=== PATIENT | female | born 1950 | race Caucasian/White ===

== ENCOUNTER → 2016-10-19 | Outpatient (CLI) | payer OTHER ==
[~2016-10-19] MED LIST: AMOX875T PO; ASPCH81X PO; ATEN50TA8 PO; ATOR-22 PO; CEPH500C2 PO; CHOL100010 PO; ESCI10TA17 PO; LEVO125T72 PO; LTR510 PO; NAPR1TAB9 PO; NXM/40 PO; SULF800T23 PO; SYN150 PO; ZNTT/150 PO
--- NOTE | 2016-10-19 16:11 | MAMMOGRAPHY REPORT ---
BILATERAL DIGITAL SCREENING MAMMOGRAM WITH CAD: 10/19/2016 CLINICAL HISTORY: Routine screening. Patient has no complaints. TECHNIQUE: Current study was also evaluated with a Computer Aided Detection (CAD) system. Bilatera l CC and MLO views were obtained. COMPARISON: Comparison is made to exams dated: 10/15/2015 mammogram, 10/13/2014 mammogram, 09/19/2013 m ammogram, 09/18/2012 mammogram, 09/18/2011 mammogram, and 09/15/2010 mammogram - [facility]. BREAST COMPOSITION: The tissue of both breasts is heterogeneously dense, which may obscure small ma sses. FINDINGS: No suspicious masses, calcifications, or areas of architectural distortion are noted in e ither breast. There has been no significant interval change compared to prior exams. Scattered bilat eral benign-appearing calcifications are not significantly changed. IMPRESSION: ACR BI-RADS CATEGORY 2: BENIGN There is no mammographic evidence of malignancy. A 1 year screening mammogram is recommended. The p atient will receive written notification of the results. Approximately 10% of breast cancers are not detected with mammography. A negative mammographic repor t should not delay biopsy if a clinically suggestive mass is present. Nereyda Mcclendon M.D. /:10/19/2016 12:32:50 Price Lister: Erma POTTS)(Felicitas)(LORENE), [facility] letter sent: Normal 1/2 BI-RADS Code: ACR BI-RADS Category 2: Benign
== END | disposition home or self-care (01) ==
LOC: C.MAMM 10:44
PROVIDERS: ATTEND Internal Medicine
DX: Z12.31 Encounter for screening mammogram for malignant neoplasm of breast (principal)

== ENCOUNTER 2016-11-03 11:21 | Emergency (ER) | payer OTHER ==
[~2016-11-03] VITALS: Ht 167.6 cm; Wt 99.2 kg
[~2016-11-03 11:21] MED LIST changes: -AMOX875T PO; -CEPH500C2 PO; -LEVO125T72 PO; -SULF800T23 PO; -ZNTT/150 PO
[2016-11-03 11:24] VITALS: TEMP 36.5; Ht 167.6 cm; Wt 99.2 kg
[2016-11-03 12:00] LABS: BASO % 0.5 %; BASO ABS # 0.02 K/uL (0-0.2); COMPLETE YES; EOS % 3.3 %; HEMATOCRIT 37.9 % (37-47); IG% 0.3 %; LYMPH % 19.5 %; LYMPH ABS # 0.76 K/uL (1.2-3.4); MEAN CELL VOLUME 91.3 fL (80-100); MEAN CORPUSCULAR HEMOGLOBIN 31.8 pg (25-34); MEAN CORPUSCULAR HGB CONC 34.8 g/dl (32-36); MEAN PLATELET VOLUME 9.4 fL (7.4-10.4); MONO % 15.7 %; NEUT % 60.7 %; PLATELET COUNT 221 K/uL (130-400); RED BLOOD COUNT 4.15 M/uL (4.2-5.4); WHITE BLOOD COUNT 3.89 K/uL (4.8-10.8)
[2016-11-03] MEDS ORDERED: CHOL100010 PO (12:06)
[2016-11-03] MEDS ORDERED: ZNTT/150 PO (12:06)
[2016-11-03] MEDS ORDERED: LEVO125T72 PO (12:06)
--- NOTE | 2016-11-03 12:16 | EMERGENCY ROOM VISIT NOTE ---
ED Visit Note First contact with patient: 11:32 I have personally evaluated and examined this patient. I agree with assessment and plan of Trini Lin PA-C. Patient is a 66-year-old female who comes in with right lower surgical site swelling and pain. She had a ganglion cyst removed a couple weeks ago was seen in her first postop when the stitches were removed. Not able to express any drainage, there is minimal pain with palpation and hyperpigmentation, however no erythema or lymphadenopathy or lymphangitis. We have sent baseline labs, we will obtain a x-ray, an attempt to get in touch with the primary surgeon at [place] for close follow-up for possible infection and inquire whether he would want us to start her on any antibiotics. I'm deferring antibiotic administration to the orthopedist in case they need to obtain a operative culture.
[2016-11-03 12:20] LABS: BUN/CREATININE RATIO 24.1 (10-20); CALCIUM 9.2 mg/dl (8.5-10.1); CREATININE 0.8 mg/dl (0.60-1.20)
--- NOTE | 2016-11-03 12:26 | DIAGNOSTIC IMAGING REPORT ---
RIGHT ANKLE 3 VIEWS CLINICAL HISTORY: Right ankle surgery. Purulent drainage. FINDINGS: 3 views the right ankle are compared to study dated 09/23/2006. The skeletal structures are osteopenic. No fracture is identified. The ankle mortise is intact. There is no evidence of periostitis or bony erosion. Large dorsal and plantar calcaneal enthesophytes are seen. Degenerative spurring is present at the anterior tibial plafond and along the dorsal aspect of the tarsal bones. Soft tissue edema is present around the ankle. No large joint effusion is identified. IMPRESSION: 1. Soft tissue swelling with no acute bony abnormality identified in the right ankle. 2. Osteopenia, degenerative change, and heel spurs as above. Electronically signed by: Chito Calle M.D. 11/03/2016 12:25 PM Dictated Date/Time: 11/03/2016 12:22 PM
[2016-11-03 12:55] VITALS: BP 126/66; PULSE 51; O2SAT 100
[2016-11-03] MEDS ORDERED: AMOX875T PO (13:02)
--- NOTE | 2016-11-03 13:07 | EMERGENCY ROOM VISIT NOTE ---
History First contact with patient: 11:32 Chief Complaint: WOUND INFECTION Stated Complaint: SURG. RT ANKLE POSSIBLE INFECTION Nursing Triage Summary: ganglion cyst removed from right ankle in [place] on 10/11/16. Has had issues with "puffy areas" and stitches removed last sunday. States "it was green and pussy and it was a mess". Not on ATB. Denies fever or chills. History of Present Illness The patient is a 66 year old female who presents to the Emergency Room via private vehicle coming by daughter with complaints of "surgery right ankle possible infection". The patient states that on October 11 at the [facility], [facility] [place] she had an operation of her right ankle on the lateral aspect. This was performed by Dr. Javier, and the patient states that things have gone well since then. The patient was informed that while tending to remove the cyst it did break but the area was thoroughly irrigated. The patient states that this past weekend she noticed redness and worsening pain in the area. For the past 2 weeks she has been taking 2 extra strength Tylenol every 8 hours for the pain. She denies any fevers or chills. Review of Systems A complete 10-point Review of Systems was discussed with the patient, with pertinent positives and negatives listed in the History of Present Illness. All remaining Review of Systems questions can be considered negative unless otherwise specified. Past Medical/Surgical History Medical Problems: (1) Coronary artery disease (2) Diabetes (3) HTN (hypertension) Family History Cancer Heart disease Hypertension Social History Smoking Status: Never Smoker Alcohol Use: none Marital Status: Housing Status: lives with significant other Occupation Status: unemployed Current/Historical Medications Scheduled Amlodipine/Benazepril (Lotrel 5MG/10MG), 1 CAP PO QAM Amoxicillin & Pot Clavulanate (Augmentin 875-125 mg), 1 TAB PO BID Aspirin (Aspirin Chewable), 81 MG PO QPM Atenolol (Tenormin), 50 MG PO BID Atorvastatin (Lipitor), 20 MG PO QPM Cholecalciferol (Vitamin D), 1 INTER.UNIT PO QAM Escitalopram (Lexapro), 10 MG PO 3XWK Levothyroxine Sodium (Synthroid), 125 MCG PO DAILY Ranitidine (Zantac), 150 MG PO DAILY Scheduled PRN Naproxen (Aleve), 440 MG PO DAILY PRN for PRN Allergies Coded Allergies: Acetaminophen (Verified Allergy, Unknown, ITCHY, 11/03/16) Hydrocodone (Verified Allergy, Unknown, ITCHY, 11/03/16) Physical Exam Vital Signs Date Time Temp Pulse Resp B/P Pulse Ox O2 Delivery O2 Flow Rate FiO2 11/03/16 12:55 51 18 126/66 100 Room Air 11/03/16 11:24 36.5 66 18 127/78 96 Room Air Physical Exam VITAL SIGNS - Vital signs and nursing notes were reviewed. The patient is afebrile, normotensive, non-tachycardic and is saturating well on room air 96%. GENERAL -66-year-old female appearing her stated age who is in no acute distress. Communicates well with provider and answers questions appropriately. SKIN - Without rashes. There is a slight area of erythema surrounding the linear incision on the lateral aspect of the right ankle. This erythematous region measures 7 cm x 4 cm. There was slight purulent material expressed upon slight active range of motion of the ankle. NECK - Neck with FROM. No meningeal signs. LUNGS - Chest wall symmetric without accessory muscle use, intercostals retractions, or central cyanosis. Normal vesicular breath sounds CTA B/L. No wheezes, rales, or rhonchi appreciated. CARDIAC - RRR with S1/S2. No murmur, rubs, or gallops appreciated. EXTREMITIES - No clubbing or peripheral cyanosis. No pretibial edema present. Patient is vascularly intact in the right lower extremity. There is tenderness to palpation overlying the incision. Incision is healing well, there is evidence of what is suspected to be Vicryl suture. No evidence of retained permanent suture material. +5/5 strength noted in UE/LE bilaterally. NEUROLOGIC -patient neurologically intact in the right foot. PSYCH - A&Ox3 and cooperates fully with examiner. Pt is very pleasant and interacts well with examiner. Medical Decision & Procedures ER Provider Diagnostic Interpretation: RIGHT ANKLE 3 VIEWS CLINICAL HISTORY: Right ankle surgery. Purulent drainage. FINDINGS: 3 views the right ankle are compared to study dated 09/23/2006. The skeletal structures are osteopenic. No fracture is identified. The ankle mortise is intact. There is no evidence of periostitis or bony erosion. Large dorsal and plantar calcaneal enthesophytes are seen. Degenerative spurring is present at the anterior tibial plafond and along the dorsal aspect of the tarsal bones. Soft tissue edema is present around the ankle. No large joint effusion is identified. IMPRESSION: 1. Soft tissue swelling with no acute bony abnormality identified in the right ankle. 2. Osteopenia, degenerative change, and heel spurs as above. Electronically signed by: Chito Calle M.D. 11/03/2016 12:25 PM Dictated Date/Time: 11/03/2016 12:22 PM Laboratory Results 11/03/16 11:50 Red Blood Count 4.15, Mean Corpuscular Volume 91.3, Mean Corpuscular Hemoglobin 31.8, Mean Corpuscular Hemoglobin Concent 34.8, Mean Platelet Volume 9.4, Neutrophils (%) (Auto) 60.7, Lymphocytes (%) (Auto) 19.5, Monocytes (%) (Auto) 15.7, Eosinophils (%) (Auto) 3.3, Basophils (%) (Auto) 0.5, Neutrophils # (Auto ) 2.36, Lymphocytes # (Auto) 0.76, Monocytes # (Auto) 0.61, Eosinophils # (Auto ) 0.13, Basophils # (Auto) 0.02 11/03/16 11:50 Test 11/03/16 11:50 White Blood Count 3.89 K/uL (4.8-10.8) Red Blood Count 4.15 M/uL (4.2-5.4) Hemoglobin 13.2 g/dL (12.0-16.0) Hematocrit 37.9 % (37-47) Mean Corpuscular Volume 91.3 fL (80-100) Mean Corpuscular Hemoglobin 31.8 pg (25-34) Mean Corpuscular Hemoglobin Concent 34.8 g/dl (32-36) Platelet Count 221 K/uL (130-400) Mean Platelet Volume 9.4 fL (7.4-10.4) Neutrophils (%) (Auto) 60.7 % Lymphocytes (%) (Auto) 19.5 % Monocytes (%) (Auto) 15.7 % Eosinophils (%) (Auto) 3.3 % Basophils (%) (Auto) 0.5 % Neutrophils # (Auto) 2.36 K/uL (1.4-6.5) Lymphocytes # (Auto) 0.76 K/uL (1.2-3.4) Monocytes # (Auto) 0.61 K/uL (0.11-0.59) Eosinophils # (Auto) 0.13 K/uL (0-0.5) Basophils # (Auto) 0.02 K/uL (0-0.2) RDW Standard Deviation 44.9 fL (36.4-46.3) RDW Coefficient of Variation 13.5 % (11.5-14.5) Immature Granulocyte % (Auto) 0.3 % Immature Granulocyte # (Auto) 0.01 K/uL (0.00-0.02) Anion Gap 8.0 mmol/L (3-11) Est Creatinine Clear Calc Drug Dose 82.2 ml/min Estimated GFR () 89.0 Estimated GFR (Non- 76.8 BUN/Creatinine Ratio 24.1 (10-20) Calcium Level 9.2 mg/dl (8.5-10.1) Medical Decision Patient was seen and evaluated as above. After obtaining a thorough history and physical examination I did elect to obtain IV access to evaluate for white count secondary to suspected infection. I obtained a CBC and PRP. I also elected to obtain a right ankle radiograph to rule out retained foreign body from the procedure. CBC revealed decreased white blood cell count 3.9, and decreased her blood cell count was 4.15. The PRP revealed elevated BUN, as well as elevated random glucose. Creatinine was stable. The BUN was elevated in the past, particularly 22 in August 2014. The red blood cell count was also 4.02 in August 2014. Ankle radiograph reveals no retained foreign body or acute injury. Patient was educated upon today's findings. I did elect to call the surgical individuals at [facility] [place] who performed the procedure. I spoke with Prashanth Yan, a physician stonecutter assistant. Culture place at 12:19 PM who indicated the patient was actually offered an appointment today at 3:30 PM, and because the patient was here and unable to make that he stated that they would be happy to see her on Sunday at 3:30 PM on November 07. He also found to be portillo to start her on antibiotics, and offered Augmentin. I decided to write a prescription for Augmentin for the patient for a 10 day supply. I do believe this is appropriate. I was unable to obtain the wound culture. The patient will be placed upon Augmentin 875 twice a day for 10 days and is to follow-up with the [facility] and [facility] at 3:30 PM on Sunday at . She was instructed to have repeat basic labs done to ensure that her white count and red blood cell count returned normal. She was educated upon management of today's findings, educated upon worrisome symptoms in which to return, had questions answered prior to discharge and was discharged home in good condition. The patient did note that she did call down to [facility] [place] earlier today and they offered her appointment however she did not feel that she could make it in time for the time that they offered, therefore she came to the emergency department. I this time feel that oral antibiotics are appropriate and do not suspect any sepsis or evidence of lymphangitic streaking. In evaluation treatment of this patient the following differential diagnoses were entertained: Sepsis, septic arthritis, retained foreign body, cellulitis, among others. I do believe the patient is experiencing cellulitis at this time. Impression Primary Impression: Cellulitis Departure Information Dispostion Home / Self-Care Condition GOOD Prescriptions Amoxicillin & Pot Clavulanate (Augmentin 875-125 mg) 1 Tab Tab 1 TAB PO BID for 10 Days, #20 TAB Prov: Cliff Lin PA-C 11/03/16 Referrals No Doctor, Assigned (PCP) Patient Instructions My [facility] Additional Instructions You were seen in the emergency Department for a skin infection overlying a surgical incision. Blood work has not revealed any indication to provide IV antibiotics. As we discussed it is recommended you have basic blood work repeated with her family doctor. We are prescribing your Augmentin. This is an antibiotic. This is one tablet twice daily for 10 days. I spoke with Prashanth Yan PA-C of the [facility] [place] at [facility] who indicated that you had an appointment now scheduled for Sunday at 3:30 PM which is the of this month. I also antonella a line around the area of redness if this would extend beyond half an inch please return and if this is not getting any better in 48 hours please return. If you develop any fevers, chills or any new/concerning symptoms please return to the emergency Department immediately. Problem Qualifiers Primary Impression: Cellulitis Site of cellulitis: extremity Site of cellulitis of extremity: lower extremity Laterality: right Qualified Codes: L03.115 - Cellulitis of right lower limb
== END 2016-11-03 13:22 | disposition home or self-care (01) ==
LOC: C.EDB 11:23 → C.EDD 13:22
DX: L03.115 Cellulitis of right lower limb (principal); R79.9 Abnormal finding of blood chemistry, unspecified; D72.819 Decreased white blood cell count, unspecified; I25.10 Atherosclerotic heart disease of native coronary artery without angina pectoris; I10 Essential (primary) hypertension; E11.9 Type 2 diabetes mellitus without complications; Z82.49 Family history of ischemic heart disease and other diseases of the circulatory system; Z83.3 Family history of diabetes mellitus

== ENCOUNTER 2016-11-04 21:20 | Emergency (ER) | payer OTHER ==
[~2016-11-04] VITALS: Ht 167.6 cm; Wt 99.2 kg
[~2016-11-04 21:20] MED LIST changes: +AMOX875T PO; +LEVO125T72 PO; +ZNTT/150 PO
[2016-11-04 21:23] VITALS: TEMP 36.5; Ht 167.6 cm; Wt 99.2 kg
[2016-11-04] MEDS ORDERED: CEFTRIAXONE SOD INJ 1 GM ADDVIAL IV STA (21:51)
[2016-11-04 21:54] VITALS: O2SAT 98
[2016-11-04] MEDS ORDERED: OPTIRAY 320 IV PRN (22:15)
[2016-11-04 22:36] LABS: BASO % 0.9 %; BASO ABS # 0.04 K/uL (0-0.2); COMPLETE YES; EOS % 3.9 %; HEMATOCRIT 38.7 % (37-47); LYMPH % 20.1 %; LYMPH ABS # 0.87 K/uL (1.2-3.4); MEAN CELL VOLUME 93.3 fL (80-100); MEAN CORPUSCULAR HEMOGLOBIN 32.3 pg (25-34); MEAN CORPUSCULAR HGB CONC 34.6 g/dl (32-36); MEAN PLATELET VOLUME 9.5 fL (7.4-10.4); MONO % 16.4 %; NEUT % 58.7 %; PLATELET COUNT 225 K/uL (130-400); RED BLOOD COUNT 4.15 M/uL (4.2-5.4); WHITE BLOOD COUNT 4.33 K/uL (4.8-10.8)
[2016-11-04 22:44] LABS: PARTIAL THROMBOPLASTIN RATIO 0.8; PROTHROMBIN TIME (PATIENT) 10.9 SECONDS (9.0-12.0)
[2016-11-04 22:52] LABS: ALT/SGPT 34 U/L (12-78); BLOOD UREA NITROGEN 14 mg/dl (7-18); BUN/CREATININE RATIO 19.4 (10-20); C-REACTIVE PROTEIN < 0.29 mg/dl (0-0.29); CARBON DIOXIDE 28 mmol/L (21-32); CHLORIDE 109 mmol/L (98-107); CREATININE 0.72 mg/dl (0.60-1.20); GLUCOSE 84 mg/dl (70-99); POTASSIUM 4.1 mmol/L (3.5-5.1); SODIUM 145 mmol/L (136-145)
[2016-11-04 22:55] LABS: ALB/GLOB RATIO 1.4 (0.9-2); ALKALINE PHOSPHATASE 84 U/L (45-117); AST/SGOT 23 U/L (15-37)
--- NOTE | 2016-11-04 22:56 | DIAGNOSTIC IMAGING REPORT ---
ULTRASOUND VENOUS DOPPLER ULTRASOUND OF THE RIGHT LOWER EXTREMITY CLINICAL HISTORY: Right leg swelling. COMPARISON STUDY: No previous studies for comparison. FINDINGS: Real-time and color flow Doppler imaging were performed. Flow was seen within the femoral, popliteal and calf veins with no intraluminal thrombus demonstrated. The saphenous vein is patent. IMPRESSION: No evidence of right lower extremity DVT. Electronically signed by: Christian Merchant M.D. 11/04/2016 10:55 PM Dictated Date/Time: 11/04/2016 10:55 PM
[2016-11-05] MEDS ORDERED: CEPH500C2 PO (01:10)
[2016-11-05] MEDS ORDERED: SULF800T23 PO (01:10)
[2016-11-05] MEDS ORDERED: CEPHALEXIN 500MG HOME PACK 1 EA BTL PO ONE (01:15)
[2016-11-05] MEDS ORDERED: SEPTRA DS HOME PACK 1 EA VIAL PO ONE (01:15)
[2016-11-05 01:16] VITALS: BP 141/74; PULSE 58; O2SAT 96
--- NOTE | 2016-11-05 04:45 | EMERGENCY ROOM VISIT NOTE ---
History First contact with patient: 21:39 Chief Complaint: INFECTION Stated Complaint: HAD SURG ON R ANKLE, INFECTION, History of Present Illness The patient is a 66 year old female who presents to the Emergency Room with complaints of increasing right ankle pain and swelling for the past 2 days was seen here yesterday and started on Augmentin for possible postsurgical infection. She had a ganglion cyst removed from this right ankle general for by Dr. Mckinley at [facility]. Patient does not smoke. No recent travel. No history DVT or PE. Patient denies chest pain, dyspnea, fever, chills, vomiting, diarrhea, numbness, tingling, abdominal pain. No new injury to the area. Review of Systems See HPI for pertinent positives & negatives. A total of 10 systems reviewed and were otherwise negative. Past Medical/Surgical History Medical Problems: (1) Coronary artery disease (2) Diabetes (3) HTN (hypertension) Family History Cancer Heart disease Hypertension Social History Smoking Status: Never Smoker Alcohol Use: none Marital Status: Housing Status: lives with significant other Occupation Status: unemployed Current/Historical Medications Scheduled Amlodipine/Benazepril (Lotrel 5MG/10MG), 1 CAP PO QAM Amoxicillin & Pot Clavulanate (Augmentin 875-125 mg), 1 TAB PO BID Aspirin (Aspirin Chewable), 81 MG PO QPM Atenolol (Tenormin), 50 MG PO BID Atorvastatin (Lipitor), 20 MG PO QPM Cephalexin Monohydrate (Keflex), 500 MG PO QID Cholecalciferol (Vitamin D), 1 INTER.UNIT PO QAM Escitalopram (Lexapro), 10 MG PO 3XWK Levothyroxine Sodium (Synthroid), 125 MCG PO DAILY Ranitidine (Zantac), 150 MG PO DAILY Sulfa/Trimethoprim (Bactrim Ds 800MG/160MG), 1 TAB PO BID Scheduled PRN Naproxen (Aleve), 440 MG PO DAILY PRN for PRN Allergies Coded Allergies: Acetaminophen (Verified Allergy, Unknown, ITCHY, 11/04/16) Hydrocodone (Verified Allergy, Unknown, ITCHY, 11/04/16) Physical Exam Vital Signs Date Time Temp Pulse Resp B/P Pulse Ox O2 Delivery O2 Flow Rate FiO2 11/05/16 01:16 58 18 141/74 96 Room Air 11/04/16 23:39 56 18 125/74 96 Room Air 11/04/16 22:28 55 20 120/70 96 Room Air 11/04/16 21:54 98 Room Air 11/04/16 21:23 36.5 67 18 130/89 98 Room Air Physical Exam VITALS: Vitals are noted on the nurse's note and reviewed by myself. Vital signs stable. GENERAL: Pleasant female, in no acute distress, nondiaphoretic, well-developed well-nourished. SKIN: Capillary reflex less than 2 seconds. HEENT: Normocephalic. PERRLA. EOMI. Nares patent. Mucous membranes moist. Neck is supple without nuchal rigidity. HEART: Regular rate and rhythm LUNGS: Clear to auscultation bilaterally without wheezes, rales or rhonchi. No retractions or accessory muscle use. ABDOMEN: Positive bowel sounds x 4. Normal tympanic percussion. Soft, nontender, without masses or organomegaly. Mora sign negative. No guarding or rebound tenderness. MUSCULOSKELETAL: No gross musculoskeletal defects. + right calf tenderness. Right lower ankle incisional site with mild erythema with minimal right lower leg edema. Pedal pulses +2 equal present bilaterally. No lymphangitis NEURO: Patient was alert and oriented to person place and time. Normal sensation to light and sharp touch. No focal neurological deficits. Medical Decision & Procedures Laboratory Results 11/04/16 22:17 Red Blood Count 4.15, Mean Corpuscular Volume 93.3, Mean Corpuscular Hemoglobin 32.3, Mean Corpuscular Hemoglobin Concent 34.6, Mean Platelet Volume 9.5, Neutrophils (%) (Auto) 58.7, Lymphocytes (%) (Auto) 20.1, Monocytes (%) (Auto) 16.4, Eosinophils (%) (Auto) 3.9, Basophils (%) (Auto) 0.9, Neutrophils # (Auto ) 2.54, Lymphocytes # (Auto) 0.87, Monocytes # (Auto) 0.71, Eosinophils # (Auto ) 0.17, Basophils # (Auto) 0.04 11/04/16 22:17 Test 11/04/16 22:17 11/04/16 22:27 White Blood Count 4.33 K/uL (4.8-10.8) Red Blood Count 4.15 M/uL (4.2-5.4) Hemoglobin 13.4 g/dL (12.0-16.0) Hematocrit 38.7 % (37-47) Mean Corpuscular Volume 93.3 fL (80-100) Mean Corpuscular Hemoglobin 32.3 pg (25-34) Mean Corpuscular Hemoglobin Concent 34.6 g/dl (32-36) Platelet Count 225 K/uL (130-400) Mean Platelet Volume 9.5 fL (7.4-10.4) Neutrophils (%) (Auto) 58.7 % Lymphocytes (%) (Auto) 20.1 % Monocytes (%) (Auto) 16.4 % Eosinophils (%) (Auto) 3.9 % Basophils (%) (Auto) 0.9 % Neutrophils # (Auto) 2.54 K/uL (1.4-6.5) Lymphocytes # (Auto) 0.87 K/uL (1.2-3.4) Monocytes # (Auto) 0.71 K/uL (0.11-0.59) Eosinophils # (Auto) 0.17 K/uL (0-0.5) Basophils # (Auto) 0.04 K/uL (0-0.2) RDW Standard Deviation 46.1 fL (36.4-46.3) RDW Coefficient of Variation 13.5 % (11.5-14.5) Immature Granulocyte % (Auto) 0.0 % Immature Granulocyte # (Auto) 0.00 K/uL (0.00-0.02) Erythrocyte Sedimentation Rate 3 mm/hr (0-21) Prothrombin Time 10.9 SECONDS (9.0-12.0) Prothromb Time International Ratio 1.0 (0.9-1.1) Activated Partial Thromboplast Time 20.1 SECONDS (21.0-31.0) Partial Thromboplastin Ratio 0.8 Anion Gap 8.0 mmol/L (3-11) Est Creatinine Clear Calc Drug Dose 91.3 ml/min Estimated GFR () 101.1 Estimated GFR (Non- 87.3 BUN/Creatinine Ratio 19.4 (10-20) Calcium Level 9.0 mg/dl (8.5-10.1) Total Bilirubin 0.5 mg/dl (0.2-1) Aspartate Amino Transf (AST/SGOT) 23 U/L (15-37) Alanine Aminotransferase (ALT/SGPT) 34 U/L (12-78) Alkaline Phosphatase 84 U/L (45-117) C-Reactive Protein < 0.29 mg/dl (0-0.29) Total Protein 7.0 gm/dl (6.4-8.2) Albumin 4.1 gm/dl (3.4-5.0) Globulin 2.9 gm/dl (2.5-4.0) Albumin/Globulin Ratio 1.4 (0.9-2) Bedside Lactic Acid Venous 0.65 mmol/L (0.90-1.70) Medications Administered Medications (Trade) Dose Ordered Sig/Lachelle Route Start Time Stop Time Status Last Admin Dose Admin Ceftriaxone Sodium (Rocephin Inj) 1 gm NOW STAT IV 11/04/16 21:51 11/04/16 21:54 DC 11/04/16 22:29 1 GM Cephalexin Monohydrate (Keflex 500MG Home Pack) 1 homepack NOW ONCE PO 11/05/16 01:15 11/05/16 01:16 DC 11/05/16 01:16 1 HOMEPACK Trimethoprim/ Sulfamethoxazole (Sulfameth/ Trimeth Ds 800/ 160MG Home Pack) 1 homepack UD ONCE PO 11/05/16 01:15 11/05/16 01:16 DC 11/05/16 01:17 1 HOMEPACK ED Course Prior records reviewed and summarized above. Triage Nursing notes reviewed. Additional history obtained from the family. The patient's history was concerning for swelling and pain in the leg. Differential diagnosis: Etiologies such as postsurgical infection, DVT, musculoskeletal, infection, joint effusion, trauma, lymphedema, idiopathic, CHF, as well as others were entertained.. Physical examination: The physical examination revealed no signs of infection. Neurovascularly intact. ER treatment provided: Rocephin On reassessment the patient felt better. Diagnostics interpreted by me: The labs revealed negative lactic acid. No leukocytosis. Normal sedimentation rate and CRP Imaging studies: CT was concerning for cellulitis per stat radiology No DVT on ultrasound per stat radiology Consultation: A consultation was placed with Dr. Goodrich from [facility] orthopedics . The case was discussed and diagnostics were reviewed. He recommends switching to Keflex and Bactrim and they will see the patient this week in clinic for follow- up. He recommends discharge. He does not think there is ostomy mellitus. This appears to be consistent with cellulitis that is minimal to the right lower leg. Patient was switched antibiotics. She was advised that if the clinic does not collar by noon on Sunday then to call them for follow-up on Sunday or Sunday. She was advised that if the redness progressed or if she begins to have fevers to return to the ER immediately. Patient was neurovascularly and neurologically intact. She had a normal sedimentation rate and CRP. No white count.. By the evaluation outlined above emergent etiologies such as DVT, septic joint, trauma, CHF, as well as others were deemed relatively unlikely. The pt informed about the findings as listed above. All questions were answered and pleased with the treatment. Return instructions were outlined and the patient was discharged in stable condition. Outpatient prescription management: Keflex, Bactrim Referral: The patient was referred back to their orthopedic surgeon for follow-up in 2 to 3 days for a recheck of the current condition. Case reviewed with my attending Medical Decision As above Impression Primary Impression: Cellulitis of right lower leg Departure Information Prescriptions Sulfa/Trimethoprim (Bactrim Ds 800MG/160MG) Tab 1 TAB PO BID for 9 Days, #18 TAB Prov: Michelle Gaston .JACKI 11/05/16 Cephalexin Monohydrate (KEFLEX) 500 Mg Cap 500 MG PO QID for 9 Days, #36 CAP Prov: Michelle Gaston .JACKI 11/05/16 Referrals Alannah Hassan M.D. (PCP) Patient Instructions My [facility]
--- NOTE | 2016-11-05 06:51 | DIAGNOSTIC IMAGING REPORT ---
RIGHT ANKLE CT CT DOSE: 460.96 mGy.cm HISTORY: severe right ankle pain with drainage, surgery 4Jan, ? infx TECHNIQUE: Multiaxial CT images of the right ankle were performed and reformatted in the sagittal and coronal plane following the use of intravenous contrast. COMPARISON: Right ankle 11/03/2016. FINDINGS: No fracture or dislocation within the right ankle. Subcutaneous edema along the lateral malleolus. Mild degenerative changes at the tibiotalar joint. A 3 mm subchondral lucency at the medial talus favors an old osteochondral defect. Inferior to and abutting the distal tip of the fibula there is a 2.4 x 1.0 x 1.0 cm peripherally enhancing fluid collection within the subcutaneous fat. This likely represents an abscess. There is an associated small focal area of cortical obstruction of the distal tip of the fibula. This is consistent with osteomyelitis. No joint effusion identified. IMPRESSION: A 2.4 x 1.0 x 1.0 cm peripheral enhancing fluid collection inferior to and abutting the distal tip of the fibula. This likely represents an abscess. There is a small focal area of cortical destruction at the distal tip of the fibula consistent with osteomyelitis. Electronically signed by: Farzad Ray M.D. 11/05/2016 6:50 AM Dictated Date/Time: 11/05/2016 6:43 AM
== END 2016-11-05 01:19 | disposition home or self-care (01) ==
LOC: C.EDB 21:21 → C.EDA 11-05 01:19
DX: L03.115 Cellulitis of right lower limb (principal); I25.10 Atherosclerotic heart disease of native coronary artery without angina pectoris; E11.9 Type 2 diabetes mellitus without complications; I10 Essential (primary) hypertension; Z82.49 Family history of ischemic heart disease and other diseases of the circulatory system; Z79.82 Long term (current) use of aspirin

== ENCOUNTER → 2016-11-24 | Outpatient (CLI) | payer OTHER ==
[~2016-11-24] MED LIST changes: -AMOX875T PO; -NXM/40 PO; -SYN150 PO
[2016-11-24 12:05] LABS: HEMATOCRIT 38.4 % (37-47); MEAN CELL VOLUME 92.1 fL (80-100); MEAN CORPUSCULAR HEMOGLOBIN 31.2 pg (25-34); MEAN CORPUSCULAR HGB CONC 33.9 g/dl (32-36); MEAN PLATELET VOLUME 9.8 fL (7.4-10.4); PLATELET COUNT 210 K/uL (130-400); RED BLOOD COUNT 4.17 M/uL (4.2-5.4); WHITE BLOOD COUNT 5.38 K/uL (4.8-10.8)
[2016-11-24 12:17] LABS: ALT/SGPT 32 U/L (12-78); AST/SGOT 22 U/L (15-37); BLOOD UREA NITROGEN 19 mg/dl (7-18); BUN/CREATININE RATIO 28.9 (10-20); CALCIUM 8.3 mg/dl (8.5-10.1); CARBON DIOXIDE 27 mmol/L (21-32); CHLORIDE 106 mmol/L (98-107); CREATININE 0.67 mg/dl (0.60-1.20); GLUCOSE 89 mg/dl (70-99); POTASSIUM 4.2 mmol/L (3.5-5.1); SODIUM 141 mmol/L (136-145)
[2016-11-24 12:26] LABS: ALB/GLOB RATIO 1.3 (0.9-2); ALKALINE PHOSPHATASE 71 U/L (45-117); CHOLESTEROL 119 mg/dl (0-200); HDL CHOLESTEROL 61 mg/dl; LDL CHOLESTEROL CALCULATED 40 mg/dl; TRIGLYCERIDES 92 mg/dl (0-150); VERY LOW DENSITY LIPOPROT CALC 18 mg/dl
== END | disposition home or self-care (01) ==
LOC: C.LABPBG 08:42
PROVIDERS: ATTEND Internal Medicine
DX: E78.00 Pure hypercholesterolemia, unspecified (principal); E03.9 Hypothyroidism, unspecified; K21.9 Gastro-esophageal reflux disease without esophagitis; R13.10 Dysphagia, unspecified

== ENCOUNTER → 2017-01-12 | Outpatient (CLI) | payer OTHER ==
--- NOTE | 2017-01-12 18:09 | DIAGNOSTIC IMAGING REPORT ---
RIGHT FOOT 3 VIEWS HISTORY: PAIN IN R FOOT, CONTUSION OF R FOOT Right COMPARISON: None. FINDINGS: There is no fracture or dislocation. Dorsal soft tissue tissue swelling at the MTP joints. Moderate osteoarthritis within the DIP, PIP, and first MTP joint. The Lisfranc joint appears intact. Plantar and posterior calcaneal spurs. Mild degenerative changes within the tarsal bones. IMPRESSION: No fractures within the right foot. Dorsal soft tissue swelling at the MTP joints. Electronically signed by: Farzad Ray M.D. 01/12/2017 6:07 PM Dictated Date/Time: 01/12/2017 6:05 PM
== END | disposition home or self-care (01) ==
LOC: C.RAD 17:34
PROVIDERS: ATTEND Internal Medicine
DX: S90.31XA Contusion of right foot, initial encounter (principal); X58.XXXA Exposure to other specified factors, initial encounter

== ENCOUNTER → 2017-04-09 | Outpatient (CLI) | payer OTHER ==
[2017-04-09 12:48] LABS: ALT/SGPT 38 U/L (12-78); AST/SGOT 26 U/L (15-37); BLOOD UREA NITROGEN 24 mg/dl (7-18); BUN/CREATININE RATIO 36.8 (10-20); CALCIUM 8.8 mg/dl (8.5-10.1); CARBON DIOXIDE 27 mmol/L (21-32); CHLORIDE 107 mmol/L (98-107); CREATININE 0.65 mg/dl (0.60-1.20); GLUCOSE 94 mg/dl (70-99); POTASSIUM 4.3 mmol/L (3.5-5.1); SODIUM 140 mmol/L (136-145)
[2017-04-09 12:50] LABS: ALB/GLOB RATIO 1.3 (0.9-2); ALKALINE PHOSPHATASE 74 U/L (45-117); ESTIMATED AVERAGE GLUCOSE 123 mg/dl; HA1C FLAG Normal (Normal)
== END | disposition home or self-care (01) ==
LOC: C.LABPBG 10:14
PROVIDERS: ATTEND Internal Medicine
DX: E11.9 Type 2 diabetes mellitus without complications (principal); I10 Essential (primary) hypertension

== ENCOUNTER → 2017-07-12 | Outpatient (CLI) | payer OTHER ==
[2017-07-12 12:33] LABS: BASO % 0.9 %; BASO ABS # 0.04 K/uL (0-0.2); COMPLETE YES; EOS % 4.6 %; IG% 0.2 %; LYMPH % 17.9 %; LYMPH ABS # 0.81 K/uL (1.2-3.4); MEAN CORPUSCULAR HEMOGLOBIN 32.3 pg (25-34); MEAN CORPUSCULAR HGB CONC 34.4 g/dl (32-36); MONO % 9.9 %; NEUT % 66.5 %; PLATELET COUNT 206 K/uL (130-400); RED BLOOD COUNT 4.15 M/uL (4.2-5.4); WHITE BLOOD COUNT 4.53 K/uL (4.8-10.8)
[2017-07-12 13:04] LABS: ALB/GLOB RATIO 1.4 (0.9-2); ALKALINE PHOSPHATASE 72 U/L (45-117); ALT/SGPT 36 U/L (12-78); AST/SGOT 24 U/L (15-37); BLOOD UREA NITROGEN 19 mg/dl (7-18); BUN/CREATININE RATIO 28.9 (10-20); CALCIUM 8.6 mg/dl (8.5-10.1); CARBON DIOXIDE 26 mmol/L (21-32); CHLORIDE 109 mmol/L (98-107); CREATININE 0.67 mg/dl (0.60-1.20); GLUCOSE 108 mg/dl (70-99); SODIUM 141 mmol/L (136-145)
== END | disposition home or self-care (01) ==
LOC: C.LABPBG 08:36
PROVIDERS: ATTEND Internal Medicine
DX: M25.571 Pain in right ankle and joints of right foot (principal); E11.9 Type 2 diabetes mellitus without complications; I10 Essential (primary) hypertension

== ENCOUNTER → 2017-07-13 | Outpatient (CLI) | payer OTHER ==
--- NOTE | 2017-07-13 12:30 | DIAGNOSTIC IMAGING REPORT ---
R ANKLE MIN 3 VIEWS ROUTINE CLINICAL HISTORY: Right ankle pain. COMPARISON: Right ankle radiographs November 03, [address] of the right ankle November 04, 2016. FINDINGS: Alignment of the right ankle is anatomic. An old osteochondral defect within the medial talar dome is unchanged. No acute fracture is identified. There is extensive posterior and plantar calcaneal spurring. Apparent mild erosion of the fibular tip is similar to prior CT. IMPRESSION: 1. No acute fracture. 2. No significant change in apparent subtle erosion of the fibular tip since CT of November 04, 2016. No change since previous exam. Electronically signed by: Chacho Dewey M.D. 07/13/2017 12:29 PM Dictated Date/Time: 07/13/2017 12:26 PM
--- NOTE | 2017-07-13 13:22 | DIAGNOSTIC IMAGING REPORT ---
R FOOT MIN 3 VIEWS ROUTINE CLINICAL HISTORY: Right foot pain. COMPARISON: Right foot radiographs January 12, 2017. FINDINGS: Alignment of the right foot is anatomic. Tarsometatarsal joints are intact. There is moderate posterior and plantar calcaneal spurring. No fracture or suspicious lesion is evident. There is mild to moderate arthritis within multiple articulations of the right foot, including the midfoot and right first metatarsophalangeal joint. IMPRESSION: 1. No acute fracture or dislocation within the right foot. 2. 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 3. Moderate posterior and plantar calcaneal spurring. Electronically signed by: Chacho Dewey M.D. 07/13/2017 1:21 PM Dictated Date/Time: 07/13/2017 1:19 PM
== END | disposition home or self-care (01) ==
LOC: C.RAD 10:38
PROVIDERS: ATTEND Internal Medicine
DX: M25.571 Pain in right ankle and joints of right foot (principal); M19.071 Primary osteoarthritis, right ankle and foot; M77.31 Calcaneal spur, right foot

== ENCOUNTER → 2017-11-22 | Outpatient (CLI) | payer OTHER ==
[~2017-11-22] MED LIST changes: +RANI150T85 PO; -ZNTT/150 PO
--- NOTE | 2017-11-22 15:10 | MAMMOGRAPHY REPORT ---
BILATERAL DIGITAL SCREENING MAMMOGRAM TOMOSYNTHESIS WITH CAD: 11/22/2017 CLINICAL HISTORY: Routine screening. Patient has no complaints. TECHNIQUE: Breast tomosynthesis in addition to standard 2D mammography was performed. Current study was also evaluated with a Computer Aided Detection (CAD) system. COMPARISON: Comparison is made to exams dated: 10/19/2016 mammogram, 10/15/2015 mammogram, 10/13/2014 charissa mogram, 09/19/2013 mammogram, 09/18/2012 mammogram, and 09/18/2011 mammogram - [facility]. BREAST COMPOSITION: The tissue of both breasts is heterogeneously dense, which may obscure small mas ses. FINDINGS: No suspicious masses, calcifications, or areas of architectural distortion are noted in ei ther breast. There has been no significant interval change compared to prior exams. Scattered bilater al benign-appearing calcifications are not significantly changed. IMPRESSION: ACR BI-RADS CATEGORY 2: BENIGN There is no mammographic evidence of malignancy. A 1 year screening mammogram is recommended. The pa tient will receive written notification of the results. Approximately 10% of breast cancers are not detected with mammography. A negative mammographic report should not delay biopsy if a clinically suggestive mass is present. Nereyda Mcclendon M.D. /:11/22/2017 12:40:42 Community Service Officer: Jorge Tavera M, [facility] letter sent: Normal 1/2 BI-RADS Code: ACR BI-RADS Category 2: Benign
== END | disposition home or self-care (01) ==
LOC: C.MAMM 10:42
PROVIDERS: ATTEND Internal Medicine
DX: Z12.31 Encounter for screening mammogram for malignant neoplasm of breast (principal)

== ENCOUNTER 2022-07-08 13:55 | Observation (INO) ==
[2022-07-08] MEDS ORDERED: SODIUM CHLORIDE 0.9% 500 ML IV STA (14:14)
[2022-07-08] MEDS ORDERED: SODIUM CHLORIDE 0.9% 1000ML 1,000 ML IV STA (14:14)
[2022-07-08] MEDS ORDERED: ONDANSETRON INJ 2 MG/ML 2 ML VIAL IV STA (14:14)
[2022-07-08] MEDS ORDERED: SODIUM CHLORIDE 0.9% 1000ML 1,000 ML IV ONE (14:32)
[2022-07-08] MEDS ORDERED: HYDROmorphone INJ 0.5 MG/0.5 ML SYR IV PRN (14:33)
--- NOTE | 2022-07-08 14:42 | Emergency Department Note ---
Impression & Plan Abdominal pain, acute, epigastric, Nausea & vomiting ED Provider Note INFORMANT: Patient ED PROVIDER(S): Arsalan Garcia MD CHIEF COMPLAINT: Abdominal pain PLAN: Disposition: Admitted Condition: Good Outpatient prescription management: none Referral: None MEDICAL DECISION MAKING: Patient presented because of abdominal pain. She has a long history of pancreatitis and stated this felt the same. She was given a normal saline bolus, Zofran, and Dilaudid for symptom control. She was started on lactated Ringer's hydration. Blood work and imaging were performed. the patient had a mild leukocytosis and anemia noted on CBC. LFTs and lipase were unremarkable. On reassessment the patient was feeling better. Symptoms were controlled with the above medications. CT imaging was concerning for pancreatitis. Under the circumstances the patient's clinical history, physical examination and CT findings are consistent with acute pancreatitis. The patient may also have a UTI. She was treated with Rocephin. Further management in the hospital will be necessary. Consultation was made with the [facility]. Patient was evaluated in the ER and admitted. Triage Nursing notes reviewed and agree them. Vital Signs: reviewed and remarkable for hypertension Differential diagnosis: Pancreatitis, pseudocyst, abscess, appendicitis, ovarian cyst, ovarian torsion, ectopic , TOA, PID, infections, diverticulitis, UTI, obstruction, mesenteric ischemia, aortic pathology, inflammatory bowel disease, renal colic, PUD, biliary pathology, hernia, volvulus, constipation, as well as other pathologies. Diagnostics interpreted by me: ECG: none Cardiac Monitoring: Cardiac monitoring ordered by me: The patient was placed on continuous cardiac monitoring and observed. It revealed a normal sinus rhythm at 64 beats per minute without ectopy or evidence of dysrhythmia. Imaging studies: CT scan as noted below HPI: The patient is a 72year old female who presents to the Emergency Room with complaints of epigastric abdominal pain. This started 2 days ago and is worsening. The patient also notes the following associated symptoms, nausea, vomiting, pain radiating to the back. Patient has a history of pancreatitis on several occasions. She has had 2 ERCPs in the last several months with pancreatic duct stents placed. She states she has stones in the pancreatic duct but they were not able to be removed. She is due for a third ERCP in August.. The patient has found no relieving factors. Current pain is rated as 9/10. Pt denies LOC, headache, fevers, chills, diaphoresis, visual changes, neck pain, chest pain, breathing difficulties, melena, hematochezia, urinary symptoms, numbness, weakness, lymphadenopathy, rash, or other complaints. ROS: See above HPI for pertinent positives & negatives. A total of 10 systems reviewed and were otherwise negative. PAST MEDICAL HISTORY:See Below , pancreatitis PAST SURGICAL HISTORY:See Below, cholecystectomy, ERCP FAMILY HISTORY:See Below SOCIAL HISTORY:See Below, HOME MEDICATIONS:See Below ALLERGIES:See Below VITALS:See Below PHYSICAL EXAMINATION: GENERAL: Awake, alert, uncomfortable-appearing, in no distress HENT: Normocephalic, atraumatic. Oropharynx unremarkable. EYES: Normal conjunctiva. Sclera non-icteric. NECK: Inspection normal. Non-tender. Supple. No nuchal rigidity. FROM. No masses. RESPIRATORY: Clear to auscultation. No wheezes. No rales. Normal respiratory effort. CARDIAC: Normal rate. Normal rhythm. No murmurs. No rubs. Extremities warm and well perfused. Pulses equal. No JVD. GI: Soft, non-distended. Epigastric tenderness to palpation. No rebound or guarding. No masses. RECTAL: Deferred. MUSCULOSKELETAL: Atraumatic. Chest examination reveals no tenderness. The back is symmetrical on inspection without obvious abnormality. There is no CVA tenderness to palpation. No joint edema. LOWER EXTREMITIES: Calves are equal size bilaterally and non-tender. No edema. No discoloration. NEURO: Normal sensorium. No sensory or motor deficits noted. SKIN: No rash or jaundice noted. Arsalan Garcia MD Past Med/Surg History Medical History (Updated 07/08/22 @ 18:28 by Silvestre Vazquez MD) Arthritis Bakers cyst Coronary artery disease Pt reports very remote h/o heart cath, > 25 yrs ago. No stents placed. Depression with anxiety Diabetes mellitus, type 2 diet controlled Dyslipidemia Hernia, hiatal HTN (hypertension) Hypothyroidism Left knee DJD Pancreatic cyst Right rotator cuff tear damaged from a fall, injections Sarcoidosis Has not followed with pulmonology for many years. Stable. Trochanteric bursitis, right hip Surgical History Ganglion cyst removed from right ankle History of colonoscopy History of esophagogastroduodenoscopy (EGD) S/P ankle fusion (10/2010) L ankle S/P cholecystectomy (02/25/15) lap gaviota w/ cholangiogram Family History Father Heart disease Hypertension Father Heart disease Hypertension Sister Breast cancer Brother Lung cancer Brother Sarcoma Social History Smoking Status: Never smoker Second Hand Exposure: No; Hx Alcohol Use: No Hx Substance Use: No Preferred Language: Chinese Communication Ability: Effective Beliefs That Will Affect Care: None marital status: Current Living Situation: Spouse Current Living Situation Comment: Feels Safe at Home: Yes Assistive Devices: Cane Allergies Allergies Allergy/AdvReac Type Severity Reaction Status Date / Time hydrocodone Allergy Intermediate ITCHY Verified 05/18/22 20:13 oxycodone AdvReac Intermediate Nausea Verified 05/18/22 20:13 tramadol AdvReac Intermediate Nausea Verified 05/18/22 20:13 Home Meds Home Medications Medication Instructions Recorded Confirmed aspirin 81 mg chewable tablet 81 mg PO QAM ##0 08/26/14 07/08/22 atorvastatin 20 mg tablet 20 mg PO PM #0 tabs 08/26/14 07/08/22 levothyroxine 175 mcg tablet 175 mcg PO DAILYBB #0 tabs 11/03/16 07/08/22 amlodipine 5 mg tablet 5 mg PO PM 06/15/20 07/08/22 citalopram 10 mg tablet 10 mg PO QAM 06/15/20 07/08/22 gabapentin 100 mg capsule See Rx Instructions .Route .COMPLEX 06/15/20 07/08/22 omeprazole 20 mg capsule,delayed 20 mg PO BID 06/15/20 07/08/22 release atenolol 25 mg tablet 25 mg PO BID 03/23/22 07/08/22 losartan 100 mg tablet 100 mg PO QAM 03/23/22 07/08/22 Previous Rx's Medication Instructions Recorded ondansetron HCl 4 mg tablet 4 mg PO Q8H PRN nausea and 03/23/22 vomiting #15 tabs tramadol 50 mg tablet 50 mg PO Q8H PRN pain #15 tabs 03/23/22 tramadol 50 mg tablet 50 mg PO Q12H PRN pain #10 tabs 05/18/22 ashbjt-[id number] 1 cap PO TID Chronic pancreatitis 07/08/22 24,000-76,000-120,000 unit pain #90 caps capsule,delayed rel (Creon) Results & Data (ED) Vital Signs Vital Signs - 24 hr 07/08/22 13:58 07/08/22 14:32 07/08/22 14:32 Temperature 36.4 C L Temperature Source Temporal Artery Scan Pulse Rate 65 64 Pulse Rate [Apical] 65 Pulse Rhythm Regular Pulse Rhythm [Apical] Regular Pulse Strength [Apical] Normal Respiratory Rate 15 18 18 Respiratory Effort / Characteristics Non-Labored Spontaneous Respiratory Depth Normal Respiratory Pattern Regular Blood Pressure 219/91 H Blood Pressure [Right Arm] 181/81 H Blood Pressure Mean 133 Blood Pressure Mean [Right Arm] 114 Pulse Oximetry 99 98 98 Oxygen Delivery Method Room Air Room Air Room Air Oxygen Flow Rate Sepsis Recent Fever Within 48 Hours No Sepsis New/Unexplained Change in Mental Status N/A Sepsis Action Taken by Nursing No Action Required Oxygen Flow Rate - Titration Pulse Oximetry Post Tiitration 07/08/22 15:27 07/08/22 17:31 Temperature Temperature Source Pulse Rate Pulse Rate [Apical] 67 Pulse Rhythm Pulse Rhythm [Apical] Regular Pulse Strength [Apical] Normal Respiratory Rate 16 Respiratory Effort / Characteristics Non-Labored Spontaneous Respiratory Depth Normal Respiratory Pattern Blood Pressure Blood Pressure [Right Arm] 173/93 H Blood Pressure Mean Blood Pressure Mean [Right Arm] 119 Pulse Oximetry 80 L 96 Oxygen Delivery Method Nasal Cannula Room Air Oxygen Flow Rate 0 Sepsis Recent Fever Within 48 Hours Sepsis New/Unexplained Change in Mental Status Sepsis Action Taken by Nursing Oxygen Flow Rate - Titration 3 Pulse Oximetry Post Tiitration 95 Laboratory Data Result diagrams: 07/08/22 19:36 07/08/22 14:27 Lab Results 07/08/22 07/08/22 07/08/22 Range/Units 14:13 14:27 14:27 WBC 11.75 H (4.8-10.8) K/ul RBC 2.74 L (3.93-5.22) M/uL Hgb 8.5 L (12.0-16.0) g/dl Hct 24.8 L (34.1-44.9) % MCV 90.5 (80.0-100.0) fL MCH 31.0 (25.0-34.0) pg MCHC 34.3 (32.0-36.0) g/dL RDW Std Deviation 43.5 (36.4-46.3) fL RDW Coeff of Renée 13.3 (11.5-14.5) % Plt Count 315 (130-400) K/uL MPV 9.9 (9.4-12.3) fL Immature Gran % (Auto) 0.3 % Neut % (Auto) 86.7 % Lymph % (Auto) 4.9 % Pender % (Auto) 7.5 % Eos % (Auto) 0.3 % Baso % (Auto) 0.3 % Neut # (Auto) 10.19 H (1.4-6.5) K/uL Lymph # (Auto) 0.57 L (1.2-3.4) K/uL Pender # (Auto) 0.88 H (0.24-0.82) K/uL Eos # (Auto) 0.03 (0-0.50) K/uL Baso # (Auto) 0.04 (0-0.2) K/uL Immature Gran # (Auto) 0.04 H (0.00-0.02) K/uL Sodium 139 (136-145) mmol/L Potassium 3.1 L (3.5-5.1) mmol/L Chloride 103 (98-107) mmol/L Carbon Dioxide 25 (21-32) mmol/L Anion Gap 11 (3-11) BUN 5 L (6-23) mg/dl Creatinine 0.50 L (0.6-1.2) mg/dl Est Cr Clr Drug Dosing 117.6 ml/min Est GFR ( Amer) 112.1 ml/min Est GFR (Non-Af Amer) 96.7 ml/min BUN/Creatinine Ratio 10.0 (10-20) Glucose 122 H (70-99(Fasting)) mg/dl Calcium 8.8 (8.5-10.1) mg/dl Phosphorus (2.5-4.9) mg/dl Magnesium (1.7-2.4) mg/dl Iron (35-150) mcg/dl Unsaturated IBC (155-355) mcg/dl Ferritin (8-388) ng/ml Total Bilirubin 0.9 (0.2-1.0) mg/dl AST 13 (13-39) U/L ALT 11 (7-52) U/L Alkaline Phosphatase 88 (34-104) U/L Troponin I High Sens 8.5 (0-14) pg/ml Total Protein 7.2 (6.0-8.3) gm/dl Albumin 3.8 (3.4-5.0) gm/dl Globulin 3.4 (2.5-4.0) gm/dl Albumin/Globulin Ratio 1.1 (0.9-2) Amylase (25-115) U/L Lipase 7 L (11-82) U/L Urine Color Yellow Urine Appearance Clear (Clear) Urine pH 7.5 (4.5-7.5) Ur Specific [place] 1.014 (1.000-1.030) Urine Protein Trace H (Negative) Urine Glucose (UA) Negative (Negative) Urine Ketones 2+ H (Negative) Urine Blood 2+ H (Negative) Urine Nitrite Negative (Negative) Urine Bilirubin Negative (Negative) Urine Urobilinogen Negative (Negative) Ur Leukocyte Esterase Trace H (Negative) Urine WBC (Auto) 1-5 (0-5) /hpf Urine RBC (Auto) 10-30 H (0-4) /hpf U Hyaline Cast (Auto) 1-5 (0-5) /lpf U Epithel Cells (Auto) >30 H (0-5) /lpf Urine Bacteria (Auto) 2+ H (Negative) SARS-CoV-2, RNA, NAAT (NEGATIVE) 07/08/22 07/08/22 07/08/22 Range/Units 14:27 14:27 15:04 WBC (4.8-10.8) K/ul RBC (3.93-5.22) M/uL Hgb (12.0-16.0) g/dl Hct (34.1-44.9) % MCV (80.0-100.0) fL MCH (25.0-34.0) pg MCHC (32.0-36.0) g/dL RDW Std Deviation (36.4-46.3) fL RDW Coeff of Renée (11.5-14.5) % Plt Count (130-400) K/uL MPV (9.4-12.3) fL Immature Gran % (Auto) % Neut % (Auto) % Lymph % (Auto) % Pender % (Auto) % Eos % (Auto) % Baso % (Auto) % Neut # (Auto) (1.4-6.5) K/uL Lymph # (Auto) (1.2-3.4) K/uL Pender # (Auto) (0.24-0.82) K/uL Eos # (Auto) (0-0.50) K/uL Baso # (Auto) (0-0.2) K/uL Immature Gran # (Auto) (0.00-0.02) K/uL Sodium (136-145) mmol/L Potassium (3.5-5.1) mmol/L Chloride (98-107) mmol/L Carbon Dioxide (21-32) mmol/L Anion Gap (3-11) BUN (6-23) mg/dl Creatinine (0.6-1.2) mg/dl Est Cr Clr Drug Dosing ml/min Est GFR ( Amer) ml/min Est GFR (Non-Af Amer) ml/min BUN/Creatinine Ratio (10-20) Glucose (70-99(Fasting)) mg/dl Calcium (8.5-10.1) mg/dl Phosphorus 2.6 (2.5-4.9) mg/dl Magnesium 1.2 L (1.7-2.4) mg/dl Iron 29 L (35-150) mcg/dl Unsaturated IBC 238 (155-355) mcg/dl Ferritin 158.9 (8-388) ng/ml Total Bilirubin (0.2-1.0) mg/dl AST (13-39) U/L ALT (7-52) U/L Alkaline Phosphatase (34-104) U/L Troponin I High Sens (0-14) pg/ml Total Protein (6.0-8.3) gm/dl Albumin (3.4-5.0) gm/dl Globulin (2.5-4.0) gm/dl Albumin/Globulin Ratio (0.9-2) Amylase 30 (25-115) U/L Lipase (11-82) U/L Urine Color Urine Appearance (Clear) Urine pH (4.5-7.5) Ur Specific [place] (1.000-1.030) Urine Protein (Negative) Urine Glucose (UA) (Negative) Urine Ketones (Negative) Urine Blood (Negative) Urine Nitrite (Negative) Urine Bilirubin (Negative) Urine Urobilinogen (Negative) Ur Leukocyte Esterase (Negative) Urine WBC (Auto) (0-5) /hpf Urine RBC (Auto) (0-4) /hpf U Hyaline Cast (Auto) (0-5) /lpf U Epithel Cells (Auto) (0-5) /lpf Urine Bacteria (Auto) (Negative) SARS-CoV-2, RNA, NAAT NEGATIVE (NEGATIVE) Administered Medications Amlodipine Besylate (Amlodipine Besylate 5 Mg Tab) 5 mg PO QAM HOLLY Stop: 08/07/22 18:44 Last Admin: 07/08/22 20:09 Dose: 5 mg Documented By: MAYE Hydromorphone HCl (Hydromorphone Inj 1 Mg/Ml Syringe) 1 mg IV Q4 PRN PRN Reason: severe pain Stop: 07/22/22 18:00 Last Admin: 07/08/22 20:01 Dose: 1 mg Documented By: MAYE Lactated Ringer's (Lr) 1,000 mls @ 200 mls/hr IV .Q5H HOLLY Stop: 07/09/22 18:44 Last Admin: 07/08/22 20:02 Dose: 200 mls/hr Documented By: Infusion: 07/08/22 20:02 Dose: 0 mls/hr Documented By: Infusion: 07/08/22 17:33 Dose: 0 mls/hr Documented By: Admin: 07/08/22 16:12 Dose: 200 mls/hr Documented By: [id number] Pantoprazole Sodium 40 mg/ (Syringe) 10 mls @ 5 mls/min IV BID HOLLY Stop: 08/07/22 20:59 Last Admin: 07/08/22 20:07 Dose: 5 mls/min Documented By: MAYE Ondansetron HCl (Ondansetron Inj 2 Mg/Ml 2 Ml Vial) 4 mg IV Q6H PRN PRN Reason: Nausea Stop: 07/12/22 17:34 Last Admin: 07/08/22 20:02 Dose: 4 mg Documented By: MAYE Discontinued Medications Hydromorphone HCl (Hydromorphone Inj 0.5 Mg/0.5 Ml Syr) 0.5 mg IV Q15M PRN PRN Reason: Pain Stop: 07/22/22 14:32 Last Admin: 07/08/22 15:09 Dose: 0.5 mg Documented By: [id number] Sodium Chloride (Nss) 500 mls @ 999 mls/hr IV .Q31M STA Stop: 07/08/22 14:44 Last Admin: 07/08/22 14:51 Dose: Not Given Documented By: TRH Sodium Chloride (Nss 1000ml) 1,000 mls @ 125 mls/hr IV .Q8H STA Stop: 07/08/22 22:13 Last Admin: 07/08/22 14:50 Dose: Not Given Documented By: TRH Sodium Chloride (Nss 1000ml) 1,000 mls @ 999 mls/hr IV .Q1H1M ONE Stop: 07/08/22 15:32 Last Infusion: 07/08/22 17:36 Dose: 0 mls/hr Documented By: Admin: 07/08/22 14:39 Dose: 999 mls/hr Documented By: TRH Potassium Chloride (K Shay / Wtr) 10 meq in 100 mls @ 100 mls/hr IV ONE ONE; Protocol Stop: 07/08/22 16:24 Last Infusion: 07/08/22 17:36 Dose: 0 mls/hr Documented By: Admin: 07/08/22 16:11 Dose: 100 mls/hr Documented By: [id number] Ceftriaxone Sodium (Rocephin) 2,000 mg in 70 mls @ 140 mls/hr IV NOW STA Stop: 07/08/22 17:48 Last Infusion: 07/08/22 19:20 Dose: 0 mls/hr Documented By: Admin: 07/08/22 17:33 Dose: 140 mls/hr Documented By: DEE Ioversol (Ioversol 350 Mg 100ml Prefilled Syringe) 94 ml IV ONCE ONE Stop: 07/08/22 16:03 Last Admin: 07/08/22 16:03 Dose: 94 ml Documented By: SHAI Losartan Potassium (Losartan Potassium 50 Mg Tab) 50 mg PO ONE ONE Stop: 07/08/22 18:46 Last Admin: 07/08/22 20:09 Dose: 50 mg Documented By: MAYE Ondansetron HCl (Ondansetron Inj 2 Mg/Ml 2 Ml Vial) 4 mg IV NOW STA Stop: 07/08/22 14:15 Last Admin: 07/08/22 14:39 Dose: 4 mg Documented By: [facility] Imaging Data Radiologist's Impression: Abdomen/Pelvis CT 07/08/22 14:42 CT SCAN OF THE ABDOMEN AND PELVIS WITH IV CONTRAST CLINICAL HISTORY: Nausea and vomiting. Epigastric abdominal pain. History of pancreatitis. COMPARISON STUDY: Abdominal CT dated 06/23/2022. TECHNIQUE: Following the IV administration of 94 cc of Optiray 350, CT scan of the abdomen and pelvis is performed from the lung bases to the proximal femora. Images are reviewed in the axial, sagittal, and coronal planes. IV contrast was administered without complication. A dose lowering technique was utilized ad river to the principles of ALARA. CT DOSE: 735.05 mGy.cm FINDINGS: Lung bases: The heart is normal in size noting trace pericardial effusion. Small pleural-based nodules at the right lung base measuring up to 3 mm are unchanged from previous and of low suspicion. The lung bases are otherwise clear noting bibasilar scarring/atelectasis. There is a small hiatal hernia. Liver: The contrast-enhanced liver is normal in size, contour, and attenuation. There is mild intrahepatic biliary ductal dilatation. Pneumobilia is similar to previous. The hepatic veins and portal veins are patent. Gallbladder: Surgically absent and clips in the gallbladder fossa. A common bile duct stent has been removed from previous. Spleen: Normal in size and attenuation. Pancreas: A stent within the pancreatic duct is unchanged in position. The pancreas is atrophic. The gland is edematous, with peripancreatic inflammation and fluid. This is typical for acute pancreatitis. Gas within the common bile duct suggests patency of the stent. There is a 10 mm calculus within the pancreatic duct in the head of the pancreas seen on image #141. This is unchanged. The gland enhances throughout. There are several small cystic foci within or adjacent to the pancreas. A cystic focus at the head/neck junction on image #137 is new from previous and measures 2.0 cm. The cystic focus in the uncinate process seen on 06/23/2022 is no longer visualized. Additional tiny cystic foci along the body and tail seen on images #101, #114, #116, scans #125 measure up to 1.5 cm and are likely unchanged. The splenic vein is patent. Adrenal glands: Unremarkable. Kidneys: The contrast enhanced kidneys demonstrate mild cortical atrophy and are without hydronephrosis. The kidneys enhance symmetrically. A 3 mm nonobstructing calculus is noted on the right. Scattered subcentimeter cortical hypodensities likely represent cysts but are too small for definitive characterization. Abdominal vasculature: The abdominal aorta is normal in course and caliber. Bowel: There is no bowel obstruction. A duodenal diverticulum is incidentally noted. Mild wall thickening of the duodenum is likely related to adjacent pancreatitis. The appendix is well-visualized and normal. Peritoneum: There is no intraperitoneal free air or abdominal ascites. There is a small fat-containing umbilical hernia. Lymphadenopathy: None. Pelvic viscera: The bladder, uterus, and adnexa are normal as visualized. There is a fat-containing left groin hernia. There is trace free fluid in the cul-de-sac. Skeletal structures: The skeletal structures are osteopenic. There is mild /moderate lumbosacral spondylosis. Sclerotic change is noted in the pubic symphysis. No lytic or blastic lesions are seen. IMPRESSION: 1. Findings are consistent with acute versus acute on chronic pancreatitis. 2. A stent within the pancreatic duct is unchanged in position. A common bile duct stent has been removed. 3. The pancreatic parenchyma enhances throughout. 4. A large calculus is again seen within the main pancreatic duct along the course of the stent. 5. There is a 2.0 cm cystic focus within or adjacent to the pancreatic head that is new from 06/23/2022 and likely represent a tiny pseudocyst. 6. The tiny cystic focus in the uncinate process seen previously has resolved. 7. Additional small cystic foci along the pancreatic body and tail are unchanged. These could represent tiny pseudocysts versus IPMNs. 8. Right-sided nephrolithiasis. 10. Additional findings as above. ACT 112: Negative or not required by law. Electronically signed by: Chito Calle M.D. 07/08/2022 5:10 PM Discharge Plan Visit Data Chief Complaint: Illness Stated Complaint: PANCREATITIS ED Provider: Arsalan Garcia Discharge Problem: Abdominal pain, acute, epigastric, Nausea & vomiting Patient Disposition: Admitted As Inpatient Discharge Instructions Interventions: ED Discharge Assessment Last Done: 07/08/22 18:29
[2022-07-08 14:50] LABS: Basophils # (auto) 0.04 K/uL (0-0.2); Basophils % (auto) 0.3 %; Eosinophils # (auto) 0.03 K/uL (0-0.50); Eosinophils % (auto) 0.3 %; Hematocrit (blood only) 24.8 % (34.1-44.9); Hemoglobin 8.5 g/dl (12.0-16.0); Immature Granulocytes # (auto) 0.04 K/uL (0.00-0.02); Immature Granulocytes % (auto) 0.3 %; Lymphocytes # (auto) 0.57 K/uL (1.2-3.4); Lymphocytes % (auto) 4.9 %; Mean Corpuscular Hgb Conc 34.3 g/dL (32.0-36.0); Mean Corpuscular Volume 90.5 fL (80.0-100.0); Mean Platelet Volume 9.9 fL (9.4-12.3); Monocytes # (auto) 0.88 K/uL (0.24-0.82); Monocytes % (auto) 7.5 %; Neutrophils # (auto) 10.19 K/uL (1.4-6.5); Neutrophils % (auto) 86.7 %; Platelet Count 315 K/uL (130-400); RDW Coefficient of Variation 13.3 % (11.5-14.5); RDW Standard Deviation 43.5 fL (36.4-46.3); Red Blood Count 2.74 M/uL (3.93-5.22); White Blood Count 11.75 K/ul (4.8-10.8)
[2022-07-08 14:55] LABS: Appearance Urine Clear (Clear); Bacteria Urine Automated 2+ (Negative); Bilirubin Urine Negative (Negative); Blood Urine 2+ (Negative); Color Urine Yellow; Epithelial Cell Urine Auto >30 /lpf (0-5); Glucose Urine UA Negative (Negative); Ketones Urine 2+ (Negative); Leukocyte Esterase Urine Trace (Negative); Nitrite Urine Negative (Negative); Specific Gravity Urine 1.014 (1.000-1.030); Urobilinogen Urine Negative (Negative); pH Urine 7.5 (4.5-7.5)
[2022-07-08 14:56] LABS: Protein Urine Trace (Negative)
[2022-07-08 15:23] LABS: Albumin Globulin Ratio 1.1 (0.9-2); Albumin Level 3.8 gm/dl (3.4-5.0); Bilirubin,Total 0.9 mg/dl (0.2-1.0); Calcium 8.8 mg/dl (8.5-10.1); Creatinine Clr Calc Pharmacy 117.6 ml/min; Est GFR (African American) 112.1 ml/min; Est GFR (Non-African American) 96.7 ml/min; Globulin 3.4 gm/dl (2.5-4.0); Potassium 3.1 mmol/L (3.5-5.1); Total Protein 7.2 gm/dl (6.0-8.3)
[2022-07-08 15:25] LABS: Troponin I High Sensitivity 8.5 pg/ml (0-14)
[2022-07-08] MEDS ORDERED: POTASSIUM CHLORIDE / WTR 10 MEQ/100 ML PLCT IV ONE (15:25)
[2022-07-08] MEDS ORDERED: IOVERSOL 350 MG 100mL Prefilled Syringe IV ONE (16:02)
[2022-07-08] MEDS: LACTATED RINGER'S 1,000 ML IV SCH ×3 (16:12→22:35)
--- NOTE | 2022-07-08 17:13 | CT Scan Report ---
CT SCAN OF THE ABDOMEN AND PELVIS WITH IV CONTRAST CLINICAL HISTORY: Nausea and vomiting. Epigastric abdominal pain. History of pancreatitis. COMPARISON STUDY: Abdominal CT dated 06/23/2022. TECHNIQUE: Following the IV administration of 94 cc of Optiray 350, CT scan of the abdomen and pelvi s is performed from the lung bases to the proximal femora. Images are reviewed in the axial, sagittal , and coronal planes. IV contrast was administered without complication. A dose lowering technique wa s utilized adhering to the principles of ALARA. CT DOSE: 735.05 mGy.cm FINDINGS: Lung bases: The heart is normal in size noting trace pericardial effusion. Small pleural-based nodule s at the right lung base measuring up to 3 mm are unchanged from previous and of low suspicion. The l rosalind bases are otherwise clear noting bibasilar scarring/atelectasis. There is a small hiatal hernia. Liver: The contrast-enhanced liver is normal in size, contour, and attenuation. There is mild intrahe patic biliary ductal dilatation. Pneumobilia is similar to previous. The hepatic veins and portal vei ns are patent. Gallbladder: Surgically absent and clips in the gallbladder fossa. A common bile duct stent has been removed from previous. Spleen: Normal in size and attenuation. Pancreas: A stent within the pancreatic duct is unchanged in position. The pancreas is atrophic. The gland is edematous, with peripancreatic inflammation and fluid. This is typical for acute pancreatiti s. Gas within the common bile duct suggests patency of the stent. There is a 10 mm calculus within th e pancreatic duct in the head of the pancreas seen on image #141. This is unchanged. The gland enhanc es throughout. There are several small cystic foci within or adjacent to the pancreas. A cystic focus at the head/neck junction on image #137 is new from previous and measures 2.0 cm. The cystic focus i n the uncinate process seen on 06/23/2022 is no longer visualized. Additional tiny cystic foci along t he body and tail seen on images #101, #114, #116, scans #125 measure up to 1.5 cm and are likely unch anged. The splenic vein is patent. Adrenal glands: Unremarkable. Kidneys: The contrast enhanced kidneys demonstrate mild cortical atrophy and are without hydronephros is. The kidneys enhance symmetrically. A 3 mm nonobstructing calculus is noted on the right. Scattere d subcentimeter cortical hypodensities likely represent cysts but are too small for definitive charac terization. Abdominal vasculature: The abdominal aorta is normal in course and caliber. Bowel: There is no bowel obstruction. A duodenal diverticulum is incidentally noted. Mild wall thicke zachary of the duodenum is likely related to adjacent pancreatitis. The appendix is well-visualized and normal. Peritoneum: There is no intraperitoneal free air or abdominal ascites. There is a small fat-containin g umbilical hernia. Lymphadenopathy: None. Pelvic viscera: The bladder, uterus, and adnexa are normal as visualized. There is a fat-containing l eft groin hernia. There is trace free fluid in the cul-de-sac. Skeletal structures: The skeletal structures are osteopenic. There is mild/moderate lumbosacral spond ylosis. Sclerotic change is noted in the pubic symphysis. No lytic or blastic lesions are seen. IMPRESSION: 1. Findings are consistent with acute versus acute on chronic pancreatitis. 2. A stent within the pancreatic duct is unchanged in position. A common bile duct stent has been rem naima. 3. The pancreatic parenchyma enhances throughout. 4. A large calculus is again seen within the main pancreatic duct along the course of the stent. 5. There is a 2.0 cm cystic focus within or adjacent to the pancreatic head that is new from 2 and likely represent a tiny pseudocyst. 6. The tiny cystic focus in the uncinate process seen previously has resolved. 7. Additional small cystic foci along the pancreatic body and tail are unchanged. These could represe nt tiny pseudocysts versus IPMNs. 8. Right-sided nephrolithiasis. 10. Additional findings as above. ACT 112: Negative or not required by law. Electronically signed by: Chito Calle M.D. 07/08/2022 5:10 PM
[2022-07-08] MEDS ORDERED: cefTRIAXone SODIUM 2,000 MG/70 ML BAG IV STA (17:19)
[2022-07-08] MEDS ORDERED: ACETAMINOPHEN 325 MG TAB PO PRN (17:35)
[2022-07-08] MEDS ORDERED: NITROGLYCERIN SL 0.4 MG/TAB TAB SL PRN (17:35)
[2022-07-08] MEDS ORDERED: POLYETHYLENE (MIRALAX) 17 GM PACK PO PRN (17:35)
[2022-07-08] MEDS ORDERED: MoRPHine SULFATE 4 MG/ML 1 ML CARP\\VIAL IV PRN (18:01)
[2022-07-08] MEDS ORDERED: HYDROmorphone INJ 2 MG/ML SYR/VIAL IV PRN (18:01)
[2022-07-08 18:21] LABS: Magnesium 1.2 mg/dl (1.7-2.4); Phosphorus 2.6 mg/dl (2.5-4.9)
[2022-07-08 18:33] LABS: Ferritin 158.9 ng/ml (8-388)
--- NOTE | 2022-07-08 18:33 | History & Physical Report ---
Date of Service July 08, 2022 Assessment & Plan (1) Acute on chronic pancreatitis: Plan: - patient with evidence of possible acute on chronic pancreatitis on CT-AP - epigastric pain, n/v with known history of pancreatic stones - lipase and amylase wnl - recent EGD 06/27/2022 with stent placement/replacement - afebrile, WBC mildly elevated - will hold abx for now - NPO with sips and meds - pancreatic enzymes TID - will hold while NPO - IVF at least 150-22cc/hr - pain control - nausea control - GI consulted - tele monitoring overnight (2) Anemia: Plan: - hgb on presentation 8.5 with baseline around 12 - unclear reason for drop - MCV wnl and unchanged from prior - will repeat CBC tonight - will get active type and screen - denies history of blood in vomit or stools, denies melena, SOB, light headedness, chest pain - iron studies, folate, b12 ordered - FOBT ordered - GI already consulted - monitor for now (3) HTN (hypertension): Plan: - continue home medications as tolerated (4) Anxiety: Plan: - continue citalopram (5) Hyperlipidemia: Plan: - continue statin (6) Hypothyroidism: Plan: - continue levothryoxine 175mcg daily (7) Coronary artery disease: Plan: - denies history of GA - good functional status - ?remote [facility] without stents - continue statin for now - will hold aspirin for now given drop in hgb pending repeat CBC - PPI BID in the meantime (8) GERD (gastroesophageal reflux disease): Plan: - PPI BID for now given hgb drop Plan DVT ppx: holding given hgb drop pending repeat CBC Code Status: Full Code Dispo: tele overnight Silvestre Vazquez MD Hospital Medicine History of Present Illness Chief Complaint: abdominal pain, nausea and vomiting Primary Care Provider: Tapan Alonso MD The patient is a 72 year old woman with pmh HTN, HLD, anxiety, hypothyroidism, GERD, chronic pancreatitis with pseudocyst and pancreatic stones who presented with several weeks of abdominal pain and nausea and vomiting. She says that about 6 months ago she was diagnosed with pancreatitis and had pancreatic stones requiring multiple stents. She most recently had an EGD with GI around 06/27/2022. at that time she had two stents removed, a large stone was "broken up" and a larger stent was placed. After this last EGD, she reports she had about a week of reduced abdominal pain and increased po tolerance. However, over the last week or so, she has had increasing pain and nausea and vomiting without much appetite. she says that she has not eaten much food because of decreased appetite over these months and is not able to tolerate anything other than toast and water. She reports nonbloody vomitus over this time. She reports abdominal pain, mostly in the epigastric area. She denies diarrhea, bloody stools, or melena. She has been having BMs with soft brown stools, regularly. She denies chest pain, shortness of breath, light headedness, dizziness, LOC, cough, fever or chills, dysuria, rashes over this time. She has good functional status with no real significant physical limitations. Denies tobacco, alcohol, or drug use. Did not take medications today due to feeling ill. In the ED, vitals were unremarkable. Labs were significant for hgb 8.5 (last hgb 06/23/2022 was 11.1 - baseline appears to be ~12), WBC 11.75, PLT 315, K 3.1, Cr 0.5, ASt 13, ALT 11, ALP 88, bili 0.9, lipase, 7, amylase 30. CT-AP showed evidence of pancreatic stones, with a large calculus is again seen within the main pancreatic duct along the course of the stent, as well as a 2cm cystic focus in or adjacent to pancreatic head that is new which could represent a tiny pseudocyst, and evidence of acute vs acute on chronic pancreatitis. Stent placements are unchanged. She was given IVF, one dose of ceftriaxone, pain medication and admitted to medicine. Allergies Allergy/AdvReac Type Severity Reaction Status Date / Time hydrocodone Allergy Intermediate ITCHY Verified 05/18/22 20:13 oxycodone AdvReac Intermediate Nausea Verified 05/18/22 20:13 tramadol AdvReac Intermediate Nausea Verified 05/18/22 20:13 Home Medications Medication Instructions Recorded Confirmed Type aspirin 81 mg chewable tablet 81 mg PO QAM ##0 08/26/14 07/08/22 History atorvastatin 20 mg tablet 20 mg PO PM #0 tabs 08/26/14 07/08/22 History levothyroxine 175 mcg tablet 175 mcg PO DAILYBB #0 tabs 11/03/16 07/08/22 History amlodipine 5 mg tablet 5 mg PO PM 06/15/20 07/08/22 History citalopram 10 mg tablet 10 mg PO QAM 06/15/20 07/08/22 History gabapentin 100 mg capsule See Rx Instructions .Route .COMPLEX 06/15/20 07/08/22 History omeprazole 20 mg capsule,delayed 20 mg PO BID 06/15/20 07/08/22 History release atenolol 25 mg tablet 25 mg PO BID 03/23/22 07/08/22 History losartan 100 mg tablet 100 mg PO QAM 03/23/22 07/08/22 History ondansetron HCl 4 mg tablet 4 mg PO Q8H PRN nausea and 03/23/22 07/08/22 Rx vomiting #15 tabs tramadol 50 mg tablet 50 mg PO Q8H PRN pain #15 tabs 03/23/22 07/08/22 Rx tramadol 50 mg tablet 50 mg PO Q12H PRN pain #10 tabs 05/18/22 07/08/22 Rx [id number] 1 cap PO TID Chronic pancreatitis 07/08/22 07/08/22 Rx 24,000-76,000-120,000 unit pain #90 caps capsule,delayed rel (Creon) Past Med/Surg History Medical History (Updated 07/08/22 @ 18:28 by Silvestre Vazquez MD) Arthritis Bakers cyst Coronary artery disease Pt reports very remote h/o heart cath, > 25 yrs ago. No stents placed. Depression with anxiety Diabetes mellitus, type 2 diet controlled Dyslipidemia Hernia, hiatal HTN (hypertension) Hypothyroidism Left knee DJD Pancreatic cyst Right rotator cuff tear damaged from a fall, injections Sarcoidosis Has not followed with pulmonology for many years. Stable. Trochanteric bursitis, right hip Surgical History Ganglion cyst removed from right ankle History of colonoscopy History of esophagogastroduodenoscopy (EGD) S/P ankle fusion (10/2010) L ankle S/P cholecystectomy (02/25/15) lap gaviota w/ cholangiogram Family History Father Heart disease Hypertension Father Heart disease Hypertension Sister Breast cancer Brother Lung cancer Brother Sarcoma Social History Smoking Status: Never smoker Second Hand Exposure: No; Hx Alcohol Use: No Hx Substance Use: No Preferred Language: Latvian Communication Ability: Effective Beliefs That Will Affect Care: None marital status: Current Living Situation: Spouse Current Living Situation Comment: Feels Safe at Home: Yes Assistive Devices: Cane Review of Systems Review of Systems: All systems reviewed & are unremarkable except as noted in Subjective Physical Exam Physical Exam: GENERAL: Awake, alert, uncomfortable-appearing, in no distress HENT: Normocephalic, atraumatic. Oropharynx unremarkable. Dry MM EYES: Normal conjunctiva. Sclera non-icteric. NECK: Inspection normal. Non-tender. Supple. No nuchal rigidity. FROM. No masses. RESPIRATORY: Clear to auscultation. No wheezes. No rales. Normal respiratory effort. CARDIAC: Normal rate. Normal rhythm. No murmurs. No rubs. Extremities warm and well perfused. Pulses equal. No JVD. GI: Soft, non-distended. Epigastric tenderness to palpation. No rebound or guarding. No masses. RECTAL: Deferred. MUSCULOSKELETAL: Atraumatic. Chest examination reveals no tenderness. The back is symmetrical on inspection without obvious abnormality. There is no CVA tenderness to palpation. No joint edema. LOWER EXTREMITIES: Calves are equal size bilaterally and non-tender. No edema. No discoloration. varicose veins noted on bilateral LEs NEURO: Normal sensorium. No sensory or motor deficits noted. SKIN: No rash or jaundice noted. Results & Data Results & Data ([facility]) Vital Signs (Past 12 Hours) Vital Signs Temp Pulse Pulse Resp BP BP Pulse Ox 07/08/22 17:31 67 16 173/93 H 96 07/08/22 15:27 80 L 07/08/22 14:32 64 18 98 07/08/22 14:32 65 18 181/81 H 98 07/08/22 13:58 36.4 C L 65 15 219/91 H 99 O2 Del Method O2 Flow Rate 07/08/22 17:31 Room Air 07/08/22 15:27 Nasal Cannula 0 07/08/22 14:32 Room Air 07/08/22 14:32 Room Air 07/08/22 13:58 Room Air Diagnostic Findings Laboratory Results WBC 11.75 K/ul (4.8-10.8) H 07/08/22 14: RBC 2.74 M/uL (3.93-5.22) L 07/08/22 14: Hgb 8.5 g/dl (12.0-16.0) L 07/08/22 14: Hct 24.8 % (34.1-44.9) L 07/08/22 14: MCV 90.5 fL (80.0-100.0) 07/08/22 14: MCH 31.0 pg (25.0-34.0) 07/08/22 14: MCHC 34.3 g/dL (32.0-36.0) 07/08/22 14: RDW Std Deviation 43.5 fL (36.4-46.3) 07/08/22 14: RDW Coeff of Renée 13.3 % (11.5-14.5) 07/08/22 14: Plt Count 315 K/uL (130-400) 07/08/22 14: MPV 9.9 fL (9.4-12.3) 07/08/22 14: Immature Gran % (Auto) 0.3 % 07/08/22 14: Neut % (Auto) 86.7 % 07/08/22 14: Lymph % (Auto) 4.9 % 07/08/22: [place] % (Auto) 7.5 % 07/08/22 14: Eos % (Auto) 0.3 % 07/08/22 14: Baso % (Auto) 0.3 % 07/08/22 14: Neut # (Auto) 10.19 K/uL (1.4-6.5) H 07/08/22 14: Lymph # (Auto) 0.57 K/uL (1.2-3.4) L 07/08/22 14: [place]aves # (Auto) 0.88 K/uL (0.24-0.82) H 07/08/22 14: Eos # (Auto) 0.03 K/uL (0-0.50) 07/08/22 14: Baso # (Auto) 0.04 K/uL (0-0.2) 07/08/22 14:27 Immature Gran # (Auto) 0.04 K/uL (0.00-0.02) H 07/08/22 14:27 Sodium 139 mmol/L (136-145) 07/08/22 14:27 Potassium 3.1 mmol/L (3.5-5.1) L 07/08/22 14:27 Chloride 103 mmol/L (98-107) 07/08/22 14:27 Carbon Dioxide 25 mmol/L (21-32) 07/08/22 14:27 Anion Gap 11 (3-11) 07/08/22 14:27 BUN 5 mg/dl (6-23) L 07/08/22 14: Creatinine 0.50 mg/dl (0.6-1.2) L 07/08/22 14: Est Cr Clr Drug Dosing 117.6 ml/min 07/08/22 14:27 Est GFR ( Amer) 112.1 ml/min 07/08/22 14: Est GFR (Non-Af Amer) 96.7 ml/min 07/08/22 14:27 BUN/Creatinine Ratio 10.0 (10-20) 07/08/22 14:27 Glucose 122 mg/dl (70-99(Fasting)) H 07/08/22 14:27 Calcium 8.8 mg/dl (8.5-10.1) 07/08/22 14:27 Total Bilirubin 0.9 mg/dl (0.2-1.0) 07/08/22 14:27 AST 13 U/L (13-39) 07/08/22 14:27 ALT 11 U/L (7-52) 07/08/22 14:27 Alkaline Phosphatase 88 U/L (34-104) 07/08/22 14:27 Troponin I High Sens 8.5 pg/ml (0-14) 07/08/22 14:27 Total Protein 7.2 gm/dl (6.0-8.3) 07/08/22 14:27 Albumin 3.8 gm/dl (3.4-5.0) 07/08/22 14:27 Globulin 3.4 gm/dl (2.5-4.0) 07/08/22 14:27 Albumin/Globulin Ratio 1.1 (0.9-2) 07/08/22 14:27 Amylase 30 U/L (25-115) 07/08/22 14:27 Lipase 7 U/L (11-82) L 07/08/22 14:27 Urine Color Yellow 07/08/22 14:13 Urine Appearance Clear (Clear) 07/08/22 14:13 Urine pH 7.5 (4.5-7.5) 07/08/22 14:13 Ur Specific [place] 1.014 (1.000-1.030) 07/08/22 14:13 Urine Protein Trace (Negative) H 07/08/22 14:13 Urine Glucose (UA) Negative (Negative) 07/08/22 14:13 Urine Ketones 2+ (Negative) H 07/08/22 14:13 Urine Blood 2+ (Negative) H 07/08/22 14:13 Urine Nitrite Negative (Negative) 07/08/22 14:13 Urine Bilirubin Negative (Negative) 07/08/22 14:13 Urine Urobilinogen Negative (Negative) 07/08/22 14:13 Ur Leukocyte Esterase Trace (Negative) H 07/08/22 14:13 Urine WBC (Auto) 1-5 /hpf (0-5) 07/08/22 14:13 Urine RBC (Auto) 10-30 /hpf (0-4) H 07/08/22 14:13 U Hyaline Cast (Auto) 1-5 /lpf (0-5) 07/08/22 14:13 U Epithel Cells (Auto) >30 /lpf (0-5) H 07/08/22 14:13 Urine Bacteria (Auto) 2+ (Negative) H 07/08/22 14:13 SARS-CoV-2, RNA, NAAT NEGATIVE (NEGATIVE) 07/08/22 15:04 Impressions Abdomen/Pelvis CT 07/08/22 14:42 CT SCAN OF THE ABDOMEN AND PELVIS WITH IV CONTRAST CLINICAL HISTORY: Nausea and vomiting. Epigastric abdominal pain. History of pancreatitis. COMPARISON STUDY: Abdominal CT dated 06/23/2022. TECHNIQUE: Following the IV administration of 94 cc of Optiray 350, CT scan of the abdomen and pelvis is performed from the lung bases to the proximal femora. Images are reviewed in the axial, sagittal, and coronal planes. IV contrast was administered without complication. A dose lowering technique was utilized adhering to the principles of ALARA. CT DOSE: 735.05 mGy.cm FINDINGS: Lung bases: The heart is normal in size noting trace pericardial effusion. Small pleural-based nodules at the right lung base measuring up to 3 mm are unchanged from previous and of low suspicion. The lung bases are otherwise clear noting bibasilar scarring/atelectasis. There is a small hiatal hernia. Liver: The contrast-enhanced liver is normal in size, contour, and attenuation. There is mild intrahepatic biliary ductal dilatation. Pneumobilia is similar to previous. The hepatic veins and portal veins are patent. Gallbladder: Surgically absent and clips in the gallbladder fossa. A common bile duct stent has been removed from previous. Spleen: Normal in size and attenuation. Pancreas: A stent within the pancreatic duct is unchanged in position. The pancreas is atrophic. The gland is edematous, with peripancreatic inflammation and fluid. This is typical for acute pancreatitis. Gas within the common bile duct suggests patency of the stent. There is a 10 mm calculus within the pancrea tic duct in the head of the pancreas seen on image #141. This is unchanged. The gland enhances throughout. There are several small cystic foci within or adjacent to the pancreas. A cystic focus at the head/neck junction on image #137 is new from previous and measures 2.0 cm. The cystic focus in the uncinate process seen on 06/23/2022 is no longer visualized. Additional tiny cystic foci along the body and tail seen on images #101, #114, #116, scans #125 measure up to 1.5 cm and are likely unchanged. The splenic vein is patent. Adrenal glands: Unremarkable. Kidneys: The contrast enhanced kidneys demonstrate mild cortical atrophy and are without hydronephrosis. The kidneys enhance symmetrically. A 3 mm nonobstructing calculus is noted on the right. Scattered subcentimeter cortical hypodensities likely represent cysts but are too small for definitive characterization. Abdominal vasculature: The abdominal aorta is normal in course and caliber. Bowel: There is no bowel obstruction. A duodenal diverticulum is incidentally noted. Mild wall thickening of the duodenum is likely related to adjacent pancreatitis. The appendix is well-visualized and normal. Peritoneum: There is no intraperitoneal free air or abdominal ascites. There is a small fat-containing umbilical hernia. Lymphadenopathy: None. Pelvic viscera: The bladder, uterus, and adnexa are normal as visualized. There is a fat-containing left groin hernia. There is trace free fluid in the cul-de-sac. Skeletal structures: The skeletal structures are osteopenic. There is mild/moderate lumbosacral spondylosis. Sclerotic change is noted in the pubic symphysis. No lytic or blastic lesions are seen. IMPRESSION: 1. Findings are consistent with acute versus acute on chronic pancreatitis. 2. A stent within the pancreatic duct is unchanged in position. A common bile duct stent has been removed. 3. The pancreatic parenchyma enhances throughout. 4. A large calculus is again seen within the main pancreatic duct along the course of the stent. 5. There is a 2.0 cm cystic focus within or adjacent to the pancreatic head that is new from 06/23/2022 and likely represent a tiny pseudocyst. 6. The tiny cystic focus in the uncinate process seen previously has resolved. 7. Additional small cystic foci along the pancreatic body and tail are unchanged. These could represent tiny pseudocysts versus IPMNs. 8. Right-sided nephrolithiasis. 10. Additional findings as above. ACT 112: Negative or not required by law. Electronically signed by: Chito Calle M.D. 07/08/2022 5:10 PM Medications Administered Current Inpatient Medications Acetaminophen (Acetaminophen 325 Mg Tab) 650 mg PO Q4H PRN PRN Reason: Pain or Fever Stop: 08/07/22 17:34 Amlodipine Besylate (Amlodipine Besylate 5 Mg Tab) 5 mg PO QAM HOLLY Stop: 08/07/22 18:14 Lipase/Protease/Amylase (Pancreaze (Lipase 16,800u) Cap) 1 cap PO TID HOLLY Stop: 08/07/22 20:59 Aspirin (Aspirin 81 Mg Ectab) 81 mg PO DAILY HOLLY Stop: 08/08/22 08:59 Atorvastatin Calcium (Atorvastatin 10 Mg Tab) 10 mg PO HS HOLLY Stop: 08/07/22 20:59 Citalopram Hydrobromide (Citalopram 20 Mg Tab) 10 mg PO QAM HOLLY Stop: 08/08/22 08:59 Gabapentin (Gabapentin 300 Mg Cap) 300 mg PO HS HOLLY Stop: 08/07/22 20:59 Gabapentin (Gabapentin 100 Mg Cap) 100 mg PO QAM HOLLY Stop: 08/08/22 08:59 Heparin Sodium (Porcine) (Heparin Sod 5,000 Unit/0.5 Ml Vial) 5,000 units SQ Q8 HOLLY Stop: 08/07/22 21:59 Hydromorphone HCl (Hydromorphone Inj 0.5 Mg/0.5 Ml Syr) 0.5 mg IV Q15M PRN PRN Reason: Pain Stop: 07/22/22 14:32 Last Admin: 07/08/22 15:09 Dose: 0.5 mg Hydromorphone HCl (Hydromorphone Inj 1 Mg/Ml Syringe) 1 mg IV Q4 PRN PRN Reason: severe pain Stop: 07/22/22 18:00 Hydromorphone HCl (Hydromorphone Inj 2 Mg/Ml Syr/Vial) 2 mg IV Q6H PRN PRN Reason: breakthrough pain Stop: 07/22/22 18:00 Lactated Ringer's (Lr) 1,000 mls @ 200 mls/hr IV .Q5H HOLLY Stop: 08/07/22 14:44 Last Infusion: 07/08/22 17:33 Dose: 0 mls/hr Pantoprazole Sodium 40 mg/ (Syringe) 10 mls @ 5 mls/min IV BID HOLLY Stop: 08/07/22 20:59 Levothyroxine Sodium (Levothyroxine Sodium 175 Mcg Tablet) 175 mcg PO DAILYBB HOLLY Stop: 08/08/22 06:29 Morphine Sulfate (Morphine Sulfate 4 Mg/Ml 1 Ml Carp\\Vial) 4 mg IV Q6 PRN PRN Reason: moderate pain Stop: 07/22/22 18:00 Nitroglycerin (Nitroglycerin Sl 0.4 Mg/Tab Tab) 0.4 mg SL UD PRN PRN Reason: Chest Pain Stop: 08/07/22 17:34 Ondansetron HCl (Ondansetron Inj 2 Mg/Ml 2 Ml Vial) 4 mg IV Q6H PRN PRN Reason: Nausea Stop: 07/12/22 17:34 Polyethylene Glycol (Polyethylene (Miralax) 17 Gm Pack) 17 gm PO DAILY PRN PRN Reason: Constipation Stop: 08/07/22 17:34 Code Status & VTE Plan Code Status Full Code VTE Prophylaxis Plan VTE Prophylaxis will be ordered: Yes
[2022-07-08] MEDS ORDERED: LOSARTAN POTASSIUM 50 MG TAB PO ONE (18:45)
[2022-07-08 19:04] LABS: Folate (Folic Acid) 18.63 ng/ml (>5.38)
[2022-07-08 19:54] LABS: Hematocrit (blood only) 30.3 % (34.1-44.9); Hemoglobin 10.3 g/dl (12.0-16.0); Mean Corpuscular Hemoglobin 30.4 pg (25.0-34.0); Mean Corpuscular Volume 89.4 fL (80.0-100.0); Mean Platelet Volume 9.7 fL (9.4-12.3); Platelet Count 251 K/uL (130-400); RDW Coefficient of Variation 13.3 % (11.5-14.5); RDW Standard Deviation 43.8 fL (36.4-46.3); Red Blood Count 3.39 M/uL (3.93-5.22); White Blood Count 9.48 K/ul (4.8-10.8)
[2022-07-08] MEDS: HYDROmorphone INJ 1 MG/ML SYRINGE IV PRN (20:01)
[2022-07-08] MEDS: ONDANSETRON INJ 2 MG/ML 2 ML VIAL IV PRN (20:02)
[2022-07-08] MEDS: PANTOprazole 40 MG in SYRINGE 0 ML IV SCH (20:07)
[2022-07-08] MEDS: amLODIPine BESYLATE 5 MG TAB PO SCH (20:09)
[2022-07-08] MEDS ORDERED: PANTOprazole 40 MG TAB PO SCH (21:00)
[2022-07-08] MEDS: ATORVASTATIN 10 MG TAB PO SCH (22:36)
[2022-07-08] MEDS: GABAPENTIN 300 MG CAP PO SCH (22:39)
[2022-07-08] MEDS: PANCREAZE (LIPASE 16,800U) CAP PO SCH (22:39)
[2022-07-09] MEDS: LACTATED RINGER'S 1,000 ML IV SCH ×3 (03:48→13:53)
[2022-07-09] MEDS: ONDANSETRON INJ 2 MG/ML 2 ML VIAL IV PRN ×2 (03:50→11:24)
[2022-07-09] MEDS: HYDROmorphone INJ 1 MG/ML SYRINGE IV PRN ×2 (03:50→11:24)
[2022-07-09] MEDS: LEVOTHYROXINE SODIUM 175 MCG TABLET PO SCH (06:02)
[2022-07-09 06:33] LABS: Basophils # (auto) 0.03 K/uL (0-0.2); Basophils % (auto) 0.3 %; Eosinophils # (auto) 0.04 K/uL (0-0.50); Eosinophils % (auto) 0.4 %; Hematocrit (blood only) 28.1 % (34.1-44.9); Hemoglobin 9.6 g/dl (12.0-16.0); Immature Granulocytes # (auto) 0.03 K/uL (0.00-0.02); Immature Granulocytes % (auto) 0.3 %; Lymphocytes # (auto) 0.44 K/uL (1.2-3.4); Lymphocytes % (auto) 4.6 %; Mean Corpuscular Hemoglobin 30.6 pg (25.0-34.0); Mean Corpuscular Hgb Conc 34.2 g/dL (32.0-36.0); Mean Corpuscular Volume 89.5 fL (80.0-100.0); Mean Platelet Volume 9.9 fL (9.4-12.3); Monocytes # (auto) 0.81 K/uL (0.24-0.82); Monocytes % (auto) 8.4 %; Platelet Count 232 K/uL (130-400); RDW Coefficient of Variation 13.3 % (11.5-14.5); RDW Standard Deviation 43.3 fL (36.4-46.3); Red Blood Count 3.14 M/uL (3.93-5.22); White Blood Count 9.65 K/ul (4.8-10.8)
[2022-07-09 07:13] LABS: Albumin Globulin Ratio 1.1 (0.9-2); Albumin Level 3.4 gm/dl (3.4-5.0); BUN Creatinine Ratio 9.8 (10-20); Bilirubin,Total 0.7 mg/dl (0.2-1.0); C Reactive Protein 4.93 mg/dl (0-0.5); Calcium 8.2 mg/dl (8.5-10.1); Creatinine Clr Calc Pharmacy 145.6 ml/min; Est GFR (African American) 119.6 ml/min; Est GFR (Non-African American) 103.2 ml/min; Globulin 3.1 gm/dl (2.5-4.0); Magnesium 1.1 mg/dl (1.7-2.4); Phosphorus 2.7 mg/dl (2.5-4.9); Potassium 2.8 mmol/L (3.5-5.1); Total Protein 6.5 gm/dl (6.0-8.3)
[2022-07-09 07:24] LABS: INR 1.1 (0.9-1.1)
[2022-07-09] MEDS ORDERED: POTASSIUM CHLORIDE CRTAB 20 MEQ TABCR PO STA (07:39)
[2022-07-09] MEDS: GABAPENTIN 100 MG CAP PO SCH (07:50)
[2022-07-09] MEDS: CITALOPRAM 20 MG TAB PO SCH (07:50)
[2022-07-09] MEDS: ASPIRIN 81 MG ECTAB PO SCH (07:52)
[2022-07-09] MEDS: LOSARTAN POTASSIUM 50 MG TAB PO SCH (07:53)
[2022-07-09] MEDS: PANCREAZE (LIPASE 16,800U) CAP PO SCH (07:53)
[2022-07-09] MEDS: amLODIPine BESYLATE 5 MG TAB PO SCH (07:54)
[2022-07-09] MEDS: PANTOprazole 40 MG in SYRINGE 0 ML IV SCH (07:55)
[2022-07-09] MEDS: POTASSIUM CHLORIDE / WTR 10 MEQ/100 ML PLCT IV SCH ×6 (08:10→18:37)
[2022-07-09] MEDS: MAGNESIUM SULFATE / D5W 1 GM/100 ML BAG IV SCH ×3 (08:10→11:59)
[2022-07-09] MEDS ORDERED: POTASSIUM CHLORIDE CRTAB 20 MEQ TABCR PO SCH (10:00)
--- NOTE | 2022-07-09 10:53 | Hospitalist Progress Note ---
Date of Service July 09, 2022 Assessment & Plan (1) Acute on chronic pancreatitis: Plan: - patient with evidence of possible acute on chronic pancreatitis on CT-AP - epigastric pain, n/v with known history of pancreatic stones - lipase and amylase wnl - recent EGD 06/27/2022 with stent placement/replacement - afebrile, WBC mildly elevated - will hold abx for now - NPO with sips and meds - pancreatic enzymes TID - will hold while NPO - IVF at least 150-22cc/hr - pain control - nausea control - GI consulted - tele monitoring overnight (2) Anemia: Plan: - hgb on presentation 8.5 with baseline around 12 - unclear reason for drop - on repeat was 10 - this morning was 9.6 - MCV wnl and unchanged from prior - maintain active type and screen - denies history of blood in vomit or stools, denies melena, SOB, light headedness, chest pain - iron studies, folate, b12 - irons studies indicate some mild iron deficiency - start supplements when resuming po - FOBT ordered - GI already consulted - monitor for now (3) HTN (hypertension): Plan: - continue home medications as tolerated (4) Anxiety: Plan: - continue citalopram (5) Hyperlipidemia: Plan: - continue statin (6) Hypothyroidism: Plan: - continue levothryoxine 175mcg daily (7) Coronary artery disease: Plan: - denies history of [place] - good functional status - ?remote [facility] without stents - continue statin for now - restart aspirin as hgb did not drop again, actually improved from admission CBC - PPI BID in the meantime - change to daily (8) GERD (gastroesophageal reflux disease): Plan: - PPI BID for now given hgb drop - change to daily Plan DVT ppx: heparin SC Code Status: Full Code Dispo: tele for now Silvestre Vazquez MD [facility] Medicine Admission and Anticipated Discharge Date Admission Date: July 08, 2022 Subjective Patient with HTN, HLD, anxiety, hypothyroidism, GERD, chronic pancreatitis presented with abdominal pain, n/v, found to have acute on chronic pancreatitis likely secondary to pancreatic stones. Started on IVF, pain control, NPO, GI consulted. Patient with nausea and vomiting this morning after taking medications. Abdominal pain somewhat controlled with pain medications. Denies chest pain, shortness of breath, diarrhea, melena, bloody stools or vomitus, dysuria. Review of Systems Review of Systems: All systems reviewed & are unremarkable except as noted in Subjective Physical Exam Physical Exam: GENERAL: Awake, alert, uncomfortable-appearing, in no distress HENT: Normocephalic, atraumatic. Oropharynx unremarkable. Dry MM EYES: Normal conjunctiva. Sclera non-icteric. NECK: Inspection normal. Non-tender. Supple. No nuchal rigidity. FROM. No ma sses. RESPIRATORY: Clear to auscultation. No wheezes. No rales. Normal respiratory effort. CARDIAC: Normal rate. Normal rhythm. No murmurs. No rubs. Extremities warm and well perfused. Pulses equal. No JVD. GI: Soft, non-distended. Epigastric tenderness to palpation. No rebound or guarding. No masses. RECTAL: Deferred. MUSCULOSKELETAL: Atraumatic. Chest examination reveals no tenderness. The back is symmetrical on inspection without obvious abnormality. There is no CVA tenderness to palpation. No joint edema. LOWER EXTREMITIES: Calves are equal size bilaterally and non-tender. No edema. N o discoloration. varicose veins noted on bilateral LEs NEURO: Normal sensorium. No sensory or motor deficits noted. SKIN: No rash or jaundice noted. Results & Data Results & Data ([facility]) Vital Signs (Past 12 Hours) Vital Signs Temp Pulse Pulse Pulse Resp BP Pulse Ox 07/09/22 08:47 07/09/22 07:58 36.5 C 73 16 141/66 H 92 07/09/22 07:21 68 07/09/22 03:19 36.6 C 67 18 165/62 H 94 07/09/22 04:17 62 07/09/22 01:17 07/08/22 23:16 68 16 170/68 H 92 O2 Del Method 07/09/22 08:47 Room Air 07/09/22 07:58 Room Air 07/09/22 07:21 07/09/22 03:19 Room Air 07/09/22 04:17 07/09/22 01:17 Room Air 07/08/22 23:16 Room Air Diagnostic Findings Laboratory Results WBC 9.65 K/ul (4.8-10.8) 07/09/22 05:58 RBC 3.14 M/uL (3.93-5.22) L 07/09/22 05:58 Hgb 9.6 g/dl (12.0-16.0) L 07/09/22 05:58 Hct 28.1 % (34.1-44.9) L 07/09/22 05:58 MCV 89.5 fL (80.0-100.0) 07/09/22 05:58 MCH 30.6 pg (25.0-34.0) 07/09/22 05:58 MCHC 34.2 g/dL (32.0-36.0) 07/09/22 05:58 RDW Std Deviation 43.3 fL (36.4-46.3) 07/09/22 05:58 RDW Coeff of Renée 13.3 % (11.5-14.5) 07/09/22 05:58 Plt Count 232 K/uL (130-400) 07/09/22 05:58 MPV 9.9 fL (9.4-12.3) 07/09/22 05:58 Immature Gran % (Auto) 0.3 % 07/09/22 05:58 Neut % (Auto) 86.0 % 07/09/22 05:58 Lymph % (Auto) 4.6 % 07/09/22 05:58 Mercer % (Auto) 8.4 % 07/09/22 05:58 Eos % (Auto) 0.4 % 07/09/22 05:58 Baso % (Auto) 0.3 % 07/09/22 05:58 Neut # (Auto) 8.30 K/uL (1.4-6.5) H 07/09/22 05:58 Lymph # (Auto) 0.44 K/uL (1.2-3.4) L 07/09/22 05:58 Mercer # (Auto) 0.81 K/uL (0.24-0.82) 07/09/22 05:58 Eos # (Auto) 0.04 K/uL (0-0.50) 07/09/22 05:58 Baso # (Auto) 0.03 K/uL (0-0.2) 07/09/22 05:58 Immature Gran # (Auto) 0.03 K/uL (0.00-0.02) H 07/09/22 05:58 ESR 46 mm/hr (0-30) H 07/09/22 05:58 PT 12.0 Seconds (9.0-12.0) 07/09/22 05:58 INR 1.1 (0.9-1.1) 07/09/22 05:58 Sodium 137 mmol/L (136-145) 07/09/22 05:58 Potassium 2.8 mmol/L (3.5-5.1) L 07/09/22 05:58 Chloride 102 mmol/L (98-107) 07/09/22 05:58 Carbon Dioxide 26 mmol/L (21-32) 07/09/22 05:58 Anion Gap 9 (3-11) 07/09/22 05:58 BUN 4 mg/dl (6-23) L 07/09/22 05:58 Creatinine 0.41 mg/dl (0.6-1.2) L 07/09/22 05:58 Est Cr Clr Drug Dosing 145.6 ml/min 07/09/22 05:58 Est GFR ( Amer) 119.6 ml/min 07/09/22 05:58 Est GFR (Non-Af Amer) 103.2 ml/min 07/09/22 05:58 BUN/Creatinine Ratio 9.8 (10-20) L 07/09/22 05:58 Glucose 107 mg/dl (70-99(Fasting)) H 07/09/22 05:58 Calcium 8.2 mg/dl (8.5-10.1) L 07/09/22 05:58 Phosphorus 2.7 mg/dl (2.5-4.9) 07/09/22 05:58 Magnesium 1.1 mg/dl (1.7-2.4) L 07/09/22 05:58 Iron 29 mcg/dl (35-150) L 07/08/22 14:27 Unsaturated IBC 238 mcg/dl (155-355) 07/08/22 14:27 Ferritin 158.9 ng/ml (8-388) 07/08/22 14:27 Total Bilirubin 0.7 mg/dl (0.2-1.0) 07/09/22 05:58 AST 11 U/L (13-39) L 07/09/22 05:58 ALT 8 U/L (7-52) 07/09/22 05:58 Alkaline Phosphatase 76 U/L (34-104) 07/09/22 05:58 Troponin I High Sens 8.5 pg/ml (0-14) 07/08/22 14:27 C-Reactive Protein 4.93 mg/dl (0-0.5) H 07/09/22 05:58 Total Protein 6.5 gm/dl (6.0-8.3) 07/09/22 05:58 Albumin 3.4 gm/dl (3.4-5.0) 07/09/22 05:58 Globulin 3.1 gm/dl (2.5-4.0) 07/09/22 05:58 Albumin/Globulin Ratio 1.1 (0.9-2) 07/09/22 05:58 Amylase 30 U/L (25-115) 07/08/22 14:27 Lipase 7 U/L (11-82) L 07/08/22 14:27 Vitamin B12 424 pg/ml (180-914) 07/08/22 18:04 Folate 18.63 ng/ml (>5.38) 07/08/22 18:04 Procalcitonin < 0.05 ng/ml (0-0.5) 07/09/22 05:58 Urine Color Yellow 07/08/22 14:13 Urine Appearance Clear (Clear) 07/08/22 14:13 Urine pH 7.5 (4.5-7.5) 07/08/22 14:13 Ur Specific Fielding 1.014 (1.000-1.030) 07/08/22 14:13 Urine Protein Trace (Negative) H 07/08/22 14:13 Urine Glucose (UA) Negative (Negative) 07/08/22 14:13 Urine Ketones 2+ (Negative) H 07/08/22 14:13 Urine Blood 2+ (Negative) H 07/08/22 14:13 Urine Nitrite Negative (Negative) 07/08/22 14:13 Urine Bilirubin Negative (Negative) 07/08/22 14:13 Urine Urobilinogen Negative (Negative) 07/08/22 14:13 Ur Leukocyte Esterase Trace (Negative) H 07/08/22 14:13 Urine WBC (Auto) 1-5 /hpf (0-5) 07/08/22 14:13 Urine RBC (Auto) 10-30 /hpf (0-4) H 07/08/22 14:13 U Hyaline Cast (Auto) 1-5 /lpf (0-5) 07/08/22 14:13 U Epithel Cells (Auto) >30 /lpf (0-5) H 07/08/22 14:13 Urine Bacteria (Auto) 2+ (Negative) H 07/08/22 14:13 SARS-CoV-2, RNA, NAAT NEGATIVE (NEGATIVE) 07/08/22 15:04 Blood Type A Positive 07/08/22 19:36 Antibody Screen NEGATIVE 07/08/22 19:36 Impressions Abdomen/Pelvis CT 07/08/22 14:42 CT SCAN OF THE ABDOMEN AND PELVIS WITH IV CONTRAST CLINICAL HISTORY: Nausea and vomiting. Epigastric abdominal pain. History of pancreatitis. COMPARISON STUDY: Abdominal CT dated 06/23/2022. TECHNIQUE: Following the IV administration of 94 cc of Optiray 350, CT scan of the abdomen and pelvis is performed from the lung bases to the proximal femora. Images are reviewed in the axial, sagittal, and coronal planes. IV contrast was administered without complication. A dose lowering technique was utilized adhering to the principles of ALARA. CT DOSE: 735.05 mGy.cm FINDINGS: Lung bases: The heart is normal in size noting trace pericardial effusion. Small pleural-based nodules at the right lung base measuring up to 3 mm are unchanged from previous and of low suspicion. The lung bases are otherwise clear noting bibasilar scarring/atelectasis. There is a small hiatal hernia. Liver: The contrast-enhanced liver is normal in size, contour, and attenuation. There is mild intrahepatic biliary ductal dilatation. Pneumobilia is similar to previous. The hepatic veins and portal veins are patent. Gallbladder: Surgically absent and clips in the gallbladder fossa. A common bile duct stent has been removed from previous. Spleen: Normal in size and attenuation. Pancreas: A stent within the pancreatic duct is unchanged in position. The pancreas is atrophic. The gland is edematous, with peripancreatic inflammation and fluid. This is typical for acute pancreatitis. Gas within the common bile duct suggests patency of the stent. There is a 10 mm calculus within the pancreatic duct in the head of the pancreas seen on image #141. This is unchanged. The gland enhances throughout. There are several small cystic foci within or adjacent to the pancreas. A cystic focus at the head/neck junction on image #137 is new from previous and measures 2.0 cm. The cystic focus in the uncinate process seen on 06/23/2022 is no longer visualized. Additional tiny cystic foci along the body and tail seen on images #101, #114, #116, scans #125 measure up to 1.5 cm and are likely unchanged. The splenic vein is patent. Adrenal glands: Unremarkable. Kidneys: The contrast enhanced kidneys demonstrate mild cortical atrophy and are without hydronephrosis. The kidneys enhance symmetrically. A 3 mm nonobstructing calculus is noted on the right. Scattered subcentimeter cortical hypodensities likely represent cysts but are too small for definitive characterization. Abdominal vasculature: The abdominal aorta is normal in course and caliber. Bowel: There is no bowel obstruction. A duodenal diverticulum is incidentally noted. Mild wall thickening of the duodenum is likely related to adjacent pancreatitis. The appendix is well-visualized and normal. Peritoneum: There is no intraperitoneal free air or abdominal ascites. There is a small fat-containing umbilical hernia. Lymphadenopathy: None. Pelvic viscera: The bladder, uterus, and adnexa are normal as visualized. There is a fat-containing left groin hernia. There is trace free fluid in the cul-de-sac. Skeletal structures: The skeletal structures are osteopenic. There is mild/moderate lumbosacral spondylosis. Sclerotic change is noted in the pubic symphysis. No lytic or blastic lesions are seen. IMPRESSION: 1. Findings are consistent with acute versus acute on chronic pancreatitis. 2. A stent within the pancreatic duct is unchanged in position. A common bile duct stent has been removed. 3. The pancreatic parenchyma enhances throughout. 4. A large calculus is again seen within the main pancreatic duct along the course of the stent. 5. There is a 2.0 cm cystic focus within or adjacent to the pancreatic head that is new from 06/23/2022 and likely represent a tiny pseudocyst. 6. The tiny cystic focus in the uncinate process seen previously has resolved. 7. Additional small cystic foci along the pancreatic body and tail are unchanged. These could represent tiny pseudocysts versus IPMNs. 8. Right-sided nephrolithiasis. 10. Additional findings as above. ACT 112: Negative or not required by law. Electronically signed by: Chito Calle M.D. 07/08/2022 5:10 PM Medications Administered Current Inpatient Medications Acetaminophen (Acetaminophen 325 Mg Tab) 650 mg PO Q4H PRN PRN Reason: Pain or Fever Stop: 08/07/22 17:34 Last Admin: 07/08/22 23:30 Dose: 650 mg Amlodipine Besylate (Amlodipine Besylate 5 Mg Tab) 5 mg PO QAM [facility] Stop: 08/07/22 18:44 Last Admin: 07/09/22 07:54 Dose: 5 mg Lipase/Protease/Amylase (Pancreaze (Lipase 16,800u) Cap) 1 cap PO TID [facility] Stop: 08/07/22 20:59 Last Admin: 07/09/22 07:53 Dose: Not Given Aspirin (Aspirin 81 Mg Ectab) 81 mg PO DAILY [facility] Stop: 08/08/22 08:59 Last Admin: 07/09/22 07:52 Dose: Not Given Atorvastatin Calcium (Atorvastatin 10 Mg Tab) 10 mg PO HS [facility] Stop: 08/07/22 20:59 Last Admin: 07/08/22 22:36 Dose: Not Given Citalopram Hydrobromide (Citalopram 20 Mg Tab) [facility] Stop: 08/08/22 08:59 Last Admin: 07/09/22 07:50 Dose: 10 mg Gabapentin (Gabapentin 300 Mg Cap) 300 mg PO HS [facility] Stop: 08/07/22 20:59 Last Admin: 07/08/22 22:39 Dose: Not Given Gabapentin (Gabapentin 100 Mg Cap) 100 mg PO QAM [facility] Stop: 08/08/22 08:59 Last Admin: 07/09/22 07:50 Dose: 100 mg Heparin Sodium (Porcine) (Heparin Sod 5,000 Unit/0.5 Ml Vial) 5,000 units SQ Q8 [facility] Stop: 08/07/22 21:59 Hydromorphone HCl (Hydromorphone Inj 1 Mg/Ml Syringe) 1 mg IV Q4 PRN PRN Reason: severe pain Stop: 07/22/22 18:00 Last Admin: 07/09/22 03:50 Dose: 1 mg Lactated Ringer's (Lr) 1,000 mls @ 150 mls/hr IV .Q6H40M [facility] Stop: 07/09/22 18:44 Last Admin: 07/09/22 08:14 Dose: 200 mls/hr Pantoprazole Sodium 40 mg/ (Syringe) 10 mls @ 5 mls/min IV BID [facility] Stop: 08/07/22 20:59 Last Admin: 07/09/22 07:55 Dose: 5 mls/min Magnesium Sulfate/Dextrose (Magnesium Sulfate / D5w) 1 gm in 100 mls @ 50 mls/hr IV Q2H [facility] Stop: 07/09/22 13:44 Last Admin: 07/09/22 09:42 Dose: 50 mls/hr Potassium Chloride (K Shay / Wtr) 10 meq in 100 mls @ 100 mls/hr IV Q1H [facility] Stop: 07/09/22 12:44 Last Admin: 07/09/22 10:34 Dose: 100 mls/hr Levothyroxine Sodium (Levothyroxine Sodium 175 Mcg Tablet) 175 mcg PO DAILYBB [facility] Stop: 08/08/22 06:29 Last Admin: 07/09/22 06:02 Dose: 175 mcg Losartan Potassium (Losartan Potassium 50 Mg Tab) 50 mg PO QAM [facility] Stop: 08/08/22 08:59 Last Admin: 07/09/22 07:53 Dose: 50 mg Morphine Sulfate (Morphine Sulfate 4 Mg/Ml 1 Ml Carp\Vial) 4 mg IV Q6 PRN PRN Reason: moderate pain Stop: 07/22/22 18:00 Nitroglycerin (Nitroglycerin Sl 0.4 Mg/Tab Tab) 0.4 mg SL UD PRN PRN Reason: Chest Pain Stop: 08/07/22 17:34 Ondansetron HCl (Ondansetron Inj 2 Mg/Ml 2 Ml Vial) 4 mg IV Q6H PRN PRN Reason: Nausea Stop: 07/12/22 17:34 Last Admin: 07/09/22 03:50 Dose: 4 mg Polyethylene Glycol (Polyethylene (Miralax) 17 Gm Pack) 17 gm PO DAILY PRN PRN Reason: Constipation Stop: 08/07/22 17:34
--- NOTE | 2022-07-09 11:51 | Gastrointestinal Consultation ---
Date of Consultation July 09, 2022 Assessment & Plan (1) Acute on chronic pancreatitis: Plan suspect her issues are mostly from her persistent chronic pancreatitis, less of an acute component recs: NPO today aggressive IV hydration 200-250 cc/hr LR is preferable pain control prn once symptoms improve can likely start low residue diet hopefully tomorrow morning once she starts a diet would add creon TID with meals for pancreatitis pain, very important to open the capsule and sprinkle the powder on the food to treat chronic pancreatitis pain Thank you for allowing me to participate in the care of this patient History of Present Illness Attending Physician: Silvestre Vazquez MD History of Present Illness 72 yo female with hx chronic pancreatitis and pancreatic stones s/p ERCP multiple times with stent placement and EHL most recently 06/27/22 here with persistent n/v and abdominal pains. She has a patent main PD on imaging with a stent in place and a persistent large 2 cm pancreatic duct stone there as well. She continues to suffer from pains and nausea and vomiting, was prescribed creon yesterday for pancreatitis pain but unable to pick it up as her symptoms worsened and she came to the ER. Currently little bit improved on IVFs and pain medications. Lipase is unremarkable, no leukocytosis or fever. currently NPO. CBC and CMP reviewed. Allergies Allergy/AdvReac Type Severity Reaction Status Date / Time hydrocodone Allergy Intermediate ITCHY Verified 05/18/22 20:13 oxycodone AdvReac Intermediate Nausea Verified 05/18/22 20:13 tramadol AdvReac Intermediate Nausea Verified 05/18/22 20:13 Home Medications Medication Instructions Recorded Confirmed Type aspirin 81 mg chewable tablet 81 mg PO QAM ##0 08/26/14 07/08/22 History atorvastatin 20 mg tablet 20 mg PO PM #0 tabs 08/26/14 07/08/22 History levothyroxine 175 mcg tablet 175 mcg PO DAILYBB #0 tabs 11/03/16 07/08/22 History amlodipine 5 mg tablet 5 mg PO PM 06/15/20 07/08/22 History citalopram 10 mg tablet 10 mg PO QAM 06/15/20 07/08/22 History gabapentin 100 mg capsule See Rx Instructions .Route .COMPLEX 06/15/20 07/08/22 History omeprazole 20 mg capsule,delayed 20 mg PO BID 06/15/20 07/08/22 History release atenolol 25 mg tablet 25 mg PO BID 03/23/22 07/08/22 History losartan 100 mg tablet 100 mg PO QAM 03/23/22 07/08/22 History ondansetron HCl 4 mg tablet 4 mg PO Q8H PRN nausea and 03/23/22 07/08/22 Rx vomiting #15 tabs tramadol 50 mg tablet 50 mg PO Q8H PRN pain #15 tabs 03/23/22 07/08/22 Rx tramadol 50 mg tablet 50 mg PO Q12H PRN pain #10 tabs 05/18/22 07/08/22 Rx [id number] 1 cap PO TID Chronic pancreatitis 07/08/22 07/08/22 Rx 24,000-76,000-120,000 unit pain #90 caps capsule,delayed rel (Creon) Patient History Medical History Arthritis Bakers cyst Coronary artery disease Pt reports very remote h/o heart cath, > 25 yrs ago. No stents placed. Depression with anxiety Diabetes mellitus, type 2 diet controlled Dyslipidemia Hernia, hiatal HTN (hypertension) Hypothyroidism Left knee DJD Pancreatic cyst Right rotator cuff tear damaged from a fall, injections Sarcoidosis Has not followed with pulmonology for many years. Stable. Trochanteric bursitis, right hip Surgical History Ganglion cyst removed from right ankle History of colonoscopy History of esophagogastroduodenoscopy (EGD) S/P ankle fusion (10/2010) L ankle S/P cholecystectomy (02/25/15) lap gav[place] w/ cholangiogram Family History Father Heart disease Hypertension Father Heart disease Hypertension Sister Breast cancer Brother Lung cancer Brother Sarcoma Social History Smoking Status: Never smoker Second Hand Exposure: No; Hx Alcohol Use: No Hx Substance Use: No Preferred Language: Northern Irish Communication Ability: Effective Lard Bleacher Required: No Beliefs That Will Affect Care: None marital status: Current Living Situation: Spouse Current Living Situation Comment: How many Children do You have: 1 Other Information That Helps Us Care for You: No Feels Safe at Home: Yes Assistive Devices: Cane and Walker Review of Systems Constitutional: no fever, no chills and no weight loss Eyes: as per Subjective / HPI Ear, Nose, Mouth, Throat: as per Subjective / HPI Respiratory: no dyspnea and no dyspnea on exertion Cardiovascular: no chest pain and no palpitations Gastrointestinal: as per Subjective / HPI Musculoskeletal: no joint pain and no swelling Integumentary: no rash and no lesions Neurologic: no numbness and no paresthesia Psychiatric: no depression and no anxiety Endocrine: no fatigue Hematologic / Lymphatic: no easy bleeding and no easy bruising Physical Exam Constitutional: WD/WN, vitals as above Eyes: EOM intact bilaterally Neck: normal visual inspection Respiratory: normal respiratory effort, lungs clear to auscultation Cardiovascular: RRR, no murmur, no edema Gastrointestinal (Abdomen): Inspection/Auscultation: abdomen normal to inspection; abdomen not distended Percussion/Palpation: + abdomen tender (mild RUQ and epigastric ) and abdomen soft; no hepatosplenomegaly Musculoskeletal: Extremities: no cyanosis Gait: normal gait Skin: no rashes, warm and dry Neurologic: moves all extremities Psychiatric: A+Ox3, euthymic affect Results & Data ([facility] [place]) Vital Signs (Past 12 Hours) Vital Signs Temp Pulse Pulse Resp BP Pulse Ox O2 Del Method 07/09/22 11:08 36.6 C 76 16 181/78 H 93 Room Air 07/09/22 08:47 Room Air 07/09/22 07:58 36.5 C 73 16 141/66 H 92 Room Air 07/09/22 07:21 68 07/09/22 03:19 36.6 C 67 18 165/62 H 94 Room Air 07/09/22 04:17 62 07/09/22 01:17 Room Air PG Care Time/CCT Total # of Minutes Spent Total Time Spent with Patient: Total time spent is greater than 50% in coordination of care (as documented) at patient's floor/unit and/or counseling patient: Coding Level of Care Code 97901 Initial Inpt Care Lvl 3 Diagnoses Acute on chronic pancreatitis K85.90; K86.1
[2022-07-09] MEDS: HEPARIN SOD 5,000 UNIT/0.5 ML VIAL SQ SCH ×2 (13:53→20:58)
[2022-07-09] MEDS ORDERED: PROCHLORPERAZINE 10 MG in SYRINGE 8 ML IV PRN (14:00)
[2022-07-09] MEDS ORDERED: LABETALOL HCL IV 5 MG/ML 20ML IV PRN (14:01)
[2022-07-09] MEDS: ATORVASTATIN 10 MG TAB PO SCH (20:58)
[2022-07-09] MEDS: GABAPENTIN 300 MG CAP PO SCH (20:58)
[2022-07-10] MEDS: LEVOTHYROXINE SODIUM 175 MCG TABLET PO SCH (05:54)
[2022-07-10] MEDS: HEPARIN SOD 5,000 UNIT/0.5 ML VIAL SQ SCH ×2 (05:54→13:08)
[2022-07-10 07:09] LABS: Basophils # (auto) 0.01 K/uL (0-0.2); Basophils % (auto) 0.1 %; Eosinophils # (auto) 0.03 K/uL (0-0.50); Eosinophils % (auto) 0.3 %; Hematocrit (blood only) 29.8 % (34.1-44.9); Hemoglobin 10.1 g/dl (12.0-16.0); Immature Granulocytes # (auto) 0.03 K/uL (0.00-0.02); Immature Granulocytes % (auto) 0.3 %; Lymphocytes # (auto) 0.34 K/uL (1.2-3.4); Lymphocytes % (auto) 3.9 %; Mean Corpuscular Hemoglobin 30.2 pg (25.0-34.0); Mean Corpuscular Hgb Conc 33.9 g/dL (32.0-36.0); Mean Corpuscular Volume 89.2 fL (80.0-100.0); Mean Platelet Volume 9.9 fL (9.4-12.3); Neutrophils # (auto) 7.62 K/uL (1.4-6.5); Neutrophils % (auto) 87.4 %; Platelet Count 246 K/uL (130-400); RDW Coefficient of Variation 13.3 % (11.5-14.5); RDW Standard Deviation 43.5 fL (36.4-46.3); Red Blood Count 3.34 M/uL (3.93-5.22); White Blood Count 8.73 K/ul (4.8-10.8)
[2022-07-10 07:36] LABS: Albumin Globulin Ratio 1.1 (0.9-2); Albumin Level 3.5 gm/dl (3.4-5.0); BUN Creatinine Ratio 4.7 (10-20); Bilirubin,Total 0.7 mg/dl (0.2-1.0); Calcium 8.7 mg/dl (8.5-10.1); Creatinine Clr Calc Pharmacy 137.8 ml/min; Est GFR (African American) 117.8 ml/min; Est GFR (Non-African American) 101.6 ml/min; Globulin 3.1 gm/dl (2.5-4.0); Magnesium 1.5 mg/dl (1.7-2.4); Phosphorus 2.5 mg/dl (2.5-4.9); Potassium 3.2 mmol/L (3.5-5.1); Total Protein 6.6 gm/dl (6.0-8.3)
[2022-07-10] MEDS: amLODIPine BESYLATE 5 MG TAB PO SCH (08:52)
[2022-07-10] MEDS: CITALOPRAM 20 MG TAB PO SCH (08:53)
[2022-07-10] MEDS: ASPIRIN 81 MG ECTAB PO SCH (08:53)
[2022-07-10] MEDS: GABAPENTIN 100 MG CAP PO SCH (08:54)
[2022-07-10] MEDS: PANCREAZE (LIPASE 16,800U) CAP PO SCH ×2 (08:54→13:08)
[2022-07-10] MEDS: LOSARTAN POTASSIUM 50 MG TAB PO SCH (08:54)
--- NOTE | 2022-07-10 08:59 | Gastroenterology Progress Note ---
Date of Service July 10, 2022 Assessment & Plan (1) Acute on chronic pancreatitis: Plan: 72 year old female admitted with abd pain, history of chronic panc, known PD stone, scheduled for OP endoscopic procedure next month at [facility]. This AM she is feeling better, tolerating water, wishes to trial liquids. Clear liquid diet Antiemetics PRN Analgesia PRN Keep procedure as scheduled Continue IV Fluids If tolerating clear liquids, advance to low residue diet, start creon w/ meals Will sign off. Recall as needed. Thank you for allowing us to participate in the care of this patient. Please call with any acute changes, questions or concerns. Please see addendum below with additional recommendation from my supervising physician. Admission and Anticipated Discharge Date Admission Date: July 08, 2022 Supervising Physician Co-Signing Physician Notes I have personally seen and examined the patient with KATRIN Brown. Her note reflects my exam and findings. I agree with her impression and plan. Feeling better. Advanced diet as tolerates. Fausto Fulton M.D. Subjective PT was seen and evaluated, chart reviewed. Feeling better Less pain No nausea, vomiting. Drank some water. Wants to try clear liquids. Review of Systems Review of Systems: All systems reviewed & are unremarkable except as noted in HPI & below Physical Exam Constitutional: well developed and well nourished; no acute distress Respiratory: normal respiratory effort, lungs clear to auscultation Cardiovascular: Rate/Rhythm: regular rate and regular rhythm Gastrointestinal (Abdomen): normal bowel sounds, soft, nontender, no hepatosplenomegaly Skin: no rashes, warm and dry Results & Data ([facility]) Vital Signs (Past 12 Hours) Vital Signs Temp Pulse Pulse Resp BP Pulse Ox O2 Del Method 07/10/22 08:03 36.6 C 90 16 160/76 H 95 Room Air 07/10/22 07:47 81 07/10/22 03:38 37 C 85 20 178/72 H 94 Room Air 07/09/22 22:00 36.9 C 89 18 164/76 H 92 Room Air 07/10/22 00:23 88 Laboratory Results 07/10/22 07/10/22 Range/Units 06:43 06:43 WBC 8.73 (4.8-10.8) K/ul RBC 3.34 L (3.93-5.22) M/uL Hgb 10.1 L (12.0-16.0) g/dl Hct 29.8 L (34.1-44.9) % MCV 89.2 (80.0-100.0) fL MCH 30.2 (25.0-34.0) pg MCHC 33.9 (32.0-36.0) g/dL RDW Std Deviation 43.5 (36.4-46.3) fL RDW Coeff of Renée 13.3 (11.5-14.5) % Plt Count 246 (130-400) K/uL MPV 9.9 (9.4-12.3) fL Immature Gran % (Auto) 0.3 % Neut % (Auto) 87.4 % Lymph % (Auto) 3.9 % Garfield % (Auto) 8.0 % Eos % (Auto) 0.3 % Baso % (Auto) 0.1 % Neut # (Auto) 7.62 H (1.4-6.5) K/uL Lymph # (Auto) 0.34 L (1.2-3.4) K/uL Garfield # (Auto) 0.70 (0.24-0.82) K/uL Eos # (Auto) 0.03 (0-0.50) K/uL Baso # (Auto) 0.01 (0-0.2) K/uL Immature Gran # (Auto) 0.03 H (0.00-0.02) K/uL Sodium 138 (136-145) mmol/L Potassium 3.2 L (3.5-5.1) mmol/L Chloride 102 (98-107) mmol/L Carbon Dioxide 29 (21-32) mmol/L Anion Gap 7 (3-11) BUN 2 L (6-23) mg/dl Creatinine 0.43 L (0.6-1.2) mg/dl Est Cr Clr Drug Dosing 137.8 ml/min Est GFR ( Amer) 117.8 ml/min Est GFR (Non-Af Amer) 101.6 ml/min BUN/Creatinine Ratio 4.7 L (10-20) Glucose 105 H (70-99(Fasting)) mg/dl Calcium 8.7 (8.5-10.1) mg/dl Phosphorus 2.5 (2.5-4.9) mg/dl Magnesium 1.5 L (1.7-2.4) mg/dl Total Bilirubin 0.7 (0.2-1.0) mg/dl AST 16 (13-39) U/L ALT 8 (7-52) U/L Alkaline Phosphatase 78 (34-104) U/L Total Protein 6.6 (6.0-8.3) gm/dl Albumin 3.5 (3.4-5.0) gm/dl Globulin 3.1 (2.5-4.0) gm/dl Albumin/Globulin Ratio 1.1 (0.9-2)
[2022-07-10] MEDS ORDERED: PANTOprazole 40 MG in SYRINGE 0 ML IV SCH (09:00)
--- NOTE | 2022-07-10 09:17 | Electrocardiogram Report ---
Test Reason : Blood Pressure : / mmHG Vent. Rate : 086 BPM Atrial Rate : 086 BPM P-R Int : 132 ms QRS Dur : 142 ms QT Int : 452 ms P-R-T Axes : 041 010 019 degrees QTc Int : 540 ms Poor data quality, interpretation may be adversely affected Sinus rhythm with Premature atrial complexes Right bundle branch block Abnormal ECG When compared with ECG of 23-JUN-2022 19:56, Premature ventricular complexes are no longer Present Right bundle branch block is now Present Confirmed by Kaushal Infante ([id number]) on 07/10/2022 9:16:54 AM Referred By: REFERRED SELF Confirmed By:Pancho Infante
--- NOTE | 2022-07-10 10:36 | Hospitalist Progress Note ---
Date of Service July 10, 2022 Assessment & Plan (1) Acute on chronic pancreatitis: Plan: - patient with evidence of possible acute on chronic pancreatitis on CT-AP - epigastric pain, n/v with known history of pancreatic stones - lipase and amylase wnl - recent EGD 06/27/2022 with stent placement/replacement - afebrile, WBC mildly elevated - pancreatic enzymes TID - IVF at least 150-22cc/hr - pain control - nausea control - GI consulted - advance diet as tolerated with Pancrease enzyme replacement - much improved today (2) Anemia: Plan: - hgb on presentation 8.5 with baseline around 12 - unclear reason for drop - on repeat was 10 - this morning was 9.6 - MCV wnl and unchanged from prior - maintain active type and screen - denies history of blood in vomit or stools, denies melena, SOB, light headedness, chest pain - iron studies, folate, b12 - irons studies indicate some mild iron deficiency - start supplements when resuming po on discharge - GI already consulted - hgb improved and stable - monitor for now (3) HTN (hypertension): Plan: - continue home medications as tolerated (4) Anxiety: Plan: - continue citalopram (5) Hyperlipidemia: Plan: - continue statin (6) Hypothyroidism: Plan: - continue levothryoxine 175mcg daily (7) Coronary artery disease: Plan: - denies history of VT - good functional status - ?remote [facility] without stents - continue statin for now - restart aspirin as hgb did not drop again, actually improved from admission CBC - PPI BID in the meantime - change to daily (8) GERD (gastroesophageal reflux disease): Plan: - PPI daily (9) Abnormal urinalysis: Plan: - patient with positive UA - however, asymptomatic, afebrile, WBC normalized and has remained normalized - s/p 1 dose ceftriaxone in ED - patient does not have symptoms of UTI and so will treat her for one as she likely does not have a UTI Plan DVT ppx: heparin SC Code Status: Full Code Dispo: tele for now Silvestre Vazquez MD [facility] Medicine Admission and Anticipated Discharge Date Admission Date: July 08, 2022 Subjective Patient with HTN, HLD, anxiety, hypothyroidism, GERD, chronic pancreatitis presented with abdominal pain, n/v, found to have acute on chronic pancreatitis likely secondary to pancreatic stones. Started on IVF, pain control, NPO, GI consulted. Symptoms improved this morning without nausea or vomiting, abdominal pain better as well. tolerated a diet this morning. Denies chest pain, shortness of breath, diarrhea, melena, bloody stools or vomitus, dysuria. Review of Systems Review of Systems: All systems reviewed & are unremarkable except as noted in Subjective Physical Exam Physical Exam: GENERAL: Awake, alert, uncomfortable-appearing, in no distress HENT: Normocephalic, atraumatic. Oropharynx unremarkable. Dry MM EYES: Normal conjunctiva. Sclera non-icteric. NECK: Inspection normal. Non-tender. Supple. No nuchal rigidity. FROM. No masses. RESPIRATORY: Clear to auscultation. No wheezes. No rales. Normal respiratory effort. CARDIAC: Normal rate. Normal rhythm. No murmurs. No rubs. Extremities warm and well perfused. Pulses equal. No JVD. GI: Soft, non-distended. Epigastric tenderness to palpation. No rebound or guarding. No masses. RECTAL: Deferred. MUSCULOSKELETAL: Atraumatic. Chest examination reveals no tenderness. The back is symmetrical on inspection without obvious abnormality. There is no CVA tenderness to palpation. No joint edema. LOWER EXTREMITIES: Calves are equal size bilaterally and non-tender. No edema. No discoloration. varicose veins noted on bilateral LEs NEURO: Normal sensorium. No sensory or motor deficits noted. SKIN: No rash or jaundice noted. Results & Data Results & Data ([facility]) Vital Signs (Past 12 Hours) Vital Signs Temp Pulse Pulse Resp BP Pulse Ox O2 Del Method 07/10/22 08:03 36.6 C 90 16 160/76 H 95 Room Air 07/10/22 07:47 81 07/10/22 03:38 37 C 85 20 178/72 H 94 Room Air 07/10/22 00:23 88
[2022-07-10] MEDS ORDERED: DICLOFENAC SOD 1% GEL 100 GM TUBE EXT SCH (12:00)
[2022-07-10] MEDS ORDERED: LOSARTAN POTASSIUM 50 MG TAB PO ONE (12:45)
[2022-07-10] MEDS ORDERED: SIMETHICONE 80 MG CHEW PO PRN (13:58)
--- NOTE | 2022-07-10 14:50 | Discharge Summary ---
Date of Service July 10, 2022 Admission HPI Per Admitting Provider The patient is a 72 year old woman with pmh HTN, HLD, anxiety, hypothyroidism, GERD, chronic pancreatitis with pseudocyst and pancreatic stones who presented with several weeks of abdominal pain and nausea and vomiting. She says that about 6 months ago she was diagnosed with pancreatitis and had pancreatic stones requiring multiple stents. She most recently had an EGD with GI around 06/27/2022. at that time she had two stents removed, a large stone was "broken up" and a larger stent was placed. After this last EGD, she reports she had about a week of reduced abdominal pain and increased po tolerance. However, over the last week or so, she has had increasing pain and nausea and vomiting without much appetite. she says that she has not eaten much food because of decreased appetite over these months and is not able to tolerate anything other than toast and water. She reports nonbloody vomitus over this time. She reports abdominal pain, mostly in the epigastric area. She denies diarrhea, bloody stools, or me navneet. She has been having BMs with soft brown stools, regularly. She denies chest pain, shortness of breath, light headedness, dizziness, LOC, cough, fever or chills, dysuria, rashes over this time. She has good functional status with no real significant physical limitations. Denies tobacco, alcohol, or drug use. Did not take medications today due to feeling ill. In the ED, vitals were unremarkable. Labs were significant for hgb 8.5 (last hgb 06/23/2022 was 11.1 - baseline appears to be ~12), WBC 11.75, PLT 315, K 3.1, Cr 0.5, ASt 13, ALT 11, ALP 88, bili 0.9, lipase, 7, amylase 30. CT-AP showed evidence of pancreatic stones, with a large calculus is again seen within the main pancreatic duct along the course of the stent, as well as a 2cm cystic focus in or adjacent to pancreatic head that is new which could represent a tiny pseudocyst, and evidence of acute vs acute on chronic pancreatitis. Stent placements are unchanged. She was given IVF, one dose of ceftriaxone, pain me dication and admitted to medicine. Admission Exam Per Admitting Provider GENERAL: Awake, alert, uncomfortable-appearing, in no distress HENT: Normocephalic, atraumatic. Oropharynx unremarkable. Dry MM EYES: Normal conjunctiva. Sclera non-icteric. NECK: Inspection normal. Non-tender. Supple. No nuchal rigidity. FROM. No masses. RESPIRATORY: Clear to auscultation. No wheezes. No rales. Normal respiratory effort. CARDIAC: Normal rate. Normal rhythm. No murmurs. No rubs. Extremities warm and well perfused. Pulses equal. No JVD. GI: Soft, non-distended. Epigastric tenderness to palpation. No rebound or guarding. No masses. RECTAL: Deferred. MUSCULOSKELETAL: Atraumatic. Chest examination reveals no tenderness. The back is symmetrical on inspection without obvious abnormality. There is no CVA tenderness to palpation. No joint edema. LOWER EXTREMITIES: Calves are equal size bilaterally and non-tender. No edema. No discoloration. varicose veins noted on bilateral LEs NEURO: Normal sensorium. No sensory or motor deficits noted. SKIN: No rash or jaundice noted. Principal Diagnosis acute on chronic pancreatitis Discharge Exam GENERAL: Awake, alert, uncomfortable-appearing, in no distress HENT: Normocephalic, atraumatic. Oropharynx unremarkable. Dry MM EYES: Normal conjunctiva. Sclera non-icteric. NECK: Inspection normal. Non-tender. Supple. No nuchal rigidity. FROM. No masses. RESPIRATORY: Clear to auscultation. No wheezes. No rales. Normal respiratory effort. CARDIAC: Normal rate. Normal rhythm. No murmurs. No rubs. Extremities warm and well perfused. Pulses equal. No JVD. GI: Soft, non-distended. mild Epigastric tenderness to palpation much improved. No rebound or guarding. No masses. RECTAL: Deferred. MUSCULOSKELETAL: Atraumatic. Chest examination reveals no tenderness. The back is symmetrical on inspection without obvious abnormality. There is no CVA tenderness to palpation. No joint edema. LOWER EXTREMITIES: Calves are equal size bilaterally and non-tender. No edema. No discoloration. varicose veins noted on bilateral LEs NEURO: Normal sensorium. No sensory or motor deficits noted. SKIN: No rash or jaundice noted. Discharge Data Allergies Allergy/AdvReac Type Severity Reaction Status Date / Time hydrocodone Allergy Intermediate ITCHY Verified 05/18/22 20:13 oxycodone AdvReac Intermediate Nausea Verified 05/18/22 20:13 tramadol AdvReac Intermediate Nausea Verified 05/18/22 20:13 Consultations 07/08/22 17:33 Consult Gastroenterology Routine Ordered Studies 07/08/22 14:42 CT Abd and Pelvis [CT abd pelvis IV con only] Stat Hospital Course (1) Acute on chronic pancreatitis: - patient with evidence of possible acute on chronic pancreatitis on CT-AP - epigastric pain, n/v with known history of pancreatic stones - lipase and amylase wnl - recent EGD 06/27/2022 with stent placement/replacement - afebrile, WBC mildly elevated - pancreatic enzymes TID - pain control - nausea control - GI consulted - advance diet as tolerated with Pancrease enzyme replacement - much improved today Tolerated diet well and had no more abdominal pain or n/v - ok for home with GI follow up as previously scheduled (2) Anemia: - hgb on presentation 8.5 with baseline around 12 - unclear reason for drop - on repeat was 10 - this morning was 9.6 - MCV wnl and unchanged from prior - maintain active type and screen - denies history of blood in vomit or stools, denies melena, SOB, light headedness, chest pain - iron studies, folate, b12 - irons studies indicate some mild iron deficiency - start supplements when resuming po on discharge - GI already consulted - hgb improved and stable - monitor for now (3) HTN (hypertension): - continue home medications as tolerated (4) Anxiety: - continue citalopram (5) Hyperlipidemia: - continue statin (6) Hypothyroidism: - continue levothryoxine 175mcg daily (7) Coronary artery disease: - denies history of HI - good functional status - ?remote [facility] without stents - continue statin for now - restart aspirin as hgb did not drop again, actually improved from admission CBC - PPI BID in the meantime - change to daily (8) GERD (gastroesophageal reflux disease): - PPI daily (9) Abnormal urinalysis: - patient with positive UA - however, asymptomatic, afebrile, WBC normalized and has remained normalized - s/p 1 dose ceftriaxone in ED - patient does not have symptoms of UTI and so will treat her for one as she likely does not have a UTI Plan DVT ppx: heparin SC Code Status: Full Code Dispo: tele for now Silvestre Vazquez MD [facility] Medicine Total Time Total Time Spent Total Time Spent (In Minutes): 41 Total Time Includes: Examination of the Patient, Discharge Planning, Medication Reconciliation and Communication With Other Providers Discharge Plan Discharge Items Patient Disposition: Home - Self-Care Reason For Visit: PANCREATITIS Discharge Diagnosis: acute on chronic pancreatitis Activity: Resume your previous activity Non-emergency contact: Primary Care Provider and Member Of Technical Staff Call non-emergency contact if: you have any medication questions, your symptoms worsen and your pain is not controlled Follow-up/Referrals: Narciso Gutierrez MD [Physician] - Tapan Alonso MD [Primary Care Provider] - (Date & Time 07/14/2022 12:00 PM Provider Tapan Alonso MD Department Family Medicine [facility] ) Diet: Heart Healthy, Low Fiber and Low Fat Addtl Attending Provider Instructions: You were admitted with acute on chronic pancreatitis with nausea and vomiting and abdominal pain. You were given IVF and started slowly on a diet with the addition of pancreatic enzymes with each meal. GI saw you and gave those recommendations and advised you to follow up for your already scheduled EGD in 08/2022. You should continue on a low fiber, low fat diet with pancreatic enzyme supplements with each meal and advance your diet as tolerated. Pending Studies at Discharge: No Stand-Alone Forms: [facility], Smoking Cessation Medications and DC Order Prescriptions: New diclofenac sodium [Voltaren Arthritis Pain] 1 % Gel 4 g EXT Q6 PRN (Reason: pain) Qty: 100 0RF simethicone [Gas Relief (simethicone)] 80 mg Tablet,Chewable 80 mg PO Q6H PRN (Reason: abdominal distention) Qty: 30 0RF Continued atorvastatin 20 mg Tablet 20 mg PO PM Qty: 0 aspirin 81 mg Tablet,Chewable 81 mg PO QAM Qty: 0 levothyroxine 175 mcg Tablet 175 mcg PO DAILYBB Qty: 0 Rx Instructions: MUST BE BRAND NAME. CANNOT TAKE GENERIC Creon 24,000-76,000 -120,000 unit capsule,delayed release(DR/EC) 1 cap PO TID Qty: 90 0RF Rx Instructions: administer with meals and/or snacks, open capsule and sprinkle powder on food citalopram 10 mg Tablet 10 mg PO QAM amlodipine 5 mg Tablet 5 mg PO PM omeprazole 20 mg Capsule,Delayed Release(Dr/Ec) 20 mg PO BID gabapentin 100 mg Capsule See Rx Instructions .ROUTE .COMPLEX Rx Instructions: 100 mg orally ;take 1 capsule in the morning, then 3 capsules at bedtime atenolol 25 mg tablet 25 mg PO BID losartan 100 mg tablet 100 mg PO QAM ondansetron HCl 4 mg tablet 4 mg PO Q8H PRN (Reason: nausea and vomiting) Qty: 15 0RF tramadol 50 mg tablet 50 mg PO Q8H PRN (Reason: pain) Qty: 15 0RF tramadol 50 mg tablet 50 mg PO Q12H PRN (Reason: pain) Qty: 10 0RF Discharge Orders: Discharge Order (Routine); Ordered 07/10/22 Ordered By: Silvestre Vazquez Admission Data Admit Date/Time: 07/08/22 17:35 Attending Provider: Silvestre Vazquez Admit Provider: Silvestre Vazquez Primary Care Provider: Tapan Alonso Other Providers: Narciso Gutierrez Other Interventions: Discharge Summary Assessment (RN) Last Done: 07/10/22 14:33
--- NOTE | 2022-07-11 07:55 | Electrocardiogram Report ---
Test Reason : Blood Pressure : / mmHG Vent. Rate : 086 BPM Atrial Rate : 086 BPM P-R Int : 096 ms QRS Dur : 142 ms QT Int : 444 ms P-R-T Axes : 054 016 028 degrees QTc Int : 531 ms Sinus rhythm with Premature atrial complexes Right bundle branch block Abnormal ECG When compared with ECG of 09-JUL-2022 16:53, No significant change was found Confirmed by Kaushal Infante ([id number] on 07/10/2022 5:57:19 PM Referred By: REFERRED SELF Confirmed By:Pancho Infante
[2022-07-11] MEDS ORDERED: LOSARTAN POTASSIUM 50 MG TAB PO SCH (09:00)
[2022-07-11] MEDS ORDERED: PANTOprazole 40 MG TAB PO SCH (09:00)
== END 2022-07-10 15:08 | disposition home or self-care (01) ==
LOC: ED 13:55 → 2N 17:35 → INTOOBSV 17:35 → 2N 18:29

== ENCOUNTER 2022-07-19 11:57 | Inpatient (IN) ==
[2022-07-19 12:40] LABS: Basophils # (auto) 0.04 K/uL (0-0.2); Basophils % (auto) 0.3 %; Eosinophils # (auto) 0.04 K/uL (0-0.50); Eosinophils % (auto) 0.3 %; Hematocrit (blood only) 33.7 % (34.1-44.9); Hemoglobin 11.2 g/dl (12.0-16.0); Immature Granulocytes # (auto) 0.06 K/uL (0.00-0.02); Immature Granulocytes % (auto) 0.5 %; Lymphocytes # (auto) 0.86 K/uL (1.2-3.4); Lymphocytes % (auto) 6.6 %; Mean Corpuscular Hemoglobin 29.9 pg (25.0-34.0); Mean Corpuscular Hgb Conc 33.2 g/dL (32.0-36.0); Mean Corpuscular Volume 89.9 fL (80.0-100.0); Mean Platelet Volume 9.8 fL (9.4-12.3); Monocytes # (auto) 1.38 K/uL (0.24-0.82); Monocytes % (auto) 10.6 %; Neutrophils # (auto) 10.59 K/uL (1.4-6.5); Neutrophils % (auto) 81.7 %; Platelet Count 372 K/uL (130-400); RDW Coefficient of Variation 13.2 % (11.5-14.5); RDW Standard Deviation 43.8 fL (36.4-46.3); Red Blood Count 3.75 M/uL (3.93-5.22); White Blood Count 12.97 K/ul (4.8-10.8)
[2022-07-19] MEDS ORDERED: MoRPHine SULFATE 10 MG/ML CARP/VIAL IV STA (12:57)
[2022-07-19] MEDS ORDERED: ONDANSETRON INJ 2 MG/ML 2 ML VIAL IV STA (12:57)
[2022-07-19] MEDS ORDERED: SODIUM CHLORIDE 0.9% 1000ML 1,000 ML IV ONE (12:57)
--- NOTE | 2022-07-19 13:00 | Emergency Department Note ---
Impression & Plan Acute pancreatitis, HTN (hypertension), Pancreatic cyst ED Provider Note NAME: NOLAN VINSON AGE: 72 SEX: F : 1950 ARRIVES VIA: Walk-In INFORMANT: Patient ED PROVIDER(S): Pool Decker DO CHIEF COMPLAINT: abdominal pain HPI: Patient is a 72-year-old female who presents the ER for above-stated complaint. She has apmh HTN, HLD, anxiety, hypothyroidism, GERD, chronic pancreatitis with pseudocyst and pancreatic stones. She notes that the abdominal pain is periumbilical and an 8 out of 10. This feels exactly like her previous bouts of pancreatitis. Does radiate to the back. This started back in April and she has has had stents placed and stents exchanged. She denies any dysuria, urgency, or frequency. She is unable to eat or drink and is s ignificantly worse. She cannot keep any pain medications down at home. ROS: See above HPI for pertinent positives & negatives. A total of 10 systems reviewed and were otherwise negative. PAST MEDICAL HISTORY:See Below PAST SURGICAL HISTORY:See Below FAMILY HISTORY:See Below SOCIAL HISTORY:See Below HOME MEDICATIONS:See Below ALLERGIES:See Below VITALS:See Below PHYSICAL EXAMINATION: GENERAL: Sitting up in bed, alert, disheveled, mild distress EYE EXAM: normal conjunctiva. OROPHARYNX: mucous membranes are dry NECK: supple, no nuchal rigidity, no adenopathy, non-tender LUNGS: Clear to auscultation. Normal chest wall mechanics HEART: no murmurs, S1 normal and S2 normal ABDOMEN: abdomen soft, tender to palpation periumbilically, normo-active bowel sounds, no masses, no rebound or guarding. UPPER EXTREMITIES: upper extremities are grossly normal. LOWER EXTREMITIES: No pitting edema. NEURO EXAM: Normal sensorium, cranial nerves II-XII grossly intact, normal speech, no gross weakness of arms, no gross weakness of legs. MEDICAL DECISION MAKING: Patient is a 72-year-old female with a past medical history of pancreatitis, pancreatic cyst as well as pancreatic stone that presents the ER for abdominal pain. She has been unable to eat or drink much. IV was established blood work is obtained. Labs show mild leukocytosis 13,000. Mild anemia 11. BMP along with LFTs bilirubin and lipase was unremarkable. UA with small amount of blood. COVID was negative. CT abdomen pelvis did show slight enlargement of the pseudocyst. She was given 2 doses of IV narcotics. She is given IV fluids and Zofran. Updated bedside. Discussed with hospitalist for further evaluation. Triage Nursing notes reviewed. Limited review of prior medical records performed Vital Signs: reviewed and remarkable for HTn Differential diagnosis: Differential diagnoses includes but is not limited to gastritis, peptic ulcer disease, GERD, gallbladder disease, pancreatitis, small bowel obstruction, acute coronary syndrome, pericarditis, ischemic bowel, irritable bowel disease, irritable bowel syndrome, appendicitis, diverticulitis, malignancy, hernia, urinary tract infection, torsion, /ectopic (if female), perforation, trauma, infectious. ER treatment provided: See below Diagnostics interpreted by me: ECG: none Cardiac Monitoring: An order was placed for continuous cardiac monitoring. The monitor shows a rate of 70 with sinus rhythm. Laboratory studies: As stated above and show below. Imaging studies: CT abdomen pelvis as described above Consultation(s): Discussed the [facility] hospitalist for further evaluation Procedures: none Critical Care: None Past Med/Surg History Medical History Arthritis Bakers cyst Coronary artery disease Pt reports very remote h/o heart cath, > 25 yrs ago. No stents placed. Depression with anxiety Diabetes mellitus, type 2 diet controlled Dyslipidemia Hernia, hiatal HTN (hypertension) Hypothyroidism Left knee DJD Pancreatic cyst Right rotator cuff tear damaged from a fall, injections Sarcoidosis Has not followed with pulmonology for many years. Stable. Trochanteric bursitis, right hip Surgical History Ganglion cyst removed from right ankle History of colonoscopy History of esophagogastroduodenoscopy (EGD) S/P ankle fusion (10/2010) L ankle S/P cholecystectomy (02/25/15) lap gaviota w/ cholangiogram Family History Father Heart disease Hypertension Father Heart disease Hypertension Sister Breast cancer Brother Lung cancer Brother Sarcoma Social History Smoking Status: Never smoker Second Hand Exposure: No; Hx Alcohol Use: No Hx Substance Use: No Preferred Language: Telugu Communication Ability: Effective Social And Human Services Assistant Required: No Beliefs That Will Affect Care: None marital status: Current Living Situation: Spouse Current Living Situation Comment: How many Children do You have: 1 Feels Safe at Home: Yes Assistive Devices: Cane and Walker Allergies Allergies Allergy/AdvReac Type Severity Reaction Status Date / Time hydrocodone Allergy Intermediate ITCHY Verified 07/19/22 14:35 oxycodone AdvReac Intermediate Nausea Verified 07/19/22 14:35 tramadol AdvReac Intermediate Nausea Verified 07/19/22 14:35 lisinopril AdvReac Mild Cough Verified 07/19/22 17:13 Home Meds Home Medications Medication Instructions Recorded Confirmed aspirin 81 mg chewable tablet 81 mg PO QAM ##0 08/26/14 07/19/22 atorvastatin 20 mg tablet 20 mg PO PM #0 tabs 08/26/14 07/19/22 levothyroxine 175 mcg tablet 175 mcg PO DAILYBB #0 tabs 11/03/16 07/19/22 citalopram 10 mg tablet 10 mg PO QAM 06/15/20 07/19/22 gabapentin 100 mg capsule See Rx Instructions .Route .COMPLEX 06/15/20 07/19/22 omeprazole 20 mg capsule,delayed 20 mg PO BID 06/15/20 07/19/22 release atenolol 25 mg tablet 25 mg PO BID 03/23/22 07/19/22 losartan 100 mg tablet 100 mg PO QAM 03/23/22 07/19/22 amlodipine 2.5 mg tablet 2.5 mg PO QPM 07/19/22 07/19/22 Previous Rx's Medication Instructions Recorded ondansetron HCl 4 mg tablet 4 mg PO Q8H PRN nausea and 03/23/22 vomiting #15 tabs tramadol 50 mg tablet 50 mg PO Q12H PRN pain #10 tabs 05/18/22 ebiixg-[id number]-[id number] 1 cap PO TID Chronic pancreatitis 07/08/22 24,000-76,000-120,000 unit pain #90 caps capsule,delayed rel (Creon) diclofenac sodium 1 % topical gel 4 g EXT Q6 PRN pain #100 grams 07/10/22 (Voltaren Arthritis Pain) simethicone 80 mg chewable tablet 80 mg PO Q6H PRN abdominal 07/10/22 (Gas Relief (simethicone)) distention #30 tabs Results & Data (ED) Vital Signs Vital Signs - 24 hr 07/19/22 12:06 07/19/22 12:44 07/19/22 13:00 Temperature 36.8 C Temperature Source Temporal Artery Scan Pulse Rate 76 69 Pulse Rate from SpO2 Sensor 68 Respiratory Rate 18 20 Blood Pressure 192/91 H 176/84 H Blood Pressure Mean 124 114 Pulse Oximetry 97 95 Oxygen Delivery Method Room Air Sepsis Recent Fever Within 48 Hours No Sepsis New/Unexplained Change in Mental Status No Sepsis Action Taken by Nursing No Action Required 07/19/22 13:00 07/19/22 13:30 07/19/22 14:00 Temperature Temperature Source Pulse Rate 67 71 Pulse Rate from SpO2 Sensor 67 72 Respiratory Rate 20 20 Blood Pressure 163/86 H Blood Pressure Mean 111 Pulse Oximetry 96 98 Oxygen Delivery Method Sepsis Recent Fever Within 48 Hours Sepsis New/Unexplained Change in Mental Status Sepsis Action Taken by Nursing 07/19/22 14:00 07/19/22 14:30 07/19/22 15:09 Temperature Temperature Source Pulse Rate 68 66 Pulse Rate from SpO2 Sensor 68 66 74 Respiratory Rate 16 16 Blood Pressure Blood Pressure Mean Pulse Oximetry 98 89 L 98 Oxygen Delivery Method Sepsis Recent Fever Within 48 Hours Sepsis New/Unexplained Change in Mental Status Sepsis Action Taken by Nursing 07/19/22 15:30 07/19/22 16:00 07/19/22 16:01 Temperature Temperature Source Pulse Rate 113 H 65 67 Pulse Rate from SpO2 Sensor 68 67 67 Respiratory Rate 26 H 18 15 Blood Pressure Blood Pressure Mean Pulse Oximetry 95 94 92 Oxygen Delivery Method Sepsis Recent Fever Within 48 Hours Sepsis New/Unexplained Change in Mental Status Sepsis Action Taken by Nursing 07/19/22 16:01 07/19/22 16:30 07/19/22 16:57 Temperature Temperature Source Pulse Rate 68 Pulse Rate from SpO2 Sensor Respiratory Rate 16 Blood Pressure 190/95 H 186/88 H Blood Pressure Mean 126 120 Pulse Oximetry Oxygen Delivery Method Sepsis Recent Fever Within 48 Hours Sepsis New/Unexplained Change in Mental Status Sepsis Action Taken by Nursing 07/19/22 16:57 07/19/22 17:00 07/19/22 17:00 Temperature Temperature Source Pulse Rate 71 70 Pulse Rate from SpO2 Sensor Respiratory Rate 18 19 Blood Pressure 170/87 H Blood Pressure Mean 114 Pulse Oximetry Oxygen Delivery Method Sepsis Recent Fever Within 48 Hours Sepsis New/Unexplained Change in Mental Status Sepsis Action Taken by Nursing 07/19/22 18:00 07/19/22 18:00 Temperature Temperature Source Pulse Rate 67 Pulse Rate from SpO2 Sensor Respiratory Rate 15 Blood Pressure 165/84 H Blood Pressure Mean 111 Pulse Oximetry Oxygen Delivery Method Sepsis Recent Fever Within 48 Hours Sepsis New/Unexplained Change in Mental Status Sepsis Action Taken by Nursing Laboratory Data Result diagrams: 07/19/22 12:17 07/19/22 12:17 Lab Results 07/19/22 07/19/22 07/19/22 Range/Units 12:17 12:17 12:17 WBC 12.97 H (4.8-10.8) K/ul RBC 3.75 L (3.93-5.22) M/uL Hgb 11.2 L (12.0-16.0) g/dl Hct 33.7 L (34.1-44.9) % MCV 89.9 (80.0-100.0) fL MCH 29.9 (25.0-34.0) pg MCHC 33.2 (32.0-36.0) g/dL RDW Std Deviation 43.8 (36.4-46.3) fL RDW Coeff of Renée 13.2 (11.5-14.5) % Plt Count 372 (130-400) K/uL MPV 9.8 (9.4-12.3) fL Immature Gran % (Auto) 0.5 % Neut % (Auto) 81.7 % Lymph % (Auto) 6.6 % Baker % (Auto) 10.6 % Eos % (Auto) 0.3 % Baso % (Auto) 0.3 % Neut # (Auto) 10.59 H (1.4-6.5) K/uL Lymph # (Auto) 0.86 L (1.2-3.4) K/uL Baker # (Auto) 1.38 H (0.24-0.82) K/uL Eos # (Auto) 0.04 (0-0.50) K/uL Baso # (Auto) 0.04 (0-0.2) K/uL Immature Gran # (Auto) 0.06 H (0.00-0.02) K/uL Sodium 141 (136-145) mmol/L Potassium 3.6 (3.5-5.1) mmol/L Chloride 104 (98-107) mmol/L Carbon Dioxide 26 (21-32) mmol/L Anion Gap 11 (3-11) BUN 9 (6-23) mg/dl Creatinine 0.68 (0.6-1.2) mg/dl Est Cr Clr Drug Dosing 85.0 ml/min Est GFR ( Amer) 101.3 ml/min Est GFR (Non-Af Amer) 87.4 ml/min BUN/Creatinine Ratio 13.2 (10-20) Glucose 128 H (70-99(Fasting)) mg/dl Calcium 9.6 (8.5-10.1) mg/dl Total Bilirubin 0.9 (0.2-1.0) mg/dl AST 14 (13-39) U/L ALT 12 (7-52) U/L Alkaline Phosphatase 89 (34-104) U/L Total Protein 7.6 (6.0-8.3) gm/dl Albumin 3.7 (3.4-5.0) gm/dl Globulin 3.9 (2.5-4.0) gm/dl Albumin/Globulin Ratio 0.9 (0.9-2) Lipase 28 (11-82) U/L Urine Color Urine Appearance (Clear) Urine pH (4.5-7.5) Ur Specific [place] (1.000-1.030) Urine Protein (Negative) Urine Glucose (UA) (Negative) Urine Ketones (Negative) Urine Blood (Negative) Urine Nitrite (Negative) Urine Bilirubin (Negative) Urine Urobilinogen (Negative) Ur Leukocyte Esterase (Negative) Urine WBC (Auto) (0-5) /hpf Urine RBC (Auto) (0-4) /hpf U Hyaline Cast (Auto) (0-5) /lpf U Epithel Cells (Auto) (0-5) /lpf Urine Bacteria (Auto) (Negative) SARS-CoV-2, RNA, NAAT (NEGATIVE) 07/19/22 07/19/22 Range/Units 13:45 17:29 WBC (4.8-10.8) K/ul RBC (3.93-5.22) M/uL Hgb (12.0-16.0) g/dl Hct (34.1-44.9) % MCV (80.0-100.0) fL MCH (25.0-34.0) pg MCHC (32.0-36.0) g/dL RDW Std Deviation (36.4-46.3) fL RDW Coeff of Renée (11.5-14.5) % Plt Count (130-400) K/uL MPV (9.4-12.3) fL Immature Gran % (Auto) % Neut % (Auto) % Lymph % (Auto) % Baker % (Auto) % Eos % (Auto) % Baso % (Auto) % Neut # (Auto) (1.4-6.5) K/uL Lymph # (Auto) (1.2-3.4) K/uL Baker # (Auto) (0.24-0.82) K/uL Eos # (Auto) (0-0.50) K/uL Baso # (Auto) (0-0.2) K/uL Immature Gran # (Auto) (0.00-0.02) K/uL Sodium (136-145) mmol/L Potassium (3.5-5.1) mmol/L Chloride (98-107) mmol/L Carbon Dioxide (21-32) mmol/L Anion Gap (3-11) BUN (6-23) mg/dl Creatinine (0.6-1.2) mg/dl Est Cr Clr Drug Dosing ml/min Est GFR ( Amer) ml/min Est GFR (Non-Af Amer) ml/min BUN/Creatinine Ratio (10-20) Glucose (70-99(Fasting)) mg/dl Calcium (8.5-10.1) mg/dl Total Bilirubin (0.2-1.0) mg/dl AST (13-39) U/L ALT (7-52) U/L Alkaline Phosphatase (34-104) U/L Total Protein (6.0-8.3) gm/dl Albumin (3.4-5.0) gm/dl Globulin (2.5-4.0) gm/dl Albumin/Globulin Ratio (0.9-2) Lipase (11-82) U/L Urine Color Yellow Urine Appearance Clear (Clear) Urine pH 6.5 (4.5-7.5) Ur Specific [place] > 1.045 H (1.000-1.030) Urine Protein Negative (Negative) Urine Glucose (UA) Negative (Negative) Urine Ketones Trace H (Negative) Urine Blood Trace H (Negative) Urine Nitrite Negative (Negative) Urine Bilirubin Negative (Negative) Urine Urobilinogen Negative (Negative) Ur Leukocyte Esterase Negative (Negative) Urine WBC (Auto) 1-5 (0-5) /hpf Urine RBC (Auto) 0-4 (0-4) /hpf U Hyaline Cast (Auto) 0 (0-5) /lpf U Epithel Cells (Auto) 20-30 H (0-5) /lpf Urine Bacteria (Auto) Negative (Negative) SARS-CoV-2, RNA, NAAT NEGATIVE (NEGATIVE) Administered Medications Discontinued Medications Sodium Chloride (Nss 1000ml) 1,000 mls @ 999 mls/hr IV .Q1H1M ONE Stop: 07/19/22 13:57 Last Infusion: 07/19/22 15:08 Dose: 0 mls/hr Documented By: Admin: 07/19/22 13:25 Dose: 999 mls/hr Documented By: MOUSTAPHA Ioversol (Ioversol 350 Mg 100ml Prefilled Syringe) 91 ml IV ONCE ONE Stop: 07/19/22 15:01 Last Admin: 07/19/22 15:05 Dose: 91 ml Documented By: ROXANN Morphine Sulfate (Morphine Sulfate 10 Mg/Ml Carp/Vial) 6 mg IV NOW STA Stop: 07/19/22 12:58 Last Admin: 07/19/22 13:27 Dose: 6 mg Documented By: MOUSTAPHA Morphine Sulfate (Morphine Sulfate 4 Mg/Ml 1 Ml Carp\Vial) 4 mg IV NOW STA Stop: 07/19/22 17:01 Last Admin: 07/19/22 17:32 Dose: 4 mg Documented By: MARGIE Ondansetron HCl (Ondansetron Inj 2 Mg/Ml 2 Ml Vial) 4 mg IV NOW STA Stop: 07/19/22 12:58 Last Admin: 07/19/22 13:25 Dose: 4 mg Documented By: MOUSTAPHA Imaging Data Radiologist's Impression: Abdomen/Pelvis CT 07/19/22 12:57 CT abd pelvis IV con only CLINICAL HISTORY: abd pain vomiting TECHNIQUE: Helical axial images of the abdomen and pelvis were obtained and displayed. Automated dose lowering techniques and/or adjustment according to patient size were utilized for this exam. This exam was performed with intravenous contrast. CT DOSE: 690.62 mGy.cm COMPARISON: Comparison is made to CT abdomen pelvis 07/08/2022 FINDINGS: Lower chest: No acute abnormality Liver: Unremarkable. No focal lesions are seen. Gallbladder and biliary tree: Patient is status post cholecystectomy. Pneumobilia is seen. This is unchanged from prior exam. Pancreas: Pancreatic stent is seen. The pancreatic head mass has enlarged from prior exam, measuring 47 x 30 mm compared to 21 x 24 mm in prior exam. Pancreatic tail is atrophic and somewhat inflamed in appearance with peripancreatic stranding. 6 cystic foci in the pancreatic body and tail are approximately unchanged from prior exam. Pancreatic head calculus is seen. Spleen: Splenule is incidentally noted. Adrenals: Unremarkable. Kidneys and ureters: Subcentimeter hypodensities are too small to characterize. Nonobstructive nephrolithiasis is seen. Bladder: A dependent air is noted in the bladder likely due to recent instrumentation. Reproductive organs: Unremarkable. Bowel: Unremarkable appearance of the bowel. The appendix is normal. A duodenal diverticulum is incidentally noted. Mild duodenal thickening is again seen likely due to adjacent pancreatitis. Lymph nodes Retroperitoneal: Unremarkable. Pelvic: Unremarkable. Mesenteric: Unremarkable. Peritoneum: Peripancreatic stranding is seen without evidence of pneumoperitoneum. Vessels: Atherosclerotic calcifications are seen. Abdominal wall: Left fat containing inguinal hernia. Bones: Degenerative changes in the visualized spine. Sclerosis is again noted in the pubic symphysis. IMPRESSION: 1. Interval enlargement of the this cystic lesion adjacent to the pancreatic head compatible with pseudocyst. Cystic foci in the pancreas are approximately unchanged from prior exam and may represent IPMN. There is peripancreatic stranding. Overall findings are compatible with acute pancreatitis with enlarging acute peripancreatic collection/pseudocyst. 2. Pancreatic duct stent is unchanged. Pneumobilia is noted, likely secondary to stent placement. 3. A calculus is again noted in the pancreatic head. 4. Additional findings as above. ACT 112: Negative or not required by law. Electronically signed by: Robson Gray M.D. 07/19/2022 3:34 PM Discharge Plan Visit Data Chief Complaint: Nausea Stated Complaint: NAUSEA, VOMITING, PANCREATITITS ED Provider: Pool Decker Discharge Problem: Acute pancreatitis, HTN (hypertension), Pancreatic cyst Forms Stand Alone Forms: My [employer] Prescriptions Prescriptions: No Action atorvastatin 20 mg Tablet 20 mg PO PM Qty: 0 aspirin 81 mg Tablet,Chewable 81 mg PO QAM Qty: 0 levothyroxine 175 mcg Tablet 175 mcg PO DAILYBB Qty: 0 Rx Instructions: MUST BE BRAND NAME. CANNOT TAKE GENERIC Creon 24,000-76,000 -120,000 unit capsule,delayed release(DR/EC) 1 cap PO TID Qty: 90 0RF Rx Instructions: administer with meals and/or snacks, open capsule and sprinkle powder on food citalopram 10 mg Tablet 10 mg PO QAM omeprazole 20 mg Capsule,Delayed Release(Dr/Ec) 20 mg PO BID gabapentin 100 mg Capsule See Rx Instructions .ROUTE .COMPLEX Rx Instructions: 100 mg orally ;take 1 capsule in the morning & afternoon, then 3 capsules at bedtime atenolol 25 mg tablet 25 mg PO BID losartan 100 mg tablet 100 mg PO QAM ondansetron HCl 4 mg tablet 4 mg PO Q8H PRN (Reason: nausea and vomiting) Qty: 15 0RF diclofenac sodium [Voltaren Arthritis Pain] 1 % Gel 4 g EXT Q6 PRN (Reason: pain) Qty: 100 0RF simethicone [Gas Relief (simethicone)] 80 mg Tablet,Chewable 80 mg PO Q6H PRN (Reason: abdominal distention) Qty: 30 0RF tramadol 50 mg tablet 50 mg PO Q12H PRN (Reason: pain) Qty: 10 0RF amlodipine 2.5 mg Tablet 2.5 mg PO QPM Referrals Referrals: Tapan Alonso MD [Primary Care Provider] -
[2022-07-19 13:02] LABS: Albumin Globulin Ratio 0.9 (0.9-2); Albumin Level 3.7 gm/dl (3.4-5.0); BUN Creatinine Ratio 13.2 (10-20); Bilirubin,Total 0.9 mg/dl (0.2-1.0); Calcium 9.6 mg/dl (8.5-10.1); Est GFR (African American) 101.3 ml/min; Est GFR (Non-African American) 87.4 ml/min; Globulin 3.9 gm/dl (2.5-4.0); Potassium 3.6 mmol/L (3.5-5.1); Total Protein 7.6 gm/dl (6.0-8.3)
[2022-07-19] MEDS ORDERED: IOVERSOL 350 MG 100mL Prefilled Syringe IV ONE (15:00)
--- NOTE | 2022-07-19 15:36 | CT Scan Report ---
CT abd pelvis IV con only CLINICAL HISTORY: abd pain vomiting TECHNIQUE: Helical axial images of the abdomen and pelvis were obtained and displayed. Automated dose lowering techniques and/or adjustment according to patient size were utilized for this exam. This e xam was performed with intravenous contrast. CT DOSE: 690.62 mGy.cm COMPARISON: Comparison is made to CT abdomen pelvis 07/08/2022 FINDINGS: Lower chest: No acute abnormality Liver: Unremarkable. No focal lesions are seen. Gallbladder and biliary tree: Patient is status post cholecystectomy. Pneumobilia is seen. This is un changed from prior exam. Pancreas: Pancreatic stent is seen. The pancreatic head mass has enlarged from prior exam, measuring 47 x 30 mm compared to 21 x 24 mm in prior exam. Pancreatic tail is atrophic and somewhat inflamed in appearance with peripancreatic stranding. 6 cystic foci in the pancreatic body and tail are approxim ately unchanged from prior exam. Pancreatic head calculus is seen. Spleen: Splenule is incidentally noted. Adrenals: Unremarkable. Kidneys and ureters: Subcentimeter hypodensities are too small to characterize. Nonobstructive nephro lithiasis is seen. Bladder: A dependent air is noted in the bladder likely due to recent instrumentation. Reproductive organs: Unremarkable. Bowel: Unremarkable appearance of the bowel. The appendix is normal. A duodenal diverticulum is incid entally noted. Mild duodenal thickening is again seen likely due to adjacent pancreatitis. Lymph nodes Retroperitoneal: Unremarkable. Pelvic: Unremarkable. Mesenteric: Unremarkable. Peritoneum: Peripancreatic stranding is seen without evidence of pneumoperitoneum. Vessels: Atherosclerotic calcifications are seen. Abdominal wall: Left fat containing inguinal hernia. Bones: Degenerative changes in the visualized spine. Sclerosis is again noted in the pubic symphysis. IMPRESSION: 1. Interval enlargement of the this cystic lesion adjacent to the pancreatic head compatible with ps eudocyst. Cystic foci in the pancreas are approximately unchanged from prior exam and may represent I PMN. There is peripancreatic stranding. Overall findings are compatible with acute pancreatitis with enlarging acute peripancreatic collection/pseudocyst. 2. Pancreatic duct stent is unchanged. Pneumobilia is noted, likely secondary to stent placement. 3. A calculus is again noted in the pancreatic head. 4. Additional findings as above. ACT 112: Negative or not required by law. Electronically signed by: Robson Gray M.D. 07/19/2022 3:34 PM
[2022-07-19] MEDS ORDERED: MoRPHine SULFATE 4 MG/ML 1 ML CARP\\VIAL IV STA (17:00)
[2022-07-19 17:58] LABS: Appearance Urine Clear (Clear); Bacteria Urine Automated Negative (Negative); Bilirubin Urine Negative (Negative); Blood Urine Trace (Negative); Cast Urine Automated 0 /lpf (0-5); Color Urine Yellow; Epithelial Cell Urine Auto 20-30 /lpf (0-5); Glucose Urine UA Negative (Negative); Ketones Urine Trace (Negative); Leukocyte Esterase Urine Negative (Negative); Nitrite Urine Negative (Negative); Protein Urine Negative (Negative); RBC Urine Automated 0-4 /hpf (0-4); Specific Gravity Urine > 1.045 (1.000-1.030); Urobilinogen Urine Negative (Negative); pH Urine 6.5 (4.5-7.5)
--- NOTE | 2022-07-19 18:05 | History & Physical Report ---
Date of Service July 19, 2022 Assessment & Plan (1) Acute on chronic pancreatitis: (2) Coronary artery disease: (3) HTN (hypertension): (4) Hyperlipidemia: (5) Anemia: Plan The patient is a 72 year old woman who has a significant PMH of HTN, HLD, anxiety, hypothyroidism, GERD, chronic pancreatitis with pseudocyst and pancreatic stones who presented to ER 2/2 nausea, vomiting and abd pain x 3 days. Acute/Chronic Pancreatitis Pancreatic pseudocyst Pancreatic duct calculus admit to med/surg consult GI - pt due for EGD/EUD 08/11 , ? if needs to be done while pt in house keep NPO will allow chips/sips/meds, strict npo after midnight in event proc edure IVF LR @ 150cc/hr IV morphine severe pain, IV APAP scheduled, po tramadol mild-mod pain continue creon Anemia h/h stable at 11.2/33.7 improved from previous but likely concentrated recent admission shows mild iron deficiency consider iron supplement when able to tolerate PO CAD continue asa, statin, coreg, losartan no prior hx of [place] or stents medically managed HTN bp elevated in ED likely 2/2 pain continue losartan, atenolol and amlodipine (amlodipine recently reduced from 5mg daily to 2.5mg daily) HLD continue statin Anxiety continue citalopram GERD continue PPI DVT ppx: SQ Lovenox Dispo: med/surg FULL CODE PCP: Dr. Alonso Pt was seen and examined in collaboration with Dr. Vazquez, please see addendum History of Present Illness Chief Complaint: N and abdominal pain x 3 days. Primary Care Provider: Tapan Alonso MD The patient is a 72 year old woman who has a significant PMH of HTN, HLD, anxiety, hypothyroidism, GERD, chronic pancreatitis with pseudocyst and pancreatic stones who presented to ER 2/2 nausea, vomiting and abd pain x 3 days. Of significance pt was recently hospitalized 07/08/22 and d/c on 07/10/22 for acute on chronic pancreatitis. She was seen and evaluated by GI who recommended conservative tx. She was prescribed creon TID at discharge. She was d/c to home with PCP follow up. She has been compliant with creon and tolerating it well. Unfortunately her sx returned 3 days ago with RUQ and epigastric non radiating pain, currently 5/10, tried apap at home w/o relief, nothing made better, unable to tolerate oral intake, and associated with nausea and vomiting. She denies any hematemesis. Overall poor intake the last 3 days. She is scheduled for egd/eus on 08/11. Unfortunately pt has suffered from chronic pancreatitis due to stones and has required stents. Her last EGD was at end of June. Her is at bedside. She denies f/c/s, dizziness, lightheaded, chest pain, sob, cough, uri sx, dysuria, hematuria, melena, and hematochezia. She was constipated and took ducolax, now having softer stool, last BM today. In ED pt remained hemodynamically stable. Her BP was high but likely due to pain as she has been compliant with meds. Her wbc was mildly elevated at 12k but otherwise CBC, CMP, lipase unremarkable. CT A/P shows interval progression of pancreatitic cyst. Overall findings of CT a/p concerning with acute pancreatitis with enlarging acute peripancreatic collection/pseudocyst. Pancreatic duct stent is patent and a calculus is again noted at pancreatic head. Allergies Allergy/AdvReac Type Severity Reaction Status Date / Time hydrocodone Allergy Intermediate ITCHY Verified 07/19/22 14:35 oxycodone AdvReac Intermediate Nausea Verified 07/19/22 14:35 tramadol AdvReac Intermediate Nausea Verified 07/19/22 14:35 lisinopril AdvReac Mild Cough Verified 07/19/22 17:13 Home Medications Medication Instructions Recorded Confirmed Type aspirin 81 mg chewable tablet 81 mg PO QAM ##0 08/26/14 07/19/22 History atorvastatin 20 mg tablet 20 mg PO PM #0 tabs 08/26/14 07/19/22 History levothyroxine 175 mcg tablet 175 mcg PO DAILYBB #0 tabs 11/03/16 07/19/22 History citalopram 10 mg tablet 10 mg PO QAM 06/15/20 07/19/22 History gabapentin 100 mg capsule See Rx Instructions .Route .COMPLEX 06/15/20 07/19/22 History omeprazole 20 mg capsule,delayed 20 mg PO BID 06/15/20 07/19/22 History release atenolol 25 mg tablet 25 mg PO BID 03/23/22 07/19/22 History losartan 100 mg tablet 100 mg PO QAM 03/23/22 07/19/22 History ondansetron HCl 4 mg tablet 4 mg PO Q8H PRN nausea and 03/23/22 07/19/22 Rx vomiting #15 tabs tramadol 50 mg tablet 50 mg PO Q12H PRN pain #10 tabs 05/18/22 07/19/22 Rx [id number] 1 cap PO TID Chronic pancreatitis 07/08/22 07/19/22 Rx 24,000-76,000-120,000 unit pain #90 caps capsule,delayed rel (Creon) diclofenac sodium 1 % topical gel 4 g EXT Q6 PRN pain #100 grams 07/10/22 07/19/22 Rx (Voltaren Arthritis Pain) simethicone 80 mg chewable tablet 80 mg PO Q6H PRN abdominal 07/10/22 07/19/22 Rx (Gas Relief (simethicone)) distention #30 tabs amlodipine 2.5 mg tablet 2.5 mg PO QPM 07/19/22 07/19/22 History Past Med/Surg History Medical History Arthritis Bakers cyst Coronary artery disease Pt reports very remote h/o heart cath, > 25 yrs ago. No stents placed. Depression with anxiety Diabetes mellitus, type 2 diet controlled Dyslipidemia Hernia, hiatal HTN (hypertension) Hypothyroidism Left knee DJD Pancreatic cyst Right rotator cuff tear damaged from a fall, injections Sarcoidosis Has not followed with pulmonology for many years. Stable. Trochanteric bursitis, right hip Surgical History Ganglion cyst removed from right ankle History of colonoscopy History of esophagogastroduodenoscopy (EGD) S/P ankle fusion (10/2010) L ankle S/P cholecystectomy (02/25/15) lap gaviota w/ cholangiogram Family History Father Heart disease Hypertension Father Heart disease Hypertension Sister Breast cancer Brother Lung cancer Brother Sarcoma Social History Smoking Status: Never smoker Second Hand Exposure: No; Hx Alcohol Use: No Hx Substance Use: No Preferred Language: Polish Communication Ability: Effective Benefits Advisor Required: No Beliefs That Will Affect Care: None marital status: Current Living Situation: Spouse Current Living Situation Comment: How many Children do You have: 1 Feels Safe at Home: Yes Assistive Devices: Cane and Walker Review of Systems 2 Review of Systems: All systems reviewed & are unremarkable except as noted in HPI & below Physical Exam Physical Exam: Constitutional: WD/WN, F, vitals as above, NAD, sitting up in bed, pleasant, conversing easily Head: Normocephalic, Atraumatic Eyes: PERRL, conjunctivae normal, anicteric sclerae ENMT: external ear and nose normal, oropharynx normal Neck: trachea midline, no thyromegaly normal visual inspection Respiratory: normal respiratory effort, lungs clear to auscultation, no wheeze, rales, rhonchi. Normal insp/exp effort, no accessory muscle use Cardiovascular: RRR, no murmur, no edema Vessels: no JVD or carotid bruit Chest: normal inspection of chest Abdomen: normal bowel sounds, soft, +pain to palpation in epigastrum, nontender, no hepatosplenomegaly Musculoskeletal: no cyanosis or clubbing, extremities motor strength 5/5 Skin: no rashes, warm and dry normal turgor Neurologic: PERRL, EOMI, accommodation nl, no face palsy, no dysarthria CN's II-XI intact bilaterally and moves all extremities Psychiatric: A+Ox3, euthymic affect Lymphatic: no cervical or axillary lymphadenopathy : deferred Results & Data Results & Data ([facility]) Vital Signs (Past 12 Hours) Vital Signs Temp Pulse Resp BP Pulse Ox O2 Del Method 07/19/22 16:01 190/95 H 07/19/22 16:01 67 15 92 07/19/22 16:00 65 18 94 07/19/22 15:30 113 H 26 H 95 07/19/22 15:09 98 07/19/22 14:30 66 16 89 L 07/19/22 14:00 68 16 98 07/19/22 14:00 163/86 H 07/19/22 13:30 71 20 98 07/19/22 13:00 67 20 96 07/19/22 13:00 176/84 H 07/19/22 12:44 69 20 95 07/19/22 12:06 36.8 C 76 18 192/91 H 97 Room Air Diagnostic Findings Abdomen/Pelvis CT 07/19/22 12:57 CT abd pelvis IV con only CLINICAL HISTORY: abd pain vomiting TECHNIQUE: Helical axial images of the abdomen and pelvis were obtained and displayed. Automated dose lowering techniques and/or adjustment according to patient size were utilized for this exam. This exam was performed with intravenous contrast. CT DOSE: 690.62 mGy.cm COMPARISON: Comparison is made to CT abdomen pelvis 07/08/2022 FINDINGS: Lower chest: No acute abnormality Liver: Unremarkable. No focal lesions are seen. Gallbladder and biliary tree: Patient is status post cholecystectomy. Pneumobilia is seen. This is unchanged from prior exam. Pancreas: Pancreatic stent is seen. The pancreatic head mass has enlarged from prior exam, measuring 47 x 30 mm compared to 21 x 24 mm in prior exam. Pancreatic tail is atrophic and somewhat inflamed in appearance with peripancreatic stranding. 6 cystic foci in the pancreatic body and tail are approximately unchanged from prior exam. Pancreatic head calculus is seen. Spleen: Splenule is incidentally noted. Adrenals: Unremarkable. Kidneys and ureters: Subcentimeter hypodensities are too small to characterize. Nonobstructive nephrolithiasis is seen. Bladder: A dependent air is noted in the bladder likely due to recent instrumentation. Reproductive organs: Unremarkable. Bowel: Unremarkable appearance of the bowel. The appendix is normal. A duodenal diverticulum is incidentally noted. Mild duodenal thickening is again seen likely due to adjacent pancreatitis. Lymph nodes Retroperitoneal: Unremarkable. Pelvic: Unremarkable. Mesenteric: Unremarkable. Peritoneum: Peripancreatic stranding is seen without evidence of pneumoperitoneum. Vessels: Atherosclerotic calcifications are seen. Abdominal wall: Left fat containing inguinal hernia. Bones: Degenerative changes in the visualized spine. Sclerosis is again noted in the pubic symphysis. IMPRESSION: 1. Interval enlargement of the this cystic lesion adjacent to the pancreatic head compatible with pseudocyst. Cystic foci in the pancreas are approximately unchanged from prior exam and may represent IPMN. There is peripancreatic stranding. Overall findings are compatible with acute pancreatitis with enlarging acute peripancreatic collection/pseudocyst. 2. Pancreatic duct stent is unchanged. Pneumobilia is noted, likely secondary to stent placement. 3. A calculus is again noted in the pancreatic head. 4. Additional findings as above. ACT 112: Negative or not required by law. Electronically signed by: Robson Gray M.D. 07/19/2022 3:34 PM Medications Administered Medication List Discontinued Medications Sodium Chloride (Nss 1000ml) 1,000 mls @ 999 mls/hr IV .Q1H1M ONE Stop: 07/19/22 13:57 Last Infusion: 07/19/22 15:08 Dose: 0 mls/hr Documented By: Admin: 07/19/22 13:25 Dose: 999 mls/hr Documented By: MOUSTAPHA Ioversol (Ioversol 350 Mg 100ml Prefilled Syringe) 91 ml IV ONCE ONE Stop: 07/19/22 15:01 Last Admin: 07/19/22 15:05 Dose: 91 ml Documented By: ROXANN Morphine Sulfate (Morphine Sulfate 10 Mg/Ml Carp/Vial) 6 mg IV NOW STA Stop: 07/19/22 12:58 Last Admin: 07/19/22 13:27 Dose: 6 mg Documented By: MOUSTAPHA Morphine Sulfate (Morphine Sulfate 4 Mg/Ml 1 Ml Carp\Vial) 4 mg IV NOW STA Stop: 07/19/22 17:01 Last Admin: 07/19/22 17:32 Dose: 4 mg Documented By: MARGIE Ondansetron HCl (Ondansetron Inj 2 Mg/Ml 2 Ml Vial) 4 mg IV NOW STA Stop: 07/19/22 12:58 Last Admin: 07/19/22 13:25 Dose: 4 mg Documented By: AM COVID-19 Results Results COVID-19 Adm Lab Results: RBC 3.75 M/uL (3.93-5.22) L 07/19/22 WBC 12.97 K/ul (4.8-10.8) H 07/19/22 Hgb 11.2 g/dl (12.0-16.0) L 07/19/22 Hct 33.7 % (34.1-44.9) L 07/19/22 Plt Count 372 K/uL (130-400) 07/19/22 Neutrophils (%) (Auto) 81.7 % 07/19/22 Lymphocytes (%) (Auto) 6.6 % 07/19/22 Monocytes # (Auto) 1.38 K/uL (0.24-0.82) H 07/19/22 Eosinophils # (Auto) 0.04 K/uL (0-0.50) 07/19/22 Immature Granulocyte % (Auto) 0.5 % 07/19/22 Neutrophils # (Auto) 10.59 K/uL (1.4-6.5) H 07/19/22 Lymphocytes # (Auto) 0.86 K/uL (1.2-3.4) L 07/19/22 Monocytes # (Auto) 1.38 K/uL (0.24-0.82) H 07/19/22 Eosinophils # (Auto) 0.04 K/uL (0-0.50) 07/19/22 Basophils # (Auto) 0.04 K/uL (0-0.2) 07/19/22 Immature Granulocyte # (Auto) 0.06 K/uL (0.00-0.02) H 07/19 Na 141 mmol/L (136-145) 07/19/22 K 3.6 mmol/L (3.5-5.1) 07/19/22 Cl 104 mmol/L (98-107) 07/19/22 CO2 26 mmol/L (21-32) 07/19/22 Anion Gap 11 (3-11) 07/19/22 BUN 9 mg/dl (6-23) 07/19/22 Creatinine 0.68 mg/dl (0.6-1.2) 07/19/22 BUN/Creatinine Ratio 13.2 (10-20) 07/19/22 Glucose Level 128 mg/dl (70-99(Fasting)) H 07/19/22 Ca 9.6 mg/dl (8.5-10.1) 07/19/22 Total Bilirubin 0.9 mg/dl (0.2-1.0) 07/19/22 AST/SGOT 14 U/L (13-39) 07/19/22 ALT/SGPT 12 U/L (7-52) 07/19/22 Alkaline Phosphatase 89 U/L (34-104) 07/19/22 Total Protein 7.6 gm/dl (6.0-8.3) 07/19/22 Albumin 3.7 gm/dl (3.4-5.0) 07/19/22 Globulin 3.9 gm/dl (2.5-4.0) 07/19/22 Albumin/Globulin Ratio 0.9 (0.9-2) 07/19/22 SARS-CoV-2, RNA, NAAT NEGATIVE (NEGATIVE) 07/19/22 Code Status & VTE Plan Code Status FULL CODE VTE Prophylaxis Plan VTE Prophylaxis will be ordered: Yes Supervising Physician Co-Signing Physician Notes Patient seen and examined at bedside. Patient with history of chronic pancreatitis and pancreatic stones, follows with GI outpatient. Recent admission for acute on chronic pancreatitis, seen by GI at that time, symptoms resolved during admission and was discharged with previously scheduled follow up and EGD 08/2022 and pancreatic enzyme replacement with meals. Patient returns with acute on chronic pancreatitis with and CT findings of increase in pancreatic pseudocyst and again noted pancreatic stone in pancreatic head and evidence of acute on chronic pancreatitis. Not tolerating PO at home. Admit to inpatient, IVF, hill control, nausea control, NPO midnight and GI consult in AM for possible EGD on this admission. Case discussed with Hannah Minor PA-C and agree with rest of details and rest plan as outlined above. Silvestre Vazquez MD [facility] Medicine
[2022-07-19] MEDS ORDERED: MoRPHine SULFATE 4 MG/ML 1 ML CARP\\VIAL IV PRN (21:09)
[2022-07-19] MEDS ORDERED: PROCHLORPERAZINE 5 MG in SYRINGE 4 ML IV PRN (21:09)
[2022-07-19] MEDS ORDERED: traMADol HCL 50 MG TABLET PO PRN (21:09)
[2022-07-19] MEDS: LACTATED RINGER'S 1,000 ML IV SCH (21:54)
[2022-07-19] MEDS: PANTOprazole 40 MG TAB PO SCH (21:56)
[2022-07-19] MEDS: amLODIPine BESYLATE 5 MG TAB PO SCH (21:56)
[2022-07-19] MEDS: ATORVASTATIN 20 MG TAB PO SCH (21:56)
[2022-07-19] MEDS: GABAPENTIN 300 MG CAP PO SCH (21:56)
[2022-07-19] MEDS: ACETAMINOPHEN 1,000 MG/100 ML VIAL IV SCH (21:57)
[2022-07-19] MEDS: ENOXAPARIN INJ 40 MG/0.4 ML SYR SQ SCH (21:57)
[2022-07-19] MEDS: ATENOLOL 25 MG TABLET PO SCH (21:57)
[2022-07-19] MEDS: PANCREAZE (LIPASE 10,500U) CAP PO SCH (21:58)
[2022-07-20] MEDS: [UNRECOGNIZED DRUG - OTHER] SCH ×4 (00:04→23:02)
[2022-07-20] MEDS: LACTATED RINGER'S 1,000 ML IV SCH ×2 (03:20→09:53)
[2022-07-20] MEDS: ACETAMINOPHEN 1,000 MG/100 ML VIAL IV SCH ×3 (05:49→21:17)
[2022-07-20 05:54] LABS: Basophils # (auto) 0.03 K/uL (0-0.2); Basophils % (auto) 0.4 %; Eosinophils # (auto) 0.05 K/uL (0-0.50); Eosinophils % (auto) 0.7 %; Hematocrit (blood only) 27.8 % (34.1-44.9); Hemoglobin 9.1 g/dl (12.0-16.0); Immature Granulocytes # (auto) 0.03 K/uL (0.00-0.02); Immature Granulocytes % (auto) 0.4 %; Lymphocytes # (auto) 0.46 K/uL (1.2-3.4); Lymphocytes % (auto) 6.1 %; Mean Corpuscular Hemoglobin 29.7 pg (25.0-34.0); Mean Corpuscular Hgb Conc 32.7 g/dL (32.0-36.0); Mean Corpuscular Volume 90.8 fL (80.0-100.0); Mean Platelet Volume 9.8 fL (9.4-12.3); Monocytes # (auto) 0.74 K/uL (0.24-0.82); Monocytes % (auto) 9.8 %; Neutrophils # (auto) 6.22 K/uL (1.4-6.5); Neutrophils % (auto) 82.6 %; Platelet Count 267 K/uL (130-400); RDW Coefficient of Variation 13.3 % (11.5-14.5); Red Blood Count 3.06 M/uL (3.93-5.22); White Blood Count 7.53 K/ul (4.8-10.8)
[2022-07-20 06:18] LABS: Est GFR (African American) 106.1 ml/min; Potassium 3.2 mmol/L (3.5-5.1)
[2022-07-20 06:19] LABS: Albumin Level 3.1 gm/dl (3.4-5.0); BUN Creatinine Ratio 13.6 (10-20); Bilirubin,Total 0.6 mg/dl (0.2-1.0); Calcium 8.5 mg/dl (8.5-10.1); Creatinine Clr Calc Pharmacy 98.3 ml/min; Est GFR (Non-African American) 91.6 ml/min; Globulin 3.1 gm/dl (2.5-4.0); Magnesium 1.3 mg/dl (1.7-2.4); Phosphorus 3.5 mg/dl (2.5-4.9); Total Protein 6.2 gm/dl (6.0-8.3)
[2022-07-20] MEDS ORDERED: POTASSIUM CHLORIDE CRTAB 20 MEQ TABCR PO STA (07:16)
[2022-07-20] MEDS: GABAPENTIN 100 MG CAP PO SCH ×2 (08:01→14:52)
[2022-07-20] MEDS: PANTOprazole 40 MG TAB PO SCH ×2 (08:01→20:13)
[2022-07-20] MEDS: LOSARTAN POTASSIUM 50 MG TAB PO SCH (08:01)
[2022-07-20] MEDS: ASPIRIN 81 MG ECTAB PO SCH (08:01)
[2022-07-20] MEDS: ATENOLOL 25 MG TABLET PO SCH ×2 (08:01→20:10)
[2022-07-20] MEDS: CITALOPRAM 20 MG TAB PO SCH (08:01)
[2022-07-20] MEDS: POTASSIUM CHLORIDE / WTR 10 MEQ/100 ML PLCT IV SCH ×2 (08:02→08:56)
[2022-07-20] MEDS: MAGNESIUM SULFATE / D5W 1 GM/100 ML BAG IV SCH ×2 (08:57→13:01)
--- NOTE | 2022-07-20 09:07 | Gastrointestinal Consultation ---
Date of Consultation July 20, 2022 Assessment & Plan (1) Acute on chronic pancreatitis: Plan Fluids, bowel rest, analgesics. ERCP this afternoon by Dr. Croft. Will attempt to remove the main panc duct stone and possibly replace the stent. Hopefully this will prevent future p ancreatitis. Supervising Physician Co-Signing Physician Notes I performed a history and physical examination of the patient today, including specifically on physical exam - soft abdomen. I have discussed the patient's management with the advanced practitioner. Please refer to the nurse practitioner's note for the documented findings and plan of care. ERCP to exchange the stent to smaller, longer size History of Present Illness Reason for Consultation: Acute pancreatitis Requesting Physician: Hannah Minor PA-C Attending Physician: Silvestre Vazquez MD History of Present Illness Ms. Dionicio Swanson is a 72 yr old female pt of Dr. Tapan Alvarez who carries a hx of CAD, HLD, Hypothyroidism, anxiety, GERD who is known to our group as she has chronic pancreatitis w a large pancreatic duct stone and pseudocyst near the pancreatic head. She has previously undergone ERCP w endoscopic lithotripsy and stenting. She reports ongoing chronic nausea and presented to the ED yesterday for vomiting and abdominal pain that began about 3 days prior. On arrival, CTAP w a 47mm pancreas head cyst as well as other smaller pancreas body and tail cysts. LFTs/lipase are normal. WBC was elevated at 12 on arrival and is now 7.5. She is currently awake, alert, able to answer all questions, does not appear to be in any significant distress, is afebrile and hemodynamically stable. She is a retired [employer] who worked at [employer] then [employer]. Allergies Allergy/AdvReac Type Severity Reaction Status Date / Time hydrocodone Allergy Intermediate ITCHY Verified 07/19/22 14:35 oxycodone AdvReac Intermediate Nausea Verified 07/19/22 14:35 tramadol AdvReac Intermediate Nausea Verified 07/19/22 14:35 lisinopril AdvReac Mild Cough Verified 07/19/22 17:13 Home Medications Medication Instructions Recorded Confirmed Type aspirin 81 mg chewable tablet 81 mg PO QAM ##0 08/26/14 07/19/22 History atorvastatin 20 mg tablet 20 mg PO PM #0 tabs 08/26/14 07/19/22 History levothyroxine 175 mcg tablet 175 mcg PO DAILYBB #0 tabs 11/03/16 07/19/22 History citalopram 10 mg tablet 10 mg PO QAM 06/15/20 07/19/22 History gabapentin 100 mg capsule See Rx Instructions .Route .COMPLEX 06/15/20 07/19/22 History omeprazole 20 mg capsule,delayed 20 mg PO BID 06/15/20 07/19/22 History release atenolol 25 mg tablet 25 mg PO BID 03/23/22 07/19/22 History losartan 100 mg tablet 100 mg PO QAM 03/23/22 07/19/22 History ondansetron HCl 4 mg tablet 4 mg PO Q8H PRN nausea and 03/23/22 07/19/22 Rx vomiting #15 tabs tramadol 50 mg tablet 50 mg PO Q12H PRN pain #10 tabs 05/18/22 07/19/22 Rx [id number] 1 cap PO TID Chronic pancreatitis 07/08/22 07/19/22 Rx 24,000-76,000-120,000 unit pain #90 caps capsule,delayed rel (Creon) diclofenac sodium 1 % topical gel 4 g EXT Q6 PRN pain #100 grams 07/10/22 07/19/22 Rx (Voltaren Arthritis Pain) simethicone 80 mg chewable tablet 80 mg PO Q6H PRN abdominal 07/10/22 07/19/22 Rx (Gas Relief (simethicone)) distention #30 tabs amlodipine 2.5 mg tablet 2.5 mg PO QPM 07/19/22 07/19/22 History Patient History Medical History Arthritis Bakers cyst Coronary artery disease Pt reports very remote h/o heart cath, > 25 yrs ago. No stents placed. Depression with anxiety Diabetes mellitus, type 2 diet controlled Dyslipidemia Hernia, hiatal HTN (hypertension) Hypothyroidism Left knee DJD Pancreatic cyst Right rotator cuff tear damaged from a fall, injections Sarcoidosis Has not followed with pulmonology for many years. Stable. Trochanteric bursitis, right hip Surgical History Ganglion cyst removed from right ankle History of colonoscopy History of esophagogastroduodenoscopy (EGD) S/P ankle fusion (10/2010) L ankle S/P cholecystectomy (02/25/15) lap gaviota w/ cholangiogram Family History Father Heart disease Hypertension Father Heart disease Hypertension Sister Breast cancer Brother Lung cancer Brother Sarcoma Social History Smoking Status: Never smoker Second Hand Exposure: No; Hx Alcohol Use: No Hx Substance Use: No Preferred Language: Kyrgyz Communication Ability: Effective Breaker Machine Tender Required: No Beliefs That Will Affect Care: None marital status: Current Living Situation: Spouse Current Living Situation Comment: How many Children do You have: 1 Feels Safe at Home: Yes Safety Concerns: Feels Safe At This Time Assistive Devices: Glasses Review of Systems Review of Systems: ROS: Gen: Denies weakness, fevers, weight loss Eyes: No eye redness, or pain, no recent vision changes Resp: No SOB, no cough Cardio: No palpitations/irregular beats, no chest pain GI: See HPI, otherwise (-) : Denies pain on urination Skin: No jaundice, itching or new rashes Physical Exam Constitutional: WD/WN, vitals as above Eyes: PERRL, conjunctivae normal, anicteric sclerae ENMT: external ear and nose normal, oropharynx normal Neck: trachea midline, no thyromegaly Respiratory: normal respiratory effort, lungs clear to auscultation Cardiovascular: RRR, no murmur, no edema Gastrointestinal (Abdomen): normal bowel sounds, soft, nontender, no hepatosplenomegaly Musculoskeletal: no cyanosis or clubbing, extremities motor strength 5/5 Skin: no rashes, warm and dry Neurologic: PERRL, EOMI, accommodation nl, no face palsy, no dysarthria Psychiatric: A+Ox3, euthymic affect Lymphatic: no cervical or axillary lymphadenopathy Results & Data ([facility]) Vital Signs (Past 12 Hours) Vital Signs Temp Pulse Pulse Resp BP Pulse Ox O2 Del Method 07/20/22 07:56 60 07/20/22 07:41 36.7 C 56 L 16 118/65 93 07/19/22 22:58 36.9 C 60 16 144/66 H 92 Room Air Laboratory Results WBC 7.5, Hb 9.1, Hct 27.8, Plts 267, Na 140, K 3.2, Cl 107, Co2 24, BUN 8, Cr 0.5, glucose 85. LFTs, lipase normal Diagnostic Findings CTAP w IV contrast 07/19/22: 1. Interval enlargement of the this cystic lesion adjacent to the pancreatic head compatible with pseudocyst. Cystic foci in the pancreas are approximately unchanged from prior exam and may represent IPMN. There is peripancreatic stranding. Overall findings are compatible with acute pancreatitis with enlarging acute peripancreatic collection/pseudocyst. 2. Pancreatic duct stent is unchanged. Pneumobilia is noted, likely secondary to stent placement. 3. A calculus is again noted in the pancreatic head. 4. Additional findings as above.
[2022-07-20] MEDS: PANCREAZE (LIPASE 10,500U) CAP PO SCH ×3 (09:14→20:12)
--- NOTE | 2022-07-20 09:34 | Anesthesiology Consultation ---
Date of Service July 20, 2022 Assessment & Plan Chart Review Chart Review: Acceptable Risk for Surgery and Patient NOT seen in Pre Admission Testing History Surgery Operation Date: 07/20/22 08:00 Proposed Procedures p Endoscopic Retrograde Cholangiopancreatogram - Michelle Croft MD Height/Weight Height: 5 ft 6 in Weight: 91.6 kg Allergies Allergy/AdvReac Type Severity Reaction Status Date / Time hydrocodone Allergy Intermediate ITCHY Verified 07/19/22 14:35 oxycodone AdvReac Intermediate Nausea Verified 07/19/22 14:35 tramadol AdvReac Intermediate Nausea Verified 07/19/22 14:35 lisinopril AdvReac Mild Cough Verified 07/19/22 17:13 Medications Home Medications Medication Instructions Recorded Confirmed Last Taken aspirin 81 mg chewable tablet 81 mg PO QAM ##0 08/26/14 07/19/22 07/19/22 atorvastatin 20 mg tablet 20 mg PO PM #0 tabs 08/26/14 07/19/22 07/18/22 levothyroxine 175 mcg tablet 175 mcg PO DAILYBB #0 tabs 11/03/16 07/19/2207/19 citalopram 10 mg tablet 10 mg PO QAM 06/15/20 07/19/22 07/19/22 gabapentin 100 mg capsule See Rx Instructions .Route .COMPLEX 06/15/20 07/19/22 07/19/22 08:00 omeprazole 20 mg capsule,delayed 20 mg PO BID 06/15/20 07/19/22 07/19/22 08:00 release atenolol 25 mg tablet 25 mg PO BID 03/23/22 07/19/22 07/19/22 08:00 losartan 100 mg tablet 100 mg PO QAM 03/23/22 07/19/22 07/19/22 ondansetron HCl 4 mg tablet 4 mg PO Q8H PRN nausea and 03/23/22 07/19/22 07/07/22 vomiting #15 tabs tramadol 50 mg tablet 50 mg PO Q12H PRN pain #10 tabs 05/18/22 07/19/22 07/07/22 spskld-piujplyb-jlysauc 1 cap PO TID Chronic pancreatitis 07/08/22 07/19/22 07/19/22 08:00 24,000-76,000-120,000 unit pain #90 caps capsule,delayed rel (Creon) diclofenac sodium 1 % topical gel 4 g EXT Q6 PRN pain #100 grams 07/10/22 07/19/22 Unknown (Voltaren Arthritis Pain) simethicone 80 mg chewable tablet 80 mg PO Q6H PRN abdominal 07/10/22 07/19/22 Unknown (Gas Relief (simethicone)) distention #30 tabs amlodipine 2.5 mg tablet 2.5 mg PO QPM 07/19/22 07/19/22 07/18/22 Active Medications Generic Name Dose Route Start Last Admin Trade Name Freq PRN Reason Stop Dose Admin Amlodipine Besylate 2.5 mg 07/19/22 21:09 07/19/22 21:56 Amlodipine Besylate 5 Mg Tab PO 08/18/22 21:08 2.5 mg QPM HOLLY Administration Lipase/Protease/Amylase 2 cap 07/19/22 21:09 07/20/22 09:14 Pancreaze (Lipase 10,500u) Cap PO 08/18/22 21:08 Not Given TID HOLLY Aspirin 81 mg 07/20/22 09:00 07/20/22 08:01 Aspirin 81 Mg Ectab PO 08/19/22 08:59 81 mg QAM HOLLY Administration Atenolol 25 mg 07/19/22 21:09 07/20/22 08:01 Atenolol 25 Mg Tablet PO 08/18/22 21:08 25 mg BID HOLLY Administration Atorvastatin Calcium 20 mg 07/19/22 21:09 07/19/22 21:56 Atorvastatin 20 Mg Tab PO 08/18/22 21:08 20 mg PM HOLLY Administration Citalopram Hydrobromide 10 mg 07/20/22 09:00 07/20/22 08:01 Citalopram 20 Mg Tab PO 08/19/22 08:59 10 mg QAM HOLLY Administration Enoxaparin Sodium 40 mg 07/19/22 21:09 07/19/22 21:57 Enoxaparin Inj 40 Mg/0.4 Ml Syr SQ 08/18/22 21:08 40 mg HS HOLLY Administration Gabapentin 100 mg 07/20/22 09:00 07/20/22 08:01 Gabapentin 100 Mg Cap PO 08/19/22 08:59 100 mg BID@0900,1400 HO[facility] Administration Gabapentin 300 mg 07/19/22 21:09 07/19/22 21:56 Gabapentin 300 Mg Cap PO 08/18/22 21:08 300 mg HS HOLLY Administration Acetaminophen 1,000 mg in 100 mls @ 400 mls/hr 07/19/22 22:00 07/20/22 06:06 Ofirmev IV 07/22/22 21:59 Infused Q8H HOLLY Infusion Lactated Ringer's 1,000 mls @ 150 mls/hr 07/19/22 21:09 07/20/22 03:20 Lr IV 08/18/22 21:08 150 mls/hr .Q6H40M [facility] Administration Magnesium Sulfate/Dextrose 1 gm in 100 mls @ 50 mls/hr 07/20/22 07:30 07/20/22 08:57 Magnesium Sulfate / D5w IV 07/20/22 11:29 50 mls/hr Q2H HOLLY Administration Losartan Potassium 100 mg 07/20/22 09:00 07/20/22 08:01 Losartan Potassium 50 Mg Tab PO 08/19/22 08:59 100 mg QAM HOLLY Administration Miscellaneous 1 each 07/20/22 00:00 07/20/22 07:29 Synthroid - Order Awaiting Action N/A 08/19/22 00:00 Not Given QS HOLLY Pantoprazole Sodium 40 mg 07/19/22 21:09 07/20/22 08:01 Pantoprazole 40 Mg Tab PO 08/18/22 21:08 40 mg BID HOLLY Administration Past Medical History Medical History Arthritis Bakers cyst Coronary artery disease Pt reports very remote h/o heart cath, > 25 yrs ago. No stents placed. Depression with anxiety Diabetes mellitus, type 2 diet controlled Dyslipidemia Hernia, hiatal HTN (hypertension) Hypothyroidism Left knee DJD Pancreatic cyst Right rotator cuff tear damaged from a fall, injections Sarcoidosis Has not followed with pulmonology for many years. Stable. Trochanteric bursitis, right hip Past Family History Family History Father Heart disease Hypertension Father Heart disease Hypertension Sister Breast cancer Brother Lung cancer Brother Sarcoma Past Surgical History Surgical History Ganglion cyst removed from right ankle History of colonoscopy History of esophagogastroduodenoscopy (EGD) S/P ankle fusion (10/2010) L ankle S/P cholecystectomy (02/25/15) lap gaviota w/ cholangiogram Social History Smoking Status: Never smoker Hx Alcohol Use: No Hx Substance Use: No substance use type: does not use Physical Exam Vital Signs Last Vital Signs Temp 36.7 C 07/20/22 07:41 Pulse 60 07/20/22 07:56 Resp 16 07/20/22 07:41 BP 118/65 07/20/22 07:41 Pulse Ox 93 07/20/22 07:41 O2 Del Method 07/19/22 22:58 Testing Laboratory Results 07/20/22 05:23 07/20/22 05:23 Urine Color Yellow 07/19/22 17:29 Urine Appearance Clear (Clear) 07/19/22 17:29 Urine pH 6.5 (4.5-7.5) 07/19/22 17:29 Ur Specific [place] > 1.045 (1.000-1.030) H 07/19/22 17:29 Urine Protein Negative (Negative) 07/19/22 17:29 Urine Glucose (UA) Negative (Negative) 07/19/22 17:29 Urine Ketones Trace (Negative) H 07/19/22 17:29 Urine Nitrite Negative (Negative) 07/19/22 17:29 Ur Leukocyte Esterase Negative (Negative) 07/19/22 17:29 Urine WBC (Auto) 1-5 /hpf (0-5) 07/19/22 17:29 Urine RBC (Auto) 0-4 /hpf (0-4) 07/19/22 17:29 U Hyaline Cast (Auto) 0 /lpf (0-5) 07/19/22 17:29 U Epithel Cells (Auto) 20-30 /lpf (0-5) H 07/19/22 17:29 Urine Bacteria (Auto) Negative (Negative) 07/19/22 17:29
--- NOTE | 2022-07-20 09:57 | Hospitalist Progress Note ---
Date of Service July 20, 2022 Assessment & Plan (1) Acute on chronic pancreatitis: Plan: - admit to med/surg - consult GI - keep NPO will allow chips/sips/meds, strict npo after midnight in event procedure - IVF LR @ 150cc/hr - pain control - nausea medications - plan for EGD this afternoon 07/30/2022 for hopeful pancreatic stone removal and possible stent placement per GI - continue creon (2) Coronary artery disease: Plan: continue asa, statin, coreg, losartan no prior hx of ID or stents - no chest pain reported medically managed (3) HTN (hypertension): Plan: bp elevated in ED likely 2/2 pain continue losartan, atenolol and amlodipine (amlodipine recently reduced from 5mg daily to 2.5mg daily) (4) Hyperlipidemia: Plan: continue statin (5) Anemia: Plan: h/h stable at 11.2/33.7 - likely a little hemoconcentrated as hgb to 9s today after IVF recent admission shows mild iron deficiency consider iron supplement when able to tolerate PO (6) Anxiety: Plan: continue citalopram (7) GERD (gastroesophageal reflux disease): Plan: continue PPI Plan DVT ppx: SQ Lovenox Dispo: med/surg FULL CODE PCP: Dr. Gavin Vazquez MD [facility] Medicine Admission and Anticipated Discharge Date Admission Date: July 19, 2022 Subjective Patient with chronic pancreatitis with pancreatic pseudocyst and duct stone presented with recurrent acute on chronic pancreatitis. IVF, pain control, nausea control, NPO on admission, GI consulted. Plan for EGD with stone removal attempt 07/30/2022. Patient feels somewhat better this morning, no n/v overnight since about 8pm day before. Abdominal pain somewhat improved since yesterday. Denies chest pain, shortness of breath, diarrhea, cough, fever or chills. Review of Systems Review of Systems: All systems reviewed & are unremarkable except as noted in Subjective Physical Exam Physical Exam: Constitutional: NAD, lying in bed, pleasant, conversing easily Head: Normocephalic, Atraumatic Eyes: PERRL, conjunctivae normal, anicteric sclerae ENMT: external ear and nose normal, oropharynx normal Neck: trachea midline, no thyromegaly normal visual inspection Respiratory: normal respiratory effort, lungs clear to auscultation, no wheeze, rales, rhonchi. Normal insp/exp effort, no accessory muscle use Cardiovascular: RRR, no murmur, no edema Vessels: no JVD or carotid bruit Chest: normal inspection of chest Abdomen: normal bowel sounds, soft, +pain to palpation in epigastrium but improved from day before, no hepatosplenomegaly Musculoskeletal: no cyanosis or clubbing, extremities motor strength 5/5 Skin: no rashes, warm and dry normal turgor Neurologic: PERRL, EOMI, accommodation nl, no face palsy, no dysarthria CN's II-XI intact bilaterally and moves all extremities Psychiatric: A+Ox3, euthymic affect Lymphatic: no cervical or axillary lymphadenopathy Results & Data Results & Data ([facility]) Vital Signs (Past 12 Hours) Vital Signs Temp Pulse Pulse Resp BP Pulse Ox O2 Del Method 07/20/22 07:56 60 07/20/22 07:41 36.7 C 56 L 16 118/65 93 07/19/22 22:58 36.9 C 60 16 144/66 H 92 Room Air Diagnostic Findings Laboratory Results WBC 7.53 K/ul (4.8-10.8) 07/20/22 05:23 RBC 3.06 M/uL (3.93-5.22) L 07/20/22 05:23 Hgb 9.1 g/dl (12.0-16.0) L 07/20/22 05:23 Hct 27.8 % (34.1-44.9) L 07/20/22 05:23 MCV 90.8 fL (80.0-100.0) 07/20/22 05:23 MCH 29.7 pg (25.0-34.0) 07/20/22 05:23 MCHC 32.7 g/dL (32.0-36.0) 07/20/22 05:23 RDW Std Deviation 44.0 fL (36.4-46.3) 07/20/22 05:23 RDW Coeff of Renée 13.3 % (11.5-14.5) 07/20/22 05:23 Plt Count 267 K/uL (130-400) 07/20/22 05:23 MPV 9.8 fL (9.4-12.3) 07/20/22 05:23 Immature Gran % (Auto) 0.4 % 07/20/22 05:23 Neut % (Auto) 82.6 % 07/20/22 05:23 Lymph % (Auto) 6.1 % 07/20/22 05:23 Frio % (Auto) 9.8 % 07/20/22 05:23 Eos % (Auto) 0.7 % 07/20/22 05:23 Baso % (Auto) 0.4 % 07/20/22 05:23 Neut # (Auto) 6.22 K/uL (1.4-6.5) 07/20/22 05:23 Lymph # (Auto) 0.46 K/uL (1.2-3.4) L 07/20/22 05:23 Frio # (Auto) 0.74 K/uL (0.24-0.82) 07/20/22 05:23 Eos # (Auto) 0.05 K/uL (0-0.50) 07/20/22 05:23 Baso # (Auto) 0.03 K/uL (0-0.2) 07/20/22 05:23 Immature Gran # (Auto) 0.03 K/uL (0.00-0.02) H 07/20/22 05:23 Sodium 140 mmol/L (136-145) 07/20/22 05:23 Potassium 3.2 mmol/L (3.5-5.1) L 07/20/22 05:23 Chloride 107 mmol/L (98-107) 07/20/22 05:23 Carbon Dioxide 24 mmol/L (21-32) 07/20/22 05:23 Anion Gap 9 (3-11) 07/20/22 05:23 BUN 8 mg/dl (6-23) 07/20/22 05:23 Creatinine 0.59 mg/dl (0.6-1.2) L 07/20/22 05:23 Est Cr Clr Drug Dosing 98.3 ml/min 07/20/22 05:23 Est GFR ( Amer) 106.1 ml/min 07/20/22 05:23 Est GFR (Non-Af Amer) 91.6 ml/min 07/20/22 05:23 BUN/Creatinine Ratio 13.6 (10-20) 07/20/22 05:23 Glucose 85 mg/dl (70-99(Fasting)) 07/20/22 05:23 Calcium 8.5 mg/dl (8.5-10.1) 07/20/22 05:23 Phosphorus 3.5 mg/dl (2.5-4.9) 07/20/22 05:23 Magnesium 1.3 mg/dl (1.7-2.4) L 07/20/22 05:23 Total Bilirubin 0.6 mg/dl (0.2-1.0) 07/20/22 05:23 AST 12 U/L (13-39) L 07/20/22 05:23 ALT 9 U/L (7-52) 07/20/22 05:23 Alkaline Phosphatase 70 U/L (34-104) 07/20/22 05:23 Total Protein 6.2 gm/dl (6.0-8.3) 07/20/22 05:23 Albumin 3.1 gm/dl (3.4-5.0) L 07/20/22 05:23 Globulin 3.1 gm/dl (2.5-4.0) 07/20/22 05:23 Albumin/Globulin Ratio 1.0 (0.9-2) 07/20/22 05:23 Lipase 28 U/L (11-82) 07/19/22 12:17 Urine Color Yellow 07/19/22 17: Urine Appearance Clear (Clear) 07/19/22 17:29 Urine pH 6.5 (4.5-7.5) 07/19/22 17:29 Ur Specific [place] > 1.045 (1.000-1.030) H 07/19/22 17: Urine Protein Negative (Negative) 07/19/22 17:29 Urine Glucose (UA) Negative (Negative) 07/19/22 17:29 Urine Ketones Trace (Negative) H 07/19/22 17:29 Urine Blood Trace (Negative) H 07/19/22 17: Urine Nitrite Negative (Negative) 07/19/22 17: Urine Bilirubin Negative (Negative) 07/19/22 17: Urine Urobilinogen Negative (Negative) 07/19/22 17:29 Ur Leukocyte Esterase Negative (Negative) 07/19/22 17:29 Urine WBC (Auto) 1-5 /hpf (0-5) 10/12/22 17:29 Urine RBC (Auto) 0-4 /hpf (0-4) 07/19/22 17:29 U Hyaline Cast (Auto) 0 /lpf (0-5) 07/19/22 17:29 U Epithel Cells (Auto) 20-30 /lpf (0-5) H 07/19/22 17:29 Urine Bacteria (Auto) Negative (Negative) 07/19/22 17:29 SARS-CoV-2, RNA, NAAT NEGATIVE (NEGATIVE) 07/19/22 13:45 Impressions Abdomen/Pelvis CT 07/19/22 12:57 CT abd pelvis IV con only CLINICAL HISTORY: abd pain vomiting TECHNIQUE: Helical axial images of the abdomen and pelvis were obtained and displayed. Automated dose lowering techniques and/or adjustment according to patient size were utilized for this exam. This exam was performed with intravenous contrast. CT DOSE: 690.62 mGy.cm COMPARISON: Comparison is made to CT abdomen pelvis 07/08/2022 FINDINGS: Lower chest: No acute abnormality Liver: Unremarkable. No focal lesions are seen. Gallbladder and biliary tree: Patient is status post cholecystectomy. Pneumobilia is seen. This is unchanged from prior exam. Pancreas: Pancreatic stent is seen. The pancreatic head mass has enlarged from prior exam, measuring 47 x 30 mm compared to 21 x 24 mm in prior exam. Pancreatic tail is atrophic and somewhat inflamed in appearance with peripancreatic stranding. 6 cystic foci in the pancreatic body and tail are approximately unchanged from prior exam. Pancreatic head calculus is seen. Spleen: Splenule is incidentally noted. Adrenals: Unremarkable. Kidneys and ureters: Subcentimeter hypodensities are too small to characterize. Nonobstructive nephrolithiasis is seen. Bladder: A dependent air is noted in the bladder likely due to recent instrume ntation. Reproductive organs: Unremarkable. Bowel: Unremarkable appearance of the bowel. The appendix is normal. A duodenal diverticulum is incidentally noted. Mild duodenal thickening is again seen likely due to adjacent pancreatitis. Lymph nodes Retroperitoneal: Unremarkable. Pelvic: Unremarkable. Mesenteric: Unremarkable. Peritoneum: Peripancreatic stranding is seen without evidence of pneumoperitoneum. Vessels: Atherosclerotic calcifications are seen. Abdominal wall: Left fat containing inguinal hernia. Bones: Degenerative changes in the visualized spine. Sclerosis is again noted in the pubic symphysis. IMPRESSION: 1. Interval enlargement of the this cystic lesion adjacent to the pancreatic head compatible with pseudocyst. Cystic foci in the pancreas are approximately unchanged from prior exam and may represent IPMN. There is peripancreatic stranding. Overall findings are compatible with acute pancreatitis with enlarging acute peripancreatic collection/pseudocyst. 2. Pancreatic duct stent is unchanged. Pneumobilia is noted, likely secondary to stent placement. 3. A calculus is again noted in the pancreatic head. 4. Additional findings as above. ACT 112: Negative or not required by law. Electronically signed by: Robson Gray M.D. 07/19/2022 3:34 PM Medications Administered Current Inpatient Medications Amlodipine Besylate (Amlodipine Besylate 5 Mg Tab) 2.5 mg PO QPM HOLLY Stop: 08/18/22 21:08 Last Admin: 07/19/22 21:56 Dose: 2.5 mg Lipase/Protease/Amylase (Pancreaze (Lipase 10,500u) Cap) 2 cap PO TID HOLLY Stop: 08/18/22 21:08 Last Admin: 07/20/22 09:14 Dose: Not Given Aspirin (Aspirin 81 Mg Ectab) 81 mg PO QAM HOLLY Stop: 08/19/22 08:59 Last Admin: 07/20/22 08:01 Dose: 81 mg Atenolol (Atenolol 25 Mg Tablet) 25 mg PO BID HOLLY Stop: 08/18/22 21:08 Last Admin: 07/20/22 08:01 Dose: 25 mg Atorvastatin Calcium (Atorvastatin 20 Mg Tab) 20 mg PO PM HOLLY Stop: 08/18/22 21:08 Last Admin: 07/19/22 21:56 Dose: 20 mg Citalopram Hydrobromide (Citalopram 20 Mg Tab) 10 mg PO QAM HOLLY Stop: 08/19/22 08:59 Last Admin: 07/20/22 08:01 Dose: 10 mg Enoxaparin Sodium (Enoxaparin Inj 40 Mg/0.4 Ml Syr) 40 mg SQ HS HOLLY Stop: 08/18/22 21:08 Last Admin: 07/19/22 21:57 Dose: 40 mg Gabapentin (Gabapentin 100 Mg Cap) 100 mg PO BID@0900,1400 HOLLY Stop: 08/19/22 08:59 Last Admin: 07/20/22 08:01 Dose: 100 mg Gabapentin (Gabapentin 300 Mg Cap) 300 mg PO HS HOLLY Stop: 08/18/22 21:08 Last Admin: 07/19/22 21:56 Dose: 300 mg Acetaminophen (Ofirmev) 1,000 mg in 100 mls @ 400 mls/hr IV Q8H [facility] Stop: 07/22/22 21:59 Last Infusion: 07/20/22 06:06 Dose: Infused Lactated Ringer's (Lr) 1,000 mls @ 150 mls/hr IV .Q6H40M [facility] Stop: 08/18/22 21:08 Last Admin: 07/20/22 09:53 Dose: 150 mls/hr Prochlorperazine 5 mg/ Syringe 5 mls @ 5 mls/min IV Q6H PRN PRN Reason: Nausea And Vomiting Stop: 08/18/22 21:08 Magnesium Sulfate/Dextrose (Magnesium Sulfate / D5w) 1 gm in 100 mls @ 50 mls/hr IV Q2H [facility] Stop: 07/20/22 11:29 Last Admin: 07/20/22 08:57 Dose: 50 mls/hr Losartan Potassium (Losartan Potassium 50 Mg Tab) 100 mg PO QAM [facility] Stop: 08/19/22 08:59 Last Admin: 07/20/22 08:01 Dose: 100 mg Miscellaneous (Synthroid - Order Awaiting Action) 1 each N/A QS [facility] Stop: 08/19/22 00:00 Last Admin: 07/20/22 07:29 Dose: Not Given Morphine Sulfate (Morphine Sulfate 4 Mg/Ml 1 Ml Carp\Vial) 4 mg IV Q4H PRN PRN Reason: Pain 7-10 Stop: 08/02/22 21:08 Pantoprazole Sodium (Pantoprazole 40 Mg Tab) 40 mg PO BID [facility] Stop: 08/18/22 21:08 Last Admin: 07/20/22 08:01 Dose: 40 mg Tramadol HCl (Tramadol Hcl 50 Mg Tablet) 50 mg PO Q4H PRN PRN Reason: Pain 1-6 Stop: 08/18/22 21:08
[2022-07-20] MEDS ORDERED: fentaNYL citrate 100 MCG/2 ML VIAL ONE (10:39)
[2022-07-20] MEDS ORDERED: fentaNYL citrate 100 MCG/2 ML VIAL IV PRN (10:41)
[2022-07-20] MEDS ORDERED: ATROPINE SULFATE 0.1 MG/ML 10ML SYR IV PRN (10:41)
[2022-07-20] MEDS ORDERED: ePHEDrine sulfate 50 MG/ML AMP IV PRN (10:41)
[2022-07-20] MEDS ORDERED: ONDANSETRON INJ 2 MG/ML 2 ML VIAL IV PRN (10:41)
--- NOTE | 2022-07-20 10:44 | History & Physical Bridge Note ---
Date of Service July 20, 2022 History & Physical Bridge Note I have examined the patient, reviewed the History & Physical and in the interval since the performance of the History & Physical I have noted the following changes of clinical significance: no changes noted ERCP Patient was explained in detail regarding risks, benefits, limitations and alternatives of the above endoscopic procedure. Risks of intravenous sedation used for procedure were also explained. Risks include, but not limited to pancreatitis, perforation, bleeding, infection, respiratory distress, cardiac arrest and . Patient is also aware about the possibility of missed lesion. Patient's questions were answered. The patient verbalized understanding the information and agreed to undergo the procedure.
[2022-07-20] MEDS ORDERED: SUGAMMADEX SODIUM 200 MG/2 ML VIAL IV ONE (11:03)
[2022-07-20] MEDS ORDERED: ROCURONIUM BROMIDE 10 MG/ML 5 ML VIAL IV ONE (11:06)
[2022-07-20] MEDS ORDERED: ONDANSETRON INJ 2 MG/ML 2 ML VIAL ONE (11:06)
[2022-07-20] MEDS ORDERED: PROPOFOL IV EMULSION 10 MG/ML 20 ML VIAL IV ONE ×2 (11:06→11:49)
--- NOTE | 2022-07-20 12:08 | Operative Report ---
Post Operative Report Pre & Post Diagnosis Operation Date: 07/20/22 08:00 Pre-Op Diagnosis: NAUSEA, VOMITING, PANCREATITITS Post-Op Diagnosis: ERCP WITH STENT REMOVEAL, PANCREATIC DUCT DILATION, PANCREATIC DUCT STENT PLACEMENT I identified the patient and participated in the time-out.: Yes Procedure Operation Date: 07/20/22 08:00 Actual Procedures p Endoscopic Retrograde Cholangiopancreato - Michelle Croft MD Surgeon Michelle Croft MD Director Of Admissions None Estimated Blood Loss 0 Findings See Below (PD stricture diated, PD stent exchanged. ) Specimens None Description of Procedure ERCP I attest to the content of the Intraoperative Record and any orders documented therein. Any exceptions are noted below.
--- NOTE | 2022-07-20 12:28 | GI REPORT ---
Patient Name: Marlee Swanson Procedure Date: 07/20/2022 11:18 AM Date of : 1950 Admit Type: Inpatient Age: 72 Gender: Female Attending MD: Michelle Croft MD Procedure: ERCP Providers: Michelle Croft MD Referring MD: Irma Alonso Md Indications: Pancreatic duct stone, Stent change Medicines: General Anesthesia Complications: No immediate complications. Estimated Blood Loss: Estimated blood loss: none. Procedure: Pre-Anesthesia Assessment: - Prior to the procedure, a History and Physical was performed, and patient medications, allergies and sensitivities were reviewed. The patient's tolerance of previous anesthesia was reviewed. - The risks and benefits of the procedure and the sedation options and risks were discussed with the patient. All questions were answered and informed consent was obtained. - Patient identification and proposed procedure were verified prior to the procedure by the physician and the nurse. The procedure was verified in the procedure room. - Pre-procedure physical examination revealed no contraindications to sedation. After obtaining informed consent, the scope was passed under direct vision. Throughout the procedure, the patient's blood pressure, pulse, and oxygen saturations were monitored continuously. The Duodenoscope was introduced through the mouth, and advanced to the duodenum and used to inject contrast into the ventral pancreatic duct. The ERCP was accomplished without difficulty. The patient tolerated the procedure well. Findings: A pancreatic stent was visible on the dermatological surgeon film. The esophagus was successfully intubated under direct vision. The scope was advanced to a normal major papilla in the descending duodenum without detailed examination of the pharynx, larynx and associated structures, and upper GI tract. The upper GI tract was grossly normal. Inspection of the major papilla revealed that biliary and pancreatic sphincterotomies had been performed previously. The biliary sphincterotomy appeared open. The pancreatic sphincterotomy appeared open. One plastic pancreatic stent originating in the pancreatic duct was emerging from the major papilla. One stent was removed from the pancreatic duct using a snare. A 0.025 inch x 270 cm angled Visiglide wire was passed into the ventral pancreatic duct. The ventral pancreatic duct was then deeply cannulated with the 8.5 mm balloon. Contrast was injected. I personally interpreted the pancreatic duct images. Ductal flow of contrast was adequate. Image quality was adequate. Contrast extended to the pancreatic duct. Opacification of the entire pancreatic ductal system was successful. The maximum diameter of the ducts was 6 mm. The pancreatic stone in the head of the pancreas is no longer intraductal and currently impacted in a side branch duct. There is mild stenosis in the body/tail junction area. The main pancreatic duct in the head was successfully dilated with an 8 mm balloon dilator. A retrieval basket was used but could not catch the stone. To find object(s) the ventral pancreatic duct was swept with an 11.5 mm balloon starting at the pancreatic duct in the tail of the pancreas. Debris was swept from the duct. One 7 Fr by 14 cm plastic pancreatic stent with a single external flap and a single internal flap was placed into the ventral pancreatic duct. Clear fluid flowed through the stent. The stent was in good position. Impression: - One stent was removed from the pancreatic duct. - The pancreatic stone in the head of the pancreas is no longer intraductal and currently impacted in a side branch duct. - One 7 Fr x 14 cm plastic pancreatic stent was placed into the ventral pancreatic duct. Recommendation: - Return patient to [facility] for ongoing care. - Clear liquid diet for 1 day, then advance as tolerated to advance diet as tolerated. - Keep the ERCP appointment next month to attempt EHL again. - Patient will likely need PD stent exchanges every 6 months for intermediate. - The current Pancreatic pseudocyst seen on CT scan is still not mature enough for endoscopic drainage. Michelle Croft MD 07/20/2022 12:27:52 PM This report has been signed electronically. Note Initiated On: 07/20/2022 11:18 AM Number of Addenda: 0 I attest to the content of the Intraoperative Record and orders documented therein, exceptions below {[id number]}
--- NOTE | 2022-07-20 14:42 | Anesthesiology Progress Note ---
Date of Service July 20, 2022 Anesthesia Post Procedure Vital Signs Vital Signs: Temp Pulse Pulse Pulse Pulse Resp BP 07/20/22 13:54 36.6 C 58 L 16 07/20/22 13:27 36.6 C 61 16 07/20/22 12:51 36.6 C 63 16 07/20/22 12:30 36.4 C L 65 14 07/20/22 12:20 69 14 07/20/22 12:14 36.4 C L 69 14 07/20/22 10:26 36.6 C 66 18 07/20/22 07:56 60 07/20/22 07:41 36.7 C 56 L 16 07/19/22 20:00 07/19/22 20:00 36.6 C 79 16 07/19/22 22:58 36.9 C 60 16 07/19/22 19:00 69 18 07/19/22 19:00 171/85 H 07/19/22 18:30 70 14 07/19/22 18:00 67 15 07/19/22 18:00 165/84 H 07/19/22 17:00 70 19 07/19/22 17:00 170/87 H 07/19/22 16:57 71 18 07/19/22 16:57 186/88 H 07/19/22 16:30 68 16 07/19/22 16:01 190/95 H 07/19/22 16:01 67 15 07/19/22 16:00 65 18 07/19/22 15:30 113 H 26 H 07/19/22 15:09 BP Pulse Ox O2 Del Method O2 Flow Rate 07/20/22 13:54 174/83 H 93 07/20/22 13:27 157/60 H 91 07/20/22 12:51 156/76 H 92 Room Air 07/20/22 12:30 139/79 94 Room Air 07/20/22 12:20 137/78 100 Oxymask 3 07/20/22 12:14 124/72 97 Oxymask 5 07/20/22 10:26 160/89 H 96 Room Air 07/20/22 07:56 07/20/22 07:41 118/65 93 07/19/22 20:00 Room Air 07/19/22 20:00 184/80 H 95 Room Air 07/19/22 22:58 144/66 H 92 Room Air 07/19/22 19:00 07/19/22 19:00 98 07/19/22 18:30 07/19/22 18:00 07/19/22 18:00 07/19/22 17:00 07/19/22 17:00 07/19/22 16:57 07/19/22 16:57 07/19/22 16:30 07/19/22 16:01 07/19/22 16:01 92 07/19/22 16:00 94 07/19/22 15:30 95 07/19/22 15:09 98 Pain Intensity Abdomen: Pain Intensity: 4 Transfer of Care Handoff Completed per policy Notes Mental Status: alert / awake / arousable and participated in evaluation Patient Amnestic to Procedure: Yes Nausea / Vomiting: adequately controlled Pain: adequately controlled Airway Patency, RR, SpO2: stable & adequate BP & HR: stable & adequate Hydration State: stable & adequate Anesthetic Complications: no major complications apparent and Pt Satisfied with anesthetic care
--- NOTE | 2022-07-20 15:48 | Fluoroscopy Report ---
[place] ERCP biliary ductal CLINICAL HISTORY: ERCP IN OR COMPARISON STUDY: CT of the abdomen and pelvis July 19, 2022. FLUOROSCOPY TIME: 8 minutes and 41 seconds. FLUOROSCOPIC IMAGES: 13 FINDINGS: Fluoroscopy was provided during ERCP with pancreatic stent exchange and pancreatic ductal d ilatation. Pancreatic duct stricture was noted. Side branches are dilated. IMPRESSION: Fluoroscopy provided during ERCP with pancreatic stent exchange and pancreatic ductal di latation. ACT 112: Negative or not required by law. Electronically signed by: Chacho Dewey M.D. 07/20/2022 3:47 PM
[2022-07-20] MEDS: ENOXAPARIN INJ 40 MG/0.4 ML SYR SQ SCH (20:10)
[2022-07-20] MEDS: GABAPENTIN 300 MG CAP PO SCH (20:11)
[2022-07-20] MEDS: amLODIPine BESYLATE 5 MG TAB PO SCH (20:12)
[2022-07-20] MEDS: ATORVASTATIN 20 MG TAB PO SCH (21:17)
[2022-07-21] MEDS: ACETAMINOPHEN 1,000 MG/100 ML VIAL IV SCH ×2 (05:37→14:57)
[2022-07-21 06:13] LABS: Basophils # (auto) 0.02 K/uL (0-0.2); Basophils % (auto) 0.3 %; Eosinophils # (auto) 0.05 K/uL (0-0.50); Eosinophils % (auto) 0.7 %; Hematocrit (blood only) 29.1 % (34.1-44.9); Hemoglobin 9.7 g/dl (12.0-16.0); Immature Granulocytes # (auto) 0.02 K/uL (0.00-0.02); Immature Granulocytes % (auto) 0.3 %; Lymphocytes # (auto) 0.36 K/uL (1.2-3.4); Lymphocytes % (auto) 4.7 %; Mean Corpuscular Hemoglobin 29.7 pg (25.0-34.0); Mean Corpuscular Hgb Conc 33.3 g/dL (32.0-36.0); Mean Platelet Volume 10.2 fL (9.4-12.3); Monocytes # (auto) 0.68 K/uL (0.24-0.82); Monocytes % (auto) 8.9 %; Neutrophils # (auto) 6.51 K/uL (1.4-6.5); Neutrophils % (auto) 85.1 %; Platelet Count 304 K/uL (130-400); RDW Coefficient of Variation 13.3 % (11.5-14.5); RDW Standard Deviation 43.4 fL (36.4-46.3); Red Blood Count 3.27 M/uL (3.93-5.22); White Blood Count 7.64 K/ul (4.8-10.8)
[2022-07-21 06:41] LABS: Albumin Globulin Ratio 1.1 (0.9-2); Albumin Level 3.3 gm/dl (3.4-5.0); BUN Creatinine Ratio 10.6 (10-20); Bilirubin,Total 0.7 mg/dl (0.2-1.0); Calcium 8.9 mg/dl (8.5-10.1); Creatinine Clr Calc Pharmacy 123.4 ml/min; Est GFR (African American) 114.4 ml/min; Est GFR (Non-African American) 98.7 ml/min; Globulin 3.1 gm/dl (2.5-4.0); Magnesium 1.4 mg/dl (1.7-2.4); Phosphorus 2.8 mg/dl (2.5-4.9); Potassium 3.4 mmol/L (3.5-5.1); Total Protein 6.4 gm/dl (6.0-8.3)
[2022-07-21] MEDS ORDERED: POTASSIUM CHLORIDE CRTAB 20 MEQ TABCR PO STA (08:11)
[2022-07-21] MEDS: PANTOprazole 40 MG TAB PO SCH ×2 (08:35→20:23)
[2022-07-21] MEDS: ASPIRIN 81 MG ECTAB PO SCH (08:36)
[2022-07-21] MEDS: PANCREAZE (LIPASE 10,500U) CAP PO SCH ×3 (08:36→20:25)
[2022-07-21] MEDS: LOSARTAN POTASSIUM 50 MG TAB PO SCH (08:36)
[2022-07-21] MEDS: GABAPENTIN 100 MG CAP PO SCH ×2 (08:36→14:21)
[2022-07-21] MEDS: CITALOPRAM 20 MG TAB PO SCH (08:36)
[2022-07-21] MEDS: ATENOLOL 25 MG TABLET PO SCH ×2 (08:36→20:21)
[2022-07-21] MEDS: [UNRECOGNIZED DRUG - OTHER] SCH ×3 (08:37→23:31)
[2022-07-21] MEDS: MAGNESIUM SULFATE / D5W 1 GM/100 ML BAG IV SCH ×3 (08:42→12:16)
[2022-07-21] MEDS ORDERED: POTASSIUM CHLORIDE CRTAB 20 MEQ TABCR PO ONE (10:00)
[2022-07-21] MEDS ORDERED: bisacodyL 5 MG TABEC PO ONE (10:01)
[2022-07-21] MEDS ORDERED: POLYETHYLENE (MIRALAX) 17 GM PACK PO SCH (10:15)
[2022-07-21] MEDS ORDERED: SIMETHICONE 80 MG CHEW PO ONE (10:15)
--- NOTE | 2022-07-21 10:24 | Gastroenterology Progress Note ---
Date of Service July 21, 2022 Assessment & Plan (1) Acute on chronic pancreatitis: Plan Per Dr. Croft's ERCP note: May adv diet today. 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 Pancreatic pseudocyst on CT is not mature - so not able to endoscopically drain at this time. No GI indication for antibiotics. For lower abd pain - agree with Dulcolax, given at 10AM and will add dicyclomine before meals - though if pain improves before discharge would not continue as an OP as can have side effects in older pts. GI will sign off. Please notify us if new/worsening GI issues. Admission and Anticipated Discharge Date Admission Date: July 19, 2022 Supervising Physician Co-Signing Physician Notes I performed a history and physical examination of the patient today, including specifically on physical exam - soft abdomen. I have discussed the patient's m anagement with the advanced practitioner. Please refer to the nurse practitioner's note for the documented findings and plan of care. Use Miralax. Recall GI if needed. Subjective 71 yr old female w recurrent acute on chronic pancreatitis secondary to a stone that has been in the main pancreatic duct. Underwent ERCP yesterday - stone was in a side branch duct, stent was replaced. LFTs and WBC normal this morning. Since ERCP, pt's nausea resolved. Upper abd discomfort resolved and she "feels much better," but now bilat lower abd cramping rated a 6 of 10, new since the procedure. Hasn't passed a BM since 07/18, thinks may be feeling constipation. Review of Systems Review of Systems: ROS: Gen: Denies weakness, fevers, weight loss Eyes: No eye redness, or pain, no recent vision changes Resp: No SOB, no cough Cardio: No palpitations/irregular beats, no chest pain GI: See HPI, otherwise (-) : Denies pain on urination Skin: No jaundice, itching or new rashes Physical Exam Constitutional: WD/WN, vitals as above Eyes: PERRL, conjunctivae normal, anicteric sclerae ENMT: external ear and nose normal, oropharynx normal Neck: trachea midline, no thyromegaly Respiratory: normal respiratory effort, lungs clear to auscultation Cardiovascular: RRR, no murmur, no edema Gastrointestinal (Abdomen): Inspection/Auscultation: abdomen normal to inspection and normal bowel sounds; abdomen not distended Percussion/Palpation: abdomen soft (bilat lower abd mild tenderness) Musculoskeletal: no cyanosis or clubbing, extremities motor strength 5/5 Skin: no rashes, warm and dry Neurologic: PERRL, EOMI, accommodation nl, no face palsy, no dysarthria Psychiatric: A+Ox3, euthymic affect Lymphatic: no cervical or axillary lymphadenopathy Results & Data ([facility]) Vital Signs (Past 12 Hours) Vital Signs Temp Pulse Resp BP Pulse Ox O2 Del Method 07/21/22 07:37 36.8 C 63 16 155/74 H 95 Room Air 07/21/22 04:55 37.4 C 76 18 166/76 H 93 Room Air Laboratory Results WBC 7.6, Hb 9.7, Hct 29.1, Plts 304, Na 139, K 3.4, Cl 105, CO2 26, BUN 5, Cr 0.47, glucose 143. Diagnostic Findings ERCP 07/20/22: - One stent was removed from the pancreatic duct. - The pancreatic stone in the head of the pancreas is no longer intraductal and currently impacted in a side branch duct. - One 7 Fr x 14 cm plastic pancreatic stent was placed into the ventral pancreatic duct.
[2022-07-21] MEDS: DICYCLOMINE HCL 10 MG CAP PO SCH ×2 (11:02→16:13)
--- NOTE | 2022-07-21 14:36 | Hospitalist Progress Note ---
Date of Service July 21, 2022 Assessment & Plan (1) Acute on chronic pancreatitis: Plan: - admit to med/surg - consult GI - s/p EGD 07/21/2022 with stent placement - pain control - much improved since EGD - nausea medications prn - continue creon - tolerating diet - will monitor one more night for recurrence of symptoms given recent admission (2) Coronary artery disease: Plan: continue asa, statin, coreg, losartan no prior hx of SD or stents - no chest pain reported medically managed (3) HTN (hypertension): Plan: bp elevated in ED likely 2/2 pain continue losartan, atenolol and amlodipine (amlodipine recently reduced from 5mg daily to 2.5mg daily) (4) Hyperlipidemia: Plan: continue statin (5) Anemia: Plan: h/h stable at baseline 9-10 - mixed picture on iron studies, could be chronic disease - follow up with PCP - no signs of bleeding, stable (6) Anxiety: Plan: continue citalopram (7) GERD (gastroesophageal reflux disease): Plan: continue PPI Plan DVT ppx: SQ Lovenox Dispo: med/surg FULL CODE PCP: Dr. Gavin Vazquez MD [facility] Medicine Admission and Anticipated Discharge Date Admission Date: July 19, 2022 Subjective Patient reports improvement in abdominal pain and no nausea or vomiting since yesterday. tolerating diet. Some lower abdominal dyscomfort this morning, no BM in 2 days. Denies dysuria, chest pain, shortness of breath, cough. Review of Systems Review of Systems: All systems reviewed & are unremarkable except as noted in Subjective Physical Exam Physical Exam: Constitutional: NAD, lying in bed, pleasant, conversing easily Head: Normocephalic, Atraumatic Eyes: PERRL, conjunctivae normal, anicteric sclerae ENMT: external ear and nose normal, oropharynx normal Neck: trachea midline, no thyromegaly normal visual inspection Respiratory: normal respiratory effort, lungs clear to auscultation, no wheeze, rales, rhonchi. Normal insp/exp effort, no accessory muscle use Cardiovascular: RRR, no murmur, no edema Vessels: no JVD or carotid bruit Chest: normal inspection of chest Abdomen: normal bowel sounds, soft, mild tenderness to palpation in lower abdominal quadrants, no hepatosplenomegaly Musculoskeletal: no cyanosis or clubbing, extremities motor strength 5/5 Skin: no rashes, warm and dry normal turgor Neurologic: PERRL, EOMI, accommodation nl, no face palsy, no dysarthria CN's II-XI intact bilaterally and moves all extremities Psychiatric: A+Ox3, euthymic affect Lymphatic: no cervical or axillary lymphadenopathy Results & Data Results & Data ([facility]) Vital Signs (Past 12 Hours) Vital Signs Temp Pulse Resp BP Pulse Ox O2 Del Method 07/21/22 11:53 37.3 C 65 18 151/73 H 93 Room Air 07/21/22 07:37 36.8 C 63 16 155/74 H 95 Room Air 07/21/22 04:55 37.4 C 76 18 166/76 H 93 Room Air Diagnostic Findings Laboratory Results WBC 7.64 K/ul (4.8-10.8) 07/21/22 05:20 RBC 3.27 M/uL (3.93-5.22) L 07/21/22 05:20 Hgb 9.7 g/dl (12.0-16.0) L 07/21/22 05:20 Hct 29.1 % (34.1-44.9) L 07/21/22 05:20 MCV 89.0 fL (80.0-100.0) 07/21/22 05:20 MCH 29.7 pg (25.0-34.0) 07/21/22 05:20 MCHC 33.3 g/dL (32.0-36.0) 07/21/22 05:20 RDW Std Deviation 43.4 fL (36.4-46.3) 07/21/22 05:20 RDW Coeff of Renée 13.3 % (11.5-14.5) 07/21/22 05:20 Plt Count 304 K/uL (130-400) 07/21/22 05:20 MPV 10.2 fL (9.4-12.3) 07/21/22 05:20 Immature Gran % (Auto) 0.3 % 07/21/22 05:20 Neut % (Auto) 85.1 % 07/21/22 05:20 Lymph % (Auto) 4.7 % 07/21/22 05:20 Tyler % (Auto) 8.9 % 07/21/22 05:20 Eos % (Auto) 0.7 % 07/21/22 05:20 Baso % (Auto) 0.3 % 07/21/22 05:20 Neut # (Auto) 6.51 K/uL (1.4-6.5) H 07/21/22 05:20 Lymph # (Auto) 0.36 K/uL (1.2-3.4) L 07/21/22 05:20 Tyler # (Auto) 0.68 K/uL (0.24-0.82) 07/21/22 05:20 Eos # (Auto) 0.05 K/uL (0-0.50) 07/21/22 05:20 Baso # (Auto) 0.02 K/uL (0-0.2) 07/21/22 05:20 Immature Gran # (Auto) 0.02 K/uL (0.00-0.02) 07/21/22 05:20 Sodium 139 mmol/L (136-145) 07/21/22 05:20 Potassium 3.4 mmol/L (3.5-5.1) L 07/21/22 05:20 Chloride 105 mmol/L (98-107) 07/21/22 05:20 Carbon Dioxide 26 mmol/L (21-32) 07/21/22 05:20 Anion Gap 8 (3-11) 07/21/22 05:20 BUN 5 mg/dl (6-23) L 07/21/22 05:20 Creatinine 0.47 mg/dl (0.6-1.2) L 07/21/22 05:20 Est Cr Clr Drug Dosing 123.4 ml/min 07/21/22 05:20 Est GFR ( Amer) 114.4 ml/min 07/21/22 05:20 Est GFR (Non-Af Amer) 98.7 ml/min 07/21/22 05:20 BUN/Creatinine Ratio 10.6 (10-20) 07/21/22 05:20 Glucose 92 mg/dl (70-99(Fasting)) 07/21/22 05:20 POC Glucose 143 mg/dl (70-99) H 07/20/22 12:19 Calcium 8.9 mg/dl (8.5-10.1) 07/21/22 05:20 Phosphorus 2.8 mg/dl (2.5-4.9) 07/21/22 05:20 Magnesium 1.4 mg/dl (1.7-2.4) L 07/21/22 05:20 Total Bilirubin 0.7 mg/dl (0.2-1.0) 07/21/22 05:20 AST 14 U/L (13-39) 07/21/22 05:20 ALT 9 U/L (7-52) 07/21/22 05:20 Alkaline Phosphatase 75 U/L (34-104) 07/21/22 05:20 Total Protein 6.4 gm/dl (6.0-8.3) 07/21/22 05:20 Albumin 3.3 gm/dl (3.4-5.0) L 07/21/22 05:20 Globulin 3.1 gm/dl (2.5-4.0) 07/21/22 05:20 Albumin/Globulin Ratio 1.1 (0.9-2) 07/21/22 05:20 Lipase 28 U/L (11-82) 07/19/22 12:17 Urine Color Yellow 07/19/22 17:29 Urine Appearance Clear (Clear) 07/19/22 17:29 Urine pH 6.5 (4.5-7.5) 07/19/22 17:29 Ur Specific Seale > 1.045 (1.000-1.030) H 07/19/22 17:29 Urine Protein Negative (Negative) 07/19/22 17:29 Urine Glucose (UA) Negative (Negative) 07/19/22 17:29 Urine Ketones Trace (Negative) H 07/19/22 17:29 Urine Blood Trace (Negative) H 07/19/22 17:29 Urine Nitrite Negative (Negative) 07/19/22 17:29 Urine Bilirubin Negative (Negative) 07/19/22 17:29 Urine Urobilinogen Negative (Negative) 07/19/22 17:29 Ur Leukocyte Esterase Negative (Negative) 07/19/22 17:29 Urine WBC (Auto) 1-5 /hpf (0-5) 07/19/22 17:29 Urine RBC (Auto) 0-4 /hpf (0-4) 07/19/22 17:29 U Hyaline Cast (Auto) 0 /lpf (0-5) 07/19/22 17:29 U Epithel Cells (Auto) 20-30 /lpf (0-5) H 07/19/22 17:29 Urine Bacteria (Auto) Negative (Negative) 07/19/22 17:29 SARS-CoV-2, RNA, NAAT NEGATIVE (NEGATIVE) 07/19/22 13:45 Impressions Abdomen/Pelvis CT 07/19/22 12:57 CT abd pelvis IV con only CLINICAL HISTORY: abd pain vomiting TECHNIQUE: Helical axial images of the abdomen and pelvis were obtained and displayed. Automated dose lowering techniques and/or adjustment according to patient size were utilized for this exam. This exam was performed with intravenous contrast. CT DOSE: 690.62 mGy.cm COMPARISON: Comparison is made to CT abdomen pelvis 07/08/2022 FINDINGS: Lower chest: No acute abnormality Liver: Unremarkable. No focal lesions are seen. Gallbladder and biliary tree: Patient is status post cholecystectomy. Pneumobilia is seen. This is unchanged from prior exam. Pancreas: Pancreatic stent is seen. The pancreatic head mass has enlarged from prior exam, measuring 47 x 30 mm compared to 21 x 24 mm in prior exam. Pancreatic tail is atrophic and somewhat inflamed in appearance with peripancreatic stranding. 6 cystic foci in the pancreatic body and tail are approximately unchanged from prior exam. Pancreatic head calculus is seen. Spleen: Splenule is incidentally noted. Adrenals: Unremarkable. Kidneys and ureters: Subcentimeter hypodensities are too small to characterize. Nonobstructive nephrolithiasis is seen. Bladder: A dependent air is noted in the bladder likely due to recent instrumentation. Reproductive organs: Unremarkable. Bowel: Unremarkable appearance of the bowel. The appendix is normal. A duodenal diverticulum is incidentally noted. Mild duodenal thickening is again seen likely due to adjacent pancreatitis. Lymph nodes Retroperitoneal: Unremarkable. Pelvic: Unremarkable. Mesenteric: Unremarkable. Peritoneum: Peripancreatic stranding is seen without evidence of pneumoperitoneum. Vessels: Atherosclerotic calcifications are seen. Abdominal wall: Left fat containing inguinal hernia. Bones: Degenerative changes in the visualized spine. Sclerosis is again noted in the pubic symphysis. IMPRESSION: 1. Interval enlargement of the this cystic lesion adjacent to the pancreatic head compatible with pseudocyst. Cystic foci in the pancreas are approximately unchanged from prior exam and may represent IPMN. There is peripancreatic stranding. Overall findings are compatible with acute pancreatitis with enlarging acute peripancreatic collection/pseudocyst. 2. Pancreatic duct stent is unchanged. Pneumobilia is noted, likely secondary to stent placement. 3. A calculus is again noted in the pancreatic head. 4. Additional findings as above. ACT 112: Negative or not required by law. Electronically signed by: Robson Gray M.D. 07/19/2022 3:34 PM Medications Administered Current Inpatient Medications Amlodipine Besylate (Amlodipine Besylate 5 Mg Tab) 2.5 mg PO QPM [facility] Stop: 08/18/22 21:08 Last Admin: 07/20/22 20:12 Dose: 2.5 mg Lipase/Protease/Amylase (Pancreaze (Lipase 10,500u) Cap) 2 cap PO TID [facility] Stop: 08/18/22 21:08 Last Admin: 07/21/22 14:21 Dose: 2 cap Aspirin (Aspirin 81 Mg Ectab) 81 mg PO QAM [facility] Stop: 08/19/22 08:59 Last Admin: 07/21/22 08:36 Dose: 81 mg Atenolol (Atenolol 25 Mg Tablet) 25 mg PO BID [facility] Stop: 08/18/22 21:08 Last Admin: 07/21/22 08:36 Dose: 25 mg Atorvastatin Calcium (Atorvastatin 20 Mg Tab) 20 mg PO PM [facility] Stop: 08/18/22 21:08 Last Admin: 07/20/22 21:17 Dose: 20 mg Citalopram Hydrobromide (Citalopram 20 Mg Tab) 10 mg PO QAM [facility] Stop: 08/19/22 08:59 Last Admin: 07/21/22 08:36 Dose: 10 mg Dicyclomine HCl (Dicyclomine Hcl 10 Mg Cap) 10 mg PO AC [facility] Stop: 08/20/22 11:29 Last Admin: 07/21/22 11:02 Dose: 10 mg Enoxaparin Sodium (Enoxaparin Inj 40 Mg/0.4 Ml Syr) 40 mg SQ HS [facility] Stop: 08/18/22 21:08 Last Admin: 07/20/22 20:10 Dose: 40 mg Gabapentin (Gabapentin 100 Mg Cap) 100 mg PO BID@0900,1400 [facility] Stop: 08/19/22 08:59 Last Admin: 07/21/22 14:21 Dose: 100 mg Gabapentin (Gabapentin 300 Mg Cap) 300 mg PO HS [facility] Stop: 08/18/22 21:08 Last Admin: 10/13/22 20:11 Dose: 300 mg Acetaminophen (Ofirmev) 1,000 mg in 100 mls @ 400 mls/hr IV Q8H [facility] Stop: 07/22/22 21:59 Last Infusion: 07/21/22 06:03 Dose: Infused Prochlorperazine 5 mg/ Syringe 5 mls @ 5 mls/min IV Q6H PRN PRN Reason: Nausea And Vomiting Stop: 08/18/22 21:08 Losartan Potassium (Losartan Potassium 50 Mg Tab) 100 mg PO QAM [facility] Stop: 08/19/22 08:59 Last Admin: 07/21/22 08:36 Dose: 100 mg Miscellaneous (Synthroid - Order Awaiting Action) 1 each N/A QS [facility] Stop: 08/19/22 00:00 Last Admin: 07/21/22 08:37 Dose: Not Given Morphine Sulfate (Morphine Sulfate 4 Mg/Ml 1 Ml Carp\Vial) 4 mg IV Q4H PRN PRN Reason: Pain 7-10 Stop: 08/02/22 21:08 Pantoprazole Sodium (Pantoprazole 40 Mg Tab) 40 mg PO BID [facility] Stop: 08/18/22 21:08 Last Admin: 07/21/22 08:35 Dose: 40 mg Polyethylene Glycol (Polyethylene (Miralax) 17 Gm Pack) 17 gm PO DAILY [facility] Stop: 08/20/22 10:14 Last Admin: 07/21/22 10:58 Dose: 17 gm Tramadol HCl (Tramadol Hcl 50 Mg Tablet) 50 mg PO Q4H PRN PRN Reason: Pain 1-6 Stop: 08/18/22 21:08
[2022-07-21] MEDS ORDERED: POLYETHYLENE (MIRALAX) 17 GM PACK PO ONE ×2 (15:00→20:51)
[2022-07-21] MEDS: ACETAMINOPHEN 325 MG TAB PO PRN (17:27)
[2022-07-21] MEDS: amLODIPine BESYLATE 5 MG TAB PO SCH (20:20)
[2022-07-21] MEDS: ENOXAPARIN INJ 40 MG/0.4 ML SYR SQ SCH (20:21)
[2022-07-21] MEDS: ATORVASTATIN 20 MG TAB PO SCH (20:22)
[2022-07-21] MEDS: GABAPENTIN 300 MG CAP PO SCH (20:23)
[2022-07-22] MEDS: ACETAMINOPHEN 325 MG TAB PO PRN ×2 (02:56→08:34)
[2022-07-22 07:57] LABS: Basophils # (auto) 0.03 K/uL (0-0.2); Basophils % (auto) 0.4 %; Eosinophils # (auto) 0.02 K/uL (0-0.50); Eosinophils % (auto) 0.3 %; Hemoglobin 10.4 g/dl (12.0-16.0); Immature Granulocytes # (auto) 0.03 K/uL (0.00-0.02); Immature Granulocytes % (auto) 0.4 %; Lymphocytes # (auto) 0.46 K/uL (1.2-3.4); Lymphocytes % (auto) 6.2 %; Mean Corpuscular Hemoglobin 29.9 pg (25.0-34.0); Mean Corpuscular Hgb Conc 33.5 g/dL (32.0-36.0); Mean Corpuscular Volume 89.1 fL (80.0-100.0); Monocytes # (auto) 0.81 K/uL (0.24-0.82); Monocytes % (auto) 10.9 %; Neutrophils % (auto) 81.8 %; Platelet Count 308 K/uL (130-400); RDW Coefficient of Variation 13.2 % (11.5-14.5); RDW Standard Deviation 43.2 fL (36.4-46.3); Red Blood Count 3.48 M/uL (3.93-5.22); White Blood Count 7.45 K/ul (4.8-10.8)
[2022-07-22] MEDS: ASPIRIN 81 MG ECTAB PO SCH (08:28)
[2022-07-22] MEDS: CITALOPRAM 20 MG TAB PO SCH (08:28)
[2022-07-22] MEDS: PANTOprazole 40 MG TAB PO SCH (08:28)
[2022-07-22] MEDS: DICYCLOMINE HCL 10 MG CAP PO SCH (08:28)
[2022-07-22] MEDS: LOSARTAN POTASSIUM 50 MG TAB PO SCH (08:28)
[2022-07-22] MEDS: PANCREAZE (LIPASE 10,500U) CAP PO SCH (08:29)
[2022-07-22] MEDS: ATENOLOL 25 MG TABLET PO SCH (08:29)
[2022-07-22] MEDS: [UNRECOGNIZED DRUG - OTHER] SCH (08:29)
[2022-07-22] MEDS: GABAPENTIN 100 MG CAP PO SCH (08:29)
[2022-07-22 08:35] LABS: Albumin Level 3.5 gm/dl (3.4-5.0); Bilirubin,Total 0.7 mg/dl (0.2-1.0); Calcium 8.9 mg/dl (8.5-10.1); Est GFR (African American) 112.1 ml/min; Est GFR (Non-African American) 96.7 ml/min; Globulin 3.4 gm/dl (2.5-4.0); Magnesium 1.4 mg/dl (1.7-2.4); Phosphorus 2.8 mg/dl (2.5-4.9); Potassium 3.2 mmol/L (3.5-5.1); Total Protein 6.9 gm/dl (6.0-8.3)
[2022-07-22] MEDS ORDERED: POTASSIUM CHLORIDE CRTAB 20 MEQ TABCR PO STA (10:08)
--- NOTE | 2022-07-22 11:58 | Discharge Summary ---
Date of Service July 22, 2022 Admission HPI Per Admitting Provider The patient is a 72 year old woman who has a significant PMH of HTN, HLD, anxiety, hypothyroidism, GERD, chronic pancreatitis with pseudocyst and pancreatic stones who presented to ER 2/2 nausea, vomiting and abd pain x 3 days. Of significance pt was recently hospitalized 07/08/22 and d/c on 07/10/22 for acute on chronic pancreatitis. She was seen and evaluated by GI who recommended conservative tx. She was prescribed creon TID at discharge. She was d/c to home with PCP follow up. She has been compliant with creon and tolerating it well. Unfortunately her sx returned 3 days ago with RUQ and epigastric non radiating pain, currently 5/10, tried apap at home w/o relief, nothing made better, unable to tolerate oral intake, and associated with nausea and vomiting. She denies any hematemesis. Overall poor intake the last 3 days. She is scheduled for egd/eus on 08/11. Unfortunately pt has suffered from chronic pancreatitis due to stones and has required stents. Her last EGD was at end of June. Her is at bedside. She denies f/c/s, dizziness, lightheaded, chest pain, sob, cough, uri sx, dysuria, hematuria, melena, and hematochezia. She was constipated and took ducolax, now having softer stool, last BM today. In ED pt remained hemodynamically stable. Her BP was high but likely due to pain as she has been compliant with meds. Her wbc was mildly elevated at 12k but otherwise CBC, CMP, lipase unremarkable. CT A/P shows interval progression of pancreatitic cyst. Overall findings of CT a/p concerning with acute pancreatitis with enlarging acute peripancreatic collection/pseudocyst. Pancreatic duct stent is patent and a calculus is again noted at pancreatic head. Admission Exam Per Admitting Provider Constitutional: WD/WN, F, vitals as above, NAD, sitting up in bed, pleasant, conversing easily Head: Normocephalic, Atraumatic Eyes: PERRL, conjunctivae normal, anicteric sclerae ENMT: external ear and nose normal, oropharynx normal Neck: trachea midline, no thyromegaly normal visual inspection Respiratory: normal respiratory effort, lungs clear to auscultation, no wheeze, rales, rhonchi. Normal insp/exp effort, no accessory muscle use Cardiovascular: RRR, no murmur, no edema Vessels: no JVD or carotid bruit Chest: normal inspection of chest Abdomen: normal bowel sounds, soft, +pain to palpation in epigastrum, nontender, no hepatosplenomegaly Musculoskeletal: no cyanosis or clubbing, extremities motor strength 5/5 Skin: no rashes, warm and dry normal turgor Neurologic: PERRL, EOMI, accommodation nl, no face palsy, no dysarthria CN's II-XI intact bilaterally and moves all extremities Psychiatric: A+Ox3, euthymic affect Lymphatic: no cervical or axillary lymphadenopathy : deferred Principal Diagnosis acute on chronic pancreatitis Discharge Exam Constitutional: NAD, lying in bed, pleasant, conversing easily Head: Normocephalic, Atraumatic Eyes: PERRL, conjunctivae normal, anicteric sclerae ENMT: external ear and nose normal, oropharynx normal Neck: trachea midline, no thyromegaly normal visual inspection Respiratory: normal respiratory effort, lungs clear to auscultation, no wheeze, rales, rhonchi. Normal insp/exp effort, no accessory muscle use Cardiovascular: RRR, no murmur, no edema Vessels: no JVD or carotid bruit Chest: normal inspection of chest Abdomen: normal bowel sounds, soft, mild tenderness to palpation in lower abdominal quadrants, no hepatosplenomegaly Musculoskeletal: no cyanosis or clubbing, extremities motor strength 5/5 Skin: no rashes, warm and dry normal turgor Neurologic: PERRL, EOMI, accommodation nl, no face palsy, no dysarthria CN's II-XI intact bilaterally and moves all extremities Psychiatric: A+Ox3, euthymic affect Lymphatic: no cervical or axillary lymphadenopathy Discharge Data Allergies Allergy/AdvReac Type Severity Reaction Status Date / Time hydrocodone Allergy Intermediate ITCHY Verified 07/19/22 14:35 oxycodone AdvReac Intermediate Nausea Verified 07/19/22 14:35 tramadol AdvReac Intermediate Nausea Verified 07/19/22 14:35 lisinopril AdvReac Mild Cough Verified 07/19/22 17:13 Consultations 07/19/22 16:48 ED Decision to Admit Stat 07/19/22 17:40 Consult Gastroenterology Routine Procedures Performed Operation Date: 07/20/22 08:00 Actual Procedures p Endoscopic Retrograde Cholangiopancreatogram - Michelle Croft MD Ordered Studies 07/19/22 12:57 CT Abd and Pelvis [CT abd pelvis IV con only] Stat 07/20/22 [place] ERCP biliary ductal Routine Hospital Course (1) Acute on chronic pancreatitis: - admit to med/surg - consult GI - s/p EGD 07/21/2022 with stent placement - pain control - much improved since EGD - nausea medications prn - continue creon - tolerating diet - pain resolved, diet tolerated - ok for discharge with previously scheduled follow up with GI 08/11/2022 (2) Coronary artery disease: continue asa, statin, coreg, losartan no prior hx of NC or stents - no chest pain reported medically managed (3) HTN (hypertension): bp elevated in ED likely 2/2 pain continue losartan, atenolol and amlodipine (amlodipine recently reduced from 5mg daily to 2.5mg daily) (4) Hyperlipidemia: continue statin (5) Anemia: h/h stable at baseline 9-10 - mixed picture on iron studies, could be chronic disease - follow up with PCP - no signs of bleeding, stable (6) Anxiety: continue citalopram (7) GERD (gastroesophageal reflux disease): continue PPI Plan DVT ppx: SQ Lovenox Dispo: med/surg FULL CODE PCP: Dr. Gavin Vazquez MD [facility] Total Time Total Time Spent Total Time Spent (In Minutes): 25 Discharge Plan Discharge Items Patient Disposition: Home - Self-Care Reason For Visit: NAUSEA, VOMITING, PANCREATITITS Discharge Diagnosis: acute on chronic pancreatitis Activity: Resume your previous activity Non-emergency contact: Primary Care Provider and Tissue Technician Call non-emergency contact if: you have any medication questions and your symptoms worsen Follow-up/Referrals: Michelle Croft MD [Physician] - Tapan Alonso MD [Primary Care Provider] - 07/27/22 11:20 am (Date & Time 07/27/2022 11:20 AM Provider Tapan Alonso MD Department Family Medicine [facility] ) Diet: Heart Healthy, Low Fiber and Low Fat Addtl Attending Provider Instructions: You were admitted with acute on chronic pancreatitis. You were seen by GI and had and EGD with stent exchange and repositioning. You had improvement in your symptoms and tolerated a diet. You were ready for discharge with your previously scheduled follow up of 08/11/2022 with GI for another EGD. Pending Studies at Discharge: No Stand-Alone Forms: My [facility], Smoking Cessation Medications and DC Order Prescriptions: New magnesium oxide 400 mg (241.3 mg magnesium) Tablet 400 mg PO TID Qty: 7 0RF dicyclomine 10 mg Capsule 10 mg PO AC PRN (Reason: Cramps) Qty: 10 0RF potassium chloride 20 mEq tablet extended release 20 meq PO TID Qty: 7 0RF Continued atorvastatin 20 mg Tablet 20 mg PO PM Qty: 0 aspirin 81 mg Tablet,Chewable 81 mg PO QAM Qty: 0 levothyroxine 175 mcg Tablet 175 mcg PO DAILYBB Qty: 0 Rx Instructions: MUST BE BRAND NAME. CANNOT TAKE GENERIC Creon 24,000-76,000 -120,000 unit capsule,delayed release(DR/EC) 1 cap PO TID Qty: 90 0RF Rx Instructions: administer with meals and/or snacks, open capsule and sprinkle powder on food citalopram 10 mg Tablet 10 mg PO QAM omeprazole 20 mg Capsule,Delayed Release(Dr/Ec) 20 mg PO BID gabapentin 100 mg Capsule See Rx Instructions .ROUTE .COMPLEX Rx Instructions: 100 mg orally ;take 1 capsule in the morning & afternoon, then 3 capsules at bedtime atenolol 25 mg tablet 25 mg PO BID losartan 100 mg tablet 100 mg PO QAM ondansetron HCl 4 mg tablet 4 mg PO Q8H PRN (Reason: nausea and vomiting) Qty: 15 0RF diclofenac sodium [Voltaren Arthritis Pain] 1 % Gel 4 g EXT Q6 PRN (Reason: pain) Qty: 100 0RF simethicone [Gas Relief (simethicone)] 80 mg Tablet,Chewable 80 mg PO Q6H PRN (Reason: abdominal distention) Qty: 30 0RF tramadol 50 mg tablet 50 mg PO Q12H PRN (Reason: pain) Qty: 10 0RF amlodipine 2.5 mg Tablet 2.5 mg PO QPM Discharge Orders: Discharge Order (Routine); Ordered 07/22/22 Ordered By: Silvestre Vazquez Admission Data Admit Date/Time: 07/19/22 17:35 Attending Provider: Silvestre Vazquez Admit Provider: Silvestre Vazquez Primary Care Provider: Tapan Alonso Other Providers: Bruce Hernández ; Michelle Croft Other Interventions: Discharge Summary Assessment (RN) Last Done: 07/22/22 10:53
[2022-07-22] MEDS ORDERED: MAGNESIUM OXIDE 400 MG TAB PO SCH (14:00)
== END 2022-07-22 11:25 | disposition home or self-care (01) | DRG 439 ==
LOC: ED 11:57 → 3N 17:35

== ENCOUNTER 2022-07-31 10:49 | Observation (INO) ==
[2022-07-31] MEDS ORDERED: SODIUM CHLORIDE 0.9% 1000ML 1,000 ML IV ONE (11:22)
--- NOTE | 2022-07-31 11:26 | Emergency Department Note ---
Impression & Plan COVID-19, Chronic pancreatitis, Near syncope, Hypomagnesemia, Elevated troponin ED Provider Note Name: NOLAN VINSON Age: 72 Sex: F Arrives Via: Ambulance Informant: Patient, , daughter, EMS ED Provider: Raji Murray MD Chief Complaint: Near syncope Impression: As per impressions above Medical Decision Makin-year-old female has been dealing with chronic pancreatitis over the last few months multiple ERCPs. She does note that she had some increased pain over the weekend but that has resolved. Today she had multiple episodes of near syncope associated with confusion and diaphoresis. EMS was called and she is brought to the ER. In addition to this she does note upper respiratory infection symptoms for the last [address] of the head is fortunately negative. Initial EKG and troponin are unremarkable. Her D-dimer is significantly elevated. A CTA of the chest was obtained and reveals no evidence of PE. The perihilar inflam mation/sarcoid is stable and the chronic pancreatitis is also noted is stable. Her laboratory testing otherwise looks all right. She is positive for COVID though. In the setting of multiple near syncopal events, confusion, elevated D- dimer and her positive COVID testing I do feel she requires hospitalization. I discussed this with the hospitalist and they will bring her in for further management. Patient was given 1 L normal saline with vast improvement. She has no evidence of sepsis at this time. While patient does not have hypoxia I do not feel that she requires IV steroids at this time. Prior Medical Record and Triage/Nursing Notes reviewed by Me Additional history obtained from chart and family and EMS Differentials:Vasovagal event, dehydration, infection, hypoglycemia, electrolyte abnormalities, cardiac sources, intracerebral event, pulmonary embolism, seizure, toxicologic, neurologic, as well as other pathologies. Vital Signs: reviewed and remarkable for no significant abnormalities Interventions: Normal saline bolus 1 L IV Labs:Reviewed and remarkable for positive COVID, elevated D-dimer Imagin view chest x-ray perihilar infiltrates similar to previous as per radiology. CT of the chest with angiogram as per radiology perihilar infiltrates stable consistent with sarcoidosis, no PE. EKG:Per My Interpretation: Indication Near Syncope: NSR 68 bpm, qtc 514 and RBBB. No Ectopy. No Ischemia. Compared to EKG 08/10/22, no significant changes. Cardiac/Tele Monitoring: Cardiac Monitoring: An Order was placed for continuous cardiac monitoring. The monitor shows a rate of 60 with a normal sinus rhythm. Consults:Dr Nemesio Burton hospitalist Plan: Disposition:Hospitalization. Condition: Good History of Present Illness: 72-year-old female arrives for evaluation of near syncope. [facility] started feeling light[facility]. She notes she felt like she just could not think straight. Multiple people there said she was altered/confused. This lasted several minutes. It was followed by second episode. During that she was diaphoretic somewhat short of breath and altered. Patient notes she just did not feel like her normal self. She denies any headache, focal neurologic deficits, chest pain, shortness of breath, back pain, nausea, vomiting, doyle pain, urinary/bowel symptoms, leg swelling, calf pain, rashes, any other concerning signs or symptoms. She has had some recent runny nose and mild cough for the last few days. She denies any falls, trauma, injury. She did not have a full syncopal event. She states she remembers the entire event. EMS states that blood sugars were normal for them. No other interventions prior to arrival. Patient has been dealing with some recurrent pancreatitis issues due to biliary problem. She has been having multiple ERCPs/stents. She notes on and off abdominal/epigastric pain. She did have some epigastric pain throughout the weekend though that is mostly resolved. She does note she was eating okay throughout the weekend. She said multiple admissions for electrolyte disturbance and intractable epigastric pain. She states her pain is doing pretty well today. She is to be having and another ERCP on August 11. ROS: See above HPI for pertinent positives & negatives. A total of 10 systems reviewed and were otherwise negative. Past Medical History:See Below Past Surgical History:See Below Family History:See Below Social History:See Below Home Medications:See Below Allergies:Hydrocodone, oxycodone, tramadol, lisinopril Vitals:Blood Pressure: 141/75, Pulse 64, RR 14, T 36.4C, O2 98% on RA Physical Exam: GENERAL: Patient is tired/dehydrated appearing and in minimal distress. EYES: No scleral icterus, unremarkable pupils. ENT: Mucous membranes dry, no nasal congestion. NECK: No masses appreciated, nomeningismus, trachea is midline. RESPIRATORY: No dyspnea. Clear to auscultation and equal bilaterally. No wheeze, no rhonchi. CARDIOVASCULAR: Regular rate and rhythm.No murmurs, rubs, gallops appreciated. GASTROINTESTINAL: Mild epigastric pain (patient states that's normal for her), Abdomen soft, non-tender, no peritonitis.Bowel sounds positive.No masses appreciated. BACK: No midline tenderness, no CVA tenderness EXTREMITIES: Normal motion all extremities, no cyanosis, no edema. NEUROLOGIC: Alert and oriented, no acute motor or sensory deficits, no focal weakness, cranial nerves grossly intact. SKIN: No rash, no jaundice, no diaphoresis. PSYCH: Appropriate GCS: 15 ED Course: Times/Reassessments: Stable no distress and stating she is feeling vastly improved after IV fluids Raji Murray MD Past Med/Surg History Medical History Anxiety Arthritis Bakers cyst Chronic pancreatitis Coronary artery disease Pt reports very remote h/o heart cath, > 25 yrs ago. No stents placed. Depression with anxiety Diabetes mellitus, type 2 diet controlled Dyslipidemia Hernia, hiatal HTN (hypertension) Hypothyroidism Left knee DJD Pancreatic cyst Pancreatic duct stones Right rotator cuff tear damaged from a fall, injections Sarcoidosis Has not followed with pulmonology for many years. Stable. 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 Required: No Beliefs That Will Affect Care: None marital status: Current Living Situation: Spouse Current Living Situation Comment: How many Children do You have: 1 Feels Safe at Home: Yes Safety Concerns: Feels Safe At This Time Assistive Devices: None Allergies Allergies Allergy/AdvReac Type Severity Reaction Status Date / Time hydrocodone Allergy Intermediate ITCHY Verified 07/19/22 14:35 oxycodone AdvReac Intermediate Nausea Verified 07/19/22 14:35 tramadol AdvReac Intermediate Nausea Verified 07/19/22 14:35 lisinopril AdvReac Mild Cough Verified 07/19/22 17:13 Home Meds Home Medications Medication Instructions Recorded Confirmed aspirin 81 mg chewable tablet 81 mg PO QAM ##0 08/26/14 07/31/22 atorvastatin 20 mg tablet 20 mg PO PM #0 tabs 08/26/14 07/31/22 levothyroxine 175 mcg tablet 175 mcg PO DAILYBB #0 tabs 11/03/16 07/31/22 citalopram 10 mg tablet 10 mg PO MOTUWETHFR 06/15/20 07/31/22 gabapentin 100 mg capsule See Rx Instructions .Route .COMPLEX 06/15/20 07/31/22 omeprazole 20 mg capsule,delayed 20 mg PO BID 06/15/20 07/31/22 release atenolol 25 mg tablet 25 mg PO BID 03/23/22 07/31/22 losartan 100 mg tablet 100 mg PO QAM 03/23/22 07/31/22 amlodipine 2.5 mg tablet 2.5 mg PO QPM 07/19/22 07/31/22 baclofen 10 mg tablet 10 mg PO HS PRN Abdominal Pain 07/31/22 07/31/22 Previous Rx's Medication Instructions Recorded ondansetron HCl 4 mg tablet 4 mg PO Q8H PRN nausea and 03/23/22 vomiting #15 tabs tramadol 50 mg tablet 50 mg PO Q12H PRN pain #10 tabs 05/18/22 [id number]-[id number] 1 cap PO TID Chronic pancreatitis 07/08/22 24,000-76,000-120,000 unit pain #90 caps capsule,delayed rel (Creon) diclofenac sodium 1 % topical gel 4 g EXT Q6 PRN pain #100 grams 07/10/22 (Voltaren Arthritis Pain) simethicone 80 mg chewable tablet 80 mg PO Q6H PRN abdominal 07/10/22 (Gas Relief (simethicone)) distention #30 tabs dicyclomine 10 mg capsule 10 mg PO AC PRN Cramps #10 caps 07/22/22 magnesium oxide 400 mg (241.3 mg 400 mg PO TID #7 tabs 07/22/22 magnesium) tablet Results & Data (ED) Vital Signs Vital Signs - 24 hr 07/31/22 10:54 07/31/22 11:28 07/31/22 11:31 Temperature 36.4 C L Temperature Source Oral Pulse Rate [Right Finger] 62 Blood Pressure 141/75 H Blood Pressure [Right Arm] 146/87 H Blood Pressure Mean 97 Blood Pressure Mean [Right Arm] 106 Pulse Oximetry 100 Oxygen Delivery Method Room Air Room Air Sepsis Recent Fever Within 48 Hours No Sepsis New/Unexplained Change in Mental Status No Sepsis Action Taken by Nursing No Action Required Pulse Oximetry Post Tiitration 98 07/31/22 13:03 Temperature Temperature Source Pulse Rate [Right Finger] 64 Blood Pressure Blood Pressure [Right Arm] Blood Pressure Mean Blood Pressure Mean [Right Arm] Pulse Oximetry 98 Oxygen Delivery Method Room Air Sepsis Recent Fever Within 48 Hours Sepsis New/Unexplained Change in Mental Status Sepsis Action Taken by Nursing Pulse Oximetry Post Tiitration Laboratory Data Result diagrams: 07/31/22 11:00 07/31/22 11:00 Lab Results 07/31/22 07/31/22 07/31/22 Range/Units 11:00 11:00 11:00 WBC 8.23 (4.8-10.8) K/ul RBC 3.61 L (3.93-5.22) M/uL Hgb 10.7 L (12.0-16.0) g/dl Hct 32.5 L (34.1-44.9) % MCV 90.0 (80.0-100.0) fL MCH 29.6 (25.0-34.0) pg MCHC 32.9 (32.0-36.0) g/dL RDW Std Deviation 44.4 (36.4-46.3) fL RDW Coeff of Renée 13.4 (11.5-14.5) % Plt Count 385 (130-400) K/uL MPV 10.0 (9.4-12.3) fL Immature Gran % (Auto) 0.6 % Neut % (Auto) 81.7 % Lymph % (Auto) 7.4 % [place] % (Auto) 8.9 % Eos % (Auto) 0.7 % Baso % (Auto) 0.7 % Neut # (Auto) 6.72 H (1.4-6.5) K/uL Lymph # (Auto) 0.61 L (1.2-3.4) K/uL [place] # (Auto) 0.73 (0.24-0.82) K/uL Eos # (Auto) 0.06 (0-0.50) K/uL Baso # (Auto) 0.06 (0-0.2) K/uL Immature Gran # (Auto) 0.05 H (0.00-0.02) K/uL D-Dimer (0-500) ug/L FEU Sodium (136-145) mmol/L Potassium (3.5-5.1) mmol/L Chloride (98-107) mmol/L Carbon Dioxide (21-32) mmol/L Anion Gap (3-11) BUN (6-23) mg/dl Creatinine (0.6-1.2) mg/dl Est Cr Clr Drug Dosing ml/min Est GFR ( Amer) ml/min Est GFR (Non-Af Amer) ml/min BUN/Creatinine Ratio (10-20) Glucose (70-99(Fasting)) mg/dl Lactate 1.2 (0.4-2.0) mmol/L Calcium (8.5-10.1) mg/dl Magnesium (1.7-2.4) mg/dl Total Bilirubin (0.2-1.0) mg/dl Direct Bilirubin (0-0.2) mg/dl AST (13-39) U/L ALT (7-52) U/L Alkaline Phosphatase (34-104) U/L Ammonia Cancelled Troponin I High Sens (0-14) pg/ml Total Protein (6.0-8.3) gm/dl Albumin (3.4-5.0) gm/dl Lipase (11-82) U/L Procalcitonin (0-0.5) ng/ml Urine Color Urine Appearance (Clear) Urine pH (4.5-7.5) Ur Specific Garber (1.000-1.030) Urine Protein (Negative) Urine Glucose (UA) (Negative) Urine Ketones (Negative) Urine Blood (Negative) Urine Nitrite (Negative) Urine Bilirubin (Negative) Urine Urobilinogen (Negative) Ur Leukocyte Esterase (Negative) Adenovirus (PCR) (NotDetected) B. pertussis DNA (PCR) (NotDetected) B.parapertussis DNA PCR (NotDetected) C. pneumoniae DNA (PCR) (NotDetected) Coronavirus OC43 (PCR) (NotDetected) Coronavirus HKU1 (PCR) (NotDetected) Coronavirus 229E (PCR) (NotDetected) SARS-CoV-2 (PCR) (NotDetected) Coronavirus NL63 (PCR) (NotDetected) Human Metapneumovir PCR (NotDetected) Influenza Type A (PCR) (NotDetected) Influenza Type B (PCR) (NotDetected) M. pneumoniae (PCR) (NotDetected) Parainfluenza 1 (PCR) (NotDetected) Parainfluenza 2 (PCR) (NotDetected) Parainfluenza 3 (PCR) (NotDetected) Parainfluenza 4 (PCR) (NotDetected) RSV (PCR) (NotDetected) Entero/Rhino (PCR) (NotDetected) 07/31/22 07/31/22 07/31/22 Range/Units 11:00 11:00 11:00 WBC (4.8-10.8) K/ul RBC (3.93-5.22) M/uL Hgb (12.0-16.0) g/dl Hct (34.1-44.9) % MCV (80.0-100.0) fL MCH (25.0-34.0) pg MCHC (32.0-36.0) g/dL RDW Std Deviation (36.4-46.3) fL RDW Coeff of Renée (11.5-14.5) % Plt Count (130-400) K/uL MPV (9.4-12.3) fL Immature Gran % (Auto) % Neut % (Auto) % Lymph % (Auto) % [place] % (Auto) % Eos % (Auto) % Baso % (Auto) % Neut # (Auto) (1.4-6.5) K/uL Lymph # (Auto) (1.2-3.4) K/uL [place] # (Auto) (0.24-0.82) K/uL Eos # (Auto) (0-0.50) K/uL Baso # (Auto) (0-0.2) K/uL Immature Gran # (Auto) (0.00-0.02) K/uL D-Dimer 1490 H* (0-500) ug/L FEU Sodium 138 (136-145) mmol/L Potassium 4.0 (3.5-5.1) mmol/L Chloride 103 (98-107) mmol/L Carbon Dioxide 25 (21-32) mmol/L Anion Gap 10 (3-11) BUN 12 (6-23) mg/dl Creatinine 0.79 (0.6-1.2) mg/dl Est Cr Clr Drug Dosing 72.9 ml/min Est GFR ( Amer) 86.7 ml/min Est GFR (Non-Af Amer) 74.8 ml/min BUN/Creatinine Ratio 15.2 (10-20) Glucose 113 H (70-99(Fasting)) mg/dl Lactate (0.4-2.0) mmol/L Calcium 9.5 (8.5-10.1) mg/dl Magnesium 1.4 L (1.7-2.4) mg/dl Total Bilirubin 0.7 (0.2-1.0) mg/dl Direct Bilirubin 0.1 (0-0.2) mg/dl AST 16 (13-39) U/L ALT 12 (7-52) U/L Alkaline Phosphatase 85 (34-104) U/L Ammonia Troponin I High Sens 6.1 (0-14) pg/ml Total Protein 7.4 (6.0-8.3) gm/dl Albumin 3.8 (3.4-5.0) gm/dl Lipase 12 (11-82) U/L Procalcitonin < 0.05 (0-0.5) ng/ml Urine Color Urine Appearance (Clear) Urine pH (4.5-7.5) Ur Specific Garber (1.000-1.030) Urine Protein (Negative) Urine Glucose (UA) (Negative) Urine Ketones (Negative) Urine Blood (Negative) Urine Nitrite (Negative) Urine Bilirubin (Negative) Urine Urobilinogen (Negative) Ur Leukocyte Esterase (Negative) Adenovirus (PCR) (NotDetected) B. pertussis DNA (PCR) (NotDetected) B.parapertussis DNA PCR (NotDetected) C. pneumoniae DNA (PCR) (NotDetected) Coronavirus OC43 (PCR) (NotDetected) Coronavirus HKU1 (PCR) (NotDetected) Coronavirus 229E (PCR) (NotDetected) SARS-CoV-2 (PCR) (NotDetected) Coronavirus NL63 (PCR) (NotDetected) Human Metapneumovir PCR (NotDetected) Influenza Type A (PCR) (NotDetected) Influenza Type B (PCR) (NotDetected) M. pneumoniae (PCR) (NotDetected) Parainfluenza 1 (PCR) (NotDetected) Parainfluenza 2 (PCR) (NotDetected) Parainfluenza 3 (PCR) (NotDetected) Parainfluenza 4 (PCR) (NotDetected) RSV (PCR) (NotDetected) Entero/Rhino (PCR) (NotDetected) 07/31/22 07/31/22 Range/Units 11:33 12:40 WBC (4.8-10.8) K/ul RBC (3.93-5.22) M/uL Hgb (12.0-16.0) g/dl Hct (34.1-44.9) % MCV (80.0-100.0) fL MCH (25.0-34.0) pg MCHC (32.0-36.0) g/dL RDW Std Deviation (36.4-46.3) fL RDW Coeff of Renée (11.5-14.5) % Plt Count (130-400) K/uL MPV (9.4-12.3) fL Immature Gran % (Auto) % Neut % (Auto) % Lymph % (Auto) % [place] % (Auto) % Eos % (Auto) % Baso % (Auto) % Neut # (Auto) (1.4-6.5) K/uL Lymph # (Auto) (1.2-3.4) K/uL [place] # (Auto) (0.24-0.82) K/uL Eos # (Auto) (0-0.50) K/uL Baso # (Auto) (0-0.2) K/uL Immature Gran # (Auto) (0.00-0.02) K/uL D-Dimer (0-500) ug/L FEU Sodium (136-145) mmol/L Potassium (3.5-5.1) mmol/L Chloride (98-107) mmol/L Carbon Dioxide (21-32) mmol/L Anion Gap (3-11) BUN (6-23) mg/dl Creatinine (0.6-1.2) mg/dl Est Cr Clr Drug Dosing ml/min Est GFR ( Amer) ml/min Est GFR (Non-Af Amer) ml/min BUN/Creatinine Ratio (10-20) Glucose (70-99(Fasting)) mg/dl Lactate (0.4-2.0) mmol/L Calcium (8.5-10.1) mg/dl Magnesium (1.7-2.4) mg/dl Total Bilirubin (0.2-1.0) mg/dl Direct Bilirubin (0-0.2) mg/dl AST (13-39) U/L ALT (7-52) U/L Alkaline Phosphatase (34-104) U/L Ammonia Troponin I High Sens (0-14) pg/ml Total Protein (6.0-8.3) gm/dl Albumin (3.4-5.0) gm/dl Lipase (11-82) U/L Procalcitonin (0-0.5) ng/ml Urine Color Yellow Urine Appearance Clear (Clear) Urine pH 7.5 (4.5-7.5) Ur Specific Garber 1.005 (1.000-1.030) Urine Protein Negative (Negative) Urine Glucose (UA) Negative (Negative) Urine Ketones Negative (Negative) Urine Blood Negative (Negative) Urine Nitrite Negative (Negative) Urine Bilirubin Negative (Negative) Urine Urobilinogen Negative (Negative) Ur Leukocyte Esterase Negative (Negative) Adenovirus (PCR) Not Detected (NotDetected) B. pertussis DNA (PCR) Not Detected (NotDetected) B.parapertussis DNA PCR Not Detected (NotDetected) C. pneumoniae DNA (PCR) Not Detected (NotDetected) Coronavirus OC43 (PCR) Not Detected (NotDetected) Coronavirus HKU1 (PCR) Not Detected (NotDetected) Coronavirus 229E (PCR) Not Detected (NotDetected) SARS-CoV-2 (PCR) DETECTED A* (NotDetected) Coronavirus NL63 (PCR) Not Detected (NotDetected) Human Metapneumovir PCR Not Detected (NotDetected) Influenza Type A (PCR) Not Detected (NotDetected) Influenza Type B (PCR) Not Detected (NotDetected) M. pneumoniae (PCR) Not Detected (NotDetected) Parainfluenza 1 (PCR) Not Detected (NotDetected) Parainfluenza 2 (PCR) Not Detected (NotDetected) Parainfluenza 3 (PCR) Not Detected (NotDetected) Parainfluenza 4 (PCR) Not Detected (NotDetected) RSV (PCR) Not Detected (NotDetected) Entero/Rhino (PCR) Not Detected (NotDetected) Administered Medications Citalopram Hydrobromide (Citalopram 20 Mg Tab) 10 mg PO [id number] [facility] Stop: 08/30/22 19:14 Last Admin: 07/31/22 19:43 Dose: 10 mg Documented By: TERRY Enoxaparin Sodium (Enoxaparin Inj 40 Mg/0.4 Ml Syr) 40 mg SQ Q24H [facility] Stop: 08/30/22 18:59 Last Admin: 07/31/22 19:45 Dose: 40 mg Documented By: TERYR Discontinued Medications Hydralazine HCl (Hydralazine Hcl 20 Mg/Ml Vial) 5 mg IV NOW ONE Stop: 07/31/22 16:46 Last Admin: 07/31/22 16:59 Dose: 5 mg Documented By: MADISON Sodium Chloride (Nss 1000ml) 1,000 mls @ 999 mls/hr IV .Q1H1M ONE Stop: 07/31/22 12:22 Last Infusion: 07/31/22 12:31 Dose: 0 mls/hr Documented By: Admin: 07/31/22 11:29 Dose: 999 mls/hr Documented By: MADISON Magnesium Sulfate/Dextrose (Magnesium Sulfate / D5w) 1 gm in 100 mls @ 50 mls/hr IV Q2H [facility] Stop: 07/31/22 19:14 Last Infusion: 07/31/22 18:55 Dose: 0 mls/hr Documented By: Admin: 07/31/22 16:53 Dose: 50 mls/hr Documented By: Infusion: 07/31/22 16:53 Dose: 50 mls/hr Documented By: Admin: 07/31/22 15:50 Dose: 50 mls/hr Documented By: MADISON Ioversol (Optiray 320 500ml) 115 ml IV ONCE ONE Stop: 07/31/22 12:58 Last Admin: 07/31/22 12:58 Dose: 115 ml Documented By: JAYDON Imaging Data Radiologist's Impression: Head CT 07/31/22 11:22 CT SCAN OF THE BRAIN WITHOUT IV CONTRAST CLINICAL HISTORY: Near syncope. COMPARISON STUDY: CT of the brain dated 10/08/2020. TECHNIQUE: Unenhanced axial CT scan of the brain is performed from the vertex to the skull base. A dose lowering technique was utilized adhering to the principles of ALARA. CT DOSE: 537.48 mGy.cm FINDINGS: Brain parenchyma: There is age-related involutional change noting mild subcortical and periventricular microangiopathic disease. There is no hemorrhage, mass effect, or evidence of acute territorial ischemia by CT criteria. Rosario-white matter differentiation is preserved. No extra-axial fluid collection is seen. Ventricles, sulci, cisterns: Prominent secondary to involutional change. Intracranial vasculature: There is atherosclerotic calcification of the cavernous carotid arteries. Calvarium: Unremarkable. Sinuses and mastoids: The visualized paranasal sinuses are clear. The mastoid air cells are well pneumatized. Orbits: The bony orbits are grossly intact. IMPRESSION: There is no hemorrhage, mass effect, or evidence of acute territorial ischemia by CT criteria. ACT 112: Negative or not required by law. Electronically signed by: Chito Calle M.D. 07/31/2022 12:18 PM Chest X-Ray 07/31/22 11:23 SINGLE VIEW CHEST CLINICAL HISTORY: Near syncope. FINDINGS: An AP, portable, upright chest radiograph is compared to study dated 03/23/2022 and correlated with chest CT dated 07/05/2008. The cardiac silhouette is top normal for projection. Bilateral hilar adenopathy similar to previous. There are scattered calcified granulomas. Chronic interstitial thickening is unchanged. No airspace consolidation or large pleural effusion is identified. No pneumothorax is seen. The skeletal structures are osteopenic. The bony thorax is grossly intact. Calcific tendinopathy is noted in the right shoulder. IMPRESSION: 1. No active disease in the chest. 2. Bilateral hilar adenopathy is unchanged from a [address] This is favors sarcoidosis. Correlate with the patient's medical history. ACT 112: Negative or not required by law. Electronically signed by: Chito Calle M.D. 07/31/2022 11:51 AM Chest CTA 07/31/22 12:32 CT ANGIOGRAPHY OF THE CHEST, PULMONARY EMBOLUS PROTOCOL CLINICAL HISTORY: Elevated d-dimer. COMPARISON STUDY: Chest CT July 05, 2008. Chest radiograph July 31, 2022. TECHNIQUE: Following IV administration of 115 mL of Optiray, helical axial images of the chest were obtained utilizing the pulmonary embolus protocol. Maximal intensity projections and sagittal and coronal reformats were viewed on an independent 3D workstation. IV contrast was administered without complication. Automated exposure control was utilized for the study. A dose lowering technique was utilized adhering to the principles of ALARA. CT DOSE: 599.32 mGy.cm FINDINGS: No pulmonary emboli are identified. There is no thoracic aortic dissection. No pericardial effusion is present. Mild cardiomegaly is noted. Multiple enlarged partially calcified mediastinal and bilateral hilar lymph nodes are similar to CT of July 05, 2008. Multiple no pneumothorax or pleural effusion is present. There is no consolidation to suggest pneumonia. Multiple pulmonary nodules, several of which are partially calcified, are similar to CT of July 05, 2008. No new pulmonary nodules are present. The appearance of the chest is similar to prior CT. Visualized portions of the upper abdomen demonstrate pneumobilia as well as a partially visualized pancreatic stent. There is a partially visualized stent within the common bile duct. Peripancreatic stranding is noted. This was shown on abdominal CT of July 19, 2022. IMPRESSION: 1. No pulmonary emboli identified. 2. No change in mediastinal and bilateral hilar lymphadenopathy and pulmonary nodules since chest CT of July 05, 2008. The findings favor a granulomatous process such as sarcoidosis. 3. Peripancreatic infiltration suggestive of acute pancreatitis, as shown on abdominal CT of July 19, 2022. This is partially imaged on this exam. ACT 112: Negative or not required by law. Electronically signed by: Chacho Dewey M.D. 07/31/2022 1:27 PM Discharge Plan Visit Data Chief Complaint: Syncope Stated Complaint: syncope, weakness, dizziness ED Provider: Raji Murray Discharge Problem: COVID-19, Chronic pancreatitis, Near syncope, Hypomagnesemia, Elevated troponin Patient Disposition: Admitted As Inpatient Discharge Instructions Interventions: ED Discharge Assessment Last Done: 07/31/22 18:25
[2022-07-31 11:47] LABS: Basophils # (auto) 0.06 K/uL (0-0.2); Basophils % (auto) 0.7 %; Eosinophils # (auto) 0.06 K/uL (0-0.50); Eosinophils % (auto) 0.7 %; Hematocrit (blood only) 32.5 % (34.1-44.9); Hemoglobin 10.7 g/dl (12.0-16.0); Immature Granulocytes # (auto) 0.05 K/uL (0.00-0.02); Immature Granulocytes % (auto) 0.6 %; Lymphocytes # (auto) 0.61 K/uL (1.2-3.4); Lymphocytes % (auto) 7.4 %; Mean Corpuscular Hemoglobin 29.6 pg (25.0-34.0); Mean Corpuscular Hgb Conc 32.9 g/dL (32.0-36.0); Monocytes # (auto) 0.73 K/uL (0.24-0.82); Monocytes % (auto) 8.9 %; Neutrophils # (auto) 6.72 K/uL (1.4-6.5); Neutrophils % (auto) 81.7 %; Platelet Count 385 K/uL (130-400); RDW Coefficient of Variation 13.4 % (11.5-14.5); RDW Standard Deviation 44.4 fL (36.4-46.3); Red Blood Count 3.61 M/uL (3.93-5.22); White Blood Count 8.23 K/ul (4.8-10.8)
--- NOTE | 2022-07-31 11:54 | XRay Report ---
SINGLE VIEW CHEST CLINICAL HISTORY: Near syncope. FINDINGS: An AP, portable, upright chest radiograph is compared to study dated 03/23/2022 and correlat ed with chest CT dated 07/05/2008. The cardiac silhouette is top normal for projection. Bilateral glenroy r adenopathy similar to previous. There are scattered calcified granulomas. Chronic interstitial thic kening is unchanged. No airspace consolidation or large pleural effusion is identified. No pneumothor ax is seen. The skeletal structures are osteopenic. The bony thorax is grossly intact. Calcific tendi nopathy is noted in the right shoulder. IMPRESSION: 1. No active disease in the chest. 2. Bilateral hilar adenopathy is unchanged from a [address] This is favors sarcoidosis. Correlat e with the patient's medical history. ACT 112: Negative or not required by law. Electronically signed by: Chito Calle M.D. 07/31/2022 11:51 AM
[2022-07-31 12:04] LABS: Troponin I High Sensitivity 6.1 pg/ml (0-14)
[2022-07-31 12:16] LABS: Albumin Level 3.8 gm/dl (3.4-5.0); BUN Creatinine Ratio 15.2 (10-20); Bilirubin Direct 0.1 mg/dl (0-0.2); Bilirubin,Total 0.7 mg/dl (0.2-1.0); Calcium 9.5 mg/dl (8.5-10.1); Creatinine Clr Calc Pharmacy 72.9 ml/min; Est GFR (African American) 86.7 ml/min; Est GFR (Non-African American) 74.8 ml/min; Magnesium 1.4 mg/dl (1.7-2.4); Total Protein 7.4 gm/dl (6.0-8.3)
[2022-07-31 12:17] LABS: D Dimer 1490 ug/L FEU (0-500)
--- NOTE | 2022-07-31 12:19 | CT Scan Report ---
CT SCAN OF THE BRAIN WITHOUT IV CONTRAST CLINICAL HISTORY: Near syncope. COMPARISON STUDY: CT of the brain dated 10/08/2020. TECHNIQUE: Unenhanced axial CT scan of the brain is performed from the vertex to the skull base. A do se lowering technique was utilized adhering to the principles of ALARA. CT DOSE: 537.48 mGy.cm FINDINGS: Brain parenchyma: There is age-related involutional change noting mild subcortical and periventricula r microangiopathic disease. There is no hemorrhage, mass effect, or evidence of acute territorial isc hemia by CT criteria. Rosario-white matter differentiation is preserved. No extra-axial fluid collection is seen. Ventricles, sulci, cisterns: Prominent secondary to involutional change. Intracranial vasculature: There is atherosclerotic calcification of the cavernous carotid arteries. Calvarium: Unremarkable. Sinuses and mastoids: The visualized paranasal sinuses are clear. The mastoid air cells are well pneu matized. Orbits: The bony orbits are grossly intact. IMPRESSION: There is no hemorrhage, mass effect, or evidence of acute territorial ischemia by CT real glover. ACT 112: Negative or not required by law. Electronically signed by: Chito Calle M.D. 07/31/2022 12:18 PM
[2022-07-31] MEDS ORDERED: OPTIRAY 320 500ml IV ONE (12:57)
[2022-07-31 12:59] LABS: Appearance Urine Clear (Clear); Bilirubin Urine Negative (Negative); Blood Urine Negative (Negative); Color Urine Yellow; Glucose Urine UA Negative (Negative); Ketones Urine Negative (Negative); Leukocyte Esterase Urine Negative (Negative); Nitrite Urine Negative (Negative); Protein Urine Negative (Negative); Specific Gravity Urine 1.005 (1.000-1.030); Urobilinogen Urine Negative (Negative); pH Urine 7.5 (4.5-7.5)
[2022-07-31 13:29] LABS: Adenovirus PCR Not Detected (NotDetected); Bordetella parapertussis PCR Not Detected (NotDetected); Bordetella pertussis PCR Not Detected (NotDetected); Chlamydia pneumoniae PCR Not Detected (NotDetected); Coronavirus 229E PCR Not Detected (NotDetected); Coronavirus HKU1 PCR Not Detected (NotDetected); Coronavirus NL63 PCR Not Detected (NotDetected); Coronavirus OC43PCR Not Detected (NotDetected); Human Metapneumovirus PCR Not Detected (NotDetected); Influenza A PCR Not Detected (NotDetected); Influenza B PCR Not Detected (NotDetected); Mycoplasma pneumoniae PCR Not Detected (NotDetected); Parainfluenza Virus 1 PCR Not Detected (NotDetected); Parainfluenza Virus 2 PCR Not Detected (NotDetected); Parainfluenza Virus 3 PCR Not Detected (NotDetected); Parainfluenza Virus 4 PCR Not Detected (NotDetected); Respiratory Syncytial VirusPCR Not Detected (NotDetected); Rhinovirus/Enterovirus PCR Not Detected (NotDetected)
--- NOTE | 2022-07-31 13:30 | CT Scan Report ---
CT ANGIOGRAPHY OF THE CHEST, PULMONARY EMBOLUS PROTOCOL CLINICAL HISTORY: Elevated d-dimer. COMPARISON STUDY: Chest CT July 05, 2008. Chest radiograph July 31, 2022. TECHNIQUE: Following IV administration of 115 mL of Optiray, helical axial images of the chest were o btained utilizing the pulmonary embolus protocol. Maximal intensity projections and sagittal and cor onal reformats were viewed on an independent 3D workstation. IV contrast was administered without co mplication. Automated exposure control was utilized for the study. A dose lowering technique was ut ilized adhering to the principles of ALARA. CT DOSE: 599.32 mGy.cm FINDINGS: No pulmonary emboli are identified. There is no thoracic aortic dissection. No pericardial effusion is present. Mild cardiomegaly is noted. Multiple enlarged partially calcified mediastinal an d bilateral hilar lymph nodes are similar to CT of July 05, 2008. Multiple no pneumothorax or pl eural effusion is present. There is no consolidation to suggest pneumonia. Multiple pulmonary nodules , several of which are partially calcified, are similar to CT of July 05, 2008. No new pulmonary nodules are present. The appearance of the chest is similar to prior CT. Visualized portions of the upper abdomen demonstrate pneumobilia as well as a partially visualized pancreatic stent. There is a partially visualized stent within the common bile duct. Peripancreatic stranding is noted. This was s hown on abdominal CT of July 19, 2022. IMPRESSION: 1. No pulmonary emboli identified. 2. No change in mediastinal and bilateral hilar lymphadenopathy and pulmonary nodules since chest CT of July 05, 2008. The findings favor a granulomatous process such as sarcoidosis. 3. Peripancreatic infiltration suggestive of acute pancreatitis, as shown on abdominal CT of July 19, 2022. This is partially imaged on this exam. ACT 112: Negative or not required by law. Electronically signed by: Chacho Dewey M.D. 07/31/2022 1:27 PM
[2022-07-31 13:43] LABS: Coronavirus CoV-2 (COVID19)PCR DETECTED (NotDetected)
[2022-07-31] MEDS: MAGNESIUM SULFATE / D5W 1 GM/100 ML BAG IV SCH ×2 (15:50→16:53)
[2022-07-31] MEDS ORDERED: hydrALAZINE HCL 20 MG/ML VIAL IV ONE (16:45)
--- NOTE | 2022-07-31 16:45 | History & Physical Report ---
Date of Service July 31, 2022 Assessment & Plan (1) Near syncope: Plan: Admit to telemetry Patient presenting with near syncopal event x 2 In the ED, tested positive for COVID-19. Also over the past several months, patient has been dealing with chronic pancreatitis, pancreatic duct stone, pancreatic cyst. Patient reports a reduced appetite at times. HS trop WNL, EKG without acute ST changes. Head CT negative for acute findings. Elevated D-dimer noted, CTA chest negative for pulmonary embolism and BL LE Dopplers negative for DVT. Noted be hypomagnesemic, Mg +1.4 No focal deficits on exam Suspect near syncopal event secondary to dehydration from COVID-19 and chronic pancreatitis. Received 1 L IVF in ED with improvement in symptoms. Continue to monitor orthostatic BPs (2) COVID-19: Plan: Saturating well on room air, no infiltrate on CXR Does not meet criteria for COVID-19 directed therapies Continue supportive care (3) Hypomagnesemia: Plan: Mg +1.4 Replace, follow (4) HTN (hypertension): Plan: BP elevated requiring dose of IV hydralazine with improvement Continue home dose atenolol and losartan. Consider increasing amlodipine dose (5) Chronic pancreatitis: (6) Pancreatic duct stones: (7) Pancreatic cyst: Plan: S/p pancreatic duct stent exchange on 07/20 Follows closely with GI (8) Coronary artery disease: Plan: Remote history of cardiac cath showing nonobstructive disease No reports of chest pain, EKG without acute T changes (9) DVT prophylaxis: Plan: SQ Lovenox (10) Anemia: (11) Prolonged Q-T interval on ECG: History of Present Illness Chief Complaint: Near syncope Primary Care Provider: Tapan Alonso MD 72-year-old female with PMH nonobstructive CAD, HTN, HLD, pancreatic duct stone with pancreatic pseudocyst s/p ERCP and stent placement, hypothyroidism, dyslipidemia, RBBB, HTN, sarcoidosis, and other problems listed below who presents the ED for evaluation after near syncopal event. 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 Patient reports that she started to feel very hot and diaphoretic. People that were around her states that she was not focusing. Patient reports that she was trying to talk however nothing would come out. Patient states that she felt generally weak. She was then able to sit down. Patient did not pass out and she denies associated lightheadedness or dizziness. Patient reports she started to feel better and symptoms resolved. A few moments later, patient reports she again felt flushed and diaphoretic. EMS was called and patient was brought to the ED for further evaluation. Symptoms have since completely resolved. Patient was recently admitted to [facility] for acute on chronic pancreatitis underwent ERCP with stent exchange. She reports that she has abdominal pain and nausea daily due to chronic pancreatitis however since her most recent procedure, she has had some relief. Patient states that she has been able to tolerate food and liquids recently. She ate breakfast this morning. Patient denies fevers and chills. No chest pain or shortness of breath. Denies recent cough, sore throat, rhinorrhea. No urinary symptoms. In the ED, patient is found to be moderately hypertensive, otherwise hemodynamically stable. Labs show Mg +1.4. Patient has a positive for COVID-19. Head CT, CXR, chest CTA unremarkable for acute findings. Allergies Allergy/AdvReac Type Severity Reaction Status Date / Time hydrocodone Allergy Intermediate ITCHY Verified 07/19/22 14:35 oxycodone AdvReac Intermediate Nausea Verified 07/19/22 14:35 tramadol AdvReac Intermediate Nausea Verified 07/19/22 14:35 lisinopril AdvReac Mild Cough Verified 07/19/22 17:13 Home Medications Medication Instructions Recorded Confirmed Type aspirin 81 mg chewable tablet 81 mg PO QAM ##0 08/26/14 07/31/22 History atorvastatin 20 mg tablet 20 mg PO PM #0 tabs 08/26/14 07/31/22 History levothyroxine 175 mcg tablet 175 mcg PO DAILYBB #0 tabs 11/03/16 07/31/22 History citalopram 10 mg tablet 10 mg PO MOTUWETHFR 06/15/20 07/31/22 History gabapentin 100 mg capsule See Rx Instructions .Route .COMPLEX 06/15/20 07/31/22 History omeprazole 20 mg capsule,delayed 20 mg PO BID 06/15/20 07/31/22 History release atenolol 25 mg tablet 25 mg PO BID 03/23/22 07/31/22 History losartan 100 mg tablet 100 mg PO QAM 03/23/22 07/31/22 History ondansetron HCl 4 mg tablet 4 mg PO Q8H PRN nausea and 03/23/22 07/31/22 Rx vomiting #15 tabs tramadol 50 mg tablet 50 mg PO Q12H PRN pain #10 tabs 05/18/22 07/31/22 Rx qbcpmv-bvzjgxqq-xudliin 1 cap PO TID Chronic pancreatitis 07/08/22 07/31/22 Rx 24,000-76,000-120,000 unit pain #90 caps capsule,delayed rel (Creon) diclofenac sodium 1 % topical gel 4 g EXT Q6 PRN pain #100 grams 07/10/22 07/31/22 Rx (Voltaren Arthritis Pain) simethicone 80 mg chewable tablet 80 mg PO Q6H PRN abdominal 07/10/22 07/31/22 Rx (Gas Relief (simethicone)) distention #30 tabs amlodipine 2.5 mg tablet 2.5 mg PO QPM 07/19/22 07/31/22 History dicyclomine 10 mg capsule 10 mg PO AC PRN Cramps #10 caps 07/22/22 07/31/22 Rx magnesium oxide 400 mg (241.3 mg 400 mg PO TID #7 tabs 07/22/22 07/31/22 Rx magnesium) tablet baclofen 10 mg tablet 10 mg PO HS PRN Abdominal Pain 07/31/22 07/31/22 History Past Med/Surg History Medical History Anxiety Arthritis Bakers cyst Chronic pancreatitis Coronary artery disease Pt reports very remote h/o heart cath, > 25 yrs ago. No stents placed. Depression with anxiety Diabetes mellitus, type 2 diet controlled Dyslipidemia Hernia, hiatal HTN (hypertension) Hypothyroidism Left knee DJD Pancreatic cyst Pancreatic duct stones Right rotator cuff tear damaged from a fall, injections Sarcoidosis Has not followed with pulmonology for many years. Stable. 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 Beliefs That Will Affect Care: None marital status: Current Living Situation: Spouse Current Living Situation Comment: How many Children do You have: 1 Feels Safe at Home: Yes Safety Concerns: Feels Safe At This Time Assistive Devices: None Review of Systems Review of Systems: ROS per HPI, all other systems reviewed and negative Physical Exam Constitutional: WD/WN, vitals as above Eyes: PERRL, conjunctivae normal, anicteric sclerae ENMT: external ear and nose normal, oropharynx normal Respiratory: normal respiratory effort, lungs clear to auscultation Cardiovascular: Rate/Rhythm: regular rate and regular rhythm Vessels: normal peripheral pulses Extremities: no edema Gastrointestinal (Abdomen): normal bowel sounds, soft, nontender, no hepatosplenomegaly Musculoskeletal: no cyanosis or clubbing, extremities motor strength 5/5 Skin: no rashes, warm and dry Neurologic: PERRL, EOMI, accommodation nl, no face palsy, no dysarthria no focal motor deficits Psychiatric: A+Ox3, euthymic affect Results & Data Results & Data ([facility]) Vital Signs (Past 12 Hours) Vital Signs Temp Pulse Resp BP BP Pulse Ox O2 Del Method 07/31/22 15:52 55 L 20 175/90 H 98 07/31/22 13:03 64 98 Room Air 07/31/22 11:31 Room Air 07/31/22 11:28 62 146/87 H 100 Room Air 07/31/22 10:54 36.4 C L 141/75 H Laboratory Results Short CBC 07/31/22 Range/Units 11:00 WBC 8.23 (4.8-10.8) K/ul Hgb 10.7 L (12.0-16.0) g/dl Hct 32.5 L (34.1-44.9) % Plt Count 385 (130-400) K/uL BMP 07/31/22 11:00 Sodium 138 Potassium 4.0 Chloride 103 Carbon Dioxide 25 BUN 12 Creatinine 0.79 Glucose 113 H Calcium 9.5 Liver Function 07/31/22 Range/Units 11:00 Total Bilirubin 0.7 (0.2-1.0) mg/dl Direct Bilirubin 0.1 (0-0.2) mg/dl AST 16 (13-39) U/L ALT 12 (7-52) U/L Alkaline Phosphatase 85 (34-104) U/L Albumin 3.8 (3.4-5.0) gm/dl Urine 07/31/22 Range/Units 12:40 Urine Color Yellow Urine Appearance Clear (Clear) Urine pH 7.5 (4.5-7.5) Ur Specific [place] 1.005 (1.000-1.030) Urine Protein Negative (Negative) Urine Glucose (UA) Negative (Negative) Diagnostic Findings Head CT 07/31/22 11:22 CT SCAN OF THE BRAIN WITHOUT IV CONTRAST CLINICAL HISTORY: Near syncope. COMPARISON STUDY: CT of the brain dated 10/08/2020. TECHNIQUE: Unenhanced axial CT scan of the brain is performed from the vertex to the skull base. A dose lowering technique was utilized adhering to the principles of ALARA. CT DOSE: 537.48 mGy.cm FINDINGS: Brain parenchyma: There is age-related involutional change noting mild subcortical and periventricular microangiopathic disease. There is no hemorrhage, mass effect, or evidence of acute territorial ischemia by CT criteria. Rosario-white matter differentiation is preserved. No extra-axial fluid collection is seen. Ventricles, sulci, cisterns: Prominent secondary to involutional change. Intracranial vasculature: There is atherosclerotic calcification of the cavernous carotid arteries. Calvarium: Unremarkable. Sinuses and mastoids: The visualized paranasal sinuses are clear. The mastoid air cells are well pneumatized. Orbits: The bony orbits are grossly intact. IMPRESSION: There is no hemorrhage, mass effect, or evidence of acute territorial ischemia by CT criteria. ACT 112: Negative or not required by law. Electronically signed by: Chito Calle M.D. 07/31/2022 12:18 PM Chest X-Ray 07/31/22 11:23 SINGLE VIEW CHEST CLINICAL HISTORY: Near syncope. FINDINGS: An AP, portable, upright chest radiograph is compared to study dated 03/23/2022 and correlated with chest CT dated 07/05/2008. The cardiac silhouette is top normal for projection. Bilateral hilar adenopathy similar to previous. There are scattered calcified granulomas. Chronic interstitial thickening is unchanged. No airspace consolidation or large pleural effusion is identified. No pneumothorax is seen. The skeletal structures are osteopenic. The bony thorax is grossly intact. Calcific tendinopathy is noted in the right shoulder. IMPRESSION: 1. No active disease in the chest. 2. Bilateral hilar adenopathy is unchanged from a [address] This is favors sarcoidosis. Correlate with the patient's medical history. ACT 112: Negative or not required by law. Electronically signed by: Chito Calle M.D. 07/31/2022 11:51 AM Chest CTA 07/31/22 12:32 CT ANGIOGRAPHY OF THE CHEST, PULMONARY EMBOLUS PROTOCOL CLINICAL HISTORY: Elevated d-dimer. COMPARISON STUDY: Chest CT July 05, 2008. Chest radiograph July 31, 2022. TECHNIQUE: Following IV administration of 115 mL of Optiray, helical axial images of the chest were obtained utilizing the pulmonary embolus protocol. Maximal intensity projections and sagittal and coronal reformats were viewed on an independent 3D workstation. IV contrast was administered without complication. Automated exposure control was utilized for the study. A dose lowering technique was utilized adhering to the principles of ALARA. CT DOSE: 599.32 mGy.cm FINDINGS: No pulmonary emboli are identified. There is no thoracic aortic dissection. No pericardial effusion is present. Mild cardiomegaly is noted. Multiple enlarged partially calcified mediastinal and bilateral hilar lymph nodes are similar to CT of July 05, 2008. Multiple no pneumothorax or pleural effusion is present. There is no consolidation to suggest pneumonia. Multiple pulmonary nodules, several of which are partially calcified, are sim ilar to CT of July 05, 2008. No new pulmonary nodules are present. The appearance of the chest is similar to prior CT. Visualized portions of the upper abdomen demonstrate pneumobilia as well as a partially visualized pancreatic stent. There is a partially visualized stent within the common bile duct. Peripancreatic stranding is noted. This was shown on abdominal CT of July 19, 2022. IMPRESSION: 1. No pulmonary emboli identified. 2. No change in mediastinal and bilateral hilar lymphadenopathy and pulmonary nodules since chest CT of July 05, 2008. The findings favor a granulomatous process such as sarcoidosis. 3. Peripancreatic infiltration suggestive of acute pancreatitis, as shown on abdominal CT of July 19, 2022. This is partially imaged on this exam. ACT 112: Negative or not required by law. Electronically signed by: Chacho Dewey M.D. 07/31/2022 1:27 PM Venous Doppler Study 07/31/22 16:53 BILATERAL LOWER EXTREMITY VENOUS DOPPLER CLINICAL HISTORY: elevated d. dimer COMPARISON STUDY: Right lower extremity venous Doppler ultrasound November 04, 2016. Left lower extremity venous Doppler ultrasound February 10, 2014. TECHNIQUE: Sonography of the deep venous system of the bilateral lower extremities was performed. Compression and augmentation were evaluated. FINDINGS: The bilateral common femoral, superficial femoral and popliteal veins were compressible. Augmentation was normal. Flow was shown within the deep calf vessels. IMPRESSION: No evidence of deep venous thrombus within the bilateral lower extremities. ACT 112: Negative or not required by law. Electronically signed by: Chacho Dewey M.D. 07/31/2022 6:06 PM Code Status & VTE Plan VTE Prophylaxis Plan VTE Prophylaxis will be ordered: Yes Supervising Physician Co-Signing Physician Notes I have seen and examined the patient and have discussed the case with the provider above. I agree with the assessment and plan as stated with the following exceptions: The patient is a 72-year-old female with sarcoidosis, coronary artery disease, hypothyroidism and most recently a chronic pancreatitis lasting for the past 6 months who presents with mental fog and episode of diuresis with presyncope. 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 At this point in the ER her symptoms have completely resolved and she has been found to be COVID-positive. She denies any nasal stuffiness or respiratory symptoms. She has chronic hypomagnesemia and has been on Prilosec out of concern that her abdominal pain was acid reflux. However she has been dealing with chronic pancreatitis causing chronic abdominal pain and nausea every day, worse after eating. Her next ERCP is scheduled for August 11 when retained stones are planned to be dissolved by laser therapy. She is not certain if the pancreas enzymes are helping. She reports a chronic loose stool. She otherwise denies any chest pain, trouble breathing or lightheadedness or dizziness at this time. She does not feel she had any strokelike symptoms and is currently neurologically intact with no issues moving her arms or legs, no speech issues no swallowing issues etc. She is hypertensive in the ER today with blood pressure up around 1 70-1 80 systolic. She did take all of her blood pressure medicines this morning except her amlodipine. Physical exam reveals a well-nourished well-developed female in no acute distress who is mentating normally. She is answering questions without issue and has normal speech with no facial droop. She has no gross focal neurologic deficits and strength is intact. Cardiac exam reveals S1/S2 heard with no evidence of murmurs gallops or rubs. Her lungs are clear to auscultation bilaterally. She is able to sit up independently in bed. She has generalized tenderness to her abdomen and voluntarily guards during the exam. Her skin is warm and dry. Work-up in the ER reveals a normal white blood cell count, chronic baseline anemia with an H&H of 10.7/32.5, normal platelet count. D-dimer is elevated at 1490 with a CTA of the chest that was negative for PE and lower extremity Dopplers that were negative for DVT. CTA of the chest also revealed mediastinal and bilateral hilar lymphadenopathy and pulmonary nodules that have been present since June 2008 with these findings favoring a sarcoidosis. She has peripancreatic infiltration suggestive of pancreatitis similar to CT abdominal CT a couple of weeks ago. Additional blood work includes a CHEM panel which is normal with normal renal function. Lactate of 1.2 normal calcium, low magnesium at 1.4 and she received 2 g of IV magnesium on top of her daily p.o. intake. Her procalcitonin was negative and lipase was 12. Urinalysis was negative and SARS-CoV-[address] revealed no hemorrhage, mass-effect or evidence of acute territorial ischemia. EKG reveals sinus rhythm with a rate of 68. Prolonged QTC of 514. Patient is notably on citalopram. Mrs. Swanson presents with a presyncopal event which is likely a combination of issues including chronic pain/nausea from pancreatitis and retained stones, chronic nausea, chronic hypomagnesemia in the setting of new diagnosis of COVID- 19. She has elevated blood pressure this evening which is being treated with hydralazine IV. She has been given magnesium repletion. August 11 is the date of her next ERCP to hopefully and the pain and nausea she has been dealing with with retained stones in the pancreatic duct. She does not appear to have had any strokelike symptoms today. Agree with continuing to monitor orthostatic vital signs overnight. She has no evidence of pneumonia on chest imaging and is not hypoxic. She has no need for steroids or other therapy specific to COVID-19 at this time. She currently denies nasal stuffiness or respiratory symptoms but if these develop may consider Flonase nasal spray and/or Robitussin cough syrup. Nemesio, DO
--- NOTE | 2022-07-31 18:08 | Ultrasound Report ---
BILATERAL LOWER EXTREMITY VENOUS DOPPLER CLINICAL HISTORY: elevated d. dimer COMPARISON STUDY: Right lower extremity venous Doppler ultrasound November 04, 2016. Left lower extre mity venous Doppler ultrasound February 10, 2014. TECHNIQUE: Sonography of the deep venous system of the bilateral lower extremities was performed. Co mpression and augmentation were evaluated. FINDINGS: The bilateral common femoral, superficial femoral and popliteal veins were compressible. A ugmentation was normal. Flow was shown within the deep calf vessels. IMPRESSION: No evidence of deep venous thrombus within the bilateral lower extremities. ACT 112: Negative or not required by law. Electronically signed by: Chacho Dewey M.D. 07/31/2022 6:06 PM
[2022-07-31] MEDS ORDERED: BACLOFEN 10 MG TAB PO PRN (18:26)
[2022-07-31] MEDS ORDERED: DICYCLOMINE HCL 10 MG CAP PO PRN (18:26)
[2022-07-31] MEDS ORDERED: ENOXAPARIN INJ 40 MG/0.4 ML SYR SQ SCH (19:00)
[2022-07-31] MEDS: CITALOPRAM 20 MG TAB PO SCH (19:43)
[2022-07-31] MEDS: PANTOprazole 40 MG TAB PO SCH (20:22)
[2022-07-31] MEDS: MAGNESIUM OXIDE 400 MG TAB PO SCH (20:23)
[2022-07-31] MEDS: ATENOLOL 25 MG TABLET PO SCH (20:24)
[2022-07-31] MEDS ORDERED: hydrALAZINE HCL 20 MG/ML VIAL IV STA (20:30)
[2022-07-31] MEDS ORDERED: amLODIPine BESYLATE 5 MG TAB PO SCH (21:00)
[2022-07-31] MEDS ORDERED: GABAPENTIN 300 MG CAP PO SCH (21:00)
[2022-07-31] MEDS ORDERED: ATORVASTATIN 20 MG TAB PO SCH (21:00)
[2022-08-01] MEDS: ACETAMINOPHEN 325 MG TAB PO PRN ×2 (02:10→08:38)
--- NOTE | 2022-08-01 05:35 | Electrocardiogram Report ---
Test Reason : Blood Pressure : / mmHG Vent. Rate : 068 BPM Atrial Rate : 068 BPM P-R Int : 120 ms QRS Dur : 144 ms QT Int : 484 ms P-R-T Axes : 000 010 018 degrees QTc Int : 514 ms Poor data quality, interpretation may be adversely affected Normal sinus rhythm Right bundle branch block Abnormal ECG When compared with ECG of 10-JUL-2022 09:39, No significant change Confirmed by Maco Brandon ([id number]) on 08/01/2022 5:34:51 AM Referred By: Confirmed By:Maco Brandon
[2022-08-01] MEDS ORDERED: LEVOTHYROXINE SODIUM 175 MCG TABLET PO SCH (06:30)
[2022-08-01] MEDS: ATENOLOL 25 MG TABLET PO SCH (07:56)
[2022-08-01] MEDS: GABAPENTIN 100 MG CAP PO SCH ×2 (07:56→15:54)
[2022-08-01] MEDS: MAGNESIUM OXIDE 400 MG TAB PO SCH ×2 (07:56→14:35)
[2022-08-01] MEDS: CITALOPRAM 20 MG TAB PO SCH (07:57)
[2022-08-01] MEDS: PANTOprazole 40 MG TAB PO SCH (07:57)
[2022-08-01 08:33] LABS: Hematocrit (blood only) 31.3 % (34.1-44.9); Hemoglobin 10.2 g/dl (12.0-16.0); Mean Corpuscular Hemoglobin 29.4 pg (25.0-34.0); Mean Corpuscular Hgb Conc 32.6 g/dL (32.0-36.0); Mean Corpuscular Volume 90.2 fL (80.0-100.0); Mean Platelet Volume 9.6 fL (9.4-12.3); Platelet Count 289 K/uL (130-400); RDW Coefficient of Variation 13.7 % (11.5-14.5); RDW Standard Deviation 44.7 fL (36.4-46.3); Red Blood Count 3.47 M/uL (3.93-5.22); White Blood Count 6.97 K/ul (4.8-10.8)
[2022-08-01 08:51] LABS: BUN Creatinine Ratio 14.5 (10-20); Calcium 9.4 mg/dl (8.5-10.1); Creatinine Clr Calc Pharmacy 104.6 ml/min; Est GFR (African American) 108.6 ml/min; Est GFR (Non-African American) 93.7 ml/min; Magnesium 1.8 mg/dl (1.7-2.4); Potassium 3.7 mmol/L (3.5-5.1)
[2022-08-01] MEDS ORDERED: ASPIRIN 81 MG CHEW PO SCH (09:00)
[2022-08-01] MEDS ORDERED: GABAPENTIN 100 MG CAP PO SCH (09:00)
[2022-08-01] MEDS ORDERED: LOSARTAN POTASSIUM 50 MG TAB PO SCH (09:00)
--- NOTE | 2022-08-01 16:31 | Discharge Summary ---
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 Patient reports she woke up feeling in her usual state of health and went to the local [facility] [place] to help prepare food for a lunch program that she participates in. Patient reports that she started to feel very hot and diaphoretic. People that were around her states that she was not focusing. Patient reports that she was trying to talk however nothing would come out. Patient states that she felt generally weak. She was then able to sit down. Patient did not pass out and she denies associated lightheadedness or dizziness. Patient reports she started to feel better and symptoms resolved. A few moments later, patient reports she again felt flushed and diaphoretic. EMS was called and patient was brought to the ED for further evaluation. Symptoms have since completely resolved. Patient was recently admitted to [facility] for acute on chronic pancreatitis underwent ERCP with stent exchange. She reports that she has abdominal pain and nausea daily due to chronic pancreatitis however since her most recent procedure, she has had some relief. Patient states that she has been able to tolerate food and liquids recently. She ate breakfast this morning. Patient denies fevers and chills. No chest pain or shortness of breath. Denies recent cough, sore throat, rhinorrhea. No urinary symptoms. In the ED, patient is found to be moderately hypertensive, otherwise hemodynamically stable. Labs show Mg +1.4. Patient has a positive for COVID-19. Head CT, CXR, chest CTA unremarkable for acute findings. Admission Exam Per Admitting Provider Constitutional: WD/WN, vitals as above Eyes: PERRL, conjunctivae normal, anicteric sclerae ENMT: external ear and nose normal, oropharynx normal Respiratory: normal respiratory effort, lungs clear to auscultation Cardiovascular: Rate/Rhythm: regular rate and regular rhythm Vessels: normal peripheral pulses Extremities: no edema Gastrointestinal (Abdomen): normal bowel sounds, soft, nontender, no hepatosplenomegaly Musculoskeletal: no cyanosis or clubbing, extremities motor strength 5/5 Skin: no rashes, warm and dry Neurologic: PERRL, EOMI, accommodation nl, no face palsy, no dysarthria no focal motor deficits Psychiatric: A+Ox3, euthymic affect Principal Diagnosis Near syncope: COVID-19: Hypomagnesemia: HTN (hypertension): Chronic pancreatitis: Pancreatic duct stones: Pancreatic cyst: Coronary artery disease: Discharge Exam General- No acute distress Head- atraumatic Eyes- PERRL, EOMI, ENT- oropharynx clear Neck- supple, no JVD Lungs- clear to auscultation Heart- regular rhythm; no murmur Abdomen- normal bowel sounds, soft, nontender Extremities- no calf tenderness Neuro- alert, oriented x 3; PERRL, EOMI; no facial palsy; no dysarthria Skin- warm & dry Discharge Data Allergies Allergy/AdvReac Type Severity Reaction Status Date / Time hydrocodone Allergy Intermediate ITCHY Verified 07/19/22 14:35 oxycodone AdvReac Intermediate Nausea Verified 07/19/22 14:35 tramadol AdvReac Intermediate Nausea Verified 07/19/22 14:35 lisinopril AdvReac Mild Cough Verified 07/19/22 17:13 Consultations 07/31/22 14:07 ED Decision to Admit Stat Ordered Studies 07/31/22 11:22 CT head/brain wo con Stat 07/31/22 12:32 CT angio chest PE protocol Stat 07/31/22 16:53 US venous doppler LE Routine Laboratory Results WBC 6.97 K/ul (4.8-10.8) 08/01/22 08:15 RBC 3.47 M/uL (3.93-5.22) L 08/01/22 08:15 Hgb 10.2 g/dl (12.0-16.0) L 08/01/22 08:15 Hct 31.3 % (34.1-44.9) L 08/01/22 08:15 MCV 90.2 fL (80.0-100.0) 08/01/22 08:15 MCH 29.4 pg (25.0-34.0) 08/01/22 08:15 MCHC 32.6 g/dL (32.0-36.0) 08/01/22 08:15 RDW Std Deviation 44.7 fL (36.4-46.3) 08/01/22 08:15 RDW Coeff of Renée 13.7 % (11.5-14.5) 08/01/22 08:15 Plt Count 289 K/uL (130-400) 08/01/22 08:15 MPV 9.6 fL (9.4-12.3) 08/01/22 08:15 Immature Gran % (Auto) 0.6 % 07/31/22 11:00 Neut % (Auto) 81.7 % 07/31/22 11:00 Lymph % (Auto) 7.4 % 07/31/22 11:00 [place] % (Auto) 8.9 % 07/31/22 11:00 Eos % (Auto) 0.7 % 07/31/22 11:00 Baso % (Auto) 0.7 % 07/31/22 11:00 Neut # (Auto) 6.72 K/uL (1.4-6.5) H 07/31/22 11:00 Lymph # (Auto) 0.61 K/uL (1.2-3.4) L 07/31/22 11:00 [place] # (Auto) 0.73 K/uL (0.24-0.82) 07/31/22 11:00 Eos # (Auto) 0.06 K/uL (0-0.50) 07/31/22 11:00 Baso # (Auto) 0.06 K/uL (0-0.2) 07/31/22 11:00 Immature Gran # (Auto) 0.05 K/uL (0.00-0.02) H 07/31/22 11:00 D-Dimer 1490 ug/L FEU (0-500) H* 07/31/22 11:00 Sodium 139 mmol/L (136-145) 08/01/22 08:15 Potassium 3.7 mmol/L (3.5-5.1) 08/01/22 08:15 Chloride 105 mmol/L (98-107) 08/01/22 08:15 Carbon Dioxide 27 mmol/L (21-32) 08/01/22 08:15 Anion Gap 7 (3-11) 08/01/22 08:15 BUN 8 mg/dl (6-23) 08/01/22 08:15 Creatinine 0.55 mg/dl (0.6-1.2) L 08/01/22 08:15 Est Cr Clr Drug Dosing 104.6 ml/min 08/01/22 08:15 Est GFR ( Amer) 108.6 ml/min 08/01/22 08:15 Est GFR (Non-Af Amer) 93.7 ml/min 08/01/22 08:15 BUN/Creatinine Ratio 14.5 (10-20) 08/01/22 08:15 Glucose 128 mg/dl (70-99(Fasting)) H 08/01/22 08:15 Lactate 1.2 mmol/L (0.4-2.0) 07/31/22 11:00 Calcium 9.4 mg/dl (8.5-10.1) 08/01/22 08:15 Magnesium 1.8 mg/dl (1.7-2.4) 08/01/22 08:15 Total Bilirubin 0.7 mg/dl (0.2-1.0) 07/31/22 11:00 Direct Bilirubin 0.1 mg/dl (0-0.2) 07/31/22 11:00 AST 16 U/L (13-39) 07/31/22 11:00 ALT 12 U/L (7-52) 07/31/22 11:00 Alkaline Phosphatase 85 U/L (34-104) 07/31/22 11:00 Ammonia Cancelled 07/31/22 11:00 Troponin I High Sens 5.4 pg/ml (0-14) 08/01/22 00:57 Total Protein 7.4 gm/dl (6.0-8.3) 07/31/22 11:00 Albumin 3.8 gm/dl (3.4-5.0) 07/31/22 11:00 Lipase 12 U/L (11-82) 07/31/22 11:00 Procalcitonin < 0.05 ng/ml (0-0.5) 07/31/22 11:00 Urine Color Yellow 07/31/22 12:40 Urine Appearance Clear (Clear) 07/31/22 12:40 Urine pH 7.5 (4.5-7.5) 07/31/22 12:40 Ur Specific [place] 1.005 (1.000-1.030) 07/31/22 12:40 Urine Protein Negative (Negative) 07/31/22 12:40 Urine Glucose (UA) Negative (Negative) 07/31/22 12:40 Urine Ketones Negative (Negative) 07/31/22 12:40 Urine Blood Negative (Negative) 07/31/22 12:40 Urine Nitrite Negative (Negative) 07/31/22 12:40 Urine Bilirubin Negative (Negative) 07/31/22 12:40 Urine Urobilinogen Negative (Negative) 07/31/22 12:40 Ur Leukocyte Esterase Negative (Negative) 07/31/22 12:40 Adenovirus (PCR) Not Detected (NotDetected) 07/31/22 11:33 B. pertussis DNA (PCR) Not Detected (NotDetected) 07/31/22 11:33 B.parapertussis DNA PCR Not Detected (NotDetected) 07/31/22 11:33 C. pneumoniae DNA (PCR) Not Detected (NotDetected) 07/31/22 11:33 Coronavirus OC43 (PCR) Not Detected (NotDetected) 07/31/22 11:33 Coronavirus HKU1 (PCR) Not Detected (NotDetected) 07/31/22 11:33 Coronavirus 229E (PCR) Not Detected (NotDetected) 07/31/22 11:33 SARS-CoV-2 (PCR) DETECTED (NotDetected) A* 07/31/22 11:33 Coronavirus NL63 (PCR) Not Detected (NotDetected) 07/31/22 11:33 Human Metapneumovir PCR Not Detected (NotDetected) 07/31/22 11:33 Influenza Type A (PCR) Not Detected (NotDetected) 07/31/22 11:33 Influenza Type B (PCR) Not Detected (NotDetected) 07/31/22 11:33 M. pneumoniae (PCR) Not Detected (NotDetected) 07/31/22 11:33 Parainfluenza 1 (PCR) Not Detected (NotDetected) 07/31/22 11:33 Parainfluenza 2 (PCR) Not Detected (NotDetected) 07/31/22 11:33 Parainfluenza 3 (PCR) Not Detected (NotDetected) 07/31/22 11:33 Parainfluenza 4 (PCR) Not Detected (NotDetected) 07/31/22 11:33 RSV (PCR) Not Detected (NotDetected) 07/31/22 11:33 Entero/Rhino (PCR) Not Detected (NotDetected) 07/31/22 11:[address] 07/31/22 11:22 CT SCAN OF THE BRAIN WITHOUT IV CONTRAST CLINICAL HISTORY: Near syncope. COMPARISON STUDY: CT of the brain dated 10/08/2020. TECHNIQUE: Unenhanced axial CT scan of the brain is performed from the vertex to the skull base. A dose lowering technique was utilized adhering to the principles of ALARA. CT DOSE: 537.48 mGy.cm FINDINGS: Brain parenchyma: There is age-related involutional change noting mild subcortical and periventricular microangiopathic disease. There is no hemorrhage, mass effect, or evidence of acute territorial ischemia by CT criteria. Rosario-white matter differentiation is preserved. No extra-axial fluid collection is seen. Ventricles, sulci, cisterns: Prominent secondary to involutional change. Intracranial vasculature: There is atherosclerotic calcification of the cavernous carotid arteries. Calvarium: Unremarkable. Sinuses and mastoids: The visualized paranasal sinuses are clear. The mastoid air cells are well pneumatized. Orbits: The bony orbits are grossly intact. IMPRESSION: There is no hemorrhage, mass effect, or evidence of acute territorial ischemia by CT criteria. ACT 112: Negative or not required by law. Electronically signed by: Chito Calle M.D. 07/31/2022 12:18 PM Chest X-Ray 07/31/22 11:23 SINGLE VIEW CHEST CLINICAL HISTORY: Near syncope. FINDINGS: An AP, portable, upright chest radiograph is compared to study dated 03/23/2022 and correlated with chest CT dated 07/05/2008. The cardiac silhouette is top normal for projection. Bilateral hilar adenopathy similar to previous. There are scattered calcified granulomas. Chronic interstitial thickening is unchanged. No airspace consolidation or large pleural effusion is identified. No pneumothorax is seen. The skeletal structures are osteopenic. The bony thorax is grossly intact. Calcific tendinopathy is noted in the right shoulder. IMPRESSION: 1. No active disease in the chest. 2. Bilateral hilar adenopathy is unchanged from a [address] This is favors sarcoidosis. Correlate with the patient's medical history. ACT 112: Negative or not required by law. Electronically signed by: Chito Calle M.D. 07/31/2022 11:51 AM Chest CTA 07/31/22 12:32 CT ANGIOGRAPHY OF THE CHEST, PULMONARY EMBOLUS PROTOCOL CLINICAL HISTORY: Elevated d-dimer. COMPARISON STUDY: Chest CT July 05, 2008. Chest radiograph July 31, 2022. TECHNIQUE: Following IV administration of 115 mL of Optiray, helical axial images of the chest were obtained utilizing the pulmonary embolus protocol. Maximal intensity projections and sagittal and coronal reformats were viewed on an independent 3D workstation. IV contrast was administered without complication. Automated exposure control was utilized for the study. A dose lowering technique was utilized adhering to the principles of ALARA. CT DOSE: 599.32 mGy.cm FINDINGS: No pulmonary emboli are identified. There is no thoracic aortic dissection. No pericardial effusion is present. Mild cardiomegaly is noted. Multiple enlarged partially calcified mediastinal and bilateral hilar lymph nodes are similar to CT of July 05, 2008. Multiple no pneumothorax or pleural effusion is present. There is no consolidation to suggest pneumonia. Multiple pulmonary nodules, several of which are partially calcified, are similar to CT of July 05, 2008. No new pulmonary nodules are present. The appearance of the chest is similar to prior CT. Visualized portions of the upper abdomen demonstrate pneumobilia as well as a partially visualized pancreatic stent. There is a partially visualized stent within the common bile duct. Peripancreatic stranding is noted. This was shown on abdominal CT of July 19, 2022. IMPRESSION: 1. No pulmonary emboli identified. 2. No change in mediastinal and bilateral hilar lymphadenopathy and pulmonary nodules since chest CT of July 05, 2008. The findings favor a granulomatous process such as sarcoidosis. 3. Peripancreatic infiltration suggestive of acute pancreatitis, as shown on abdominal CT of July 19, 2022. This is partially imaged on this exam. ACT 112: Negative or not required by law. Electronically signed by: Chacho Dewey M.D. 07/31/2022 1:27 PM Venous Doppler Study 07/31/22 16:53 BILATERAL LOWER EXTREMITY VENOUS DOPPLER CLINICAL HISTORY: elevated d. dimer COMPARISON STUDY: Right lower extremity venous Doppler ultrasound November 04, 2016. Left lower extremity venous Doppler ultrasound February 10, 2014. TECHNIQUE: Sonography of the deep venous system of the bilateral lower extremities was performed. Compression and augmentation were evaluated. FINDINGS: The bilateral common femoral, superficial femoral and popliteal veins were compressible. Augmentation was normal. Flow was shown within the deep calf vessels. IMPRESSION: No evidence of deep venous thrombus within the bilateral lower extremities. ACT 112: Negative or not required by law. Electronically signed by: Chacho Dewey M.D. 07/31/2022 6:06 PM Hospital Course (1) Near syncope: Patient presenting with near syncopal event x 2 In the ED, tested positive for COVID-19. Also over the past several months, patient has been dealing with chronic pancreatitis, pancreatic duct stone, pancreatic cyst. Patient reports a reduced appetite at times. HS trop WNL, EKG without acute ST changes. Head CT negative for acute findings. Elevated D-dimer noted, CTA chest negative for pulmonary embolism and BL LE Dopplers negative for DVT. Echo showed no LV wall motion abnormality with EF 55-60% No focal deficits on exam Suspect near syncopal event secondary to dehydration from COVID-19 and chronic pancreatitis. Received 1 L IVF in ED with improvement in symptoms. Clinically stablee (2) COVID-19: Saturating well on room air, no infiltrate on CXR Does not meet criteria for COVID-19 directed therapies Continue supportive care (3) Hypomagnesemia: Mg +1.4 admission Mg 1.8 today Continue monitor Mg (4) HTN (hypertension): BP fluctuated Continue home dose atenolol, Amlodipine and losartan. Continue monitor BP (5) Chronic pancreatitis: (6) Pancreatic duct stones: (7) Pancreatic cyst: S/p pancreatic duct stent exchange on 07/20 Follows closely with GI (8) Coronary artery disease: Remote history of cardiac cath showing nonobstructive disease No reports of chest pain, EKG without acute T changes (9) DVT prophylaxis: SQ Lovenox (10) Anemia: (11) Prolonged Q-T interval on ECG: Total Time Total Time Spent Total Time Spent (In Minutes): 35 minutes Discharge Plan Discharge Items Patient Disposition: Home - Self-Care Reason For Visit: NEAR SYNCOPE, COVID+ Discharge Diagnosis: Near syncope: COVID-19: Hypomagnesemia: HTN (hypertension): Chronic pancreatitis: Pancreatic duct stones: Pancreatic cyst: Coronary artery disease: Activity: Resume your previous activity Non-emergency contact: Primary Care Provider Call non-emergency contact if: you have any medication questions Follow-up/Referrals: Tapan Alonso MD [Primary Care Provider] - (Date & Time 08/10/2022 11:20 AM Provider Tapan Alonso MD Department [facility] ) Diet: Heart Healthy Addtl Attending Provider Instructions: Follow up with your primary care provider on 08/10/2022 @ 11:20 AM Tapan Alonso MD [facility] Continue to wear mask and practice social distance Check BMP and Magnesium in 1 to 2 weeks to monitor your electrolytes Continue monitor your blood pressure and bring your blood pressure log at your next appointment with your provider Home Isolation COVID-19 Instructions The following information about Home Isolation is from the CDC Website: https://www.cdc.gov/coronavirus/2019-ncov/hcp/wgrmtbvg-hxbkeiy-vygimt.html Stay home except to get medical care People who are mildly ill with COVID-19 are able to isolate at home during their illness. You should restrict activities outside your home, except for getting medical care. Do not go to work, school, or public areas. Avoid using public transportation, ride-sharing, or taxis. Separate yourself from other people and animals in your home People: As much as possible, you should stay in a specific room and away from other people in your home. Also, you should use a separate bathroom, if available. Animals: You should restrict contact with pets and other animals while you are sick with COVID-19, just like you would around other people. Although there have not been reports of pets or other animals becoming sick with COVID-19, it is still recommended that people sick with COVID-19 limit contact with animals until more information is known about the virus. When possible, have another member of your household care for your animals while you are sick. If you are sick with COVID-19, avoid contact with your pet, including petting, snuggling, being kissed or licked, and sharing food. If you must care for your pet or be around animals while you are sick, wash your hands before and after you interact with pets and wear a face mask. Call ahead before visiting your doctor If you have a medical appointment, call the healthcare provider and tell them that you have or may have COVID-19. This will help the healthcare providers office take steps to keep other people from getting infected or exposed. Wear a face mask You should wear a face mask when you are around other people (e.g., sharing a room or vehicle) or pets and before you enter a healthcare providers office. If you are not able to wear a face mask (for example, because it causes trouble breathing), then people who live with you should not stay in the same room with you, or they should wear a face mask if they enter your room. Cover your coughs and sneezes Cover your mouth and nose with a tissue when you cough or sneeze. Throw used tissues in a lined trash can. Immediately wash your hands with soap and water for at least 20 seconds or, if soap and water are not available, clean your hands with an alcohol-based hand office coordinator that contains at least 60% alcohol. Clean your hands often Wash your hands often with soap and water for at least 20 seconds, especially after blowing your nose, coughing, or sneezing; going to the bathroom; and before eating or preparing food. If soap and water are not readily available, use an alcohol-based hand office coordinator with at least 60% alcohol, covering all surfaces of your hands and rubbing them together until they feel dry. Soap and water are the best option if hands are visibly dirty. Avoid touching your eyes, nose, and mouth with unwashed hands. Avoid sharing personal household items You should not share dishes, drinking glasses, cups, eating utensils, towels, or bedding with other people or pets in your home. After using these items, they should be washed thoroughly with soap and water. Clean all high-touch surfaces everyday High touch surfaces include counters, tabletops, doorknobs, bathroom fixtures, toilets, phones, keyboards, tablets, and bedside tables. Also, clean any surfaces that may have blood, stool, or body fluids on them. Use a household cleaning spray or wipe, according to the label instructions. Labels contain instructions for safe and effective use of the cleaning product including precautions you should take when applying the product, such as wearing gloves and making sure you have good ventilation during use of the product. Monitor your symptoms Seek prompt medical attention if your illness is worsening (e.g., difficulty breathing).Beforeseeking care, call your healthcare provider and tell them that you have, or are being evaluated for, COVID-19. Put on a face mask before you enter the facility. These steps will help the healthcare providers office to keep other people in the office or waiting room from getting infected or exposed. Ask your healthcare provider to call the local or state health department. Persons who are placed under active monitoring or facilitated self- monitoring should follow instructions provided by their local health department or occupational health professionals, as appropriate. When working with your local health department check their available hours. If you have a medical emergency and need to call 911, notify the dispatch personnel that you have, or are being evaluated for COVID-19. If possible, put on a face mask before emergency medical services arrive. Discontinuing home isolation Patients with confirmed COVID-19 should remain under home isolation precautions until the risk of secondary transmission to others is thought to be low. The decision to discontinue home isolation precautions should be made on a c ase-by-case basis, in consultation with healthcare providers and state and local health departments. Coronavirus disease 2019 (COVID-19) is a virus that causes a respiratory illness. It is caused by a coronavirus called 2019 novel coronavirus (2019- nCoV). There are many types of coronavirus. Coronaviruses are a very common cause of bronchitis. They may sometimes cause lung infection(pneumonia). Symptoms can range from mild to severe respiratory illness. These viruses are also foundin some animals. COVID-19 was first found in people in [facility], in late 2019. In 2020, several cases of COVID-19 have been confirmed in the [place] Public health officials are working to find the source. How the virus spreads is not yet fully known. It may be spread through droplets of fluid that a person coughs or sneezes into the air. It may be spread if you touch a surface with virus on it, such as a handle or object, and then touch your mouth. What are the symptoms of COVID-19? Some people have no symptoms or mild symptoms. Symptoms may appear 2 to 14 days after contact with the virus. Symptoms can include: Fever Coughing Trouble breathing What are possible complications from COVID-19? In many cases, this virus can cause infection (pneumonia) in both lungs. In some cases, this can cause . How is COVID-19 diagnosed? Your healthcare provider will ask about your symptoms. He or she will also ask about your recent travel and contact with sick people. Testing for the virus is only done through the CDC. If yourhealthcare provider thinks you may have COVID- 19, he or she will work with your local health department and the CDC on testing. Follow all instructions from your healthcare provider. COVID-19 is diagnosed by: Nasal and throat swab. A cotton-tipped swab is wiped inside your nose or throat. This is done to check for viruses in your nasal mucus. Sputum culture. A small sample of mucus coughed from your lungs (sputum) is collected if you have a cough. It is checked for the virus. How is COVID-19 treated? There is currently no medicine to treat the virus. Treatment is done to help your body while it fights the virus. This is known as supportive care. Supportive care may include: Pain medicine. These include acetaminophen and ibuprofen. They are used to help ease pain and reduce fever. Bed rest. This helps your body fight the illness. For severe illness, you may need to stay in the hospital. Care during severe illness may include: IV (intravenous) fluids.These are given through a vein to help keep your body hydrated. Oxygen. Supplemental oxygen or ventilation with a breathing machine (ventilator) may be given. This is done to keep enough oxygen in your body. Are you at risk for COVID-19? If youve been to a place where people have been sick with this virus, you are at risk for infection. You are at risk if you: Recently traveled to an affected area Had contact with a sick person who recently traveled to this area Had contact with a person who was diagnosed with COVID-19 How can COVID-19 be prevented? There is no vaccine yet. The best prevention is to not have contact with the virus. The CDC advises that people should not travel to areas where there are COVID-19 outbreaks right now for any reason that is not urgent. To help prevent spreading the infection, wash your hands often, or use an alcohol-basedhand office coordinator. If you are in an area with COVID-19: Wash your hands often. Or use an alcohol-based hand office coordinator often. Only touch your eyes, nose, or mouth with clean hands. Dont have contact with people who are sick. Follow local instructions about being in public. For example, you may be told to not use public transport for a period of time. Stay away from markets that have live or animals. Wash your hands after touching any animals. Don't touch animals that may be sick. Dont share eating or drinking tools with sick people. Dont kiss someone who is sick. Clean surfaces often with disinfectant. If you were in an area with COVID-19 in the last 14 days: Call your healthcare provider. He or she can talk with local health staff to see what action may be needed. Follow all instructions from your provider. Take your temperature every morning and evening for at least 14 days. This is to check for fever. Keep a record of the readings. Keep watch for symptoms of the virus. Tell your provider right away if you have symptoms. If you were in an area with COVID-19 and have a fever or other symptoms: Dont panic. Keep in mind that other illnesses can cause similar symptoms. Stay away from work, school, and public places. Limit physical contact with family members. Don't kiss anyone or share eating or drinking utensils. Clean surfaces you touch with disinfectant. This is to help prevent the virus from spreading. Call your healthcare provider. Explain that you have been exposed to COVID-19 and have symptoms. Do this before going to any hospital. Wait for instructions. Keep in mind that healthcare staff may wear protective equipment such as masks, gowns, gloves, and eye protection. You may be put in a separate room. This is to prevent the possible virus from spreading. Tell the healthcare staff about recent travel. This includes local travel on public transport. Staff may need to find other people you have been in contact with. Follow all instructions the healthcare staff give you. If you have been diagnosed with COVID-19 Follow all instructions from your healthcare provider. Dont leave your home, except to get medical care. Call your healthcare providers office before going. They can prepare and give you instructions. This will help prevent the virus from spreading. Dont go to work, school, or public areas. Dont use public transport or taxis. Stay away from other people in your home. Have them wear face masks around you. Dont share household items or food. Wear a face mask if you can. This includes at home or in a medical facility. Cover your face with a tissue when you cough or sneeze. Throw the tissue away. Wash your hands. Wash your hands often. Caregivers should: Follow all instructions from healthcare staff. Wear a face mask and protective clothing as advised. Wash hands often. Keep track of the sick persons symptoms. Clean surfaces, fabrics, and laundry thoroughly. Keep other people away from the sick person. When to call your healthcare provider Call your healthcare provider: If youve recently traveled and have symptoms If you have been diagnosed with COVID-19 and your symptoms are worse To learn more To find out more about COVID-19, visit the CDC website at www.cdc.gov/coronavirus/2019-ncov/index.html. 2303-[address] [employer]. [address] [place] [address], [place] [address]. All rights reserved. This information is not intended as a substitute for professional medical care. Always follow your healthcare professional's instructions. This information has been adapted from [employer] Pending Studies at Discharge: No Stand-Alone Forms: My [employer], Smoking Cessation Medications and DC Order Prescriptions: Continued atorvastatin 20 mg Tablet 20 mg PO PM Qty: 0 aspirin 81 mg Tablet,Chewable 81 mg PO QAM Qty: 0 levothyroxine 175 mcg Tablet 175 mcg PO DAILYBB Qty: 0 Rx Instructions: MUST BE BRAND NAME. CANNOT TAKE GENERIC Creon 24,000-76,000 -120,000 unit capsule,delayed release(DR/EC) 1 cap PO TID Qty: 90 0RF Rx Instructions: administer with meals and/or snacks, open capsule and sprinkle powder on food citalopram 10 mg Tablet 10 mg PO MOTUWETHFR omeprazole 20 mg Capsule,Delayed Release(Dr/Ec) 20 mg PO BID gabapentin 100 mg Capsule See Rx Instructions .ROUTE .COMPLEX Rx Instructions: 100 mg orally ;take 1 capsule in the morning & afternoon, then 3 capsules at bedtime atenolol 25 mg tablet 25 mg PO BID losartan 100 mg tablet 100 mg PO QAM ondansetron HCl 4 mg tablet 4 mg PO Q8H PRN (Reason: nausea and vomiting) Qty: 15 0RF diclofenac sodium [Voltaren Arthritis Pain] 1 % Gel 4 g EXT Q6 PRN (Reason: pain) Qty: 100 0RF simethicone [Gas Relief (simethicone)] 80 mg Tablet,Chewable 80 mg PO Q6H PRN (Reason: abdominal distention) Qty: 30 0RF baclofen 10 mg tablet 10 mg PO HS PRN (Reason: Abdominal Pain) tramadol 50 mg tablet 50 mg PO Q12H PRN (Reason: pain) Qty: 10 0RF amlodipine 2.5 mg Tablet 2.5 mg PO QPM magnesium oxide 400 mg (241.3 mg magnesium) Tablet 400 mg PO TID Qty: 7 0RF dicyclomine 10 mg Capsule 10 mg PO AC PRN (Reason: Cramps) Qty: 10 0RF Discharge Orders: Discharge Order (Routine); Ordered 08/01/22 Ordered By: Raine Joseph Admission Data Admit Date/Time: 07/31/22 15:04 Attending Provider: Raine Joseph Admit Provider: Julisa Herr Primary Care Provider: Tapan Alonso Other Providers: Julisa Herr Other Interventions: Discharge Summary Assessment (RN) Last Done: 08/01/22 16:45
--- NOTE | 2022-08-17 07:38 | Coding Query ---
A supporting diagnosis is required for the test/procedure performed on this patient in order for us to be reimbursed by the patient's insurance. Please provide a supporting diagnosis for the following test/procedure listed below next to the test name along with your signature. *If there is no additional diagnosis for this patient that would support the following test/procedure please document that below next to the test/procedure. Test(s)/Procedure(s) that require a supporting diagnosis: * 32059 VENOUS DOPPLER BILAT LOWER EXTREMITY DIAGNOSIS: elevated D. Dimer DATE OF SERVICE: 07/31/22 Provider Signature: KATRIN Suresh Date: 08/21/22 Thank you [facility] Information Management Once completed, please kindly fax back to [phone] For questions please call [phone] MARCELLE
== END 2022-08-01 17:28 | disposition home or self-care (01) ==
LOC: ED 10:49 → EDINP 10:49 → SUATTDRO 15:04 → 2S 18:25

== ENCOUNTER 2023-05-19 17:09 | Observation (INO) ==
[2023-05-19] MEDS ORDERED: SODIUM CHLORIDE 0.9% 1000ML 1,000 ML IV STA (17:17)
[2023-05-19] MEDS ORDERED: MoRPHine SULFATE 4 MG/ML 1 ML CARP\\VIAL IV STA (17:23)
[2023-05-19] MEDS ORDERED: ONDANSETRON INJ 2 MG/ML 2 ML VIAL IV STA (17:23)
[2023-05-19] MEDS ORDERED: KETOROLAC TROMETHAMINE 15 MG/ML VIAL IV STA (17:23)
--- NOTE | 2023-05-19 17:28 | Emergency Department Note ---
Impression & Plan Lower abdominal pain, Vomiting and diarrhea, Appendicitis, Chronic pancreatitis ED Provider Note NAME: NOLAN VINSON AGE: 73 SEX: F : 1950 ARRIVES VIA: Walk-In INFORMANT: [Patient] ED PROVIDER(S): [Chito Brooks MD] CHIEF COMPLAINT: Abdominal pain HISTORY OF PRESENT ILLNESS: The patient is a 73-year-old female who presents to the ER with lower bilateral abdominal pain. The pain has been present most of the day. It started a few hours after eating breakfast. She has developed nausea vomiting and loose watery diarrhea stool. No blood in the stool. There has been no fever, no cough or congestion or respiratory complaints. No urinary complaints. No sick contacts, no bad food eaten. The patient does have a history of issues with her pancreas, she has had a ch olecystectomy. PMHx/PSHx: See Below SOCIAL HISTORY: See Below. PHYSICAL EXAM: GENERAL: Patient is in no acute distress. HEENT: No acute trauma, normocephalic atraumatic, mucous membranes moist, no nasal congestion. NECK: No stridor, no adenopathy, no meningismus, trachea is midline. LUNGS: Clear to auscultation bilaterally, no wheeze, no rhonchi, breath sounds equal. HEART: Without murmurs gallops or rubs, regular rate and rhythm. ABDOMEN: Soft, diffusely moderately tender but more so tender in the bilateral lower abdomen. Bowel sounds are positive. No abdominal distention. EXTREMITIES: No cyanosis or edema, full range of motion of all the joints without pain or difficulty, no signs for acute trauma. NEUROLOGIC: Oriented x 3, no acute motor or sensory deficits, no focal weakness. SKIN: No rash, no jaundice, no diaphoresis. DIFFERENTIAL DIAGNOSIS: Dehydration, colitis or diverticulitis, foodborne or viral illness, electrolyte imbalance, diarrhea, pancreatitis, among others. EMERGENCY DEPARTMENT COURSE/PROCEDURES: Prior/Outside records reviewed: Previous discharge summary. MEDICAL DECISION MAKING: There is no leukocytosis or concerning anemia. There is a normal platelet count. No renal failure or significant electrolyte abnormality. No concerning liver enzyme elevation. No pancreatitis by our testing. Urinalysis shows what appears to be contamination, infection was thought possible. Of note, the patient has not had urinary symptoms. Abdominal and pelvis CT suggest potential early appendicitis, no perforation or abscess. Chronic pancreatitis was suspected. On exam, the patient was tender in the lower abdomen bilaterally. There was no localized peritonitis. The patient was given IV saline 1 L. She was given IV Zofran, IV Toradol, IV morphine. She is feeling improved. I discussed the case with Dr. Steele of surgery. The patient's exam is not overly convincing for appendicitis, however, the CT is concerning for this possibility. Given her presentation and findings, hospitalization was felt warranted. She will be observed from a surgical standpoint. She is being hospitalized under the medicine service. I did speak to the patient about her findings, I spoke with case management. I did speak with the on-call hospitalist. As per Dr. Steele, the patient is not to receive antibiotics. She is to be reassessed in 12 hours to see if things are worsening or to see if her exam is more consistent with appendicitis. No OR intervention emergently this evening. DISPOSITION: Patient's presentation and findings warrant a hospital stay. Past Med/Surg History Medical History Anemia Anxiety Arthritis Bakers cyst Chronic pancreatitis Coronary artery disease Pt reports very remote h/o heart cath, > 25 yrs ago. No stents placed. COVID-19 Depression with anxiety Diabetes mellitus, type 2 diet controlled DVT prophylaxis Dyslipidemia Elevated troponin Hernia, hiatal HTN (hypertension) Hypomagnesemia Hypothyroidism Left knee DJD Near syncope Pancreatic cyst Pancreatic duct stones Prolonged Q-T interval on ECG Right rotator cuff tear damaged from a fall, injections Sarcoidosis Has not followed with pulmonology for many years. Stable. 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 Officer Required: No Beliefs That Will Affect Care: None marital status: Current Living Situation: Spouse Current Living Situation Comment: How many Children do You have: 1 Feels Safe at Home: Yes Assistive Devices: None Allergies Allergies Allergy/AdvReac Type Severity Reaction Status Date / Time hydrocodone Allergy Intermediate ITCHY Verified 05/19/23 22:15 oxycodone AdvReac Intermediate Nausea Verified 05/19/23 22:15 tramadol AdvReac Intermediate Nausea Verified 05/19/23 22:15 lisinopril AdvReac Mild Cough Verified 05/19/23 22:15 Home Meds Home Medications Medication Instructions Recorded Confirmed amlodipine 2.5 mg tablet 2.5 mg PO QPM 05/19/23 05/19/23 amoxicillin 500 mg capsule 2,000 mg PO DIRECTED 05/19/23 05/19/23 aspirin 81 mg chewable tablet 81 mg PO DAILY 05/19/23 05/19/23 atenolol 25 mg tablet 25 mg PO BID 05/19/23 05/19/23 atorvastatin 20 mg tablet 20 mg PO QPM 05/19/23 05/19/23 citalopram 10 mg tablet 10 mg PO QAM 05/19/23 05/19/23 conjugated estrogens 0.625 mg/gram 1 applic vaginal 2XWK PRN .. 05/19/23 05/19/23 vaginal cream (Premarin) gabapentin 100 mg capsule 100 mg PO .BID UD 05/19/23 05/19/23 gabapentin 100 mg capsule 300 mg PO HS 05/19/23 05/19/23 levothyroxine 175 mcg tablet 175 mcg PO QAM 05/19/23 05/19/23 (Synthroid) losartan 100 mg tablet 100 mg PO QAM 05/19/23 05/19/23 pantoprazole 40 mg tablet,delayed 40 mg PO QAM 05/19/23 05/19/23 release Results & Data (ED) Vital Signs Vital Signs - 24 hr 05/19/23 17:11 05/19/23 18:48 05/19/23 19:41 Temperature 36 C L Temperature Source Temporal Artery Scan Pulse Rate 68 77 Pulse Rate [Apical] 72 Respiratory Rate 18 18 Respiratory Effort / Characteristics Non-Labored Non-Labored Respiratory Depth Normal Normal Respiratory Pattern Regular Blood Pressure 165/73 H Blood Pressure [Right Arm] 137/75 Blood Pressure Mean 103 Blood Pressure Mean [Right Arm] 95 Pulse Oximetry 100 98 Oxygen Delivery Method Room Air Room Air Sepsis Recent Fever Within 48 Hours No Sepsis New/Unexplained Change in Mental Status No Sepsis Action Taken by Nursing No Action Required 05/19/23 20:34 05/19/23 22:12 05/19/23 22:45 Temperature Temperature Source Pulse Rate 67 Pulse Rate [Apical] 69 67 Respiratory Rate 18 18 Respiratory Effort / Characteristics Non-Labored Non-Labored Respiratory Depth Normal Normal Respiratory Pattern Regular Regular Blood Pressure Blood Pressure [Right Arm] 138/78 152/87 H Blood Pressure Mean Blood Pressure Mean [Right Arm] 98 108 Pulse Oximetry 97 99 Oxygen Delivery Method Room Air Room Air Sepsis Recent Fever Within 48 Hours Sepsis New/Unexplained Change in Mental Status Sepsis Action Taken by Long-Term Medications Current Medication List: was personally reviewed by me Laboratory Data Attestation: I reviewed the patient's lab results. 05/19/23 17:47 05/19/23 17:47 Lab Results 05/19/23 05/19/23 05/19/23 Range/Units 17:47 17:47 20:30 WBC 9.91 (4.8-10.8) K/ul RBC 4.38 (4.20-5.40) M/uL Hgb 13.9 (12.0-16.0) g/dl Hct 40.2 (37.0-47.0) % MCV 91.8 (80.0-100.0) fL MCH 31.7 (25.0-34.0) pg MCHC 34.6 (32.0-36.0) g/dL RDW Std Deviation 42.5 (36.4-46.3) fL RDW Coeff of Renée 12.7 (11.5-14.5) % Plt Count 192 (130-400) K/uL MPV 9.6 (9.4-12.4) fL Immature Gran % (Auto) 0.3 % Neut % (Auto) 82.8 % Lymph % (Auto) 7.1 % [place] % (Auto) 8.7 % Eos % (Auto) 0.6 % Baso % (Auto) 0.5 % Neut # (Auto) 8.21 H (1.40-6.50) K/uL Lymph # (Auto) 0.70 L (1.2-3.4) K/uL [place] # (Auto) 0.86 H (0.11-0.59) K/uL Eos # (Auto) 0.06 (0-0.50) K/uL Baso # (Auto) 0.05 (0-0.2) K/uL Immature Gran # (Auto) 0.03 (0.01-0.20) K/uL Sodium 138 (136-145) mmol/L Potassium 4.4 (3.5-5.1) mmol/L Chloride 103 (98-107) mmol/L Carbon Dioxide 23 (21-32) mmol/L Anion Gap 12 H (3-11) BUN 14 (6-23) mg/dl Creatinine 0.62 (0.6-1.2) mg/dl Est Cr Clr Drug Dosing 92.6 ml/min Est GFR ( Amer) 103.7 ml/min Est GFR (Non-Af Amer) 89.5 ml/min BUN/Creatinine Ratio 22.6 H (10-20) Glucose 113 H (70-99(Fasting)) mg/dl Calcium 9.8 (8.6-10.3) mg/dl Magnesium 1.7 (1.7-2.4) mg/dl Total Bilirubin 0.8 (0.2-1.0) mg/dl AST 24 (13-39) U/L ALT 22 (7-52) U/L Alkaline Phosphatase 69 (34-104) U/L Total Protein 7.3 (6.0-8.3) gm/dl Albumin 4.3 (3.4-5.0) gm/dl Globulin 3.0 (2.5-4.0) gm/dl Albumin/Globulin Ratio 1.4 (0.9-2) Lipase 5 L (11-82) U/L Urine Color Yellow Urine Appearance Clear (Clear) Urine pH 6.5 (4.5-7.5) Ur Specific [place] > 1.045 H (1.000-1.030) Urine Protein Negative (Negative) Urine Glucose (UA) Negative (Negative) Urine Ketones 2+ H (Negative) Urine Blood 2+ H (Negative) Urine Nitrite Positive A (Negative) Urine Bilirubin Negative (Negative) Urine Urobilinogen Negative (Negative) Ur Leukocyte Esterase 1+ H (Negative) Urine WBC (Auto) 10-30 H (0-5) /hpf Urine RBC (Auto) 5-10 H (0-4) /hpf U Hyaline Cast (Auto) 1-5 (0-5) /lpf U Epithel Cells (Auto) 5-10 H (0-5) /lpf Urine Bacteria (Auto) 4+ H (Negative) Administered Medications Discontinued Medications Sodium Chloride (Nss 1000ml) 1,000 mls @ 999 mls/hr IV .Q1H1M STA Stop: 05/19/23 18:17 Last Infusion: 05/19/23 19:04 Dose: 0 mls/hr Documented By: Admin: 05/19/23 17:53 Dose: 999 mls/hr Documented By: NOHEMI Piperacillin Sod/Tazobactam Sod (Zosyn) 4.5 gm in 120 mls @ 240 mls/hr IV NOW ONE Stop: 05/19/23 22:02 Last Admin: 05/19/23 21:47 Dose: Not Given Documented By: KAMLESH Ioversol (Optiray 320 100ml) 93 ml IV ONCE ONE Stop: 05/19/23 18:36 Last Admin: 05/19/23 18:35 Dose: 93 ml Documented By: SHAI Ketorolac Tromethamine (Ketorolac Tromethamine 15 Mg/Ml Vial) 15 mg IV NOW STA Stop: 05/19/23 17:24 Last Admin: 05/19/23 17:51 Dose: 15 mg Documented By: NOHEMI Morphine Sulfate (Morphine Sulfate 4 Mg/Ml 1 Ml Carp\Vial) 4 mg IV NOW STA Stop: 05/19/23 17:24 Last Admin: 05/19/23 17:54 Dose: 4 mg Documented By: NOHEMI Ondansetron HCl (Ondansetron Inj 2 Mg/Ml 2 Ml Vial) 4 mg IV NOW STA Stop: 05/19/23 17:24 Last Admin: 05/19/23 17:54 Dose: 4 mg Documented By: NOHEMI Imaging Data Radiologist's Impression: Abdomen/Pelvis CT 05/19/23 17:[address] WITH IV CONTRAST CT DOSE: 1247.87 mGy.cm HISTORY: Lower abdominal pain. TECHNIQUE: Multiaxial CT images of the abdomen and pelvis were performed following the use of intravenous contrast. A dose lowering technique was utilized adhering to the principles of ALARA. COMPARISON STUDY: Abdomen and pelvis CT 07/19/2022. FINDINGS: The lung bases are clear. No pneumoperitoneum. No pneumatosis. No acute fractures identified. There is a small fat-containing left inguinal hernia. Cholecystectomy. Pneumobilia is again noted. Mild bile duct dilatation, unchanged. The main portal vein is patent. No hepatic or splenic masses. The adrenal glands unremarkable. There are few subcentimeter bilateral renal hypodense lesions. These are technically too small to characterize but favor cysts. There is a 2 mm right renal stone. No ureteral stones. No hydronephrosis. No retroperitoneal lymphadenopathy. Normal caliber abdominal aorta. The main p ancreatic duct stent has been removed. There is a small amount of gas within the main pancreatic duct. A few punctate calcifications within the pancreas. The main pancreatic duct is mildly dilated up to 5.7 mm. There is question of minimal peripancreatic inflammatory change. Therefore, these findings could represent a mild acute on chronic pancreatitis. No pelvic lymphadenopathy or pelvic free fluid. There is mild bladder wall thickening. The uterus and bilateral adnexa are unremarkable. No bowel wall thickening or obstruction. The appendix is distended and fluid-filled measuring up to 12 mm in diameter. There is an 8 mm hyperdense nodule at the base of the appendix which may represent an appendicolith. Therefore, by CT criteria, this would be consistent with an early acute appendicitis. A mucocele could also have a similar appearance. Surgical consultation recommended. Of note, the appendix was not distended on the prior study. IMPRESSION: 1. The appendix is distended and fluid-filled measuring up to 12 mm in diameter. There is an 8 mm hyperdense nodule at the base of the appendix which may represent an appendicolith. Therefore, by CT criteria, this would be consistent with an early acute appendicitis. A mucocele could also have a similar appearance. Surgical consultation recommended. 2. Questionable minimal peripancreatic inflammatory change. This could represent a mild acute on chronic pancreatitis. Recommend correlation with pancreatic enzymes. 3. Right-sided nephrolithiasis. No hydronephrosis. 4. Additional findings as described above. ACT 112: Negative or not required by law. Electronically signed by: Farzad Ray M.D. 05/19/2023 8:38 PM Discharge Plan Visit Data Chief Complaint: Abdominal Pain Stated Complaint: ABDOMINAL PAIN, NAUSEA, VOMITING, DIARRHEA ED Provider: Chito Brooks Discharge Problem: Lower abdominal pain, Vomiting and diarrhea, Appendicitis, Chronic pancreatitis Patient Disposition: Admitted As Inpatient Condition: Fair Forms Stand Alone Forms: My [facility] Prescriptions Prescriptions: No Action amoxicillin 500 mg Capsule 2,000 mg PO DIRECTED Rx Instructions: take prior to dental procedure levothyroxine [Synthroid] 175 mcg tablet 175 mcg PO QAM atorvastatin 20 mg tablet 20 mg PO QPM citalopram 10 mg tablet 10 mg PO QAM atenolol 25 mg tablet 25 mg PO BID amlodipine 2.5 mg tablet 2.5 mg PO QPM pantoprazole 40 mg tablet,delayed release (DR/EC) 40 mg PO QAM Premarin 0.625 mg/gram cream 1 applic vaginal 2XWK PRN (Reason: ..) aspirin [Aspirin Child] 81 mg Tablet,Chewable 81 mg PO DAILY gabapentin 100 mg capsule 300 mg PO HS gabapentin 100 mg capsule 100 mg PO .BID UD Rx Instructions: Am & afternoon losartan 100 mg tablet 100 mg PO QAM Referrals Referrals: Tapan Alonso MD [Primary Care Provider] -
[2023-05-19 18:00] LABS: Basophils # (auto) 0.05 K/uL (0-0.2); Basophils % (auto) 0.5 %; Eosinophils # (auto) 0.06 K/uL (0-0.50); Eosinophils % (auto) 0.6 %; Hematocrit (blood only) 40.2 % (37.0-47.0); Hemoglobin 13.9 g/dl (12.0-16.0); Immature Granulocytes # (auto) 0.03 K/uL (0.01-0.20); Immature Granulocytes % (auto) 0.3 %; Lymphocytes % (auto) 7.1 %; Mean Corpuscular Hemoglobin 31.7 pg (25.0-34.0); Mean Corpuscular Hgb Conc 34.6 g/dL (32.0-36.0); Mean Corpuscular Volume 91.8 fL (80.0-100.0); Mean Platelet Volume 9.6 fL (9.4-12.4); Monocytes # (auto) 0.86 K/uL (0.11-0.59); Monocytes % (auto) 8.7 %; Neutrophils # (auto) 8.21 K/uL (1.40-6.50); Neutrophils % (auto) 82.8 %; Platelet Count 192 K/uL (130-400); RDW Coefficient of Variation 12.7 % (11.5-14.5); RDW Standard Deviation 42.5 fL (36.4-46.3); Red Blood Count 4.38 M/uL (4.20-5.40); White Blood Count 9.91 K/ul (4.8-10.8)
[2023-05-19 18:17] LABS: Albumin Globulin Ratio 1.4 (0.9-2); Albumin Level 4.3 gm/dl (3.4-5.0); BUN Creatinine Ratio 22.6 (10-20); Bilirubin,Total 0.8 mg/dl (0.2-1.0); Calcium 9.8 mg/dl (8.6-10.3); Creatinine Clr Calc Pharmacy 92.6 ml/min; Est GFR (African American) 103.7 ml/min; Est GFR (Non-African American) 89.5 ml/min; Magnesium 1.7 mg/dl (1.7-2.4); Potassium 4.4 mmol/L (3.5-5.1); Total Protein 7.3 gm/dl (6.0-8.3)
[2023-05-19] MEDS ORDERED: OPTIRAY 320 100ml IV ONE (18:35)
--- NOTE | 2023-05-19 20:41 | CT Scan Report ---
ABDOMEN AND PELVIS CT WITH IV CONTRAST CT DOSE: 1247.87 mGy.cm HISTORY: Lower abdominal pain. TECHNIQUE: Multiaxial CT images of the abdomen and pelvis were performed following the use of intrave nous contrast. A dose lowering technique was utilized adhering to the principles of ALARA. COMPARISON STUDY: Abdomen and pelvis CT 07/19/2022. FINDINGS: The lung bases are clear. No pneumoperitoneum. No pneumatosis. No acute fractures identifie d. There is a small fat-containing left inguinal hernia. Cholecystectomy. Pneumobilia is again noted. Mild bile duct dilatation, unchanged. The main portal vein is patent. No hepatic or splenic masses. The adrenal glands unremarkable. There are few subcentimeter bilateral renal hypodense lesions. These are technically too small to characterize but favor cysts. There is a 2 mm right renal stone. No ure teral stones. No hydronephrosis. No retroperitoneal lymphadenopathy. Normal caliber abdominal aorta. The main pancreatic duct stent has been removed. There is a small amount of gas within the main pancr eatic duct. A few punctate calcifications within the pancreas. The main pancreatic duct is mildly dil ated up to 5.7 mm. There is question of minimal peripancreatic inflammatory change. Therefore, these findings could represent a mild acute on chronic pancreatitis. No pelvic lymphadenopathy or pelvic fr ee fluid. There is mild bladder wall thickening. The uterus and bilateral adnexa are unremarkable. No bowel wall thickening or obstruction. The appendix is distended and fluid-filled measuring up to 12 mm in diameter. There is an 8 mm hyperdense nodule at the base of the appendix which may represent an appendicolith. Therefore, by CT criteria, this would be consistent with an early acute appendicitis. A mucocele could also have a similar appearance. Surgical consultation recommended. Of note, the sanam endix was not distended on the prior study. IMPRESSION: 1. The appendix is distended and fluid-filled measuring up to 12 mm in diameter. There is an 8 mm hyp erdense nodule at the base of the appendix which may represent an appendicolith. Therefore, by CT cri teria, this would be consistent with an early acute appendicitis. A mucocele could also have a simila r appearance. Surgical consultation recommended. 2. Questionable minimal peripancreatic inflammatory change. This could represent a mild acute on sewing trimmer monica pancreatitis. Recommend correlation with pancreatic enzymes. 3. Right-sided nephrolithiasis. No hydronephrosis. 4. Additional findings as described above. ACT 112: Negative or not required by law. Electronically signed by: Farzad Ray M.D. 05/19/2023 8:38 PM
[2023-05-19 20:49] LABS: Appearance Urine Clear (Clear); Bacteria Urine Automated 4+ (Negative); Bilirubin Urine Negative (Negative); Blood Urine 2+ (Negative); Color Urine Yellow; Glucose Urine UA Negative (Negative); Ketones Urine 2+ (Negative); Leukocyte Esterase Urine 1+ (Negative); Nitrite Urine Positive (Negative); Protein Urine Negative (Negative); Specific Gravity Urine > 1.045 (1.000-1.030); Urobilinogen Urine Negative (Negative); pH Urine 6.5 (4.5-7.5)
[2023-05-19] MEDS ORDERED: PIPERACILLIN/TAZOBACTAM 4.5 GM/120 ML BAG IV ONE (21:33)
[2023-05-19] MEDS ORDERED: LACTATED RINGER'S 1,000 ML IV ONE (23:34)
--- NOTE | 2023-05-19 23:52 | Surgery Consultation ---
Date of Consultation May 19, 2023 Assessment & Plan (1) Abdominal pain: currently no Abdominal pain and she has no leukocytosis. The CT scan shows dilated appendix with questionable appendicolith versus mucocele. Her history as well as exam are not consistent with acute appendicitis although it could be early appendicitis. I am recommending we admit for observation. I would like her to be off antibiotics with minimal pain medication. I will repeat a CBC in the morning and reevaluate her in the morning. She agrees with the plan. (2) Diarrhea: History of Present Illness History of Present Illness 73-year-old femaleIn her usual state of health began having abdominal pain around 10 AM this morning while running errands. She originally thought it was pancreatitis as she has a history of this. It persisted and she came to the emergency room. She did have severe diarrhea earlier in the week as well as an episode today as well as an episode of nausea and vomiting earlier today. Currently she has no pain. Allergies Allergy/AdvReac Type Severity Reaction Status Date / Time hydrocodone Allergy Intermediate ITCHY Verified 05/19/23 22:15 oxycodone AdvReac Intermediate Nausea Verified 05/19/23 22:15 tramadol AdvReac Intermediate Nausea Verified 05/19/23 22:15 lisinopril AdvReac Mild Cough Verified 05/19/23 22:15 Home Medications Medication Instructions Recorded Confirmed Type amlodipine 2.5 mg tablet 2.5 mg PO QPM 05/19/23 05/19/23 History amoxicillin 500 mg capsule 2,000 mg PO DIRECTED 05/19/23 05/19/23 History aspirin 81 mg chewable tablet 81 mg PO DAILY 05/19/23 05/19/23 History atenolol 25 mg tablet 25 mg PO BID 05/19/23 05/19/23 History atorvastatin 20 mg tablet 20 mg PO QPM 05/19/23 05/19/23 History citalopram 10 mg tablet 10 mg PO QAM 05/19/23 05/19/23 History conjugated estrogens 0.625 mg/gram 1 applic vaginal 2XWK PRN .. 05/19/23 05/19/23 History vaginal cream (Premarin) gabapentin 100 mg capsule 100 mg PO .BID UD 05/19/23 05/19/23 History gabapentin 100 mg capsule 300 mg PO HS 05/19/23 05/19/23 History levothyroxine 175 mcg tablet 175 mcg PO QAM 05/19/23 05/19/23 History (Synthroid) losartan 100 mg tablet 100 mg PO QAM 05/19/23 05/19/23 History pantoprazole 40 mg tablet,delayed 40 mg PO QAM 05/19/23 05/19/23 History release Patient History Medical History Anxiety Arthritis Bakers cyst Chronic pancreatitis Coronary artery disease Pt reports very remote h/o heart cath, > 25 yrs ago. No stents placed. Depression with anxiety Diabetes mellitus, type 2 diet controlled Dyslipidemia Hernia, hiatal HTN (hypertension) Hypothyroidism Left knee DJD Pancreatic cyst Pancreatic duct stones Right rotator cuff tear damaged from a fall, injections Sarcoidosis Has not followed with pulmonology for many years. Stable. Surgical History Ganglion cyst removed from right ankle History of colonoscopy History of esophagogastroduodenoscopy (EGD) S/P ankle fusion (10/2010) L ankle S/P cholecystectomy (02/25/15) lap gaviota w/ cholangiogram Family History Father Heart disease Hypertension Father Heart disease Hypertension Sister Breast cancer Brother Lung cancer Brother Sarcoma Social History Smoking Status: Never smoker Second Hand Exposure: No; Do You Dip or Chew Tobacco: No; Hx Alcohol Use: No Hx Substance Use: No Preferred Language: Hebrew Communication Ability: Effective Keg Header Required: No Beliefs That Will Affect Care: None marital status: Current Living Situation: Spouse Current Living Situation Comment: How many Children do You have: 1 Feels Safe at Home: Yes Assistive Devices: None Review of Systems Review of Systems: All systems reviewed & are unremarkable except as noted in HPI & below Physical Exam Constitutional: WD/WN, vitals as above no acute distress and not ill appearing Eyes: PERRL, conjunctivae normal, anicteric sclerae EOM intact bilaterally ENMT: external ear and nose normal, oropharynx normal Ears: no hearing impairment Neck: trachea midline, no thyromegaly Respiratory: normal respiratory effort; no respiratory distress and does not use accessory muscles Cardiovascular: Rate/Rhythm: regular rate and regular rhythm Gastrointestinal (Abdomen): Soft. Nontender. No guarding. Specifically no pain in the right lower quadra nt Skin: no rashes, warm and dry Psychiatric: Orientation: alert, oriented x 3 and cooperative Results & Data Vital Signs (Past 12 Hours) Vital Signs Temp Pulse Pulse Resp BP BP Pulse Ox 05/19/23 22:45 67 05/19/23 22:12 67 18 152/87 H 99 05/19/23 20:34 69 18 138/78 97 05/19/23 19:41 72 18 137/75 98 05/19/23 18:48 77 05/19/23 17:11 36 C L 68 18 165/73 H 100 O2 Del Method 05/19/23 22:45 05/19/23 22:12 Room Air 05/19/23 20:34 Room Air 05/19/23 19:41 Room Air 05/19/23 18:48 05/19/23 17:11 Room Air PG Care Time/CCT Total # of Minutes Spent Total Time Spent with Patient: Total time spent is greater than 50% in coordination of care (as documented) at patient's floor/unit and/or counseling patient: Coding Level of Care Code INT OBSERVATION CARE 50M LVL 2 Diagnoses Abdominal pain R10.9 Diarrhea R19.7
[2023-05-19] MEDS ORDERED: ATORVASTATIN 20 MG TAB PO STA (23:54)
[2023-05-19] MEDS ORDERED: amLODIPine BESYLATE 5 MG TAB PO ONE (23:54)
[2023-05-19] MEDS ORDERED: ATENOLOL 25 MG TABLET PO STA (23:54)
[2023-05-19] MEDS ORDERED: ASPIRIN 81 MG ECTAB PO STA (23:54)
[2023-05-19] MEDS ORDERED: GABAPENTIN 300 MG CAP PO STA (23:54)
--- NOTE | 2023-05-19 23:57 | History & Physical Report ---
Date of Service May 19, 2023 Assessment & Plan (1) Lower abdominal pain: Plan: Secondary to gastroenteritis Appendiceal abnormality on CT hx nonobstructive CAD hypertension, slightly elevated hyperlipidemia on statin Rx hx idiopathic chronic pancreatitis hypothyroidism, euthyroid as of recent outpatient TSH Prediabetes, hemoglobin A1c of 6.08 September 2022 prediabetes sarcoidosis, stable off treatment OBS GMF Stool work-up General surgery consult Re: Appendiceal abnormality on CT (Patient already seen at the ER by Dr. Steele. He does not think patient has appendicitis but is recommending observation, n.p.o. status, hold off on antibiotics for now as per communication.) DVT prophylaxis per Lovenox subcu Full code Text document was generated using [employer] voice recognition software. It may contain grammatical or spelling errors. Kindly contact undersigned for clarification of any documentation item in question. History of Present Illness Chief Complaint: Abdominal pain Primary Care Provider: Tapan Alonso MD History obtained from patient and records. Medical history significant for nonobstructive CAD, hypertension, hyperlipidemia, idiopathic chronic pancreatitis, hypothyroidism, prediabetes, sarcoidosis. Last confinement 2021 for near syncope, COVID-19 illness. Yesterday, patient noted achy lower abdominal pain with nausea/vomiting, loose watery stools. Different from pancreatitis pain as per patient. Patient denies chest pain, SOB, fever or chills. 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 Allergies Allergy/AdvReac Type Severity Reaction Status Date / Time hydrocodone Allergy Intermediate ITCHY Verified 05/19/23 22:15 oxycodone AdvReac Intermediate Nausea Verified 05/19/23 22:15 tramadol AdvReac Intermediate Nausea Verified 05/19/23 22:15 lisinopril AdvReac Mild Cough Verified 05/19/23 22:15 Home Medications Medication Instructions Recorded Confirmed Type amlodipine 2.5 mg tablet 2.5 mg PO QPM 05/19/23 05/19/23 History amoxicillin 500 mg capsule 2,000 mg PO DIRECTED 05/19/23 05/19/23 History aspirin 81 mg chewable tablet 81 mg PO DAILY 05/19/23 05/19/23 History atenolol 25 mg tablet 25 mg PO BID 05/19/23 05/19/23 History atorvastatin 20 mg tablet 20 mg PO QPM 05/19/23 05/19/23 History citalopram 10 mg tablet 10 mg PO QAM 05/19/23 05/19/23 History conjugated estrogens 0.625 mg/gram 1 applic vaginal 2XWK PRN .. 05/19/23 05/19/23 History vaginal cream (Premarin) gabapentin 100 mg capsule 100 mg PO .BID UD 05/19/23 05/19/23 History gabapentin 100 mg capsule 300 mg PO HS 05/19/23 05/19/23 History levothyroxine 175 mcg tablet 175 mcg PO QAM 05/19/23 05/19/23 History (Synthroid) losartan 100 mg tablet 100 mg PO QAM 05/19/23 05/19/23 History pantoprazole 40 mg tablet,delayed 40 mg PO QAM 05/19/23 05/19/23 History release Past Med/Surg History Medical History Anemia Anxiety Arthritis Bakers cyst Chronic pancreatitis Coronary artery disease Pt reports very remote h/o heart cath, > 25 yrs ago. No stents placed. COVID-19 Depression with anxiety Diabetes mellitus, type 2 diet controlled DVT prophylaxis Dyslipidemia Elevated troponin Hernia, hiatal HTN (hypertension) Hypomagnesemia Hypothyroidism Left knee DJD Near syncope Pancreatic cyst Pancreatic duct stones Prolonged Q-T interval on ECG Right rotator cuff tear damaged from a fall, injections Sarcoidosis Has not followed with pulmonology for many years. Stable. Surgical History Ganglion cyst removed from right ankle History of colonoscopy History of esophagogastroduodenoscopy (EGD) S/P ankle fusion (10/2010) L ankle S/P cholecystectomy (02/25/15) lap gaviota w/ cholangiogram Family History Father Heart disease Hypertension Father Heart disease Hypertension Sister Breast cancer Brother Lung cancer Brother Sarcoma Social History Smoking Status: Never smoker Second Hand Exposure: No; Do You Dip or Chew Tobacco: No; Tobacco Cessation Education Requested by Patient: No Hx Alcohol Use: No Hx Substance Use: No Preferred Language: Faroese Communication Ability: Effective Paint Mixer Required: No Beliefs That Will Affect Care: None marital status: Current Living Situation: Spouse Current Living Situation Comment: How many Children do You have: 1 Other Information That Helps Us Care for You: No Feels Safe at Home: Yes Safety Concerns: Feels Safe At This Time Assistive Devices: Glasses Assistive Devices Comment: Reading glasses. Review of Systems Review of Systems: As per HPI, all other systems reviewed and negative Physical Exam Physical Exam: GENERAL: Comfortable, obese, pleasant, slightly anxious, no respiratory distress SKIN: Normal color, warm HEENT: [place] palpebral conjunctivae, no ptosis, dry buccal mucosa NECK : Supple, short neck, no tenderness CHEST : CTA, no tenderness HEART : RRR, no obvious murmurs ABDOMEN: Some distention, minimal hypogastric tenderness EXTREMITIES : Minimal LE swelling, no LE tenderness, no other conspicuous deformities noted NEUROLOGIC : Coherent, no facial asymmetry, no other gross focality Results & Data Results & Data Vital Signs (Past 12 Hours) Vital Signs Temp Pulse Pulse Resp BP BP Pulse Ox 05/19/23 22:45 67 05/19/23 22:12 67 18 152/87 H 99 05/19/23 20:34 69 18 138/78 97 05/19/23 19:41 72 18 137/75 98 05/19/23 18:48 77 05/19/23 17:11 36 C L 68 18 165/73 H 100 O2 Del Method 05/19/23 22:45 05/19/23 22:12 Room Air 05/19/23 20:34 Room Air 05/19/23 19:41 Room Air 05/19/23 18:48 05/19/23 17:11 Room Air Laboratory Results Laboratory Results WBC 9.91 K/ul (4.8-10.8) 05/19/23 17:47 RBC 4.38 M/uL (4.20-5.40) 05/19/23 17:47 Hgb 13.9 g/dl (12.0-16.0) 05/19/23 17:47 Hct 40.2 % (37.0-47.0) 05/19/23 17:47 MCV 91.8 fL (80.0-100.0) 05/19/23 17:47 MCH 31.7 pg (25.0-34.0) 05/19/23 17:47 MCHC 34.6 g/dL (32.0-36.0) 05/19/23 17:47 RDW Std Deviation 42.5 fL (36.4-46.3) 05/19/23 17:47 RDW Coeff of Renée 12.7 % (11.5-14.5) 05/19/23 17:47 Plt Count 192 K/uL (130-400) 05/19/23 17:47 MPV 9.6 fL (9.4-12.4) 05/19/23 17:47 Immature Gran % (Auto) 0.3 % 05/19/23 17:47 Neut % (Auto) 82.8 % 05/19/23 17:47 Lymph % (Auto) 7.1 % 05/19/23 17:47 Gordon % (Auto) 8.7 % 05/19/23 17:47 Eos % (Auto) 0.6 % 05/19/23 17:47 Baso % (Auto) 0.5 % 05/19/23 17:47 Neut # (Auto) 8.21 K/uL (1.40-6.50) H 05/19/23 17:47 Lymph # (Auto) 0.70 K/uL (1.2-3.4) L 05/19/23 17:47 Gordon # (Auto) 0.86 K/uL (0.11-0.59) H 05/19/23 17:47 Eos # (Auto) 0.06 K/uL (0-0.50) 05/19/23 17:47 Baso # (Auto) 0.05 K/uL (0-0.2) 05/19/23 17:47 Immature Gran # (Auto) 0.03 K/uL (0.01-0.20) 05/19/23 17:47 Sodium 138 mmol/L (136-145) 05/19/23 17:47 Potassium 4.4 mmol/L (3.5-5.1) 05/19/23 17:47 Chloride 103 mmol/L (98-107) 05/19/23 17:47 Carbon Dioxide 23 mmol/L (21-32) 05/19/23 17:47 Anion Gap 12 (3-11) H 05/19/23 17:47 BUN 14 mg/dl (6-23) 05/19/23 17:47 Creatinine 0.62 mg/dl (0.6-1.2) 05/19/23 17:47 Est Cr Clr Drug Dosing 92.6 ml/min 05/19/23 17:47 Est GFR ( Amer) 103.7 ml/min 05/19/23 17:47 Est GFR (Non-Af Amer) 89.5 ml/min 05/19/23 17:47 BUN/Creatinine Ratio 22.6 (10-20) H 05/19/23 17:47 Glucose 113 mg/dl (70-99(Fasting)) H 05/19/23 17:47 Calcium 9.8 mg/dl (8.6-10.3) 05/19/23 17:47 Magnesium 1.7 mg/dl (1.7-2.4) 05/19/23 17:47 Total Bilirubin 0.8 mg/dl (0.2-1.0) 05/19/23 17:47 AST 24 U/L (13-39) 05/19/23 17:47 ALT 22 U/L (7-52) 05/19/23 17:47 Alkaline Phosphatase 69 U/L (34-104) 05/19/23 17:47 Total Protein 7.3 gm/dl (6.0-8.3) 05/19/23 17:47 Albumin 4.3 gm/dl (3.4-5.0) 05/19/23 17:47 Globulin 3.0 gm/dl (2.5-4.0) 05/19/23 17:47 Albumin/Globulin Ratio 1.4 (0.9-2) 05/19/23 17:47 Lipase 5 U/L (11-82) L 05/19/23 17:47 Urine Color Yellow 05/19/23 20:30 Urine Appearance Clear (Clear) 05/19/23 20:30 Urine pH 6.5 (4.5-7.5) 05/19/23 20:30 Ur Specific [place] > 1.045 (1.000-1.030) H 05/19/23 20:30 Urine Protein Negative (Negative) 05/19/23 20:30 Urine Glucose (UA) Negative (Negative) 05/19/23 20:30 Urine Ketones 2+ (Negative) H 05/19/23 20:30 Urine Blood 2+ (Negative) H 05/19/23 20:30 Urine Nitrite Positive (Negative) A 05/19/23 20:30 Urine Bilirubin Negative (Negative) 05/19/23 20:30 Urine Urobilinogen Negative (Negative) 05/19/23 20:30 Ur Leukocyte Esterase 1+ (Negative) H 05/19/23 20:30 Urine WBC (Auto) 10-30 /hpf (0-5) H 05/19/23 20:30 Urine RBC (Auto) 5-10 /hpf (0-4) H 05/19/23 20:30 U Hyaline Cast (Auto) 1-5 /lpf (0-5) 05/19/23 20:30 U Epithel Cells (Auto) 5-10 /lpf (0-5) H 05/19/23 20:30 Urine Bacteria (Auto) 4+ (Negative) H 05/19/23 20:30 Impressions Abdomen/Pelvis CT 05/19/23 17:[address] WITH IV CONTRAST CT DOSE: 1247.87 mGy.cm HISTORY: Lower abdominal pain. TECHNIQUE: Multiaxial CT images of the abdomen and pelvis were performed following the use of intravenous contrast. A dose lowering technique was utilized adhering to the principles of ALARA. COMPARISON STUDY: Abdomen and pelvis CT 07/19/2022. FINDINGS: The lung bases are clear. No pneumoperitoneum. No pneumatosis. No ac qawalangin fractures identified. There is a small fat-containing left inguinal hernia. Cholecystectomy. Pneumobilia is again noted. Mild bile duct dilatation, unchanged. The main portal vein is patent. No hepatic or splenic masses. The adrenal glands unremarkable. There are few subcentimeter bilateral renal hypodense lesions. These are technically too small to characterize but favor cysts. There is a 2 mm right renal stone. No ureteral stones. No hydronephrosis. No retroperitoneal lymphadenopathy. Normal caliber abdominal aorta. The main pancreatic duct stent has been removed. There is a small amount of gas within the main pancreatic duct. A few punctate calcifications within the pancreas. The main pancreatic duct is mildly dilated up to 5.7 mm. There is question of minimal peripancreatic inflammatory change. Therefore, these findings could represent a mild acute on chronic pancreatitis. No pelvic lymphadenopathy or pelvic free fluid. There is mild bladder wall thickening. The uterus and bila teral adnexa are unremarkable. No bowel wall thickening or obstruction. The appendix is distended and fluid-filled measuring up to 12 mm in diameter. There is an 8 mm hyperdense nodule at the base of the appendix which may represent an appendicolith. Therefore, by CT criteria, this would be consistent with an early acute appendicitis. A mucocele could also have a similar appearance. Surgical consultation recommended. Of note, the appendix was not distended on the prior study. IMPRESSION: 1. The appendix is distended and fluid-filled measuring up to 12 mm in diameter. There is an 8 mm hyperdense nodule at the base of the appendix which may represent an appendicolith. Therefore, by CT criteria, this would be consistent with an early acute appendicitis. A mucocele could also have a similar appearance. Surgical consultation recommended. 2. Questionable minimal peripancreatic inflammatory change. This could represent a mild acute on chronic pancreatitis. Recommend correlation with pancreatic enzymes. 3. Right-sided nephrolithiasis. No hydronephrosis. 4. Additional findings as described above. ACT 112: Negative or not required by law. Electronically signed by: Farzad Ray M.D. 05/19/2023 8:38 PM
[2023-05-20] MEDS ORDERED: PROMETHAZINE HCL 12.5 MG in SODIUM CHLORIDE 0.9% 50 ML IV PRN (00:01)
[2023-05-20] MEDS ORDERED: KETOROLAC TROMETHAMINE 15 MG/ML VIAL IV PRN (00:01)
[2023-05-20] MEDS ORDERED: ACETAMINOPHEN W/CODEINE #3 1 TAB PO PRN (00:01)
[2023-05-20] MEDS ORDERED: LORazepam 0.5 MG TAB PO PRN (00:01)
[2023-05-20 00:47] LABS: Basophils # (auto) 0.03 K/uL (0-0.2); Basophils % (auto) 0.3 %; Eosinophils # (auto) 0.04 K/uL (0-0.50); Eosinophils % (auto) 0.5 %; Hematocrit (blood only) 37.6 % (37.0-47.0); Hemoglobin 12.7 g/dl (12.0-16.0); Immature Granulocytes # (auto) 0.03 K/uL (0.01-0.20); Immature Granulocytes % (auto) 0.3 %; Lymphocytes # (auto) 0.71 K/uL (1.2-3.4); Lymphocytes % (auto) 8.2 %; Mean Corpuscular Hemoglobin 31.6 pg (25.0-34.0); Mean Corpuscular Hgb Conc 33.8 g/dL (32.0-36.0); Mean Corpuscular Volume 93.5 fL (80.0-100.0); Mean Platelet Volume 9.3 fL (9.4-12.4); Monocytes # (auto) 0.87 K/uL (0.11-0.59); Neutrophils # (auto) 6.99 K/uL (1.40-6.50); Neutrophils % (auto) 80.7 %; Platelet Count 170 K/uL (130-400); RDW Coefficient of Variation 12.7 % (11.5-14.5); RDW Standard Deviation 43.9 fL (36.4-46.3); Red Blood Count 4.02 M/uL (4.20-5.40); White Blood Count 8.67 K/ul (4.8-10.8)
[2023-05-20] MEDS: ACETAMINOPHEN 500 MG TAB PO PRN ×2 (01:44→09:45)
[2023-05-20] MEDS ORDERED: LEVOTHYROXINE SODIUM 175 MCG TABLET PO SCH (06:30)
[2023-05-20 07:12] LABS: Basophils # (auto) 0.02 K/uL (0-0.2); Basophils % (auto) 0.3 %; Eosinophils # (auto) 0.06 K/uL (0-0.50); Hematocrit (blood only) 33.3 % (37.0-47.0); Hemoglobin 11.5 g/dl (12.0-16.0); Immature Granulocytes # (auto) 0.02 K/uL (0.01-0.20); Immature Granulocytes % (auto) 0.3 %; Lymphocytes # (auto) 0.66 K/uL (1.2-3.4); Lymphocytes % (auto) 10.9 %; Mean Corpuscular Hemoglobin 32.1 pg (25.0-34.0); Mean Corpuscular Hgb Conc 34.5 g/dL (32.0-36.0); Mean Platelet Volume 9.3 fL (9.4-12.4); Monocytes # (auto) 0.74 K/uL (0.11-0.59); Monocytes % (auto) 12.3 %; Neutrophils # (auto) 4.54 K/uL (1.40-6.50); Neutrophils % (auto) 75.2 %; Platelet Count 155 K/uL (130-400); RDW Coefficient of Variation 12.9 % (11.5-14.5); RDW Standard Deviation 43.8 fL (36.4-46.3); Red Blood Count 3.58 M/uL (4.20-5.40); White Blood Count 6.04 K/ul (4.8-10.8)
[2023-05-20 07:45] LABS: Albumin Globulin Ratio 1.4 (0.9-2); Albumin Level 3.4 gm/dl (3.4-5.0); Bilirubin,Total 0.8 mg/dl (0.2-1.0); Calcium 8.7 mg/dl (8.6-10.3); Creatinine Clr Calc Pharmacy 97.5 ml/min; Est GFR (African American) 104.8 ml/min; Est GFR (Non-African American) 90.4 ml/min; Globulin 2.4 gm/dl (2.5-4.0); Potassium 4.1 mmol/L (3.5-5.1); Total Protein 5.8 gm/dl (6.0-8.3)
--- NOTE | 2023-05-20 07:59 | Hospitalist Progress Note ---
Date of Service May 20, 2023 Assessment & Plan (1) UTI (urinary tract infection): (2) Lower abdominal pain: (3) Vomiting and diarrhea: (4) Hypothyroidism: (5) Diabetes mellitus, type 2: (6) Depression with anxiety: Admission and Anticipated Discharge Date Admission Date: May 19, 2023 Results & Data Results & Data Vital Signs (Past 12 Hours) Vital Signs Temp Pulse Pulse Pulse Resp BP BP 05/20/23 07:46 36.4 C L 57 L 16 122/72 05/20/23 00:55 05/20/23 00:55 05/20/23 00:55 36.9 C 65 16 145/86 H 05/20/23 00:00 62 22 145/73 H 05/19/23 23:59 63 20 143/77 H 05/19/23 23:30 66 18 05/19/23 23:00 65 17 05/19/23 22:09 66 18 152/87 H 05/19/23 22:45 67 05/19/23 22:12 67 18 152/87 H 05/19/23 20:34 69 18 138/78 Pulse Ox O2 Del Method 05/20/23 07:46 96 Room Air 05/20/23 00:55 Room Air 05/20/23 00:55 Room Air 05/20/23 00:55 97 Room Air 05/20/23 00:00 97 05/19/23 23:59 98 05/19/23 23:30 98 05/19/23 23:00 95 05/19/23 22:09 99 05/19/23 22:45 05/19/23 22:12 99 Room Air 05/19/23 20:34 97 Room Air Laboratory Results Short CBC 05/19/23 05/20/23 05/20/23 Range/Units 17:47 00:13 06:49 WBC 9.91 8.67 6.04 (4.8-10.8) K/ul Hgb 13.9 12.7 11.5 L (12.0-16.0) g/dl Hct 40.2 37.6 33.3 L (37.0-47.0) % Plt Count 192 170 155 (130-400) K/uL BMP 05/19/23 05/20/23 17:47 06:49 Sodium 138 140 Potassium 4.4 4.1 Chloride 103 109 H Carbon Dioxide 23 28 BUN 14 12 Creatinine 0.62 0.60 Glucose 113 H 95 Calcium 9.8 8.7 Liver Function 05/19/23 05/20/23 Range/Units 17:47 06:49 Total Bilirubin 0.8 0.8 (0.2-1.0) mg/dl AST 24 17 (13-39) U/L ALT 22 15 (7-52) U/L Alkaline Phosphatase 69 57 (34-104) U/L Albumin 4.3 3.4 (3.4-5.0) gm/dl Urine 05/19/23 Range/Units 20:30 Urine Color Yellow Urine Appearance Clear (Clear) Urine pH 6.5 (4.5-7.5) Ur Specific [place] > 1.045 H (1.000-1.030) Urine Protein Negative (Negative) Urine Glucose (UA) Negative (Negative) Diagnostic Findings Abdomen/Pelvis CT 05/19/23 17:[address] WITH IV CONTRAST CT DOSE: 1247.87 mGy.cm HISTORY: Lower abdominal pain. TECHNIQUE: Multiaxial CT images of the abdomen and pelvis were performed following the use of intravenous contrast. A dose lowering technique was utilized adhering to the principles of ALARA. COMPARISON STUDY: Abdomen and pelvis CT 07/19/2022. FINDINGS: The lung bases are clear. No pneumoperitoneum. No pneumatosis. No acute fractures identified. There is a small fat-containing left inguinal hernia. Cholecystectomy. Pneumobilia is again noted. Mild bile duct dilatation, unchanged. The main portal vein is patent. No hepatic or splenic masses. The adrenal glands unremarkable. There are few subcentimeter bilateral renal hypodense lesions. These are technically too small to characterize but favor cysts. There is a 2 mm right renal stone. No ureteral stones. No hydronephrosis. No retroperitoneal lymphadenopathy. Normal caliber abdominal aorta. The main pancreatic duct stent has been removed. There is a small amount of gas within the main pancreatic duct. A few punctate calcifications within the pancreas. The main pancreatic duct is mildly dilated up to 5.7 mm. There is question of minimal peripancreatic inflammatory change. Therefore, these findings could represent a mild acute on chronic pancreatitis. No pelvic lymphadenopathy or pelvic free fluid. There is mild bladder wall thickening. The uterus and bilateral adnexa are unremarkable. No bowel wall thickening or obstruction. The appendix is distended and fluid-filled measuring up to 12 mm in diameter. There is an 8 mm hyperdense nodule at the base of the appendix which may represent an appendicolith. Therefore, by CT criteria, this would be consistent with an early acute appendicitis. A mucocele could also have a similar appearance. Surgical consultation recommended. Of note, the appendix was not distended on the prior study. IMPRESSION: 1. The appendix is distended and fluid-filled measuring up to 12 mm in diameter. There is an 8 mm hyperdense nodule at the base of the appendix which may represent an appendicolith. Therefore, by CT criteria, this would be consistent with an early acute appendicitis. A mucocele could also have a similar appearance. Surgical consultation recommended. 2. Questionable minimal peripancreatic inflammatory change. This could represent a mild acute on chronic pancreatitis. Recommend correlation with pancreatic enzymes. 3. Right-sided nephrolithiasis. No hydronephrosis. 4. Additional findings as described above. ACT 112: Negative or not required by law. Electronically signed by: Farzad Ray M.D. 05/19/2023 8:38 PM Medications Administered Current Inpatient Medications Acetaminophen (Acetaminophen 500 Mg Tab) 500 mg PO Q6H PRN PRN Reason: Pain/Fever Stop: 06/19/23 00:00 Last Admin: 05/20/23 01:44 Dose: 500 mg Acetaminophen/Codeine Phosphate (Acetaminophen W/Codeine #3 1 Tab) 1 tab PO QID PRN PRN Reason: pain not relieved by tylenol Stop: 06/19/23 00:00 Amlodipine Besylate (Amlodipine Besylate 5 Mg Tab) 2.5 mg PO QPM HOLLY Stop: 06/19/23 20:59 Aspirin (Aspirin 81 Mg Ectab) 81 mg PO HS HOLLY Stop: 06/19/23 20:59 Atenolol (Atenolol 25 Mg Tablet) 25 mg PO BID HOLLY Stop: 06/19/23 08:59 Atorvastatin Calcium (Atorvastatin 20 Mg Tab) 20 mg PO QPM HOLLY Stop: 06/19/23 20:59 Citalopram Hydrobromide (Citalopram 20 Mg Tab) 10 mg PO QAM HOLLY Stop: 06/19/23 08:59 Enoxaparin Sodium (Enoxaparin Inj 40 Mg/0.4 Ml Syr) 40 mg SQ QAM HOLLY Stop: 06/19/23 08:59 Gabapentin (Gabapentin 300 Mg Cap) 300 mg PO HS HOLLY Stop: 06/19/23 20:59 Gabapentin (Gabapentin 100 Mg Cap) 100 mg PO BID@0900,1400 HOLLY Stop: 06/19/23 08:59 Lactated Ringer's (Lr) 1,000 mls @ 100 mls/hr IV .Q10H ONE Stop: 05/20/23 09:33 Last Admin: 05/20/23 01:33 Dose: 100 mls/hr Promethazine HCl 12.5 mg/ (Sodium Chloride) 50.5 mls @ 202 mls/hr IV Q6H PRN PRN Reason: Nausea And Vomiting Stop: 06/19/23 00:00 Ketorolac Tromethamine (Ketorolac Tromethamine 15 Mg/Ml Vial) 15 mg IV Q6H PRN PRN Reason: Pain Stop: 05/25/23 00:00 Levothyroxine Sodium (Levothyroxine Sodium 175 Mcg Tablet) 175 mcg PO DAILYBB HOLLY Stop: 06/19/23 06:29 Last Admin: 05/20/23 06:00 Dose: 175 mcg Lorazepam (Lorazepam 0.5 Mg Tab) 0.5 mg PO TID PRN PRN Reason: Anxiety Stop: 06/19/23 00:00 Losartan Potassium (Losartan Potassium 50 Mg Tab) 100 mg PO QAM HOLLY Stop: 06/19/23 08:59 Pantoprazole Sodium (Pantoprazole 40 Mg Tab) 40 mg PO QAM HOLLY Stop: 06/19/23 08:59
[2023-05-20] MEDS ORDERED: PANTOprazole 40 MG TAB PO SCH (09:00)
[2023-05-20] MEDS ORDERED: ATENOLOL 25 MG TABLET PO SCH (09:00)
[2023-05-20] MEDS ORDERED: cefTRIAXone SODIUM 2,000 MG in DEXTROSE 5% 50 ML IV SCH (09:00)
[2023-05-20] MEDS ORDERED: GABAPENTIN 100 MG CAP PO SCH (09:00)
[2023-05-20] MEDS ORDERED: CITALOPRAM 20 MG TAB PO SCH (09:00)
[2023-05-20] MEDS ORDERED: ENOXAPARIN INJ 40 MG/0.4 ML SYR SQ SCH (09:00)
[2023-05-20] MEDS ORDERED: LOSARTAN POTASSIUM 50 MG TAB PO SCH (09:00)
--- NOTE | 2023-05-20 09:30 | Surgery Progress Note ---
Date of Service May 20, 2023 Assessment & Plan (1) UTI (urinary tract infection): Plan: Seems to be the etiology of her admission. Primary service will start antibiotics. Clinically not consistent with acute appendicitis. I do want her to follow-up with me though to discuss the potential mucocele. (2) Lower abdominal pain: (3) Vomiting and diarrhea: Admission and Anticipated Discharge Date Admission Date: May 19, 2023 Subjective Patient seen. Is feeling well. The lower abdominal pain she came in with is currently not present Physical Exam Constitutional: WD/WN, vitals as above no acute distress and not ill appearing Eyes: PERRL, conjunctivae normal, anicteric sclerae EOM intact bilaterally ENMT: external ear and nose normal, oropharynx normal Ears: no hearing impairment Neck: trachea midline, no thyromegaly Respiratory: normal respiratory effort; no respiratory distress and does not use accessory muscles Cardiovascular: Rate/Rhythm: regular rate and regular rhythm Gastrointestinal (Abdomen): Soft. Nontender. Nondistended. Improved from yesterday. Skin: no rashes, warm and dry Psychiatric: Orientation: alert, oriented x 3 and cooperative Results & Data Vital Signs (Past 12 Hours) Vital Signs Temp Pulse Pulse Pulse Resp BP BP 05/20/23 07:46 36.4 C L 57 L 16 122/72 05/20/23 00:55 05/20/23 00:55 05/20/23 00:55 36.9 C 65 16 145/86 H 05/20/23 00:00 62 22 145/73 H 05/19/23 23:59 63 20 143/77 H 05/19/23 23:30 66 18 05/19/23 23:00 65 17 05/19/23 22:09 66 18 152/87 H 05/19/23 22:45 67 05/19/23 22:12 67 18 152/87 H Pulse Ox O2 Del Method 05/20/23 07:46 96 Room Air 05/20/23 00:55 Room Air 05/20/23 00:55 Room Air 05/20/23 00:55 97 Room Air 05/20/23 00:00 97 05/19/23 23:59 98 05/19/23 23:30 98 05/19/23 23:00 95 05/19/23 22:09 99 05/19/23 22:45 05/19/23 22:12 99 Room Air PG Care Time/CCT Total # of Minutes Spent Total Time Spent with Patient: Total time spent is greater than 50% in coordination of care (as documented) at patient's floor/unit and/or counseling patient: Coding Level of Care Code 03428 SUB INP/OBS CARE 2/35MIN Diagnoses UTI (urinary tract infection) N39.0 Lower abdominal pain R10.30 Vomiting and diarrhea R11.10; R19.7
--- NOTE | 2023-05-20 12:48 | Discharge Summary ---
Discharge Summary Date of Service May 20, 2023 Notes For Next Care Provider Treated for UTI Has an abnormality on appendix that is consistent with mucocele. General surgeon would like to see her in two weeks to discuss outpatient appendectomy. Medication Changes From Visit cefdinir 300mg PO BID x 7 days Admission HPI Per Admitting Provider History obtained from patient and records. Medical history significant for nonobstructive CAD, hypertension, hyperlipidemia, idiopathic chronic pancreatitis, hypothyroidism, prediabetes, sarcoidosis. Last confinement 2021 for near syncope, COVID-19 illness. Yesterday, patient noted achy lower abdominal pain with nausea/vomiting, loose watery stools. Different from pancreatitis pain as per patient. Patient denies chest pain, SOB, fever or chills. 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, retired [employer] Principal Dx & Hospital Course #1 = Principal Diagnosis (1) UTI (urinary tract infection): (2) Abnormal CT of the abdomen: Plan 73-year-old female with a history of idiopathic chronic pancreatitis presented with lower abdominal pain for a few days. Work-up in the ER included a CT scan of the abdomen pelvis with IV contrast revealing abnormalities with the appendix. General surgery was consulted and recommended this may be removed but can be done as an outpatient. Patient has a history of frequent UTIs and was found to have another UTI secondary to gram-negative bacilli. Culture was still pending at time of discharge. She was doing well on Zosyn and then Rocephin. Discharged on cefdinir course for 7 days. Close primary care follow-up was recommended. At time of discharge she was hemodynamically stable and afebrile and tolerating p.o. She was ambulating independently. was at the bedside and all questions were answered. She continues on Premarin vaginal cream for prevention. Updated Medication List Medication Instructions Recorded Confirmed Type amlodipine 2.5 mg tablet 2.5 mg PO QPM 05/19/23 05/19/23 History amoxicillin 500 mg capsule 2,000 mg PO DIRECTED 05/19/23 05/19/23 History aspirin 81 mg chewable tablet 81 mg PO DAILY 05/19/23 05/19/23 History atenolol 25 mg tablet 25 mg PO BID 05/19/23 05/19/23 History atorvastatin 20 mg tablet 20 mg PO QPM 05/19/23 05/19/23 History citalopram 10 mg tablet 10 mg PO QAM 05/19/23 05/19/23 History conjugated estrogens 0.625 mg/gram 1 applic vaginal [id number] PRN .. 05/19/23 05/19/23 History vaginal cream (Premarin) gabapentin 100 mg capsule 100 mg PO .BID UD 05/19/23 05/19/23 History gabapentin 100 mg capsule 300 mg PO HS 05/19/23 05/19/23 History levothyroxine 175 mcg tablet 175 mcg PO QAM 05/19/23 05/19/23 History (Synthroid) losartan 100 mg tablet 100 mg PO QAM 05/19/23 05/19/23 History pantoprazole 40 mg tablet,delayed 40 mg PO QAM 05/19/23 05/19/23 History release cefdinir 300 mg capsule 300 mg PO BID #14 caps 05/20/23 Rx Hospital Stay Data Consultations 05/19/23 22:17 ED Decision to Admit Stat 05/20/23 00:01 Consult General Surgery Routine Diagnostic Imagining Performed 05/19/23 17:17 CT abd pelvis IV con only Stat Pending Results Patient Have Any Pending Studies at Discharge: Yes Discharge Instructions Given to Patient (Per Discharging Provider) Please take all medications as instructed on discharge list below. It is recommended that you follow-up with your primary care doctor within 1 week of discharge to ensure you are still doing well after returning home. If you do develop dysuria consider Azo [id number]. Please complete entire antibiotic course. Please follow-up with Dr. Stevenson Steele, general surgeon, as instructed in a couple of weeks. There is a possibility of still needing to remove your appendix, which will be considered at that time. It was a pleasure taking care of you! Please call if you have any questions or problems. You can reach a [facility] hospitalist on duty at [facility] 24 hours a day by calling [phone]. Take care of yourself. Julisa Herr, DO [facility]ist Total Time Total Time Spent Total Time Spent (In Minutes): 60
[2023-05-20] MEDS ORDERED: ASPIRIN 81 MG ECTAB PO SCH (21:00)
[2023-05-20] MEDS ORDERED: ATORVASTATIN 20 MG TAB PO SCH (21:00)
[2023-05-20] MEDS ORDERED: GABAPENTIN 300 MG CAP PO SCH (21:00)
[2023-05-20] MEDS ORDERED: amLODIPine BESYLATE 5 MG TAB PO SCH (21:00)
== END 2023-05-20 14:19 | disposition home or self-care (01) ==
LOC: ED 17:09 → 3W 17:09 → SUATTDRO 23:59 → 3W 05-20 00:37